=== PATIENT | female | born 1950 | race Caucasian/White ===

== ENCOUNTER 2018-08-08 06:50 | Day surgery (SDC) | payer MEDICARE, OTHER, SELFPAY ==
[2018-08-08] VITALS (20 sets, daily range): BP systolic 93–118; BP diastolic 37–86; PULSE 55–78; RESP 13–20; TEMP 36.4–37; O2SAT 96–100; BMI 41.7; BMI 42.9
[2018-08-08 07:21] LABS: Bedside Glucose 170 mg/dL (70-110)
[2018-08-08 09:21] LABS: ACT Activated Clotting Time 202 sec (74-137)
[2018-08-08] MEDS: 0.9% Normal Saline 1,000 ML 150 ML IV (10:00)
--- NOTE | 2018-08-08 10:09 | EKG12_ITS ---
Test Reason : POST PCI Blood Pressure : / mmHG Vent. Rate : 062 BPM Atrial Rate : 062 BPM P-R Int : 182 ms QRS Dur : 076 ms QT Int : 438 ms P-R-T Axes : 072 067 053 degrees QTc Int : 444 ms Sinus rhythm with Premature atrial complexes Low voltage QRS Borderline ECG No previous ECGs available Confirmed by QUETA VALLEJO, ASYA ([id number]), associate professor of musicology MAURICIO LEE ([id number] on 08/14/2018 3:50:35 PM Referred By: Adriano Clarke Confirmed By:ASYA BIRCH MD
--- NOTE | 2018-08-08 10:41 | CL.I_ITS ---
Patient Name: VANIA VASQUEZ Study Date: 08/08/2018 Performing: Adriano Clarke MD Ht: 64.17 inches 163 cm : 1950 Wt: 242.51 lbs 110 kg Age: 68 Gender: female BSA: 2.13 PROCEDURE(S) PERFORMED TT86-VED/COR/LV BA78-PCL W OR WO PTCA, SINGLE CORONARY ARTERY CLINICAL PROFILE AND CO-MORBIDITIES Indications: New Onset Angina <= 2 months, Stable Known CAD Heart Failure: None Stress/Imaging Stress Test w/SPECT MPI: Yes Result: Positive Intermediate Risk Stress Test with S PECT MPI: Positive Intermediate Risk Angina Classification Anginal Classification w/in 2 Weeks: CCS IV CAD Presentations: Unstable angina. Comorbidities/Risk Factors: Hypertension Dyslipidemia Diabetes Mellitus: Diabetes Therapy: Oral Prior PCI CONCLUSIONS Single vessel CAD of the distal LAD and LAD in stent restenosis. Successful PTCA/CATALINO distal LAD just upstream from previous CATALINO utilizing a 2.5 x 8 Promus Synergy; 75 %-->0%, no dissection. Successful angionsculpt to distal LAD ISR with a 2.0 x 12 ANGIOSCULPT at 8 jasen throughout distal LAD; 75%-->30%, no dissection; pt had similar CP symptoms during balloon inflation. RECOMMENDATIONS Referred for immediate PCI Risk factor modification Effient (Prasugrel) for at least 12 months Management as per referring Assistant Elementary Teacher Highly recommend quitting all tobacco products Follow up with primary director motion picture Risk factor modification ASA Indefinitley Plavix for at least 12 months Routine post interventional care Refer for Outpatient Cardiac Rehab Manual sheath removal per protocol Follow up with primary director motion picture Dr Lutz Pt may have similar CP for several months after angiosculpt, but if symptoms worsen or accelarate, wo uld have low threshold for additional 2.25 x 30 Promus stent to distal LAD ISR. Successful Mynx closure. DESCRIPTION OF PROCEDURE The patient arrived to the procedure lab. The risks and benefits of the procedure as well as a full d escription of our services here and lack of surgical backup were fully explained to the patient and/o r their significant other prior to the catheterization. The Timeout was completed, verifying the sheldon ect patient and procedure. The patient's procedural site was prepped and draped in the usual fashion. Local anesthetic was given subcutaneously to right groin region with Lidocaine 2%. Using a modified Seldinger technique, arterial access was obtained via the right femoral artery, a 4Fr sheath was inse rted. Left Coronary Artery selective angiography was performed in multiple views using a 4 Fr. JL5 c atheter. Right Coronary Artery selective angiography was then performed in multiple views using a 4 F r. 3DRC catheter. Left Ventriculography was performed in CHE projection using a 4 Fr. Pigtail cathete r. LV to AO pullback pressures were then recordedThe images were reviewed and options discussed. A de cision was then made to proceed with an Intervention, IVUS or other adjunct procedure. Arterial sheath was exchanged for a 6 Fr Sheath. ebu 3.75 Guide catheter was inserted and engaged int o the LCA. bmw Guide wire was advanced to the LAD. angiosculpt 2.0 x 10 Cutting balloon catheter was advanced to the lesion in the LAD, distal. angiosculpt 2.0 x 10 Cutting balloon catheter was advanced to the lesion in the LAD, distal. Angiogram performed post balloon dilatation. synergy 2.5 x 8 Ballo on catheter was advanced across lesion in the LAD, distal. Angiogram performed pre stent deployment. Angiogram performed post stent deployment. The arterial sheath was pulled and a Mynx closure device was deployed for hemostasis CORONARY ANGIOGRAPHY DOMINANCE: Right Dominant LEFT HEART ASSESSMENT Left Ventricular Ejection Fraction: by LV Gram 65 % Normal Left Ventricular systolic function LVEDP: 20 mmHg Elevated Left Ventricular End Diastolic Pressure Normal LV wall motion LEFT MAIN: Angiographically normal LEFT ANTERIOR DECENDING ARTERY: DISTAL LAD: Instent restenosis 75 %, 75 % Stenosis CIRCUMFLEX ARTERY: No significant disease noted RIGHT CORONARY ARTERY: Angiographically normal INTERVENTION INFORMATION LESION SITE: LAD (Distal) Lesion Complexity: Non-High/Non-C, lesion at bifurcation: No, thrombus present: No, lesion length: 8 mm, culprit lesion: Yes, In-stent restenosis: Yes Pre Stenosis: 75 % Pre intervention VENUS flow: 3 PROCEDURE: Cutting Balloon Angioplasty, Drug Eluting Stent Post Stenosis: 0-30 % Post intervention VENUS flow: 3 Lesion Devices: Cardinal 6F 11cm Sheath [employer] Synergy MR CATALINO 2.50x08 COMPLICATIONS No Complications PROCEDURE MEDICATIONS Oxygen: 2 L/min via nasal cannula Heparin 6000 unit(s) IV 08/08/2018 08:52:43 Nitro 200 mcg IC 08/08/2018 08:53:37 Nitro 200 mcg IC 08/08/2018 08:53:37 Nitro 200 mcg IC 08/08/2018 09:01:17 SUMMARY OF HEMODYNAMIC DATA Time AIR REST ECG 07:16:03 AO 142/64 (94) SA 08:36:08 LV 136/-13, 21 08:41:47 LV 139/-15, 20 08:41:54 LVp 144/-15, 23 08:42:17 AOp 139/58 (92) 08:42:22 Signed By Adriano Clarke MD On 08/08/2018 09:32:56 Adriano Clarke MD
[2018-08-08] MEDS: Glimepiride 4 MG Tablet PO (11:12)
[2018-08-08] MEDS: Multivitamins,Therapeutic Tablet 1 TABLET PO (11:12)
[2018-08-08] MEDS: Loratadine 10 MG Tablet PO (11:12)
[2018-08-08] MEDS: Bumetanide 2 MG Tablet PO (11:13)
[2018-08-08] MEDS: Gabapentin 300 MG Capsule PO ×2 (11:13→19:02)
[2018-08-08 11:16] LABS: Bedside Glucose 171 mg/dL (70-110)
--- NOTE | 2018-08-08 11:44 | CRPHASE1 ---
Patient Data/Charges Phase II Referral:: [facility] Start Phase II:: FOLLOWING OFFICE VISIT WITH GRAIN COMBINE DRIVER Risk Factors/Lifestyle Hx Hypertension: Yes Hx Diabetes Mellitus Type 1: No Hx Diabetes Mellitus Type 2: Yes Hx Metabolic Disorders: Yes Hx Dyslipidemia: Yes Hx Obesity: Yes Height: 5 ft 4 in - BMI 42.9 Post-Menopausal: Yes Stress: Home/Family Risk Factor for Sedentary Lifestyle: Moderate Risk Past Cardiac Illness: Coronary Artery Disease, Previous PCI w/Stent Phase I Education Given On:: [place], Nutrition, Antiplatelet medication, Diabetes - Type II Issues Affecting Care:: None Knowledge of Condition:: Yes Learning Preferences: Verbal, Written Medical/Surgical History CAD:: Yes Diabetes Type II:: Yes Hypertension:: Yes Dyslipidemia:: Yes PTCA:: Yes - PRIOR PCI Discharge/Home/Social Eval Discharge Disposition: Home Marital Status: - GOING THRU PANCREATIC CANCER
--- NOTE | 2018-08-08 11:47 | CRPHASE1_ITS ---
Patient Data/Charges Phase II Referral:: [facility] Start Phase II:: FOLLOWING OFFICE VISIT WITH MACHINE WELDER Risk Factors/Lifestyle Hx Hypertension: Yes Hx Diabetes Mellitus Type 1: No Hx Diabetes Mellitus Type 2: Yes Hx Metabolic Disorders: Yes Hx Dyslipidemia: Yes Hx Obesity: Yes Height: 5 ft 4 in - BMI 42.9 Post-Menopausal: Yes Stress: Home/Family Risk Factor for Sedentary Lifestyle: Moderate Risk Past Cardiac Illness: Coronary Artery Disease, Previous PCI w/Stent Phase I Education Given On:: [place], Nutrition, Antiplatelet medication, Diabetes - Type II Issues Affecting Care:: None Knowledge of Condition:: Yes Learning Preferences: Verbal, Written Medical/Surgical History CAD:: Yes Diabetes Type II:: Yes Hypertension:: Yes Dyslipidemia:: Yes PTCA:: Yes - PRIOR PCI Discharge/Home/Social Eval Discharge Disposition: Home Marital Status: - GOING THRU PANCREATIC CANCER
--- NOTE | 2018-08-08 11:47 | CRPH1.INSTRU ---
General Education CAD and cardiac anatomy and function:: Patient communicates acknowledgment Explanation of diagnoses and procedures:: Patient communicates acknowledgment Sign/Symptoms of CO:: Patient communicates acknowledgment Antiplatelet therapy: Patient communicates acknowledgment Proper use of NTG-SL: Not instructed Emergency procedures and activation of EMS: Patient communicates acknowledgment Compliance of all prescribed medications: Patient communicates acknowledgment Dyslipidemia Recommendations Include:: Lipid profile not available, Reviewed NCEP/ATP guidelines, Therapeutic Lifestyle Change dietary guidelines Dyslipidemia Response Code:: Patient communicates acknowledgment Overweight/Obesity Patient Overweight/Obesity Risk Factors Are:: Obesity - > or = 30 Recommendations Include:: Weight loss of 5-10%, Reduced calorie diet, Exercise 5-7 times/week Overweight/Obesity:: Patient communicates acknowledgment Hypertension Recommendations Include:: BP <130/80 if diabetic, DASH dietary guidelines, Decrease/maintain normal body weight, Moderation of ETOH Hypertension:: Patient communicates acknowledgment Heart Disease Patient Heart Disease Risk Factors Are:: Previous cardiac event Heart Disease Response Code:: Patient communicates acknowledgment Diabetes Patient Diabetes Risk Factors Are:: Elevated blood sugars Recommendations Include:: Maintain fasting blood sugars 70-110 md/dL, Maintain HgbA1c of 6% or less, Monitor blood sugar as prescribed, Diabetic dietary guidelines, Decrease/maintain body weight Diabetes:: Patient communicates acknowledgment Metabolic Syndrome Patient Metabolic Syndrome Risk Factors Are [3 of 5]:: Fasting blood sugar > 100 mg/dL, Waist circumference > 35 [female] or 40 [male], Hypertension, Low HDL <40 [male] or < 50 [female] Recommendations Include:: Reinforce compliance to risk factor modifications, Patient is diabetic, Encouraged follow-up with Primary Care Physician Metabolic Syndrome Response Code:: Patient communicates acknowledgment Sedentary Patient Sedentary Risk Factors Are:: Lack of regular exercise Recommendations Include:: Aerobic exercise 5-7 times/week for 20-30 minutes continuously, Benefits of regular exercise, Discussed home walking program, Monitored Outpatient Cardiac Rehab Sedentary Response Code:: Patient communicates acknowledgment Stress Recommendations Include:: Identification of stressors, and assessment of coping skills, Stress management techniques Stress Response Code:: Patient communicates acknowledgment - GOING THRU PANCREATIC CANCER
--- NOTE | 2018-08-08 15:51 | PCM.DC.CCA ---
Discharge Diet: Low fat/ Low Cholesterol Discharge Activity: Return to Normal Activity May shower in (days): 1 Lifting Restrictions: 10 pounds and also avoid any pushing or pulling for 3 days after your test. Additional Instructions: Keep your appt with Dr. Lutz. He will likely refer you to cardiac rehab. You will need to stay on Effient for at least 12 months prior to stopping and or holding for any reason. If anyone asks you to so this please call Dr. Shafer office prior. Allergies/Adverse Reactions: Allergies furosemide Adverse Reaction (Verified 08/07/18 14:41) Other Sulfa (Sulfonamide Antibiotics) Adverse Reaction (Verified 08/07/18 14:41) Unknown Medications to take at Discharge RX: Aspirin E.C. [Ecotrin] 81 mg PO DAILY@0800 08/07/18 RX: Atorvastatin Calcium [Lipitor] 80 mg PO QHS 08/07/18 RX: Bumetanide [Bumex] 2 mg PO DAILY 08/07/18 RX: Carvedilol [Coreg (Beta Jammie)] 12.5 mg PO BID 08/07/18 RX: Gabapentin [Neurontin] 300 mg PO TIDCM 08/07/18 RX: Glimepiride [Amaryl] 4 mg PO DAILY 08/07/18 RX: Lisinopril [Zestril] 5 mg PO DAILY 08/07/18 RX: Loratadine 10 mg PO DAILY 08/07/18 RX: Multivitamin [Multiple Vitamins] 1 each PO DAILY 08/07/18 RX: Potassium Chloride [K-Dur] 20 meq PO BID 08/07/18 RX: Prasugrel Hydrochloride [Effient] 10 mg PO DAILY 08/07/18 RX: Metformin HCl [Metformin HCl ER] 500 mg PO DAILY #0 08/09/18 Primary Care Physician: Percy Harrison MD [Primary Care Provider] - Test Results: Test results from this visit will be discussed in further detail at your follow-up appointment, if applicable. Please Follow Up With: Dimitry Lutz MD When: As Scheduled 1-2 weeks Cardiac Rehabilitation Info Cardiac Rehabilitation Program Information: Cardiac Rehabilitation is important for patients like you who are recovering from a heart problem. Cardiac rehabilitation programs are recognized as integral to the continued care of the patient with coronary heart disease. The cardiac rehabilitation program is designed to optimize a patient's physical, psychological, and social functioning. Health physician primary care sports medicine work in cardiac rehabilitation programs and assist you with getting the treatments you need to get stronger and healthier - like exercise, healthy eating habits, and medications. Cardiac rehabilitation has been show to help people with heart problems live longer and have better life enjoyment than people who do not go to cardiac rehabilitation. Please contact the Cardiac Rehabilitation Program at [facility] at in two weeks if you have not heard from them.
[2018-08-08] MEDS: Carvedilol 12.5 MG Tablet PO (21:12)
[2018-08-08] MEDS: Atorvastatin Calcium 80 MG Tablet PO (21:12)
[2018-08-08 21:30] LABS: Bedside Glucose 177 mg/dL (70-110)
[2018-08-09] VITALS (12 sets, daily range): BP systolic 94–158; BP diastolic 47–92; PULSE 59–75; RESP 15–19; TEMP 37.1; O2SAT 94–98
[2018-08-09 04:51] LABS: Hematocrit 40.6 % (37-47); Hemoglobin 13.5 g/dl (12.0-15.0); Mean Corp Hgb Conc 33.3 g/gl (32-36); Mean Corpuscular Hgb 28.8 pg (27.0-32.0); Mean Corpuscular Volume 86.8 fL (81-99); Mean Platelet Vol. 11.7 fl (6.2-12.0); Platelet Count 123 K/mm3 (150-450); RBC Distribution Width CV 13.8 % (11.6-14.6); RBC Distribution Width SD 43.6 fl (35.1-43.9); Red Blood Count 4.68 M/mm3 (4.2-5.4); White Blood Count 8.7 K/mm3 (4.4-11.0)
[2018-08-09 04:52] LABS: Scan Indicated on CBC? Y/N NO
[2018-08-09 05:16] LABS: Anion Gap 8 (5-15); BUN 16 mg/dL (7-18); BUN/Creat Ratio 22.9 RATIO (10-20); Calcium,Total 8.5 mg/dL (8.5-10.1); Chloride 106 mmol/L (98-107); Cholesterol 130 mg/dL (200); EST Glomerular Filtration Rate 88 mL/min (>60); Est Glom Filt Rate - Afr Amer 107 mL/min (>60); Estimated Creatinine Clearance 45.85 ml/min; Glucose 154 mg/dL (74-106); High Density Lipoprotein 75 mg/dL; Potassium 3.8 mmol/L (3.5-5.1); Sodium Level 142 mmol/L (136-145); Triglycerides 69 mg/dL; Very Low Density Lipoprotein 14 mg/dL (5-40)
[2018-08-09] MEDS: Gabapentin 300 MG Capsule PO (08:09)
[2018-08-09] MEDS: Aspirin E.C. 81 MG Tablet PO (08:09)
[2018-08-09] MEDS: Multivitamins,Therapeutic Tablet 1 TABLET PO (08:09)
[2018-08-09] MEDS: Glimepiride 4 MG Tablet PO (08:09)
[2018-08-09 08:16] LABS: Bedside Glucose 156 mg/dL (70-110)
--- NOTE | 2018-08-09 09:19 | PCM.PN.CARD ---
Subjectve: Patient doing well this morning. No 24-hour events. Telemetry negative. The right groin is clean/dry/intact. EKG shows normal sinus rhythm, no acute changes. Hemoglobin and creatinine within nominal limits. Objective: Vital Signs Temp Pulse Resp BP Pulse Ox 98.7 F 73 16 158/92 H 98 08/09/18 04:00 08/09/18 08:00 08/09/18 08:00 08/09/18 08:00 08/09/18 08:00 Oxygen Flow Rate (L/min) 2 Oxygen Delivery Method Room Air Weight: 249 lb 5.485 oz Body Mass Index (BMI) 42.9 Intake and Output for Last 24 Hours 08/07/18 08/08/18 08/09/18 23:59 23:59 23:59 Intake Total 1480 / 1480 720 / 720 Output Total 1485 / 1485 Balance -5 / -5 720 / 720 General: Awake, Alert, Oriented x 3 HEENT: PERRL, EOMI, Sclera Non Icteric Neck: Supple, Good ROM, No Lymph Node Enlargement Lungs: Clear to auscultation Cardiovascular: Regular Rhythm, Normal S1, Normal S2, No Murmurs, No Rubs, No Gallops Vascular: No Carotid Bruits, Normal Femoral Pulses, Normal Radial Pulses, Normal Dorsalis Pedal Pulse, Normal Posterior Tibial Pulses Abdomen: Bowel Sounds Present, Soft, Non Tender, No HSM, No Organomegaly Extremities: No Cyanosis, No Clubbing, No edema Neurological: No Focal Motor or Sensory Deficit 08/09/18 04:40: WBC 8.7, RBC 4.68, Hgb 13.5, Hct 40.6, MCV 86.8, MCH 28.8, MCHC 33.3, RDW 13.8, RDW Differential 43.6, Plt Count 123 L, MPV 11.7 08/09/18 04:40: Sodium 142, Potassium 3.8, Chloride 106, Carbon Dioxide 28.0, Anion Gap 8, BUN 16, Creatinine 0.70, Est GFR (MDRD) Af Amer 107, Est GFR (MDRD) Non-Af 88, BUN/Creatinine Ratio 22.9 H, Glucose 154 H, Calcium 8.5, Triglycerides 69, Cholesterol 130, LDL Cholesterol 41, VLDL Cholesterol 14, HDL Cholesterol 75 Rhythm: EKG: ECHO: Stress Test: Cardiac Cath: PCI: CT Surgery: Holter monitor: EPS: PPM: CXR: Chest CT Scan: Medical Necessity - Tobacco Use Smoking Status: Former smoker Assessment/Plan 1. Coronary artery disease: Patient is status post angioscope of known distal LAD in-stent restenosis, followed by additional drug-eluting stenting just upstream from her distal LAD stent. Patient's chest pain has resolved, the patient feels much better. Would recommend holding off on any additional stenting of her LAD in-stent restenosis at least for 3 months time to allow healing to take place. However if the patient has recurrent exertional anginal symptoms which are either worsening or accelerating, we can consider additional in-stent restenosis stenting of her distal LAD with an opposite drug-eluting stent such as resolute. In the meantime she will continue her aspirin, Plavix, antihypertensive medications and follow-up with Dr. Moser. She will be enrolled in cardiac rehab in 2 weeks time. 2. Patient may be discharged home. Code Visit Inpatient E&M: 79656 Subs Hosp L2
[2018-08-09] MEDS: Lisinopril 5 MG Tablet PO (09:33)
[2018-08-09] MEDS: Loratadine 10 MG Tablet PO (09:33)
[2018-08-09] MEDS: Carvedilol 12.5 MG Tablet PO (09:33)
[2018-08-09] MEDS: Bumetanide 2 MG Tablet PO (09:33)
--- NOTE | 2018-08-09 09:47 | PN.CARD_ITS ---
Objective: Vital Signs Temp Pulse Resp BP Pulse Ox 98.7 F 73 16 158/92 H 98 08/09/18 04:00 08/09/18 08:00 08/09/18 08:00 08/09/18 08:00 08/09/18 08:00 Oxygen Flow Rate (L/min) 2 Oxygen Delivery Method Room Air Weight: 249 lb 5.485 oz Body Mass Index (BMI) 42.9 Intake and Output for Last 24 Hours 08/07/18 08/08/18 08/09/18 23:59 23:59 23:59 Intake Total 1480 / 1480 720 / 720 Output Total 1485 / 1485 Balance -5 / -5 720 / 720 08/09/18 04:40: WBC 8.7, RBC 4.68, Hgb 13.5, Hct 40.6, MCV 86.8, MCH 28.8, MCHC 33.3, RDW 13.8, RDW Differential 43.6, Plt Count 123 L, MPV 11.7 08/09/18 04:40: Sodium 142, Potassium 3.8, Chloride 106, Carbon Dioxide 28.0, Anion Gap 8, BUN 16, Creatinine 0.70, Est GFR (MDRD) Af Amer 107, Est GFR (MDRD) Non-Af 88, BUN/Creatinine Ratio 22.9 H, Glucose 154 H, Calcium 8.5, Triglycerides 69, Cholesterol 130, LDL Cholesterol 41, VLDL Cholesterol 14, HDL Cholesterol 75 Rhythm: EKG: ECHO: Stress Test: Cardiac Cath: PCI: CT Surgery: Holter monitor: EPS: PPM: CXR: Chest CT Scan: Medical Necessity - Tobacco Use Smoking Status: Former smoker
--- NOTE | 2018-08-09 10:09 | EKG12_ITS ---
Test Reason : AM EKG Blood Pressure : / mmHG Vent. Rate : 065 BPM Atrial Rate : 065 BPM P-R Int : 170 ms QRS Dur : 084 ms QT Int : 418 ms P-R-T Axes : 046 058 053 degrees QTc Int : 434 ms Normal sinus rhythm Low voltage QRS Borderline ECG When compared with ECG of 08-AUG-2018 09:56, MANUAL COMPARISON REQUIRED, DATA IS UNCONFIRMED Confirmed by QUETA VALLEJO, ASYA ([id number]), supervising film or videotape editor MAURICIO LEE ([id number]) on 08/14/2018 3:49:09 PM Referred By: Adriano Clarke Confirmed By:ASYA BIRCH MD
== END 2018-08-09 10:10 | disposition home or self-care (01) ==
LOC: CLSP 06:52 → ICU 08-09 07:05
PROVIDERS: Family Provider Family Medicine; PCP Family Medicine; Referring Provider Internal Medicine Cardiovascular Disease; Visit Provider Internal Medicine Cardiovascular Disease
DX: I25.10 Atherosclerotic heart disease of native coronary artery without angina pectoris (principal); T82.858A Stenosis of other vascular prosthetic devices, implants and grafts, initial encounter; I10 Essential (primary) hypertension; E78.5 Hyperlipidemia, unspecified; E11.9 Type 2 diabetes mellitus without complications; Z95.5 Presence of coronary angioplasty implant and graft; Z87.891 Personal history of nicotine dependence
CPT/HCPCS: 80048; 80061; 82962; 85027; 85347; 92928; 93005; 93458; C1760; J7030; J7040; C1725; C1769; C1874; C1887; C1894; C9600; Q9967

== ENCOUNTER 2018-09-12 05:43 | Emergency (ER) | payer MEDICARE, OTHER, SELFPAY ==
[2018-09-12 05:44] VITALS: BP 140/70; PULSE 93; RESP 16; TEMP 38.3; O2SAT 96; BMI 42.9
[2018-09-12] MEDS: Acetaminophen 500 MG Tablet 1000 MG PO (06:01)
[2018-09-12] MEDS: Azithromycin 250 MG Tablet 500 MG PO (06:01)
--- NOTE | 2018-09-12 06:02 | ED.DCSUM_ITS ---
- ER Visit Summary Date of Service: 09/12/18 Chief Complaint: Cough congestion History of Present Illness: The patient is a 68 F with cough and congestion for the past 3 days. Her iPhone caden told her she had a fever. She has no shortness of breath, cough is mostly nonproductive. She has upper airway congestion. No chest pain no rash no urinary symptoms. She has no neck pain or headache. Physical Examination: Patient does not appear in distress, she is not toxic. Moist mucous membranes, she has upper airway congestion and postnasal drip. No C-spine tenderness supple neck. Regular rate and rhythm without any obvious murmurs Clear lungs bilaterally, some bronchial breath sounds and a productive cough, speaking in full sentences without any obvious respiratory distress Abdomen soft and nontender no guarding or rebound Moves all extremities without any difficulty or pain. Skin does not show any obvious rashes or lesions, no trauma. Alert oriented ?3 with no gross focal deficit Emergency Department Course and Treatment: Patient likely has bronchitis, however she has a fever thus I am worried about progression to pneumonia. I will treat with antibiotics to prevent this for her safety. She received her influenza vaccination thus I am not worried about influenza, influenza has only been sporadic in this area. She understands that if she worsens she needs to return at this time there are no signs or symptoms of any other infection other than upper respiratory infection. Discharge stable condition Impression: Acute bronchitis This note was generated with [employer] dictation software. It may contain incorrect words, spelling, and punctuation that were not noted in review of the chart prior to signing ED Disposition - Plan for ED Patient: Disposition: Home or Assisted Living Chief Complaint: Fever Instructions: Acute Bronchitis Prescriptions: Azithromycin 250 mg PO DAILY #4 tab Referrals: Percy Harrison MD [Primary Care Provider] - 2 Days
[2018-09-12 06:13] VITALS: BP 140/70; PULSE 93; RESP 16; O2SAT 93
== END 2018-09-12 06:14 | disposition home or self-care (01) ==
PROVIDERS: Emergency Provider Emergency Medicine; Family Provider Family Medicine; PCP Family Medicine
DX: J20.9 Acute bronchitis, unspecified (principal); E11.9 Type 2 diabetes mellitus without complications; I10 Essential (primary) hypertension; E78.00 Pure hypercholesterolemia, unspecified; I25.10 Atherosclerotic heart disease of native coronary artery without angina pectoris
CPT/HCPCS: 99283

== ENCOUNTER 2019-05-27 10:05 | Emergency (ER) | payer MEDICARE, OTHER, SELFPAY ==
[2019-05-27 10:06] VITALS: BP 159/76; PULSE 64; RESP 18; TEMP 37.1; O2SAT 100; BMI 44.3
--- NOTE | 2019-05-27 10:15 | RAD_ITS ---
STUDY: X-RAY - LEFT SHOULDER REASON FOR EXAM: Female, 69 years old. Pain, decreased range of motion TECHNIQUE: 4 view(s) of the shoulder. COMPARISON: None. FINDINGS: There is an acute slightly impacted fracture of the surgical neck of the humerus with soft tissue swelling. There is mild degenerative arthrosis of the glenohumeral articulation. There is degenerative arthrosis of the acromioclavicular joint without inferior osseous spur formation. Normal acromion. The soft tissue structures are otherwise unremarkable. Normal visualized pulmonary apex. RAD/Shoulder min 2 Views IMPRESSION: Acute slightly impacted fracture at the surgical neck of the humerus with soft tissue swelling Electronically Signed: Andre Bolaños MD at 11:10 EDT , Service support ,
--- NOTE | 2019-05-27 10:22 | ED.VIS.UPPEX ---
History of Present Illness Chief Complaint: Upper Extremity Injury Informant: Patient Occurred: Today Mechanism/Context: Fall Onset: Today, Hours Context: Sudden Onset Timing: Continuous Quality of Pain: Dull, Aching Current Severity: Mild Maximum Severity: Severe Worsened by: Any attempt of movement Relieved by: Holding left upper extremity internally rotated and adductor at the shoulde Associated Symptoms: Loss of Funtion. Negative for: Parasthesia, Weakness Narrative: Patient states she was walking out of her doctor's appointment. She tripped. She landed on her left upper extremity. She states her arm was jammed. She complains of pain left shoulder. She is right-handed. She denies paresthesia, anesthesia buttocks. Denies head trauma. She states it hurts to breathe. She denies shortness of breath. Tetanus Immunization: 5-10 years Prior similar symptoms: No Recent Illness/Hospitalization: No - Past Medical History (1) Atherosclerotic heart disease of [place] coronary artery without angina pectoris Status: Chronic Past Medical History - Allergies and Home Meds Allergies/Adverse Reactions: Allergies furosemide Adverse Reaction (Verified 09/12/18 05:49) Other Sulfa (Sulfonamide Antibiotics) Adverse Reaction (Verified 09/12/18 05:49) Unknown Primary Care Physician: Percy Harrison MD [Primary Care Provider] - Prior records reviewed: Yes Past Medical History: - - Hypertension, hypercholesterolemia and type 2 diabetes Surgical History: noncontributory Lives: Spouse/ Significant Other Smoking Status: Never smoker Alcohol: None Drugs: None Review of Systems Eyes: Denies: Visual changes - bilaterally, Blurred Vision - bilaterally, Diplopia ENT: Reports: - - Negative epistaxis. Denies: Bilateral ear pain, Rhinorrhea, Sore throat Cardiovascular: Denies: Chest pain, Palpitations, Heart racing Respiratory: Denies: Dyspnea, Cough, Dyspnea on exertion Gastrointestinal: Denies: Abdominal pain, Nausea, Vomiting Musculoskeletal: Reports: Back pain - With deep breathing, Extremity Pain. Denies: Myalgias, Arthralgias, Neck pain, Swelling Skin: Denies: Rash, Abrasions, Wounds Neurological: Denies: Headache, Weakness, Parasthesia, Numbness Hematologic: Denies: Easy bruising, Easy bleeding Physical Exam Vital Signs/Narrative: Vital Signs Temp Pulse Resp BP Pulse Ox 05/27/19 10:06 98.7 F 64 18 159/76 H 100 Inital Vital Signs reviewed: Yes Right Shoulder: Negative for: Abrasion, Contusion, Deformity, Edema, Hematoma, Limited ROM, - Left Shoulder: Limited ROM - There is pain palpation over the proximal humerus. The glenoid fossa is not empty.. Negative for: Abrasion, Contusion, Deformity Right Humerus: Negative for: Abrasion, Contusion, Deformity, Edema, Hematoma, Limited ROM, - Left Humerus: Limited ROM. Negative for: Abrasion, Contusion, Deformity, Edema, Hematoma, - Right Elbow: Negative for: Abrasion, Contusion, Deformity, Edema, Hematoma, Limited ROM, - Left Elbow: - - No pain the patient over the lateral or medial malleolus. There is no pain no patient over the olecranon process. There is no pain to palpation over the radial head.. Negative for: Abrasion, Contusion, Deformity, Edema, Hematoma, Limited ROM Right Wrist: Negative for: Abrasion, Contusion, Deformity, Edema, Hematoma, Limited ROM, - Left Wrist: Negative for: Abrasion, Contusion, Deformity, Edema, Hematoma, Limited ROM, - Right Hand: Negative for: Abrasion, Contusion, Deformity, Limited ROM Left Hand: Negative for: Abrasion, Contusion, Deformity, Edema, Hematoma, Limited ROM, - General: Well nourished, Well developed Head: Normocephalic, Atraumatic. Negative for: Trauma, Tenderness Eyes: Perrl, EOMI. Negative for: Pale conjunctiva, Scleral icterus, - ENT: No Trauma, Moist Mucous Membranes, - - There is no CSF otorrhea or rhinorrhea. Neck: Nontender, Full ROM. Negative for: Spinal Tenderness, Paraspinal Tenderness Cardiovascular: Regular rate, Regular rhythm, No murmurs, Normal S1, Normal S2 Respiratory: No distress, CTA bilaterally, Chest nontender Skin: Normal color, No rash, No Trauma Neurological: Alert, Oriented x3, Cranial nerves II-XII grossly intact, Normal Strength, Normal Sensation, - - Axillary, median, radial and ulnar function intact. Psychological: Normal affect Diagnostic/Tx/Re-eval Chest X-Ray - ED: Read by ED Physician, - - Three-view x-ray of the left shoulder interpreted by me at 1105 reveals a proximal left humeral fracture at the surgical neck. There is no displacement or angulation. 05/27/19 10:15 Shoulder min 2 Views [RAD] Stat - Medical Decision Making Patient's history and physical exam is concerning for proximal humeral fracture. X-ray was obtained to evaluate for fracture versus dislocation versus contusion. IV was established and she was medicated with IV morphine for her discomfort. Patient was treated with sling and swath, opiate analgesia and referred to orthopedics. ED Disposition - Plan for ED Patient: Disposition: Home or Assisted Living Diagnosis: Nondisplaced fracture of proximal end of humerus Instructions: FRACTURE, Shoulder Prescriptions: Oxycodone HCl/Acetaminophen [Percocet 5/325] 1 tablet PO Q6H PRN PRN 5 Days #20 tablet PRN Reason: Left shoulder pain Transmission Status: Received by [id number] Referrals: Percy Harrison MD [Primary Care Provider] - Ruddy Baez DO [STAFF PHYSICIAN] - 5-7 Days Additional Instructions: Your prescription was sent to designated pharmacy on [address]
[2019-05-27] MEDS: Morphine 4 MG/ML Syringe IV (10:25)
== END 2019-05-27 11:45 | disposition home or self-care (01) ==
PROVIDERS: Emergency Provider Emergency Medicine; Family Provider Family Medicine; PCP Family Medicine
DX: S42.215A Unspecified nondisplaced fracture of surgical neck of left humerus, initial encounter for closed fracture (principal); W01.0XXA Fall on same level from slipping, tripping and stumbling without subsequent striking against object, initial encounter; Y93.89 Activity, other specified; Y92.531 Health care provider office as the place of occurrence of the external cause; Y99.8 Other external cause status; I25.10 Atherosclerotic heart disease of native coronary artery without angina pectoris; Z88.8 Allergy status to other drugs, medicaments and biological substances; Z88.2 Allergy status to sulfonamides; I10 Essential (primary) hypertension; E78.00 Pure hypercholesterolemia, unspecified; E11.9 Type 2 diabetes mellitus without complications
CPT/HCPCS: 73030; 96374; 99285; A4216

== ENCOUNTER → 2019-06-02 08:53 | Outpatient (CLI) | payer MEDICARE, OTHER, SELFPAY ==
[2019-06-02 08:44] VITALS: BMI 44.3
--- NOTE | 2019-06-02 09:09 | RAD_ITS ---
STUDY: X-RAY - LEFT SHOULDER REASON FOR EXAM: Female, 69 years old. Fracture TECHNIQUE: 4 view(s) of the shoulder. COMPARISON: May 27, 2019 FINDINGS: There is a slightly displaced fracture involving the greater tuberosity of the proximal humerus. The glenohumeral articulation is maintained. Electronically Signed: Bruce Messer MD at 4:31 EDT Tel , Service support , RAD/Shoulder min 2 Views
== END ==
PROVIDERS: Family Provider Family Medicine; PCP Family Medicine; Referring Provider Orthopaedic Surgery; Visit Provider Orthopaedic Surgery
DX: S49.92XA Unspecified injury of left shoulder and upper arm, initial encounter (principal)
CPT/HCPCS: 73030

== ENCOUNTER 2019-06-12 12:05 | Observation (INO) | payer MEDICARE, OTHER, SELFPAY ==
[2019-06-02 08:44] VITALS: BMI 44.3
[2019-06-12] VITALS (9 sets, daily range): BP systolic 104–145; BP diastolic 54–75; PULSE 56–69; RESP 14–22; TEMP 36.7–37.1; O2SAT 9–100; BMI 44.2; BMI 43.2
--- NOTE | 2019-06-12 12:08 | EKG12_ITS ---
Test Reason : Blood Pressure : / mmHG Vent. Rate : 060 BPM Atrial Rate : 060 BPM P-R Int : 180 ms QRS Dur : 082 ms QT Int : 432 ms P-R-T Axes : 044 022 031 degrees QTc Int : 432 ms Normal sinus rhythm Low voltage QRS Borderline ECG Confirmed by NAYELY VALLEJO, CAL ([id number]), supervising film or videotape editor MAURICIO LEE ([id number] on 06/13/2019 9:02:00 AM Referred By: CONG Confirmed By:CAL ADLER MD
--- NOTE | 2019-06-12 12:08 | RAD_ITS ---
STUDY: X-RAY CHEST REASON FOR EXAM: Female, 69 years old. Chest pain TECHNIQUE: Single AP portable view of the chest. COMPARISON: None. FINDINGS: The lungs are clear and expanded. There is no demonstrated pleural abnormality. Normal size heart. Normal mediastinum and hector. Normal visualized pulmonary arteries. Normal visualized aortic arch and descending thoracic aorta. Normal visualized thoracic spine. Acute fracture left humeral neck as seen on recent shoulder x-rays. There is no demonstrated abnormality of the visualized soft tissue structures of the upper abdomen. RAD/Chest 1 View (Portable) IMPRESSION: Normal x-ray examination of the chest. Electronically Signed: Seth Masterson MD at 12:36 EDT Tel , Service support ,
--- NOTE | 2019-06-12 12:14 | ED.VIS.GEN ---
History of Present Illness Chief Complaint: Chest Pain Informant: Patient Onset: Days Current Severity: Mild Narrative: History of 2 cardiac stents, reports she is been having intermittent chest pressure for weeks it intensified today with the chest pressure lasted longer, she indicates she fell about a week or 2 ago suffering a fracture to the left shoulder she is wearing a sling and swath she was walking to a drugstore and the chest pain intensified that resolved spontaneously she came in for evaluation. She has no history of DVT PE no fever no cough no abdominal pain she did not injure her chest when she fell Past Medical History - Allergies and Home Meds Allergies/Adverse Reactions: Allergies furosemide Adverse Reaction (Verified 09/12/18 05:49) Other Sulfa (Sulfonamide Antibiotics) Adverse Reaction (Verified 09/12/18 05:49) Unknown Primary Care Physician: Percy Harrison MD [Primary Care Provider] - Past Medical History: - - CAD 2 stents Surgical History: noncontributory Smoking Status: Never smoker Review of Systems General: Denies: Chills, Fever, Sweats Eyes: Denies: Visual changes - bilaterally, Diplopia ENT: Denies: Rhinorrhea, Sore throat Cardiovascular: Reports: Chest pain. Denies: Palpitations Respiratory: Denies: Dyspnea, Cough, Dyspnea on exertion Gastrointestinal: Denies: Abdominal pain, Nausea, Vomiting, Diarrhea, Melena, Hematochezia Genitourinary: Denies: Dysuria, Hematuria, Frequency Musculoskeletal: Reports: Extremity Pain. Denies: Back pain Skin: Denies: Rash, Wounds Neurological: Denies: Headache, Weakness, Numbness Physical Exam Vital Signs/Narrative: Vital Signs Temp Pulse Resp BP Pulse Ox 06/12/19 12:06 98.1 F 69 14 145/69 H 9 General: Well nourished, Well developed, No Acute Distress Head: Normocephalic, Atraumatic Eyes: Perrl, EOMI ENT: Moist mucous membranes, No rhinorrhea Neck: Supple, Nontender Cardiovascular: Regular rate, Regular rhythm, No murmurs, - - Very distant heart tones, chest wall is not tender Respiratory: No distress, CTA bilaterally, Chest nontender Abdomen: Soft, Nontender, Nondistended, Normal bowel sounds Back: Nontender, Normal Inspection Extremities: Nontender, No edema, - - Sling and swath is in place hand function is normal Skin: Normal color, No rash Neurological: Alert, Oriented x3, Cranial nerves II-XII grossly intact, Normal Strength, Normal Sensation Psychological: Normal affect, Normal Mood Diagnostic/Tx/Re-eval - Medical Decision Making EKG shows a sinus rhythm nothing acute her vital signs are unremarkable she is resting comfortably but currently asymptomatic given all of the above and her history screening labs appropriate treatment will discuss with hospitalist for admission Patient's EKG shows a sinus rhythm rate of about 6570 no acute injury pattern appreciated, screening labs are all generally unremarkable as is chest x-ray she remains asymptomatic given her age given the progressive nature of the chest pain I spoke the hospitalist they will be seeing her for admission Admit stable Final impression Chest pain history of cardiac stents ED Disposition - Plan for ED Patient: Diagnosis: Chest pain due to coronary artery disease Referrals: Percy Harrison MD [Primary Care Provider] -
[2019-06-12] MEDS: Aspirin 81 MG TAB.CHEW 324 MG PO (12:25)
[2019-06-12 12:50] LABS: Absolute Lymphocyte Count 2.15 X10^3/uL (0.83-4.51); Absolute Neutrophil Count 4.2 X10^3/uL (2.0-7.7); Basophil# 0.04 X10^3/uL; Basophil% 0.6 % (0-1); Eosinophil# 0.27 X10^3/uL; Eosinophils% 3.8 % (0-5); Hematocrit 37.8 % (37-47); Hemoglobin 12.5 g/dL (12.0-15.0); Lymphocyte # 2.15 X10^3/ul (4.0); Lymphocyte % 29.9 % (19-41); Mean Corp Hgb Conc 33.1 g/dL (32-36); Mean Corpuscular Hgb 28.8 pg (27.0-32.0); Mean Corpuscular Volume 87.1 fL (81-99); Mean Platelet Vol. 10.7 fl (6.2-12.0); Monocyte# 0.56 X10^3/uL; Monocyte% 7.8 % (0-10); NRBC Flagged by Analyzer 0 % (0-5); Neutrophil # 4.17 X10^3/uL (2.7-7.7); Neutrophil % 57.8 % (47-70); Platelet Count 202 K/mm3 (150-450); RBC Distribution Width CV 13.1 % (11.6-14.6); RBC Distribution Width SD 41.9 fl (35.1-43.9); Red Blood Count 4.34 M/mm3 (4.2-5.4); White Blood Count 7.2 K/mm3 (4.4-11.0)
[2019-06-12 13:05] LABS: Anion Gap 4 (5-15); BUN 20 mg/dL (7-18); BUN/Creat Ratio 25.5 RATIO (10-20); Chloride 105 mmol/L (98-107); Creatinine, Serum 0.78 mg/dL (0.55-1.02); EST Glomerular Filtration Rate 77 mL/min (>60); Est Glom Filt Rate - Afr Amer 93 mL/min (>60); Glucose 238 mg/dL (74-106); Potassium 4.1 mmol/L (3.5-5.1); Sodium Level 140 mmol/L (136-145)
--- NOTE | 2019-06-12 14:02 | HP.PCM_ITS ---
History of Present Illness Date of Admission: 06/12/19 Chief Complaint: chest pain The patient is a 69 year old F with past medical history which includes CAD status post stents in 2018. She was admitted through the ED on 06/12/2019 with a complaint of pressure-like chest pain which she rated at about 5/10. It was left-sided and radiated up to her neck. She had no associated shortness of breath, headache or palpitations or dizziness. Chest pain had no aggravating or relieving factors. Of note, patient began about 2 to 3 weeks ago after mechanical fall and left upper extremity is in a sling. Examination in the ED, vitals were stable. CBC and BMP were unremarkable initial troponin was negative. Chest x-ray showed no acute cardiopulmonary process. EKG showed no acute ST changes. She has been admitted to manage for chest pain to rule out ACS. [] Past Medical History Past Medical History (Chronic Problems): Chronic Problems (Last Updated 08/08/18 @ 14:50 by Randa Peter) Atherosclerotic heart disease of [place] coronary artery without angina pectoris (Chronic) Stented coronary artery (Chronic 08/08/18) CATALINO to distal LAD just upstream from previously placed CATALINO (2.5 X 8mm Promus Synergy); Successful Angiosculpt to distal LAD ISR with Medical History: Medical History (Last Updated 08/08/18 @ 15:19 by Randa Peter) Atherosclerotic heart disease of [place] coronary artery without angina pectoris (Chronic) I25.10 Allergies furosemide Adverse Reaction (Verified 09/12/18 05:49) Other Sulfa (Sulfonamide Antibiotics) Adverse Reaction (Verified 09/12/18 05:49) Unknown Home Medications: Ambulatory Orders Medication Instructions Recorded Aspirin E.C. [Ecotrin] 81 mg PO DAILY@0800 08/07/18 Atorvastatin Calcium [Lipitor] 80 mg PO QHS 08/07/18 Bumetanide [Bumex] 2 mg PO DAILY 08/07/18 Carvedilol [Coreg (Beta Jammie)] 6.25 mg PO BID 08/07/18 Gabapentin [Neurontin] 300 mg PO DAILY 08/07/18 Glimepiride [Amaryl] 8 mg PO DAILY 08/07/18 Lisinopril [Zestril] 5 mg PO DAILY 08/07/18 Multivitamin [Multiple Vitamins] 1 ea PO DAILY 08/07/18 Potassium Chloride [K-Dur] 40 meq PO BID 08/07/18 Prasugrel Hydrochloride [Effient] 10 mg PO DAILY 08/07/18 Dulaglutide [Trulicity] 1.5 mg PO MO 06/12/19 Gabapentin [Neurontin] 900 mg PO QHS 06/12/19 Hydrocodone/Acetaminophen [[place] 1 tab PO Q4H PRN PRN 06/12/19 5-325 Tablet] Loratadine 10 mg PO DAILY 06/12/19 Metformin HCl [Metformin ER 500 mg PO DAILY 06/12/19 Gastric] Surgical History: Surgical History (Last Updated 08/08/18 @ 14:50 by Randa Peter) Stented coronary artery (Chronic) Onset Date: 08/08/18 Z95.5 CATALINO to distal LAD just upstream from previously placed CATALINO (2.5 X 8mm Promus Synergy); Successful Angiosculpt to distal LAD ISR with Surgical History: noncontributory Psychiatric History: No pertinent psych hx Lives: With Family Smoking Status: Never smoker Alcohol: None Drugs: None - *Family History Maternal History Items: No pertinent history Review of Systems Constitutional: Denies: Chills, Fever, Malaise, Weakness, Weight Change Eyes: Denies: Blurred vision HEENT: Denies: Head Aches, Sinus Congestion, Sinus Drainage Cardiovascular: Reports: Chest Pain, Chest Pressure. Denies: Chest Tightness, Edema, Heaviness, Light Headedness, Orthopnea, Palpitations, Syncope Respiratory: Denies: Cough, Shortness of Breath, Shortness of breath at rest, Shortness of breath upon exertion, Sputum production Gastrointestinal: Denies: Abdominal Pain, Nausea, Vomiting Genitourinary: Denies: Dysuria Musculoskeletal: Denies: Joint Pain, Joint Tenderness Skin: Denies: Rash, Wounds Neurological: Denies: Numbness, Tingling, Focal weakness Psychiatric: Denies: Anxiety, Depression, Homicidal Ideations, Suicidal Ideations Hematologic/ Lymphatic: Denies: Easy Bruising, Easy Bleeding VTE Information - Inpt Only VTE Present on Admission: No VTE Pharm Prophylaxis ordered?: Yes - Physical Exam General: Alert, Oriented x3, Cooperative, No apparent distress HEENT: Atraumatic, PERRLA, EOMI, Normocephalic Oral: Moist Mucosa, No Gingival or Mucosal Lesions/ Ulcerations Neck: Supple, No JVD, Negative Carotid Bruits Lungs: Clear to auscultation, Normal air movement, No rhonchi, No wheeze, No rales Cardiovascular: Regular rate, Regular Rhythm, Normal S1, Normal S2, No murmurs Abdomen: Bowel Sounds Present, Soft, Non Tender, Non-Distended, No Hepato- splenomegaly Extremities: No clubbing, No cyanosis, No edema, Capillary Refill Less than 3 Seconds Skin: No rashes, No breakdown Musculoskeletal: No Muscle Wasting, - - LUE in sling Lymphatic: No Cervical, Supraclavicular, or Inguinal Adenopathy Neurological: Cranial nerves II-XII grossly intact Psych/Mental Status: Normal Affect, Appropriate, Alert and oriented to time, place, person, mood and affect Vital Signs Temp Pulse Resp BP Pulse Ox 98.1 F 69 14 145/69 H 97 06/12/19 12:06 06/12/19 12:06 06/12/19 12:06 06/12/19 12:06 06/12/19 12:08 Oxygen Delivery Method Room Air Weight: 257 lb 15.053 oz Body Mass Index (BMI) 44.2 Laboratory Tests Past 24 Hrs 06/12/19 06/12/19 12:37 12:37 WBC 7.2 RBC 4.34 Hgb 12.5 Hct 37.8 MCV 87.1 MCH 28.8 MCHC 33.1 RDW Std Deviation 41.9 RDW Coeff of [place]re[place] 13.1 Plt Count 202 MPV 10.7 Immature Gran % (Auto) 0.100 Neut % (Auto) 57.8 Lymph % (Auto) 29.9 Branch % (Auto) 7.8 Eos % (Auto) 3.8 Baso % (Auto) 0.6 Absolute Neuts (auto) 4.2 Absolute Lymphs (auto) 2.15 Nucleated RBC % 0 Sodium 140 Potassium 4.1 Chloride 105 Carbon Dioxide 31.0 Anion Gap 4 L BUN 20 H Creatinine 0.78 Estim Creat Clear Calc 45.20 Est GFR (MDRD) Af Amer 93 Est GFR (MDRD) Non-Af 77 BUN/Creatinine Ratio 25.5 H Glucose 238 H Calcium 9.0 Troponin I < 0.015 Diagnostic Data Chest X-Ray 06/12/19 12:08 IMPRESSION: Normal x-ray examination of the chest. Electronically Signed: Seth Masterson MD at 12:36 EDT Tel , Service support , Assessment/Plan 69-year-old female admitted with a complaint of left-sided chest pain. 1. Chest pain to rule out ACS * Admit to PCU telemetry * Initial troponin negative. Cycle troponin II more times. * Sublingual nitroglycerin as needed. Continue aspirin 81 mg daily. * If troponins are negative, for stress test tomorrow. * 2. CAD status post stents: * Last stent was in August 2018; * had known distal LAD in stent restenosis and angioscope, adn additional CATALINO just upstream from her distal LAD stent. * On aspirin, prasugrel, statin and carvedilol. * per cardiology notes from August 2018, if she had recurrent exertional anginal symptoms, could consider additional instent restenosis of her distal LAD. 3. Diabetes mellitus type 2: On metformin and glimepiride. Insulin sliding scale. Accu-Cheks before meals at bedtime. 3. Hyperlipidemia: On statin. 4. Heart failure: EF unknown. No echo in records. On Bumex 2 mg daily and carvedilol. Request records from [facility] as she used to follow Ehsan Kurtz. 5. Hypertension: On lisinopril and carvedilol. DVT prophylaxis: lovenox Code Visit Inpatient E&M: 42647 Init Hosp L3 OBSV E&M: 33888 Initial observation care L3
--- NOTE | 2019-06-12 15:29 | EKG12_ITS ---
Test Reason : CP Blood Pressure : / mmHG Vent. Rate : 065 BPM Atrial Rate : 065 BPM P-R Int : 196 ms QRS Dur : 068 ms QT Int : 406 ms P-R-T Axes : 045 038 049 degrees QTc Int : 422 ms Normal sinus rhythm Low voltage QRS Septal infarct , age undetermined Abnormal ECG Confirmed by NICK LO ([id number]), tape editor DALLAS THOMAS ([id number]) on 06/16/2019 1:22:27 PM Referred By: AISSATOU Confirmed By:NICK LO
[2019-06-12] MEDS: Insulin Lispro 100 UNIT/ML INSULN.PEN SC ×2 (17:13→20:59)
[2019-06-12 17:15] LABS: Bedside Glucose 151 mg/dL (70-110)
[2019-06-12] MEDS: Gabapentin 300 MG Capsule 900 MG PO (20:58)
[2019-06-12] MEDS: Carvedilol 6.25 MG Tablet PO (20:59)
[2019-06-12] MEDS: Atorvastatin Calcium 80 MG Tablet PO (20:59)
[2019-06-12] MEDS: Senna/Docusate Sodium 1 Tablet 2 TABLET PO (21:22)
[2019-06-12 21:50] LABS: Bedside Glucose 168 mg/dL (70-110)
[2019-06-12] MEDS: HYDROcodone Bitartrate/Apap 5/325 Tablet PO (23:24)
[2019-06-13 02:45] VITALS: BP 124/59; PULSE 67; RESP 16; TEMP 37; O2SAT 93
[2019-06-13 03:04] VITALS: PULSE 72
[2019-06-13 05:51] LABS: Absolute Lymphocyte Count 3.15 X10^3/uL (0.83-4.51); Absolute Neutrophil Count 4.6 X10^3/uL (2.0-7.7); Basophil# 0.05 X10^3/uL; Basophil% 0.6 % (0-1); Eosinophil# 0.31 X10^3/uL; Eosinophils% 3.5 % (0-5); Hematocrit 40.2 % (37-47); Hemoglobin 13.1 g/dL (12.0-15.0); Lymphocyte # 3.15 X10^3/ul (4.0); Lymphocyte % 35.8 % (19-41); Mean Corp Hgb Conc 32.6 g/dL (32-36); Mean Corpuscular Hgb 28.5 pg (27.0-32.0); Mean Corpuscular Volume 87.4 fL (81-99); Mean Platelet Vol. 10.6 fl (6.2-12.0); Monocyte# 0.67 X10^3/uL; Monocyte% 7.6 % (0-10); NRBC Flagged by Analyzer 0 % (0-5); Neutrophil % 52.3 % (47-70); Platelet Count 213 K/mm3 (150-450); RBC Distribution Width CV 13.3 % (11.6-14.6); RBC Distribution Width SD 42.5 fl (35.1-43.9); White Blood Count 8.8 K/mm3 (4.4-11.0)
--- NOTE | 2019-06-13 05:55 | EKG12_ITS ---
Test Reason : AM EKG Blood Pressure : / mmHG Vent. Rate : 068 BPM Atrial Rate : 068 BPM P-R Int : 144 ms QRS Dur : 074 ms QT Int : 414 ms P-R-T Axes : 004 046 040 degrees QTc Int : 440 ms Normal sinus rhythm Low voltage QRS Borderline ECG When compared with ECG of 12-JUN-2019 15:17, MANUAL COMPARISON REQUIRED, DATA IS UNCONFIRMED Confirmed by NICK LO ([id number]), video editor DALLAS THOMAS ([id number]) on 06/19/2019 3:00:26 PM Referred By: Ruddy Baez Confirmed By:NICK LO
[2019-06-13 06:09] LABS: Anion Gap 4 (5-15); BUN 21 mg/dL (7-18); Calcium,Total 9.1 mg/dL (8.5-10.1); Chloride 106 mmol/L (98-107); Creatinine, Serum 0.78 mg/dL (0.55-1.02); EST Glomerular Filtration Rate 78 mL/min (>60); Est Glom Filt Rate - Afr Amer 94 mL/min (>60); Glucose 133 mg/dL (74-106); Potassium 4.2 mmol/L (3.5-5.1); Sodium Level 141 mmol/L (136-145)
[2019-06-13 06:13] VITALS: BP 131/67; PULSE 62; RESP 16; TEMP 36.8; O2SAT 95
[2019-06-13] MEDS: Lisinopril 5 MG Tablet PO (06:18)
[2019-06-13] MEDS: Aspirin E.C. 81 MG Tablet PO (06:18)
[2019-06-13 06:31] LABS: Bedside Glucose 130 mg/dL (70-110)
--- NOTE | 2019-06-13 09:02 | STRESSREP_ITS ---
Stress Test Report Date: 06-13-19 Procedure: Pharmacologic stress nuclear imaging study Indications: Chest pain; CAD; PCI Consent: Per the patient Procedure: The patient underwent pharmacologic (Regadenoson) evaluation with a peak heart rate of 91 beats per minute (60 %predicted maximal heart rate) and a peak blood pressure of 188/62 mmHg. The baseline ECG demonstrated normal sinus rhythm. The peak pharmacologic ECG demonstrated no obvious ECG changes. There were no cardiac dysrhythmias pretest, during pharmacologic infusion, or recovery. There was no complaint of chest discomfort during pharmacologic infusion or recovery. The examination was discontinued secondary to completion of protocol. Impression: 1. Pharmacologic (Regadenoson) evaluation 2. Peak pharmacologic ECG with no obvious ECG changes. 3. There were no cardiac dysrhythmias pretest, during pharmacologic infusion, or recovery. 4. Nuclear images pending Myocardial perfusion imaging study: Technique: The patient was injected with 15.0 millicuries of technetium 99m Cardiolite and subsequently rest SPECT Cardiolite nuclear imaging was obtained in the horizontal long, vertical long, and short axis views. The patient underwent pharmacologic (Regadenoson) evaluation with a peak heart rate of 91 beats per minute (60 % percent predicted maximal heart rate) and a peak blood pressure of 188/62 mmHg. The patient was injected with 45.0 millicuries of technetium 99m Cardiolite and subsequently stress SPECT Cardiolite nuclear imaging was obtained in the horizontal long, vertical long, and short axis views. A gated Cardiolite study at peak stress was obtained. Interpretation: Rest and stress SPECT Cardiolite nuclear imaging status post realignment and normalization (attenuation correction not performed) demonstrate relative uniform tracer uptake and myocardial perfusion appearing within normal limits. There is end systolic thickening and brightening. The gated Cardiolite study demonstrates myocardial thickening and inward wall motion. The reported LVEF is 76 %. Impression: 1. Rest and stress SPECT Cardiolite nuclear imaging demonstrate relative unifo rm tracer uptake and myocardial perfusion appearing within normal limits. 2. The gated Cardiolite study reports an LVEF of 76 %. This note was generated with [employer] software. It may contain incorrect words, spelling, and punctuation that were not noted in checking the note before signing.
[2019-06-13] MEDS: Multivitamins,Therapeutic Tablet 1 TABLET PO (09:10)
[2019-06-13] MEDS: Carvedilol 6.25 MG Tablet PO (09:10)
[2019-06-13] MEDS: Loratadine 10 MG Tablet PO (09:11)
[2019-06-13] MEDS: Gabapentin 300 MG Capsule PO (09:11)
[2019-06-13] MEDS: Glimepiride 4 MG Tablet 8 MG PO (09:11)
[2019-06-13] MEDS: HYDROcodone Bitartrate/Apap 5/325 Tablet PO (09:11)
[2019-06-13 09:31] VITALS: PULSE 71
--- NOTE | 2019-06-13 10:24 | PCM.DC ---
- Discharge Diagnoses Current Active Problems: Current Active and Chronic Problems (Last Updated 08/08/18 @ 15:19 by Randa Peter) Chest pain due to coronary artery disease (Acute) You will use the following diet at home:: Calorie/Carbohydrate Controlled (specify 1200, 1400, etc), Cardiac Your food should be the consistency of: Regular Your liquids should be the consistency of: Regular/Thin Discharge Activity: Return to Normal Activity Additional Instructions: Continue to take all your medications. Follow-up with your primary care doctor within 2 weeks. Continue to follow-up with your orthopedic team as scheduled. Allergies/Adverse Reactions: Allergies furosemide Adverse Reaction (Verified 09/12/18 05:49) Other Sulfa (Sulfonamide Antibiotics) Adverse Reaction (Verified 09/12/18 05:49) Unknown Medications to take at Discharge Aspirin E.C. [Ecotrin] 81 mg PO DAILY@0800 08/07/18 Atorvastatin Calcium [Lipitor] 80 mg PO QHS 08/07/18 Bumetanide [Bumex] 2 mg PO DAILY 08/07/18 Carvedilol [Coreg (Beta Jammie)] 6.25 mg PO BID 08/07/18 Gabapentin [Neurontin] 300 mg PO DAILY 08/07/18 Glimepiride [Amaryl] 8 mg PO DAILY 08/07/18 Lisinopril [Zestril] 5 mg PO DAILY 08/07/18 Multivitamin [Multiple Vitamins] 1 ea PO DAILY 08/07/18 Potassium Chloride [K-Dur] 40 meq PO BID 08/07/18 Prasugrel Hydrochloride [Effient] 10 mg PO DAILY 08/07/18 Dulaglutide [Trulicity] 1.5 mg PO MO 06/12/19 Gabapentin [Neurontin] 900 mg PO QHS 06/12/19 Hydrocodone/Acetaminophen [[place] 5-325 Tablet] 1 tab PO Q4H PRN PRN 06/12/19 Loratadine 10 mg PO DAILY 06/12/19 Metformin HCl [Metformin ER Gastric] 500 mg PO DAILY 06/12/19 Primary Care Physician: Percy Harrison MD [Primary Care Provider] - Please follow up with your Primary Care Physician in: within 2 weeks Test Results: Test results from this visit will be discussed in further detail at your follow-up appointment, if applicable. Proposed Discharge Date: 06/13/19
--- NOTE | 2019-06-13 10:25 | PCM.DC.SUM ---
Discharge Date and Diagnosis Date of Admission: 06/12/19 Date of Discharge: 06/13/19 - Primary Discharge Diagnosis Active and Suspected Problems (Last Updated 08/08/18 @ 15:19 by Randa Peter) Chest pain, ACS ruled out - Secondary Discharge Diagnosis Chronic Problems (Last Updated 08/08/18 @ 14:50 by Randa Peter) Atherosclerotic heart disease of [place] coronary artery without angina pectoris (Chronic) Stented coronary artery (Chronic 08/08/18) CATALINO to distal LAD just upstream from previously placed CATALINO (2.5 X 8mm Promus Synergy); Successful Angiosculpt to distal LAD ISR with Hospital Course and Treatment Imaging Results: 06/13/19 05:55 Nuclear Stress Test - Chemical [NM] AM (NON MEDS) Clinical Impression(s) from Imaging Studies Chest X-Ray 06/12/19 12:08 IMPRESSION: Normal x-ray examination of the chest. Electronically Signed: Seth Masterson MD at 12:36 EDT Tel , Service support , None Operations: None Procedures: Stress test Summary of Care Provided: The patient is a 69 year old F with past medical history of CAD status post stents, type II DM, hypertension, hyperlipidemia who comes in with complaints of chest pain. Pain was described as left-sided, radiating up her neck. Denied any aggravating or relieving factors. She has history of left shoulder fracture is in a sling. Patient admitting EKG showed no acute ST-T changes. She was admitted to telemetry floor with no acute events overnight. She underwent stress test that was negative. She has a follow-up with orthopedics on Sunday. Subjective: On the day of discharge, patient was seen and examined. Denied any new complaints. No more chest pain. Review of systems was negative. Objective: Physical Exam General: Alert, Oriented x3, Cooperative, No apparent distress HEENT: Atraumatic, PERRLA, EOMI, Normocephalic Oral: Moist Mucosa, No Gingival or Mucosal Lesions/ Ulcerations Neck: Supple, No JVD, Negative Carotid Bruits Lungs: Clear to auscultation, Normal air movement, No rhonchi, No wheeze, No rales Cardiovascular: Regular rate, Regular Rhythm, Normal S1, Normal S2, No murmurs Abdomen: Bowel Sounds Present, Soft, Non Tender, Non-Distended, No Hepato-splenomegaly Extremities: No clubbing, No cyanosis, No edema, Capillary Refill Less than 3 Seconds Skin: No rashes, No breakdown Musculoskeletal: No Muscle Wasting, - - LUE in sling Lymphatic: No Cervical, Supraclavicular, or Inguinal Adenopathy Neurological: Cranial nerves II-XII grossly intact Psych/Mental Status: Normal Affect, Appropriate, Alert and oriented to time, place, person, mood and affect - Physical Exam Vital Signs Temp Pulse Resp BP Pulse Ox 98.3 F 71 16 131/67 H 95 06/13/19 06:13 06/13/19 09:31 06/13/19 06:13 06/13/19 06:13 06/13/19 06:13 Oxygen Delivery Method Room Air Weight: 114.85 kg Body Mass Index (BMI) 43.2 Intake and Output for Last 24 Hours 06/11/19 06/12/19 06/13/19 23:59 23:59 23:59 Intake Total 590 / 590 Balance 590 / 590 Laboratory Tests Past 24 Hrs 06/12/19 06/12/19 06/12/19 12:37 12:37 15:50 WBC 7.2 RBC 4.34 Hgb 12.5 Hct 37.8 MCV 87.1 MCH 28.8 MCHC 33.1 RDW Std Deviation 41.9 RDW Coeff of Contreras 13.1 Plt Count 202 MPV 10.7 Immature Gran % (Auto) 0.100 Neut % (Auto) 57.8 Lymph % (Auto) 29.9 Sanders % (Auto) 7.8 Eos % (Auto) 3.8 Baso % (Auto) 0.6 Absolute Neuts (auto) 4.2 Absolute Lymphs (auto) 2.15 Nucleated RBC % 0 Sodium 140 Potassium 4.1 Chloride 105 Carbon Dioxide 31.0 Anion Gap 4 L BUN 20 H Creatinine 0.78 Estim Creat Clear Calc 45.20 Est GFR (MDRD) Af Amer 93 Est GFR (MDRD) Non-Af 77 BUN/Creatinine Ratio 25.5 H Glucose 238 H Calcium 9.0 Troponin I < 0.015 < 0.015 06/12/19 06/13/19 06/13/19 18:25 05:33 05:33 WBC 8.8 RBC 4.60 Hgb 13.1 Hct 40.2 MCV 87.4 MCH 28.5 MCHC 32.6 RDW Std Deviation 42.5 RDW Coeff of Contreras 13.3 Plt Count 213 MPV 10.6 Immature Gran % (Auto) 0.200 Neut % (Auto) 52.3 Lymph % (Auto) 35.8 Sanders % (Auto) 7.6 Eos % (Auto) 3.5 Baso % (Auto) 0.6 Absolute Neuts (auto) 4.6 Absolute Lymphs (auto) 3.15 Nucleated RBC % 0 Sodium 141 Potassium 4.2 Chloride 106 Carbon Dioxide 31.0 Anion Gap 4 L BUN 21 H Creatinine 0.78 Estim Creat Clear Calc 45.20 Est GFR (MDRD) Af Amer 94 Est GFR (MDRD) Non-Af 78 BUN/Creatinine Ratio 27.0 H Glucose 133 H Calcium 9.1 Troponin I < 0.015 POC Glucose 06/13/19 06/12/19 06/12/19 06:17 20:57 17:08 POC Glucose 130 H 168 H 151 H Discharge Diet: Low fat/ Low Cholesterol, 2000 mg Sodium Diet, Carb Control Diet Discharge Activity: Return to Normal Activity Weight Bearing Status: Weight bearing as tolerated Home Medications: Medications to take at Discharge Aspirin E.C. [Ecotrin] 81 mg PO DAILY@0800 08/07/18 Atorvastatin Calcium [Lipitor] 80 mg PO QHS 08/07/18 Bumetanide [Bumex] 2 mg PO DAILY 08/07/18 Carvedilol [Coreg (Beta Jammie)] 6.25 mg PO BID 08/07/18 Gabapentin [Neurontin] 300 mg PO DAILY 08/07/18 Glimepiride [Amaryl] 8 mg PO DAILY 08/07/18 Lisinopril [Zestril] 5 mg PO DAILY 08/07/18 Multivitamin [Multiple Vitamins] 1 ea PO DAILY 08/07/18 Potassium Chloride [K-Dur] 40 meq PO BID 08/07/18 Prasugrel Hydrochloride [Effient] 10 mg PO DAILY 08/07/18 Dulaglutide [Trulicity] 1.5 mg PO MO 06/12/19 Gabapentin [Neurontin] 900 mg PO QHS 06/12/19 Hydrocodone/Acetaminophen [[place] 5-325 Tablet] 1 tab PO Q4H PRN PRN 06/12/19 Loratadine 10 mg PO DAILY 06/12/19 Metformin HCl [Metformin ER Gastric] 500 mg PO DAILY 06/12/19 Primary Care Physician: Percy Harrison MD [Primary Care Provider] - Please follow up with your Primary Care Physician in: within 2 weeks Disposition: Home Minutes spent on discharge:: 40 Medical Necessity - Tobacco Use Smoking Status: Former smoker Meaningful Use Info Meaningful Use Diagnoses (Choose all that apply): None applicable Code Visit OBSV E&M: 17445 Observation care discharge
--- NOTE | 2019-06-13 10:58 | CASEMGMT ---
As per admitting RN, pt has LW/POA but is not able to bring in the documents at this time. Pt informed admitting RN that David Bowman is POA. VICTOR HUGO Avina
== END 2019-06-13 10:07 | disposition home or self-care (01) ==
LOC: ED 12:36 → PCU 14:12
PROVIDERS: Admitting Provider Student in an Organized Health Care Education/Training Program; Emergency Provider Emergency Medicine; Family Provider Family Medicine; PCP Family Medicine; Visit Provider Internal Medicine
DX: R07.89 Other chest pain (principal); I25.10 Atherosclerotic heart disease of native coronary artery without angina pectoris; I11.0 Hypertensive heart disease with heart failure; E11.9 Type 2 diabetes mellitus without complications; E78.5 Hyperlipidemia, unspecified; I50.9 Heart failure, unspecified; Z95.5 Presence of coronary angioplasty implant and graft; Z79.899 Other long term (current) drug therapy; Z79.82 Long term (current) use of aspirin; Z79.84 Long term (current) use of oral hypoglycemic drugs; Z79.02 Long term (current) use of antithrombotics/antiplatelets
CPT/HCPCS: 36415; 71045; 78452; 80048; 82962; 84484; 85025; 93005; 93017; 99218; 99285; A9500; A4216; G0378; J2785

== ENCOUNTER 2019-06-14 15:11 | Emergency (ER) | payer MEDICARE, OTHER, SELFPAY ==
[2019-06-12 14:27] VITALS: BMI 43.2
[2019-06-14 15:13] VITALS: BP 131/76; PULSE 62; RESP 16; TEMP 36.8; O2SAT 100; BMI 44.2
--- NOTE | 2019-06-14 15:15 | ED.RN ---
PURE WICK PLACED.
--- NOTE | 2019-06-14 15:27 | EKG12_ITS ---
Test Reason : DIZZINESS Blood Pressure : / mmHG Vent. Rate : 067 BPM Atrial Rate : 067 BPM P-R Int : 176 ms QRS Dur : 084 ms QT Int : 434 ms P-R-T Axes : 062 042 042 degrees QTc Int : 458 ms Normal sinus rhythm Normal ECG Confirmed by NAYELY VALLEJO, CAL ([id number]), newspaper or periodical editor MAURICIO LEE ([id number] on 06/16/2019 1:39:39 PM Referred By: AP Confirmed By:CAL ADLER MD
--- NOTE | 2019-06-14 15:27 | CT_ITS ---
STUDY: CT BRAIN WITHOUT CONTRAST REASON FOR EXAM: Female, 69 years old. Dizziness, nausea RADIATION DOSAGE (If Supplied By Facility): CTDIvol = ( 44.99 ) mGy, DLP = ( 796.11 ) mGycm TECHNIQUE: Transaxial CT imaging of the brain was performed without administration of intravenous contrast material. Individualized dose optimization techniques were used for this CT. COMPARISON: No relevant priors. FINDINGS: Normal soft tissue structures. Normal calvarium. There is mild cerebral atrophy with widening of the extra-axial spaces and ventricular dilatation. There are areas of decreased attenuation within the white matter tracts of the supratentorial brain, consistent with microvascular disease changes. Normal basal ganglia and thalami. Normal brainstem. Normal cerebellum. There is no intracranial hemorrhage. There are no findings of an acute ischemic infarction. There is mucoperiosteal inflammatory disease of the paranasal sinuses consistent with mild chronic sinusitis. CT/Brain/Head without Contrast IMPRESSION: Atrophy. No evidence of acute hemorrhage infarct or edema. Chronic ethmoid sinusitis. Electronically Signed: Adelaida Martin MD at 16:43 EDT Tel , Service support ,
[2019-06-14 15:45] LABS: Absolute Lymphocyte Count 2.24 X10^3/uL (0.83-4.51); Absolute Neutrophil Count 4.8 X10^3/uL (2.0-7.7); Basophil# 0.03 X10^3/uL; Basophil% 0.4 % (0-1); Eosinophil# 0.22 X10^3/uL; Eosinophils% 2.8 % (0-5); Lymphocyte # 2.24 X10^3/ul (4.0); Lymphocyte % 28.1 % (19-41); Mean Corp Hgb Conc 33.3 g/dL (32-36); Mean Corpuscular Hgb 28.6 pg (27.0-32.0); Mean Corpuscular Volume 85.7 fL (81-99); Monocyte# 0.64 X10^3/uL; NRBC Flagged by Analyzer 0 % (0-5); Neutrophil # 4.82 X10^3/uL (2.7-7.7); Neutrophil % 60.4 % (47-70); Platelet Count 196 K/mm3 (150-450); Red Blood Count 4.55 M/mm3 (4.2-5.4)
[2019-06-14] MEDS: Ondansetron 4 MG/2 ML Vial IV (15:48)
[2019-06-14] MEDS: Meclizine HCl 25 MG Tablet PO (15:48)
[2019-06-14 15:58] LABS: ALB/GLOB Ratio 0.9 RATIO (0.9-2.4); AST(SGOT) 37 U/L (15-37); Alanine Aminotransfer ALT/SGPT 46 U/L (13-56); Albumin, Serum 3.1 g/dL (3.2-5.0); Alkaline Phosphatase 170 U/L (45-117); Anion Gap 5 (5-15); BUN 14 mg/dL (7-18); BUN/Creat Ratio 17.9 RATIO (10-20); Calcium,Total 8.6 mg/dL (8.5-10.1); Chloride 106 mmol/L (98-107); Creatinine, Serum 0.78 mg/dL (0.55-1.02); EST Glomerular Filtration Rate 77 mL/min (>60); Est Glom Filt Rate - Afr Amer 93 mL/min (>60); Globulin 3.3 g/dL (2.2-4.2); Glucose 248 mg/dL (74-106); Potassium 4.2 mmol/L (3.5-5.1); Protein, Total 6.4 g/dL (6.4-8.2); Sodium Level 137 mmol/L (136-145)
--- NOTE | 2019-06-14 16:00 | RAD_ITS ---
STUDY: X-RAY CHEST REASON FOR EXAM: Female, 69 years old. Sudden onset, dizziness nausea TECHNIQUE: Single AP portable view of the chest. COMPARISON: June 12, 2019 chest x-ray FINDINGS: The lungs are clear and expanded. There is no demonstrated pleural abnormality. Normal size heart. Normal mediastinum and hector. Normal visualized pulmonary arteries. Normal visualized aortic arch and descending thoracic aorta. There are diffuse degenerative changes of the visualized thoracic spine. Normal visualized ribs, clavicles, and shoulders. There is no demonstrated abnormality of the visualized soft tissue structures of the upper abdomen. RAD/Chest 1 View (Portable) IMPRESSION: Degenerative changes, as described above. No demonstrated acute cardiopulmonary process. Electronically Signed: Adelaida Martin MD at 16:20 EDT Tel , Service support ,
--- NOTE | 2019-06-14 16:08 | ED.VIS.GEN ---
History of Present Illness Informant: Patient, Family, Significant Other Onset: Today Context: Sudden Onset Timing: Continuous Quality: Room spinning Location: head Current Severity: Severe Maximum Severity: Severe Worsened by: Movement Relieved by: Rest with eyes closed Associated Symptoms: Nausea and vomiting Narrative: 69-year-old female presents with dizziness. Just after eating dinner the patient began to have a sudden onset of room spinning sensation nausea and vomiting x1. No tinnitus. No visual changes. No headache or neck pain. No falls or trauma. No use of blood thinners. No history of vertigo. No upper respiratory symptoms. Recently admitted this past week for chest pain and had a nuclear stress test. She does have a history of coronary artery disease. She has not had any diarrhea. No symptoms of bleeding. Prior similar symptoms: No Recent Illness/Hospitalization: Yes <Kiran Iraheta - Last Filed: 06/14/19 18:00> <Dario Peter - Last Filed: 06/15/19 00:28> Chief Complaint: Dizziness Past Medical History Past Medical History: - - Coronary artery disease Surgical History: - - Cardiac catheterization with stents Lives: With Family Smoking Status: Former smoker - Family History Maternal Family History: Reports: No pertinent history <Kiran Iraheta - Last Filed: 06/14/19 18:00> <Dario Peter - Last Filed: 06/15/19 00:28> - Allergies and Home Meds Allergies/Adverse Reactions: Allergies furosemide Adverse Reaction (Verified 06/14/19 15:12) Other Sulfa (Sulfonamide Antibiotics) Adverse Reaction (Verified 06/14/19 15:12) Unknown Primary Care Physician: Adriano Clarke MD [STAFF PHYSICIAN] - Percy Harrison MD [Primary Care Provider] - Review of Systems All systems negative except as indicated General: Denies: Chills, Fever Eyes: Denies: Visual changes - left, Visual changes - right Gastrointestinal: Reports: Nausea, Vomiting Neurological: Reports: - - Dizziness. Denies: Headache, Weakness, Parasthesia, Numbness <Kiran Iraheta - Last Filed: 06/14/19 18:00> Physical Exam Vital Signs/Narrative: Vital Signs Temp Pulse Resp BP Pulse Ox 06/14/19 15:13 98.2 F 62 16 131/76 H 100 Inital Vital Signs reviewed: Yes General: Well nourished, Well developed, No Acute Distress Head: Normocephalic, Atraumatic Eyes: Perrl, EOMI ENT: Moist mucous membranes, TM's clear Neck: Supple, Nontender Cardiovascular: Regular rate, Regular rhythm Respiratory: No distress, CTA bilaterally, Chest nontender Abdomen: Soft, Nontender, Nondistended, Normal bowel sounds, No masses Back: Nontender Extremities: Nontender, No edema Skin: Normal color, No rash Neurological: Alert, Oriented x3, Cranial nerves II-XII grossly intact, Normal Strength, Normal Sensation Psychological: Normal affect <Kiran Iraheta - Last Filed: 06/14/19 18:00> Diagnostic/Tx/Re-eval Chest X-Ray - ED: 1 View, Read by ED Physician, Read by Radiologist, Unchanged, No Acute Disease - Rhythm Strip Rhythm Strip: Sinus Rhythm Rate: 66 Ectopy: None - EKG Initial EKG Interpretation: Sinus Rhythm, No Acute Injury Pattern Prior: Unchanged - Medical Decision Making On arrival the patient was complaining of dizziness, no chest pain, her EKG showed no acute ischemic change. She was given IV fluids, IV Zofran and oral meclizine. Laboratory work-up including a CBC BMP and troponin unremarkable. Urinalysis negative. Chest x-ray was unremarkable as was her CT brain On repeat evaluation the patient feels much improved. She is able to ambulate on her own normally without difficulty. She is tolerating by mouth. She was requesting discharge. Will prescribe meclizine for home. Advised to follow-up with her primary care physician or return here to the emergency department for worsening symptoms which were discussed. <Kiran Iraheta - Last Filed: 06/14/19 18:00> - Medical Decision Making Patient was seen with me. I did a [id number] evaluation of the patient. Patient presents with dizziness that began today. Patient describes the dizziness as a spinning sensation. Patient states this is worse when she opens her eyes. Patient admits to some nausea and vomiting with this. Patient denies any hearing changes or tinnitus. Patient denies any headaches. Vital signs are stable. Patient is afebrile. Patient is in no acute distress. Pupils are equal, round, and reactive to light bilaterally. Oral mucosa is pink and moist. Neck is supple. Trachea is midline. There is no JVD noted. Heart was regular rate and rhythm. Lungs are clear and equal bilaterally. Abdomen is soft and nontender. Cranial nerves II through XII are intact. There are no focal motor or sensory deficits noted. EKG showed normal sinus rhythm. There are no acute ST or T wave changes. CT scan of the brain was obtained and was negative. CBC, basic metabolic profile, troponin were obtained and were normal. Urinalysis does not show any evidence of urinary tract infection. Patient was given IV fluids, Zofran, and meclizine. Patient felt better on reevaluation. This is consistent with positional vertigo. Patient was given a prescription for meclizine for home. Patient was instructed to follow-up with her primary care physician in 5 to 7 days for further evaluation. Patient understood and was agreeable with the plan. All questions were answered. <Dario Peter - Last Filed: 06/15/19 00:28> ED Disposition <Kiran Iraheta - Last Filed: 06/14/19 18:00> <Dario Peter - Last Filed: 06/15/19 00:28> - Plan for ED Patient: Disposition: Home or Assisted Living Diagnosis: Dizziness Instructions: Benign Positional Vertigo Prescriptions: Meclizine HCl 25 mg PO TID PRN #20 tab PRN Reason: Dizziness Prescription Printed Referrals: Percy Harrison MD [Primary Care Provider] - Adriano Clarke MD [STAFF PHYSICIAN] -
[2019-06-14 17:30] VITALS: BP 109/67; O2SAT 95
[2019-06-14 17:54] LABS: Bacteria 0 SEEN /hpf (None Seen); Color, Urine Yellow (Yellow); Glucose, Dipstick 1000 mg/dl (Normal); Ketone-Dipstick Negative (Negative); Leukocyte Esterase-Dipstick Negative /ul (Negative); Mucous, Urine 0 SEEN /hpf (<or=2+); Nitrite-Dipstick Negative (Negative); Occult Blood-Urine Negative /ul (Negative); Protein-Dipstick Negative (Negative); Red Blood Cells-Urine 0 SEEN /hpf (0-5); Urine Bilirubin Dipstick Negative (Negative); Urine Clarity Clear (Clear); Urine Urobilinogen Normal (Normal); Urine pH 6.5 (5.0 - 8.0); White Blood Cells 0 SEEN /hpf (0-5)
[2019-06-14 18:00] LABS: Squamous Epithelial Cells - UA 0-5 SEEN /hpf (5-10)
[2019-06-14 18:07] VITALS: BP 134/88; O2SAT 99
== END 2019-06-14 18:28 | disposition home or self-care (01) ==
PROVIDERS: Emergency Provider Physician Assistant Medical; Family Provider Family Medicine; PCP Family Medicine
DX: R42 Dizziness and giddiness (principal); I25.10 Atherosclerotic heart disease of native coronary artery without angina pectoris; Z88.2 Allergy status to sulfonamides; Z87.891 Personal history of nicotine dependence; R11.2 Nausea with vomiting, unspecified; R07.9 Chest pain, unspecified; Z95.5 Presence of coronary angioplasty implant and graft
CPT/HCPCS: 70450; 71045; 80053; 81001; 84484; 85025; 93005; 99285; J7030; A4216; J2405

== ENCOUNTER → 2019-06-16 11:08 | Outpatient (CLI) | payer MEDICARE, OTHER, SELFPAY ==
[2019-06-16 07:51] VITALS: BMI 44.2
--- NOTE | 2019-06-16 11:09 | RAD_ITS ---
STUDY: X-RAY - LEFT SHOULDER REASON FOR EXAM: Female, 69 years old. Follow-up fracture. TECHNIQUE: 3 view(s) of the shoulder. COMPARISON: 06/02/2019 radiographs. FINDINGS: No significant change in alignment of the mildly impacted left humeral surgical neck fracture. The fracture lines remain visible. No new fractures are evident. Glenohumeral and acromioclavicular alignment maintained. RAD/Shoulder min 2 Views IMPRESSION: No significant change in alignment of the mildly impacted left humeral surgical neck fracture. Electronically Signed: Jose Lee, at 20:38 EDT Tel , Service support ,
== END ==
PROVIDERS: Family Provider Family Medicine; PCP Family Medicine; Referring Provider Orthopaedic Surgery; Visit Provider Orthopaedic Surgery
DX: S42.302A Unspecified fracture of shaft of humerus, left arm, initial encounter for closed fracture (principal)
CPT/HCPCS: 73030

== ENCOUNTER → 2019-07-09 08:43 | Outpatient (CLI) | payer MEDICARE, OTHER, SELFPAY ==
[2019-07-09 07:46] VITALS: BMI 43.7
--- NOTE | 2019-07-09 08:44 | RAD_ITS ---
STUDY: X-RAY - LEFT SHOULDER REASON FOR EXAM: Female, 69 years old. Fracture TECHNIQUE: 4 view(s) of the shoulder. COMPARISON: 06/16/2019 FINDINGS: There is a stable mildly impacted fracture of the surgical neck of the left humerus. There has been no significant interval healing. There is no new fracture. There is no dislocation. There are stable degenerative changes. RAD/Shoulder min 2 Views IMPRESSION: Stable exam. Electronically Signed: Mike Holm, at 21:14 EDT Tel , Service support ,
== END ==
PROVIDERS: Family Provider Family Medicine; PCP Family Medicine; Referring Provider Orthopaedic Surgery; Visit Provider Orthopaedic Surgery
DX: S42.209A Unspecified fracture of upper end of unspecified humerus, initial encounter for closed fracture (principal)
CPT/HCPCS: 73030

== ENCOUNTER → 2019-07-16 13:19 | Outpatient (CLI) | payer MEDICARE, OTHER, SELFPAY ==
[2019-06-27 13:12] VITALS: BMI 43.7
[2019-07-09 07:46] VITALS: BMI 43.7
--- NOTE | 2019-07-16 13:23 | ECHOCS_ITS ---
Reason For Study: ASHD Procedure This was a 2D Doppler, Color Flow transthoracic echocardiogram. The study was technically difficult. PT unable to lie in left latral decubitus position due to left shoulder Fx. Exam performed supine. Contrast injection was performed. Exam performed in department. Left Ventricle Normal size and thickness. The estimated ejection fraction is 65 %. Stage 1 diastolic dysfunction. No regional wall motion abnormalities noted. Right Ventricle Normal size and thickness. Normal systolic function. Atria The left atrium is mildly enlarged. Normal right atrium. Normal atrial septum. Mitral Valve The mitral valve is structurally normal. No prolapse or stenosis seen. Tricuspid Valve Normal tricuspid valve. Unable to estimate RV systolic pressure due to insufficient tricuspid regurgitant envelope. Aortic Valve Normal aortic valve. Trisinus/trileaflet aortic valve. Pulmonic Valve The pulmonic valve is not well visualized. Great Vessels Normal aortic root. Normal arch. Normal inferior vena cava. Inferior vena cava collapse with sniff. Pericardium/Pleural No pericardial effusion. Medication 22 gauge I.V. with prn adaptor inserted into right arm. Diluted definity 5.0ml given slow IV push to enhance endocardial definition. MMode/2D Measurements & Calculations LVIDd: 4.3 cm IVSd: 1.0 cm Ao root diam: 3.1 cm LVIDs: 2.9 cm LVPWd: 1.00 cm RVDd: 3.4 cm FS: 32.4 % LAV(MOD-bp): 68.3 ml EDV(MOD-sp4): 63.9 ml EDV(MOD-sp2): 59.6 ml LAV(MOD-bp) Indexed: 31.5 ml/m2 ESV(MOD-sp4): 26.9 ml EF(MOD-sp2): 64.7 % LAV(MOD-sp2): 70.5 ml EF(MOD-sp4): 57.9 % LAV(MOD-sp4): 65.9 ml SV(MOD-sp4): 37.0 ml SV(MOD-sp2): 38.6 ml LA A4 area: 22.9 cm2 LA dimension(2D): 3.4 cm Time Measurements MV dec time: 0.23 sec Doppler Measurements & Calculations MV E max ezequiel: 96.2 cm/sec Lat Peak E' Ezequiel: 8.7 cm/sec Med Peak E' Ezequiel: 7.6 cm/sec MV A max ezequiel: 108.5 cm/sec E/E' lat: 11.0 E/E' med: 12.6 MV E/A: 0.89 Ao V2 max: 140.3 cm/sec LV V1 max: 101.7 cm/sec PA V2 max: 70.5 cm/sec Ao max P.1 mmHg LV V1 max P.1 mmHg Interpretation Summary The estimated ejection fraction is 65 %. Stage 1 diastolic dysfunction. Unable to estimate RV systolic pressure due to insufficient tricuspid regurgitant envelope. The study was technically difficult. Contrast injection was performed. There is no comparison study available. Ordering Physician: Adriano Clarke Referring Physician: Percy Harrison Performed By: Gauri Back RDCS, RVT
== END ==
PROVIDERS: Family Provider Family Medicine; PCP Family Medicine; Referring Provider Internal Medicine Cardiovascular Disease; Visit Provider Internal Medicine Cardiovascular Disease
DX: I25.10 Atherosclerotic heart disease of native coronary artery without angina pectoris (principal); R42 Dizziness and giddiness; Z95.5 Presence of coronary angioplasty implant and graft
CPT/HCPCS: 93306; Q9957; A4216; C8929

== ENCOUNTER 2019-10-21 08:00 | Outpatient (RCR) | payer MEDICARE, OTHER, SELFPAY ==
[2019-06-16 07:51] VITALS: BMI 44.2
--- NOTE | 2019-06-24 11:49 | HP.PTEVAL_ITS ---
Patient's Visit Information VANIA VASQUEZ is a 69 year old F referred to Physical Therapy by Ruddy Baez DO with a diagnosis of FRACTURE OF PROXIMAL LEFT HUMERUS. Date of Evaluation: 06/24/19 Physical Therapist: Juan Ramon Carrion, PT, Cert MDT, OCS - Visit Plan Frequency: 2x /Week Duration: 8 WKS Plan: PATEINT HAS HUMERAL SURGICAL NECK FRACTURE MIN DISPLACED. PT INTERVENTIONS TO INCLUDE PROM/AAROM/AROM AST MARGARET ,MHP/CP,MANUAL THERAPY AND STRENGTHENING PER MD - Subjective Findings: This 69 y/o female presents to physical therapy with fx proximal left humerus Patient fell at [facility] in [place] toe got on floor landed with left arm outstretched caused severe pain. DOI May 27 2019. Patint ER WC showed left greater surgical neck fx . Patient was placed in sling. Recommended to see DR Dewey showed surgerical neck fx . Continue with slong recmmended PT. Patient pain lateral deltoid as ache. Denies parathesia/tingling. Pateint is limmited with ADL'S ,self hygine and housework tasks and OH activities. Pateint surgical neck humerus fx affects QOL.Patient plans to see MD next week. - Pain Left Shoulder Pain Intensity (Out of 10): 2 Pain Intensity Range: 10 - Objective POSTURE: mild foward posture ,sling intact. PALAPTION: global tender. NEURO: intact ,denies parathesia/tingling. PROM: shoulder flexion 85 degrees,88 degrees ,ER 20 degrees,IR 45 degrees. elbow flexion 10-112 flexion ,difficulty with supination 75 degrees. MMT: NT - Goals Goal 1:: Independant with HEP Goal Time Frame: 8-12 Weeks Goal 2:: Patient increase AROM shoulder flexion,abd 140 degtees ,ER 75 degrees and reach behind back to improve ADLS' Goal Time Frame: 8-12 Weeks Goal 3:: Pateint to increase strength of RIGHT shoulder 3+/5 and RTC 4-/5 to improve function and ADLS Goal Time Frame: 8-12 Weeks Goal 4:: Pateint to improve quick DASH by 5-10 points to improve QOL. Goal Time Frame: 8-12 Weeks Goal 5:: Patient to improve ADLS' and housework tasks with min limiations Goal Time Frame: 8-12 Weeks - Rehabilitation Potential Physical Therapy Diagnosis: This patient fell May 27 sustained left min displace humeral fracture with pain ,decrease ROM ,strength impairs function with ADL'S avtivities and housework tasks thus benifit from skilled PT Rehabilitation Potential: Good - Anticipated Interventions Patient/Client Instruction: Educate patient on: Condition, Plan of Care For the Purpose of:: To decrease pain, To increase ROM, To improve muscle performance and motor function, To improve ability to perform ADL's, To increase tolerance to activity/condition/position, To improve performance and independence with ADL's, To improve ability of physical actions for home/community/work/leisure, To improve health of tissue, To decrease soft tissue restriction, To increase flexibility/ROM, To reduce risk of recurrence, To improve ability to perform tasks related to life management Therapeutic Exercise to Include: Strength training, Postural training, Passive ROM, Active ROM Comment: STRENGHTENING PER MD For the Purpose of:: To decrease pain, To increase ROM, To improve muscle performance and motor function, To increase tolerance to activity/condition/position, To improve ability of physical actions for home/community/work/leisure, To improve health of tissue, To decrease soft tissue restriction, To increase flexibility/ROM, To improve ability to perform tasks related to life management Manual Therapy Techniques to Include: Mobilization, Passive ROM Comment: SHOULDER For the Purpose of:: To decrease pain, To increase ROM, To improve nutrient delivery to tissue, To increase oxygenation perfusion, To improve health of tissue, To decrease soft tissue restriction Cryotherapy (ice pack, ice massage): Yes Thermo therapy (hot pack): Yes For the Purpose of:: To decrease pain, To improve nutrient delivery to tissue, To increase oxygenation perfusion Thank you for the opportunity to evaluate your patient. For Medicare and Medicare HMO plans, please review the plan of care and approve it. It will need to be FAXED BACK to us at [phone] for Medicare purposes. For Medicare only, by signing this I certify the plan of care. Please let me know if there are questions or concerns regarding this plan of care. Physician Signatur e: Date:
--- NOTE | 2019-07-22 07:43 | HP.PTREVAL_ITS ---
Ruddy Baez, DO, It has been my pleasure to treat VANIA VASQUEZ over the last 8 visits for FRACTURE OF PROXIMAL LEFT HUMERUS. Please see the progress note below for an update on the physical therapy plan of care! Subjective: Seen DR b[place] to continue with PT weakness of RTC goes along with FX Objective/Function: POSTURE: rounded shoulders head foward ,guarded postion. PROM: shoulder flexion 125 degrees,abd in scapation 130 degrees ER 25. MMT: NT,ELBOW BICEP/TRICEP 3+/5 Plan Plan: PATEINT HAS HUMERAL SURGICAL NECK FRACTURE MIN DISPLACED. CONT WITH POC 2XWK FOR 4WKSPT INTERVENTIONS TO INCLUDE PROM/AAROM/AROM AST MARGARET ,MHP/CP,MANUAL THERAPY AND STRENGTHENING PER MD Goals Goal 1:: Independant with HEP Goal Time Frame: 8-12 Weeks Goal Progress: Progressing Goal 2:: Patient increase AROM shoulder flexion,abd 140 degtees ,ER 75 degrees and reach behind back to improve ADLS' Goal Time Frame: 8-12 Weeks Goal Progress: Progressing Goal 3:: Pateint to increase strength of RIGHT shoulder 3+/5 and RTC 4-/5 to improve function and ADLS Goal Time Frame: 8-12 Weeks Goal Progress: Progressing Goal 4:: Pateint to improve quick DASH by 5-10 points to improve QOL. Goal Time Frame: 8-12 Weeks Goal Progress: Progressing Goal 5:: Patient to improve ADLS' and housework tasks with min limiations Goal Time Frame: 8-12 Weeks Anticipated Interventions Patient/Client Instruction: Educate patient on: Condition, Plan of Care For the Purpose of:: To decrease pain, To increase ROM, To improve muscle performance and motor function, To improve ability to perform ADL's, To increase tolerance to activity/condition/position, To improve performance and ind ependence with ADL's, To improve ability of physical actions for home/community/work/leisure, To improve health of tissue, To decrease soft tissue restriction, To increase flexibility/ROM, To reduce risk of recurrence, To improve ability to perform tasks related to life management Therapeutic Exercise to Include: Strength training, Postural training, Passive ROM, Active ROM Comment: STRENGHTENING PER MD For the Purpose of:: To decrease pain, To increase ROM, To improve muscle performance and motor function, To increase tolerance to activity/condition/position, To improve ability of physical actions for home/community/work/leisure, To improve health of tissue, To decrease soft tissue restriction, To increase flexibility/ROM, To improve ability to perform tasks related to life management Manual Therapy Techniques to Include: Mobilization, Passive ROM Comment: SHOULDER For the Purpose of:: To decrease pain, To increase ROM, To improve nutrient delivery to tissue, To increase oxygenation perfusion, To improve health of tissue, To decrease soft tissue restriction Cryotherapy (ice pack, ice massage): Yes Thermo therapy (hot pack): Yes For the Purpose of:: To decrease pain, To improve nutrient delivery to tissue, To increase oxygenation perfusion Please do not hesitate to contact me at [phone] by phone or if you have questions or concerns regarding this new plan of care! Sincerely, Juan Ramon Carrion, PT, Cert MDT, OCS
--- NOTE | 2019-07-29 11:15 | HP.OTEVAL ---
Patient's Visit Information VANIA VASQUEZ is a 69 year old F, referred to Occupational Therapy by Ruddy Baez DO, with a diagnosis of left proximal humerus fx, left hand swelling/stiffness. Date of Evaluation: 07/29/19 Occupational Therapist: NUZHAT Dudley/Hao, CHT - Subjective Subjective: 05/27/19 fall with left Humerus fx and left hand swelling. Pt states she is having hand stiffness and swelling so she is unable to form a composite fist. pt would like to return to her PLOF with ADLs and IADLs. - Pain left wrist/hand 0 Pain Intensity Range: 6 - ROM Wrist: right 55/70 left 40/35 MP: right 45 left 40 IP: right 45 left 30 ROM Comments: right IF MCP 70 PIP 45 DIP 10 left IF MCP 80 PIP 100 DIP 50. right MF MCP 70 PIP 55 DIP 5 left IF MCP 80 PIP 100 DIP 45. right RF MCP 70 PIP 50 DIP 10 Left RF MCP 90 PIP 105 DIP 45. right LF MCP 70 PIP 50 DIP 20 Left LF MCP 90 PIP 90 DIP 65 - Strength Cook Helper Dessert: right 45# left 5# Lateral Pinch: right 14# left 4# Tripod Pinch: right 12# left 4# - Edema PIP: left 6.5 right 5.5 Proximal Phalanx: left 6.5 right 5 - Sensation Sensation Comments: denies - In-Hand Manipulation Finger to Palm Translation: Normal - Right, Unable - Left Palm to Finger Translation: Normal - Right, Unable - Left Shift: Normal - Right, Unable - Left Rotation: Normal - Right, Unable - Left - Quick DASH-Disab of Arm,Shoulder& Hand Quick DASH Score: 62.5000 - Goals Goal:: PT will demo an increase in width stripper strength by 20# to increase independent with basic occupations of daily living to return pt to PLOF by D/C. Pt will demo an increase in lateral and tripod pinch by 2# to increase pts independent with opening baggies, containers at OF by D/C. Goal:: Pt will demo the ability to form a composite fist to hold and receive 10 coins without dropping coins/ and coin manipulation/money mtg. tasks and ind. With manipulating fasteners for dressing by D/C. Pt will demo the ability to form a composite fist to return to performing BADLs and IADLS at [facility] by d/c. Goal:: Pt will report pain no greater than 1/10 with use of affected hand with BADLs and IADLs by d/c. - Rehabilitation General Assessment: Pt demo today 9 weeks following a left Humerus fx. pt demo with limited DIP/PIP and MCP flex. thumb ROM is also limited- pt has some edema and noted by pt to be present since fall. pt is not able to use her hand for ADLs and IADLS. Has inability to make a fist or hold objects in her left hand. pt needs assist with ADLS and IADLs because of her limited ROM and strength. Pt would benefit from skilled OT services 2x week for 4-6 weeks. Today therapist ed pt on use of edema golve, tendon glide for digits, wrist and forearm ROM and contrast bath. pt given handout and demo understanding of ex. and agree to POC. Rehabilitation Potential: Good - Anticipated Interventions Anticipated Interventions: A/AAROM/PROM, Strengthening, Edema Control, Triggerpoint Release, Modalities, Orthoses, Joint Protection/Energy Conservation, Fine Motor Coord/Marcus - Visit Plan Frequency: 2x /Week Duration: 4-6 Weeks TEXT: Thank you for the opportunity to evaluate your patient. For Medicare and Medicare HMO plans, please review the plan of care and approve it. It will need to be FAXED BACK to us at [phone] for Medicare purposes. Please let me know if there are questions or concerns regarding this plan of care. Physician Signature: Date:
--- NOTE | 2019-08-26 09:37 | OTREVAL_ITS ---
Ruddy Baez, DO, It has been my pleasure to treat VANIA VASQUEZ over the last 10 visits for left proximal humerus fx, left hand swelling/stiffness. Please see the progress note below for an update on the occupational therapy plan of care! Subjective: pt arrives following PT- states she is trying to use her hand Objective/Function: pt continues to gain ROM. wrist 30/45. left IF PIP 0/80. left MF PIP 0/90. left RF PIP 0/80. pt continues to struggle with composite fist and functional use of left hand/pinch for daily occupations. pt would benefit from cont. therapy services 2x week for 6 weeks Plan Frequency: 2x /Week Duration: 4-6 Weeks Plan: cont POC Goals - Goals Goal:: PT will demo an increase in nougat cutter machine strength by 20# to increase independent with basic occupations of daily living to return pt to PLOF by D/C. Pt will demo an increase in lateral and tripod pinch by 2# to increase pts independent with opening baggies, containers at PLOF by D/C. Goal:: Pt will demo the ability to form a composite fist to hold and receive 10 coins without dropping coins/ and coin manipulation/money mtg. tasks and ind. With manipulating fasteners for dressing by D/C. Pt will demo the ability to form a composite fist to return to performing BADLs and IADLS at PLOF by d/c. Goal:: Pt will report pain no greater than 1/10 with use of affected hand with BADLs and IADLs by d/c. Anticipated Interventions Anticipated Interventions: A/AAROM/PROM, Strengthening, Edema Control, Triggerpoint Release, Modalities, Orthoses, Joint Protection/Energy Conservation, Fine Motor Coord/Marcus Please do not hesitate to contact me at [phone] by phone or if you have questions or concerns regarding this new plan of care! Sincerely, Lorin Randall OTR/L, CHT
--- NOTE | 2019-09-18 09:39 | HP.PTREVAL ---
Ruddy Baez, DO, It has been my pleasure to treat VANIA VASQUEZ over the last 23 visits for FRACTURE OF PROXIMAL LEFT HUMERUS. Please see the progress note below for an update on the physical therapy plan of care! Subjective: Doing better with rx/s at home . Trying to use arm with self hgine,ADL'S reaching in cubboards Objective/Function: POSTURE: ROUNDED SHOULDERS HEAD FOWARD. PALAPTION: TENDER LONG HEAD BICEP. PROM: SHOULDER FLEXION 140 DEGREES,SCAPATION 140 DEGREES,ER 25 DEGREES. AROM: FLEXION 100 DEGREES. MMT:RTC 4-/5,SUPRA 3+/5,ANTERIOR DELTOID 3+/5 AT 90 DEGREES Plan Plan: PATEINT HAS HUMERAL SURGICAL NECK FRACTURE MIN DISPLACED. CONT WITH POC 2XWK FOR 4WKSPT INTERVENTIONS TO INCLUDE PROM/AAROM/AROM AST MARGARET ,MHP/CP,MANUAL THERAPY AND STRENGTHENING Goals Goal 1:: Independant with HEP Goal Time Frame: 8-12 Weeks Goal Progress: Progressing Goal 2:: Patient increase AROM shoulder flexion,abd 140 degtees ,ER 75 degrees and reach behind back to improve ADLS' Goal Time Frame: 8-12 Weeks Goal Progress: Progressing Goal 3:: Pateint to increase strength of RIGHT shoulder 3+/5 and RTC 4-/5 to improve function and ADLS Goal Time Frame: 8-12 Weeks Goal Progress: Progressing Goal 4:: Pateint to improve quick DASH by 5-10 points to improve QOL. Goal Time Frame: 8-12 Weeks Goal Progress: Progressing Goal 5:: Patient to improve ADLS' and housework tasks with min limiations Goal Time Frame: 8-12 Weeks Anticipated Interventions Patient/Client Instruction: Educate patient on: Condition, Plan of Care For the Purpose of:: To decrease pain, To increase ROM, To improve muscle performance and motor function, To improve ability to perform ADL's, To increase tolerance to activity/condition/position, To improve performance and independence with ADL's, To improve ability of physical actions for home/community/work/leisure, To improve health of tissue, To decrease soft tissue restriction, To increase flexibility/ROM, To reduce risk of recurrence, To improve ability to perform tasks related to life management Therapeutic Exercise to Include: Strength training, Postural training, Passive ROM, Active ROM Comment: STRENGHTENING PER MD For the Purpose of:: To decrease pain, To increase ROM, To improve muscle performance and motor function, To increase tolerance to activity/condition/position, To improve ability of physical actions for home/community/work/leisure, To improve health of tissue, To decrease soft tissue restriction, To increase flexibility/ROM, To improve ability to perform tasks related to life management Manual Therapy Techniques to Include: Mobilization, Passive ROM Comment: SHOULDER For the Purpose of:: To decrease pain, To increase ROM, To improve nutrient delivery to tissue, To increase oxygenation perfusion, To improve health of tissue, To decrease soft tissue restriction Cryotherapy (ice pack, ice massage): Yes Thermo therapy (hot pack): Yes For the Purpose of:: To decrease pain, To improve nutrient delivery to tissue, To increase oxygenation perfusion Please do not hesitate to contact me at [phone] by phone or if you have questions or concerns regarding this new plan of care! Sincerely, Juan Ramon Carrion, PT, Cert MDT, OCS
--- NOTE | 2019-09-19 09:30 | OTREVAL_ITS ---
Ruddy Baez, DO, It has been my pleasure to treat VANIA VASQUEZ over the last 16 visits for left proximal humerus fx, left hand swelling/stiffness. Please see the progress note below for an update on the occupational therapy plan of care! Subjective: pt states she is ok - feels she is able to make a fist after working with her hand for about 10 min. Pt states she wakes up in AM and hand is back to not closing Objective/Function: pt demo with composite fist 1 away from composite fist. pt is making slow gains-. pt continues to gain ROM. wrist 30/45. left IF PIP 0/80. left MF PIP 0/90. left RF PIP 0/80. pt continues to struggle with composite fist and functional use of left hand/pinch for daily occupations Plan Frequency: 2x /Week Duration: 4-6 Weeks Plan: BTE. NO modalities. attempt simulation of moving can goods- and grasp of med and small objects Goals - Goals Goal:: PT will demo an increase in experience specialist strength by 20# to increase independent with basic occupations of daily living to return pt to [facility] by D/C. Pt will demo an increase in lateral and tripod pinch by 2# to increase pts independent with opening baggies, containers at OF by D/C. Goal:: Pt will demo the ability to form a composite fist to hold and receive 10 coins without dropping coins/ and coin manipulation/money mtg. tasks and ind. With manipulating fasteners for dressing by D/C. Pt will demo the ability to form a composite fist to return to performing BADLs and IADLS at [facility] by d/c. Goal:: Pt will report pain no greater than 1/10 with use of affected hand with BADLs and IADLs by d/c. Anticipated Interventions Anticipated Interventions: A/AAROM/PROM, Strengthening, Edema Control, Triggerpoint Release, Modalities, Orthoses, Joint Protection/Energy Conservation, Fine Motor Coord/Marcus Please do not hesitate to contact me at [phone] by phone or Fax: if you have questions or concerns regarding this new plan of care! Sincerely, Lorin Randall, OTR/L, CHT
--- NOTE | 2019-10-21 07:49 | HP.OTDCSUM_ITS ---
HP - OT D/C Summary It has been my pleasure to treat VANAI VASQUEZ under orders from Ruddy Baez DO, for the diagnosis of left proximal humerus fx, left hand swelling/stiffness for a total of 25 visit(s). Please see the following information for a summary of their discharge status. - Overall Improvement % Improvement: 70 - Objective Objective/Function: left IF MCP 0/80 PIP 0/70 DIP 0/30. left MF MCP 0/85 PIP 0/70 DIP 0/20. left RF MCP 0/80 PIP 0/75 DIP 0/20. left LF MCP 0/85 PIP 0/75 DIP 0/30. this ROM increased 10 and 15 * grossly throughout from her initial eval. 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 pt demo impovement in ROM and strength pt cont to be TEDDY with ADLs and IADLS. pt demo understanding of HEP and will cont. with it to gain increase in ROM - Goals Patient Goals: Regain Mobility, Regain Strength, Decrease Swelling/Stiffness, Improve Fine Motor Skills, Use Hand/Wrist/Arm Normally Again, Increase ROM, Be More Independent in ADLS Goal:: PT will demo an increase in necktie centralizing machine operator strength by 20# to increase independent with basic occupations of daily living to return pt to PLOF by D/C. Pt will demo an increase in lateral and tripod pinch by 2# to increase pts independent with opening baggies, containers at PLOF by D/C. Goal:: Pt will demo the ability to form a composite fist to hold and receive 10 coins without dropping coins/ and coin manipulation/money mtg. tasks and ind. With manipulating fasteners for dressing by D/C. Pt will demo the ability to form a composite fist to return to performing BADLs and IADLS at PLOF by d/c. Goal:: Pt will report pain no greater than 1/10 with use of affected hand with BADLs and IADLs by d/c. - Plan Plan: D/C - D/C Information Discharge Comments: This pt was seen for 25 OT sessions to increase pts functional ROM of left hand for ADLS and IADLS. OT challenged pts composite digit flex- using PROM/AROM place and hold and blocking ex. therapy has been using BTE to increase functional strength of necktie centralizing machine operator/pinch/ and forearm. pt progression has slowed and due to this fact pt to cont with HEP ( t-putty, blocking, t-band along with PROM and place and hold ex) for composite fist to cont. to make gains. If there are questions or concerns regarding this patient's occupational therapy, please fell free to call me at [phone]. Thank you for the referral of this patient. Sincerely, Lorin Randall, OTR/L, CHT
--- NOTE | 2019-10-21 08:31 | HP.PTDCSUM ---
HP - PT D/C Summary It has been my pleasure to treat VANIA VASQUEZ under orders from Ruddy Baez DO, for the diagnosis of FRACTURE OF PROXIMAL LEFT HUMERUS for a total of 31 visit(s). Discharge Date: Please see the following information for a summary of their discharge status. - Subjective Subjective: Doing good. Able to do most ADL'S - Pain Left Shoulder Pain Intensity (Out of 10): 1 - Overall Improvement % Improvement: 75 - Objective Objective/Function: POSTURE: mild foward posture. AROM: shoulder flexion 115 degrres,abd 100 degrres in scap,ER 30 degrees. MMT: RTC 4/5 ,supraspinatous deltoid 3+/5,lateral 3/5 - Goals Goal 1:: Independant with HEP Goal Progress: Goal Met Goal 2:: Patient increase AROM shoulder flexion,abd 140 degtees ,ER 75 degrees and reach behind back to improve ADLS' Goal Progress: Goal Met Goal 3:: Pateint to increase strength of RIGHT shoulder 3+/5 and RTC 4-/5 to improve function and ADLS Goal Progress: Goal Met Goal 4:: Pateint to improve quick DASH by 5-10 points to improve QOL. Goal Progress: Goal Met Goal 5:: Patient to improve ADLS' and housework tasks with min limiations Goal Progress: Goal Met - Plan Plan: D/C TO HEP - D/C Information If there are questions or concerns regarding this patient's physical therapy, please feel free to call me at [phone]. Thank you for the referral of this patient. Sincerely, Juan Ramon Carrion, PT, Cert MDT, OCS
== END 2019-10-21 19:00 | disposition home or self-care (01) ==
LOC: PT 08:00
PROVIDERS: Family Provider Family Medicine; PCP Family Medicine; Referring Provider Orthopaedic Surgery; Visit Provider Orthopaedic Surgery
DX: S42.202D Unspecified fracture of upper end of left humerus, subsequent encounter for fracture with routine healing (principal)
CPT/HCPCS: 97110; 97140; 97162; 97166; 97530

== ENCOUNTER → 2020-01-08 10:41 | Outpatient (CLI) | payer MEDICARE, OTHER, SELFPAY ==
[2020-01-08 10:08] VITALS: BMI 44.1
[2020-01-08 11:54] LABS: AST(SGOT) 26 U/L (15-37); Alanine Aminotransfer ALT/SGPT 35 U/L (13-56); Albumin, Serum 3.2 g/dL (3.2-5.0); Alkaline Phosphatase 115 U/L (45-117); Bilirubin, Direct 0.16 mg/dL (0.00-0.30); Cholesterol 142 mg/dL (200); Globulin 3.6 g/dL (2.2-4.2); High Density Lipoprotein 78 mg/dL; Protein, Total 6.8 g/dL (6.4-8.2); Triglycerides 122 mg/dL; Very Low Density Lipoprotein 24 mg/dL (5-40)
== END ==
PROVIDERS: PCP Family Medicine; Referring Provider Internal Medicine Cardiovascular Disease; Visit Provider Internal Medicine Cardiovascular Disease
DX: I25.10 Atherosclerotic heart disease of native coronary artery without angina pectoris (principal); E11.9 Type 2 diabetes mellitus without complications; E78.5 Hyperlipidemia, unspecified
CPT/HCPCS: 36415; 80061; 80076

== ENCOUNTER → 2020-04-12 12:33 | Outpatient (CLI) | payer MEDICARE, OTHER, SELFPAY ==
[2020-04-07 05:32] VITALS: BMI 44.4
[2020-04-12 12:55] VITALS: PULSE 74; PULSE 76; PULSE 86; PULSE 88; PULSE 91; PULSE 94; PULSE 95; O2SAT 95; O2SAT 96; O2SAT 97
--- NOTE | 2020-04-12 14:13 | PCM.PSN.6M ---
PSN 6 Minute Walk Test - 6 Minute Walk Test 6 Minute Walk Test: 6 Minute Walk Test PSN:6-Minute Walk Test Start: 04/12/20 12:54 Freq: Status: Active Protocol: RESP.6MINW Document 04/12/20 12:55 FR (Rec: 04/12/20 12:58 FR [id number]) 6 Minute Walk Test Date Performed 04/12/20 Time Performed 12:30 Height 5 ft 4 in Weight: 117.934 kg Weight in Pounds 260.[address]: Jose Vazquez Assistive device used: None Pre-test Oxygen Delivery Method Room Air Pulse Ox (%) 97 Pulse Rate (60-100 beats/min) 74 Dyspnea Noemy Scale (0-10) 5 Exertion Noemy Scale (6-20) 8 1st minute Oxygen Delivery Method Room Air Pulse Ox (%) 95 Pulse Rate (60-100 beats/min) 86 2nd minute Oxygen Delivery Method Room Air Pulse Ox (%) 97 Pulse Rate (60-100 beats/min) 88 3rd minute Oxygen Delivery Method Room Air Pulse Ox (%) 96 Pulse Rate (60-100 beats/min) 94 4th minute Oxygen Delivery Method Room Air Pulse Ox (%) 96 Pulse Rate (60-100 beats/min) 91 5th minute Oxygen Delivery Method Room Air Pulse Ox (%) 96 Pulse Rate (60-100 beats/min) 94 6th minute Oxygen Delivery Method Room Air Pulse Ox (%) 96 Pulse Rate (60-100 beats/min) 95 Dyspnea Noemy Scale (0-10) 3 Exertion Noemy Scale (6-20) 11 Post-test Oxygen Delivery Method Room Air Pulse Ox (%) 95 Pulse Rate (60-100 beats/min) 76 Full Laps Walked 15 Partial Lap, Number of Tiles Walked 26 Total Distance Walked (ft) 911 - Interpretation Interpretation: The patient was able to ambulate 911 feet over the course of 6 minutes on room air with no assistive devices or breaks. The patient experienced no significant desaturation, but did have some mild elevation in heart rate. This pattern is consistent with deconditioning. - Recommendations Recommendations: No supplemental oxygen is indicated at this time.
== END ==
PROVIDERS: PCP Family Medicine; Referring Provider Internal Medicine Critical Care Medicine; Visit Provider Internal Medicine Critical Care Medicine
DX: R06.02 Shortness of breath (principal)
CPT/HCPCS: 94618

== ENCOUNTER → 2020-04-14 10:31 | Outpatient (CLI) | payer MEDICARE, OTHER, SELFPAY ==
[2020-04-07 05:32] VITALS: BMI 44.4
--- NOTE | 2020-04-14 13:13 | PFTCOMP_ITS ---
COMPLETE PULMONARY FUNCTION TEST INTERPRETATION Brief HPI: Patient is a 70 year old female, currently under the care of myself, who presents to [facility] for complete pulmonary function tests secondary to diagnosis of dyspnea. Respiratory therapist reports good effort and reproducible results. Interpretation: Forced expiration spirometry shows no large airways obstructive ventilatory defect with an FEV1 of 80% predicted. There is no significant bronchodilator response by strict ATS criteria. Spirograms are of good quality and plateau slowly, indicating slowly emptying areas of the lungs. The respiratory flow volume loop shows decreased expiratory flow rates at high lung volumes consistent with small airways obstruction. Lung volumes by body plethysmography show a normal total lung capacity at 5.08 L, 106% predicted. All other lung volumes are within normal limits. Diffusion capacity by carbon monoxide is decreased at 52% predicted. The airway resistance is normal. No previous pulmonary function tests were available for review. Impression: Isolated defect in diffuse capacity consistent with a possible pulmonary vascular disorder.
== END ==
PROVIDERS: PCP Family Medicine; Visit Provider Internal Medicine Critical Care Medicine
DX: R06.02 Shortness of breath (principal)
CPT/HCPCS: 94060; 94726; 94729

== ENCOUNTER → 2020-06-14 20:00 | Outpatient (CLI) | payer MEDICARE, OTHER, SELFPAY ==
[2020-04-07 05:32] VITALS: BMI 44.4
== END ==
PROVIDERS: PCP Family Medicine; Visit Provider Internal Medicine Critical Care Medicine
DX: G47.33 Obstructive sleep apnea (adult) (pediatric) (principal)
CPT/HCPCS: 95810

== ENCOUNTER → 2020-08-09 17:44 | Outpatient (CLI) | payer MEDICARE, OTHER, SELFPAY ==
[2020-04-07 05:32] VITALS: BMI 44.4
== END ==
PROVIDERS: PCP Family Medicine; Referring Provider Family Medicine; Visit Provider Family Medicine
DX: Z20.828 Contact with and (suspected) exposure to other viral communicable diseases (principal)
CPT/HCPCS: 87635; C9803; U0003

== ENCOUNTER 2020-08-14 17:54 | Emergency (ER) | payer MEDICARE, OTHER, SELFPAY ==
[2020-04-07 05:32] VITALS: BMI 44.4
[2020-08-14 17:54] VITALS: BP 122/66; PULSE 74; RESP 16; TEMP 36.2; O2SAT 99
[2020-08-14 17:55] VITALS: BP 122/66; PULSE 73; RESP 16; TEMP 36.2; O2SAT 99; BMI 43.7
--- NOTE | 2020-08-14 18:09 | ED.DCSUM_ITS ---
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 Patient initially did not think much of it but today it started getting red and she was having some drainage from it. She denies any fever or chills currently. Patient states that earlier in the week she had fever and some back pain. Her primary care physician checked a urinalysis which was normal. Patient also had a COVID test which was negative. Patient was empirically started on amoxicillin. Patient has been on amoxicillin for 5 days.] Physical Examination: [HEENT-PERRLA, EOMI. Cranial nerves II through XII grossly intact. TMs clear. Mucous membranes moist. No adenopathy. Cardiovascular-regular rate and rhythm without murmur or ectopy Lungs-clear to auscultation, chest wall stable without crepitus or subcu emphysema Abdomen-normoactive bowel sounds, soft, nontender, no rebound or rigidity, no peritoneal signs. Extremities-intact ?4, normal range of motion, normal pulses. Left leg-patient has a superficial abrasion/laceration that was triangular to the anterior lateral portion of the lower leg. There is surrounding erythema and cellulitis. There is some yellowish drainage from the wound. No lymphangitic streaking. Neurovascular intact distally.] Test Results: None indicated [] Emergency Department Course and Treatment: [Patient started on clindamycin p.o.] I did outline the area of erythema with permanent marker. Treatment Plan: [Patient is advised to discontinue the amoxicillin and she will be started on clindamycin.] Patient advised to return if increased redness, fever, chills, or condition should worsen anyway. Disposition: [Discharged home in stable condition] Impression: [Laceration left leg with cellulitis] This note was generated with [employer] Information[employer] software. It may contain incorrect words, spelling, and punctuation that were not noted in review of the chart prior to signing ED Disposition - Plan for ED Patient: Referrals: Percy Harrison MD [Primary Care Provider] -
--- NOTE | 2020-08-14 18:12 | ED.DEP ---
ED Disposition - Plan for ED Patient: Instructions: ED Cellulitis Prescriptions: Clindamycin HCl [Cleocin] 300 mg PO Q6H #40 cap Prescription Printed Referrals: Percy Harrison MD [Primary Care Provider] - 3-5 Days
[2020-08-14] MEDS: Clindamycin HCl 150 MG Capsule 300 MG PO (18:22)
== END 2020-08-14 18:37 | disposition home or self-care (01) ==
LOC: ED 18:35
PROVIDERS: Emergency Provider Emergency Medicine; PCP Family Medicine
DX: S81.812A Laceration without foreign body, left lower leg, initial encounter (principal); L03.116 Cellulitis of left lower limb; Z79.2 Long term (current) use of antibiotics; I25.10 Atherosclerotic heart disease of native coronary artery without angina pectoris; E11.9 Type 2 diabetes mellitus without complications; Z79.84 Long term (current) use of oral hypoglycemic drugs; W26.8XXA Contact with other sharp object(s), not elsewhere classified, initial encounter; Y93.89 Activity, other specified; Y92.000 Kitchen of unspecified non-institutional (private) residence as the place of occurrence of the external cause; Y99.8 Other external cause status
CPT/HCPCS: 99283

== ENCOUNTER → 2020-08-16 20:01 | Outpatient (CLI) | payer MEDICARE, OTHER, SELFPAY ==
[2020-04-07 05:32] VITALS: BMI 44.4
== END ==
PROVIDERS: PCP Family Medicine; Visit Provider Internal Medicine Critical Care Medicine
DX: G47.33 Obstructive sleep apnea (adult) (pediatric) (principal)
CPT/HCPCS: 95811

== ENCOUNTER → 2020-10-04 13:13 | Outpatient (CLI) | payer MEDICARE, OTHER, SELFPAY ==
[2020-10-04 11:27] VITALS: BMI 44.2
--- NOTE | 2020-10-04 13:33 | RAD_ITS ---
STUDY: X-RAY CHEST REASON FOR EXAM: Female, 70 years old. CHEST PAIN TECHNIQUE: PA and lateral views of the chest. COMPARISON: 06/14/2019 FINDINGS: The lungs are clear and expanded. There is no demonstrated pleural abnormality. Normal size heart. Normal mediastinum and hector. Normal visualized pulmonary arteries. Normal visualized aortic arch and descending thoracic aorta. There are diffuse degenerative changes of the visualized thoracic spine. Old healed right humeral fracture There is no demonstrated abnormality of the visualized soft tissue structures of the upper abdomen. RAD/Chest PA and Lateral IMPRESSION: No acute pulmonary process Electronically Signed: Andre Bolaños MD at 19:35 EST , Service support ,
[2020-10-04 14:38] LABS: Absolute Lymphocyte Count 2.48 X10^3/uL (0.83-4.51); Absolute Neutrophil Count 5.6 X10^3/uL (2.0-7.7); Basophil# 0.08 X10^3/uL; Basophil% 0.9 % (0-1); Eosinophil# 0.59 X10^3/uL; Eosinophils% 6.3 % (0-5); Hematocrit 41.4 % (37-47); Hemoglobin 13.4 g/dL (12.0-15.0); International Normalized Ratio 1.1; Lymphocyte # 2.48 X10^3/ul (4.0); Lymphocyte % 26.4 % (19-41); Mean Corp Hgb Conc 32.4 g/dL (32-36); Mean Corpuscular Hgb 28.3 pg (27.0-32.0); Mean Corpuscular Volume 87.3 fL (81-99); Monocyte# 0.66 X10^3/uL; NRBC Flagged by Analyzer 0 % (0-5); Neutrophil # 5.57 X10^3/uL (2.7-7.7); Neutrophil % 59.1 % (47-70); Platelet Count 199 K/mm3 (150-450); Prothrombin Time (Protime)PT. 13.2 SECONDS (11.7-14.9); RBC Distribution Width CV 13.3 % (11.6-14.6); RBC Distribution Width SD 42.4 fl (35.1-43.9); Red Blood Count 4.74 M/mm3 (4.2-5.4); White Blood Count 9.4 K/mm3 (4.4-11.0)
[2020-10-04 14:39] LABS: Partial Thromboplast Time 24.2 Seconds (24.1-36.2)
[2020-10-04 15:54] LABS: Anion Gap 4 (5-15); BUN 20 mg/dL (7-18); BUN/Creat Ratio 23.1 RATIO (10-20); Calcium,Total 9.5 mg/dL (8.5-10.1); Chloride 100 mmol/L (98-107); Creatinine, Serum 0.86 mg/dL (0.55-1.02); EST Glomerular Filtration Rate 69 mL/min (>60); Est Glom Filt Rate - Afr Amer 83 mL/min (>60); Glucose 241 mg/dL (74-106); Potassium 3.8 mmol/L (3.5-5.1); Sodium Level 137 mmol/L (136-145)
== END ==
PROVIDERS: PCP Family Medicine; Referring Provider Specialist; Visit Provider Specialist
DX: R00.2 Palpitations (principal); R07.9 Chest pain, unspecified; I25.10 Atherosclerotic heart disease of native coronary artery without angina pectoris; Z95.5 Presence of coronary angioplasty implant and graft; T14.8XXA Other injury of unspecified body region, initial encounter
CPT/HCPCS: 36415; 71046; 80048; 85025; 85610; 85730

== ENCOUNTER 2020-10-07 09:01 | Day surgery (SDC) | payer MEDICARE, OTHER, SELFPAY ==
[2020-10-04 11:27] VITALS: BMI 44.2
[2020-10-06 08:23] VITALS: BMI 44.2
--- NOTE | 2020-10-07 10:00 | HP_ITS ---
[facility] History of Present Illness Details: 01/2020:Mrs. Bowman is a very pleasant 69-year-old female with a history of hypertension, hypercholesterolemia, coronary artery disease status post angioplasty and stenting previously on 08/20/2017 at [facility] at that time receiving a 2.5 ex-38 Promus Synergy stent. And was a previous patient of Dr. Moser's. Patient was admitted to [facility] on 08/08/2018 with recurrent substernal chest pressure. She underwent repeat catheterization by ok on 08/08/2018 which demonstrated significant in-stent restenosis of her LAD. At that time she had successful angioplasty and drug-eluting stenting to her distal LAD just upstream from her previous drug-eluting stent receiving a 2.5 ex-8 Promus Synergy. In addition she had successful angioscope to the distal LAD in- stent restenosis with an excellent result. Her circumflex and right coronary artery had no significant disease. Her LV ejection fraction at that time was found to be 65%. Her most recent echocardiogram from from [facility] on 08/20/2017 showed an EF of 65%, trace MR, trace TR, unable to quantitate RVSP. Recently patient suffered a humeral fracture walking into the [facility] for chemotherapy after tripping on the sidewalk. More recently on 06/13/2019 she was readmitted with significant vertigo and dizziness. She denies any chest pain or requirements of her sublingual nitroglycerin. Her symptoms resolved on their own and have not recurred. At no time did she have any exertional chest pressure or heaviness. She underwent a non-walking nuclear stress test on 06/13/2019 which was negative for inducible ischemia. She was subsequently sent home and followed up with us. Since her last visit, the patient has had difficulty with sleeping. She has what appears to be contaminated sleep hygiene with drinking caffeine during the day and evening, and she does have known obstructive sleep apnea and is intermittently compliant with nasal CPAP. She has not had a sleep study in many years, and has never seen a dining room helper. In addition she reads on her iPad at night, and falls asleep in a recliner not using her CPAP when she does. She has had several episodes of atypical nonexertional sharp twinge-like chest pain, but no exertional symptoms similar to her anginal presentation. In our office her blood pressure is 100/60, pulse is 72 and regular. Physical exam is as below. Lipids as of 08/09/2018 show an LDL of 41 and HDL of 75. Her most recent lipids as November 2018 showed an HDL of 75 and LDL of 61. 07/26/2020: Patient has been having episodes of palpitations about 3 times a week. She also has episodes of dizziness about twice a week. They do not always correlate. When she does get the palpitations she does get some chest discomfort as well. The palpitations last a few minutes and then go away. This is been going on for the past 3 months. The dizziness does happen when she looks up. 10/04/2020: Patient continues to have episodes of chest discomfort on and off. She feels that this is similar to what she had prior to PCI. She underwent event monitoring which did not reveal significant arrhythmias. Intake Vital Signs 10/04/20 Height 5 ft 4 in 10/04/20 Weight: 258 lb 10/04/20 BP 108/62 10/04/20 Blood Pressure Location Lt brachial 10/04/20 Position Sitting 10/04/20 Respiration 16 10/04/20 Pulse 68 10/04/20 Pulse Source Auscultation Intake Visit Reasons: 10 WK F/U Low Raw Sugar Cutter Required: No Accompanied by: None Is patient in pain?: No Allergies cat dander Allergy (Intermediate, Verified 10/04/20 11:32) nasal congestion, respiratory symptoms furosemide Adverse Reaction (Severe, Verified 10/04/20 11:32) horrible leg cramps Sulfa (Sulfonamide Antibiotics) Adverse Reaction (Verified 10/04/20 11:32) Profuse sweating Medications Aspirin E.C. [Ecotrin] 81 mg PO DAILY@0800 08/07/18 [History Confirmed 10/04/20] Atorvastatin Calcium [Lipitor] 80 mg PO QHS 08/07/18 [History Confirmed 10/04/20] Bumetanide [Bumex] 2 mg PO DAILY 08/07/18 [History Confirmed 10/04/20] Carvedilol [Coreg (Beta Jammie)] 6.25 mg PO BID 08/07/18 [History Confirmed 10/04/20] Glimepiride [Amaryl] 8 mg PO DAILY 08/07/18 [History Confirmed 10/04/20] Lisinopril [Zestril] 5 mg PO DAILY 08/07/18 [History Confirmed 10/04/20] Multivitamin [Multiple Vitamins] 1 ea PO DAILY 08/07/18 [History Confirmed 10/04/20] Prasugrel Hydrochloride [Effient] 10 mg PO DAILY 08/07/18 [History Confirmed 10/04/20] Dulaglutide [Trulicity] 1.5 mg PO MO 06/12/19 [History Confirmed 10/04/20] Metformin HCl [Metformin ER Gastric] 500 mg PO DAILY 06/12/19 [History Confirmed 10/04/20] potassium chloride 10 mEq capsule,extended release 20 meq PO BID cap 06/24/19 [History Confirmed 10/04/20] fluticasone propionate 50 mcg/actuation nasal spray,suspension 2 spray INTRANASAL DAILY PRN 01/08/20 [History Confirmed 10/04/20] loratadine 10 mg tablet 10 mg PO DAILY PRN 01/08/20 [History Confirmed 10/04/20] nitroglycerin 0.4 mg sublingual tablet 0.4 mg SUBLINGUAL Q5-15M PRN #25 tab 01/08/20 [Rx Confirmed 10/04/20] gabapentin 300 mg capsule 900 mg PO BID cap 07/26/20 [History Confirmed 10/04/20] fluoxetine 10 mg capsule 10 mg PO DAILY cap 10/04/20 [History Confirmed 10/04/20] mirabegron 25 mg tablet,extended release 24 hr 25 mg PO DAILY tab 10/04/20 [History Confirmed 10/04/20] Ejection fraction %: 65 to 70 PFSH Medical History Bruising (Chronic) Dizziness (Chronic) Vertigo (Chronic) Hyperlipidemia (Chronic) Diabetic neuropathy (Chronic) Diabetes mellitus, type II (Chronic) Atherosclerotic heart disease of [place] coronary artery without angina pectoris (Chronic) Closed left humeral fracture (Chronic 05/27/19) Nausea (Resolved) Surgical History Stented coronary artery (Chronic 08/08/18) History of cholecystectomy (Chronic) History of hysterectomy (Chronic) History of tonsillectomy and adenoidectomy (Chronic) Family History Father Heart disease Brother Hypertension Mother Diabetes Social History (Updated 10/04/20 @ 13:[address] Barron Olson MD) Smoking Status: Never smoker Tobacco: How many years used: 2 alcohol intake: current alcohol intake frequency: a few times a week Alcohol type: wine substance use type: does not use caffeine: Yes Type: coffee Number of servings: 2 ROS Const Const: Negative for fatigue, weakness, headache(s), frequent falls, difficulty sleeping or excessive sweating Eyes Eyes: Negative for loss of peripheral vision, transient loss of vision, blurry vision, double vision or tunnel vision ENT ENT: Negative for headache(s), dizziness, Nosebleed/epistaxis or balance problems Cardio Chest Pain: Yes Frequency: weekly (2 times per week) Character: dull (ache) Onset: other (randomly) Location: mid sternal, left chest Duration: minutes Palpitations: Yes (Occasionally) feels like its: fast Edema: Bilateral Muscle aches with walking: None Resp Respiratory: Negative for SOB with activity, SOB at rest, SOB orthopnea\SOB lying down, Cough or paroxysmal nocturnal dyspnea GI GI: Negative nausea, vomiting, heartburn or black,tarry stools : Negative for hematuria Musc Musc: Negative for muscle aches/ myalgia, muscle weakness, joint pain or balance problems Skin Skin: Negative non-healing lesions, rash or unusual bruising Neuro Neuro: Positive for lightheadedness; negative for dizziness, near syncope, syncope, frequent falls, headache(s), weakness, blurry vision, double vision or lack of coordination Neal Hematologic/Lymphatic: Negative for easy bleeding or easy bruising Endo Endo: Negative for fatigue, excessive sweating or increased thirst/drinking Psych Psych: Negative for anxiety or depression Allergy Allergy/Immunology: Negative for hives, Negative for rash Cardiology Exam Const Appearance: cooperative; negative acute distress Nutritional Appearance: well nourished Head Head: normocephalic and atraumatic Ears: hearing grossly normal bilaterally Nose: external nose normal Face and Sinus: face symmetric Mouth: moist mucous membranes Teeth and gingiva: fair dentition Eyes General: appearance normal, both eyes and all related structures Eyelids: eyelids normal Conjunctivae: conjunctivae normal Neck Neck: trachea midline and no JVD Chest Chest inspection: symmetric chest movement; negative pursed lip breathing Auscultation: Bilateral: Clear to Auscultation Cardio Rate: regular rate Rhythm: regular rhythm Heart sounds: S1 normal and S2 normal No Murmurs GI GI: normal to inspection Neuro General: alert, awake and oriented x3 Gait: Negative ataxic Skin Skin: no rashes or lesions noted; negative atrophy or jaundice Extremities Pulses: Normal: Right Posterior Tibial Pulse, Left Posterior Tibial Pulse Lower Extremity Edema: None: Bilateral Musculoskel Musculoskeletal: No joint tenderness Psych Psychological: normal affect Assessment & Plan 1. Chest pain, unspecified type R07.9 Plan This is concerning for unstable angina. Discussed treatment options with the patient in detail. We will proceed with coronary angiography to evaluate this further. Patient understands the risks and benefits and is willing to proceed. Orders Orders: Left Heart Cath/COR/LV Percut Today 12 Lead EKG performed by BMS Today Chest PA and Lateral Today 2. Atherosclerosis of [place] coronary artery of [place] heart without angina pectoris I25.10 08/20/2017: 2.5 X 38 mm Synergy CATALINO with bio absorbable polymer in distal LAD per Dr. Hairston, [facility] in [place], [place]. 08/08/2018:CATALINO to distal LAD just upstream from previously placed CATALINO (2.5 X 8mm Promus Synergy); Successful Angiosculpt to distal LAD ISR with a 2.0 X 12 Angiosculpt. EF 65% per [facility] Plan Continue present management Orders Orders: Chest PA and Lateral Today 3. Stented coronary artery Z95.5 08/08/2018 CATALINO to distal LAD just upstream from previously placed CATALINO (2.5 X 8mm Promus Synergy); Successful Angiosculpt to distal LAD ISR with a 2.0 X 12 Angiosculpt. EF 65%per DJN @ @[facility] 08/20/2017: 2.5 X 38 mm Synergy CATALINO with bio absorbable polymer in distal LAD per Dr. Hairston, [facility] in [place], [place]. Plan Continue present management Orders Orders: Left Heart Cath/COR/LV Percut Today Basic Metabolic Profile (BMP) Today Partial Thromboplast Time Today Prothrombin Time w/INR Today Plan Detail Other Orders Orders: 12 Lead EKG performed by BMS Today R00.2 Partial Thromboplast Time Today T14.8XXA Prothrombin Time w/INR Today T14.8XXA CBC W/Diff, Automated Today R00.2 Chest PA and Lateral Today R00.2 Follow Up 6 Weeks Coding Level of Care Code Off vis,est,level 3 Diagnoses Chest pain, unspecified type R07.9 ??Chest pain type: unspecified Atherosclerosis of [place] coronary artery of [place] heart without angina pectoris I25.10 ??[place] vs. transplanted heart: [place] heart Stented coronary artery Z95.5 Coding Level of Care Code Off vis,est,level 3 Diagnoses Chest pain, unspecified type R07.9 ??Chest pain type: unspecified Atherosclerosis of [place] coronary artery of [place] heart without angina pectoris I25.10 ??[place] vs. transplanted heart: [place] heart Stented coronary artery Z95.5 Supplemental Info Supplemental Information Labs LDL Cholesterol 40 mg/dL (0-130) 01/08/20 HDL Cholesterol 78 mg/dL (40-) 01/08/20 Triglycerides 122 mg/dL (-199) 01/08/20 VLDL Cholesterol 24 mg/dL (5-40) 01/08/20 Diagnostics Electrocardiogram 10/04/20 Echocardiogram 07/16/19 Stress Test Nuclear Medicine 06/13/19 Stress Test 06/13/19 Chest X-Ray 06/14/19 Pulmonary Pulmonary Function Test 04/14/20 Pulmonary Exercise Test 04/12/20
--- NOTE | 2020-10-08 11:45 | CL.D_ITS ---
Patient Name: VANIA VASQUEZ Study Date: 10/07/2020 Performing: Leilani Olson MD Ht: 64 inches 163 cm : 1950 Wt: 258.3 lbs 117 kg Age: 70 Gender: female BSA: 2.18 PROCEDURE(S) PERFORMED [id number]/COR/LV CLINICAL PROFILE AND INDICATIONS Indications: Worsening Angina Heart Failure: None Stress/Imaging Stress/Image Study Performed: No CAD Presentations: Unstable angina. CONCLUSIONS No significant obstructive CAD. Mild ISR within previously placed stent. Preserved EF. No significant or MR RECOMMENDATIONS DESCRIPTION OF PROCEDURE The patient arrived to the procedure lab. The risks and benefits of the procedure as well as a full d escription of our services here and current unavailability of surgical backup were fully explained to the patient and/or their significant other prior to the catheterization. The Timeout was completed, verifying the correct patient and procedure. The patient's procedural site was prepped and draped in the usual fashion. Local anesthetic was given subcutaneously to right radial region with Lidocaine 2% . Using a modified Seldinger technique, arterial access was obtained via the right radial artery, a 6 Fr sheath was inserted. Left Coronary Artery selective angiography was performed in multiple views u sing a 5 Fr. JL3.5 catheter. Left Ventriculography was performed in CHE projection using a 5 Fr. JR 4 catheter. LV to AO pullback pressures were then recorded. Right Coronary Artery selective angiograph y was then performed in multiple views using a 5 Fr. JR 4 catheter.The arterial sheath was pulled and a TR Band was applied for hemostasis. 11cc of air CORONARY ANGIOGRAPHY DOMINANCE: Right Dominant LEFT HEART ASSESSMENT Left Ventricular Ejection Fraction: by LV Gram 65 % LEFT MAIN: No significant disease noted LEFT ANTERIOR DESCENDING ARTERY: DISTAL LAD: Instent restenosis 30 % CIRCUMFLEX ARTERY: No significant disease noted RIGHT CORONARY ARTERY: Mild luminal irregularities VALVE FINDINGS: No Aortic Valve Stenosis No Mitral Insufficency COMPLICATIONS No Complications PROCEDURE MEDICATIONS Fentanyl 50 mcg IV Versed 1 mg IV Oxygen: 2 L/min via nasal cannula Heparin given IA 10/07/2020 10:08:40 Verapamil 2.5mg, Ntg 100mcgs, 3000 units of Heparin given IA 10/07/2020 10:08:40 SUMMARY OF HEMODYNAMIC DATA Time AIR REST ECG 09:18:31 AO 95/61 (75) SA 10:12:53 LV 119/8, 25 10:20:09 LV 124/6, 28 10:20:15 LV 127/9, 28 10:21:41 LVp 120/20, 39 10:21:49 AOp 121/67 (93) 10:21:54 Signed By Leilani Olson MD On 10/08/2020 11:44:06 Leilani Olson MD
== END 2020-10-07 12:45 | disposition home or self-care (01) ==
LOC: CLSP 09:04
PROVIDERS: PCP Family Medicine; Referring Provider Specialist; Visit Provider Specialist
DX: R07.9 Chest pain, unspecified (principal); E78.00 Pure hypercholesterolemia, unspecified; I10 Essential (primary) hypertension; Z79.82 Long term (current) use of aspirin; Z79.84 Long term (current) use of oral hypoglycemic drugs; Z88.2 Allergy status to sulfonamides; Z88.8 Allergy status to other drugs, medicaments and biological substances; Z95.5 Presence of coronary angioplasty implant and graft; I25.10 Atherosclerotic heart disease of native coronary artery without angina pectoris; E78.5 Hyperlipidemia, unspecified; E11.40 Type 2 diabetes mellitus with diabetic neuropathy, unspecified
CPT/HCPCS: 93458; 99152; 99153; J7040; C1769; C1894; Q9967

== ENCOUNTER 2022-01-08 15:16 | Emergency (ER) | payer MEDICARE, OTHER, SELFPAY ==
[2022-01-08 15:16] VITALS: BP 112/68; PULSE 59; RESP 18; TEMP 36.3; O2SAT 100; BMI 46.8
--- NOTE | 2022-01-08 16:19 | ED.VIS.LOWEX ---
HPI History of Present Illness Chief Complaint: Laceration Informant: patient Onset/Context/Timing Onset: Today Context: Sudden Onset Timing: Continuous Quality of Pain: Aching Location: Right great toe Worsened by: Movement Relieved by: Rest Associated Symptoms Associated Symptoms: Negative for Parasthesia, Weakness and Loss of Funtion Narrative Narrative: Patient presents with laceration to her right great toe that occurred today. Patient states she remove the strip between the carpet and kitchen floor. Patient states that she was walking today and accidentally hit that area. Patient noted some bleeding from her right great toe after that. Patient states this stopped after several minutes of pressure. Patient denies any paresthesias or weakness. Patient is unsure of her last tetanus but thinks it was more than 10 years ago. Patient denies any paresthesias or weakness. Patient denies any other injuries. Tetanus Immunization: >10 years PFSH [facility] Medical History Atherosclerotic heart disease of [place] coronary artery without angina pectoris Bruising Closed left humeral fracture (05/27/19) Diabetes mellitus, type II Diabetic neuropathy Dizziness Hyperlipidemia Nausea Vertigo Home Medications aspirin 81 mg PO DAILY@0800 08/07/18 [History Last Taken 10/07/20] atorvastatin 80 mg PO QHS 08/07/18 [History Last Taken 06/11/19] bumetanide 2 mg PO DAILY 08/07/18 [History Last Taken 06/11/19] carvedilol 6.25 mg PO BID 08/07/18 [History Last Taken 10/07/20] glimepiride 8 mg PO DAILY 08/07/18 [History Last Taken 06/11/19] lisinopril 5 mg PO DAILY 08/07/18 [History Last Taken 10/07/20] multivitamin 1 ea PO DAILY 08/07/18 [History Last Taken 06/11/19] prasugrel 10 mg PO DAILY 08/07/18 [History Last Taken 10/07/20] dulaglutide 1.5 mg PO MO 06/12/19 [History Last Taken 06/09/19] potassium chloride 10 mEq capsule,extended release 20 meq PO BID cap 06/24/19 [History Last Taken 10/07/20] fluticasone propionate 50 mcg/actuation nasal spray,suspension 2 spray INTRANASAL DAILY PRN 01/08/20 [History Last Taken Unknown] loratadine 10 mg tablet 10 mg PO DAILY PRN 01/08/20 [History Last Taken Unknown] nitroglycerin 0.4 mg sublingual tablet 0.4 mg SUBLINGUAL Q5-15M PRN #25 tab 01/08/20 [Rx Last Taken Unknown] gabapentin 300 mg capsule 900 mg PO BID cap 07/26/20 [History Last Taken Unknown] fluoxetine 10 mg capsule 10 mg PO DAILY cap 10/04/20 [History Last Taken Unknown] mirabegron 25 mg tablet,extended release 24 hr 25 mg PO DAILY tab 10/04/20 [History Last Taken Unknown] cephalexin 500 mg PO Q6 #40 capsule 01/08/22 [Rx Last Taken Unknown] Allergy/AdvReac Type Severity Reaction Status Date / Time cat dander Allergy Intermediate nasal Verified 01/08/22 15:18 congestion, respiratory symptoms furosemide AdvReac Severe horrible Verified 01/08/22 15:18 leg cramps Sulfa (Sulfonamide AdvReac Profuse Verified 01/08/22 15:18 Antibiotics) sweating Family History Father Heart disease Brother Hypertension Mother Diabetes Surgical History History of cholecystectomy History of hysterectomy History of left heart catheterization (10/08/20) History of tonsillectomy and adenoidectomy Stented coronary artery (08/08/18) Social History Smoking Status: Never smoker Tobacco: How many years used: 2 alcohol intake: current alcohol intake frequency: a few times a week Alcohol type: wine substance use type: does not use caffeine: Yes Type: coffee Number of servings: 2 ROS ROS ED Constitutional Constitutional ED: Denies chills or fever(s) Eyes Eyes: Denies blurry vision or change in vision ENT ENT ED: Denies rhinorrhea or sore throat Cardiovascular Cardiovascular: Denies chest pain or palpitations Respiratory/Chest Respiratory/Chest: Denies cough or dyspnea Gastrointestinal Gastrointestinal: Denies nausea or vomiting Genitourinary Genitourinary ED: Denies dysuria or hematuria Musculoskeletal Musculoskeletal: Denies back pain or neck pain Integumentary Denies abscess or rash Neurologic Neurologic: Denies headache(s) or weakness Allergic/Immunologic Allergic/Immunologic ED: Denies mouth swelling or urticaria EXAM Physical Exam Const Vital Signs: 01/08/22 15:16 Temperature 97.4 F L Temperature Source Temporal Pulse Rate 59 L Respiratory Rate 18 Blood Pressure 112/68 Blood Pressure Mean 82 Pulse Ox 100 Oxygen Delivery Method Room Air Positive well nourished, well developed and obese General Appearance ED: well developed Nutritional Appearance: obese HEENT Reports moist mucous membranes Neck full ROM Neuro oriented x3, CN's II-XII intact bilaterally, moves all extremities and no sensory deficits noted Sensorium / Orientation: alert Motor Exam: strength 5/5 throughout Psych mental status grossly normal Skin Skin Narrative: There is a 1.5 cm partial-thickness linear laceration over the medial aspect of the distal phalanx of the right great toe. There is minimal gapping of the wound margin. There is no bleeding noted. There is no bony crepitance or step-off. There is good range of motion. Sensation was intact to light touch in all digits. Capillary refill was less than 2 seconds in all digits. MDM MDM MDM Narrative Medical decision making narrative: The wound was cleaned with Shur-Clens. The wound was closed with Dermabond skin adhesive. Patient tolerated the procedure well. Patient was given a tetanus booster. Patient was instructed to avoid bacitracin, Neosporin, triple antibiotic ointment, or other Vaseline-based ointments as this will breakdown the Dermabond. Patient was given a dose of Keflex here. Patient was given a prescription for Keflex. Patient was instructed to follow-up with her primary care physician in 5 to 7 days for wound recheck. Patient understood and was agreeable with the plan. All questions were answered. Procedures Lacerations Right great toe: Length: 1.5 cm Depth: Skin Shape: Linear Prep: Sterile Conditions and Shure-Clens Laceration repair: Dermabond and Wound explored Discharge Plan Triage Chief Complaint: Laceration ED Provider: Dario Peter Dx/Rx/DC Orders Clinical Impression: Laceration of right great toe w/o foreign body w/o damage to nail Instructions: ED Laceration, Foot: All Closures Prescriptions: New cephalexin [cephalexin] 500 MG capsule 500 mg PO Q6 Qty: 40 RF: 0 No Action potassium chloride 10 mEq capsule, extended release 20 meq PO BID RF: 0 fluticasone propionate [Flonase Allergy Relief] 50 mcg/actuation spray,suspension 2 spray INTRANASAL DAILY PRN (Reason: Allergies) RF: 0 nitroglycerin 0.4 mg tablet, sublingual 0.4 mg SUBLINGUAL Q5-15M PRN (Reason: chest pain) Qty: 25 RF: 3 mirabegron 25 mg tablet extended release 24 hr 25 mg PO DAILY RF: 0 fluoxetine 10 mg capsule 10 mg PO DAILY RF: 0 multivitamin 1 EACH tablet 1 ea PO DAILY RF: 0 atorvastatin 80 MG tablet 80 mg PO QHS RF: 0 carvedilol 12.5 MG tablet 6.25 mg PO BID RF: 0 bumetanide 2 MG tablet 2 mg PO DAILY RF: 0 aspirin 81 MG tablet 81 mg PO DAILY@0800 RF: 0 glimepiride 4 MG tablet 8 mg PO DAILY RF: 0 lisinopril 5 MG tablet 5 mg PO DAILY RF: 0 prasugrel 10 MG tablet 10 mg PO DAILY RF: 0 gabapentin 300 mg capsule 900 mg PO BID RF: 0 dulaglutide 1.5 MG/0.5 ML pen injector 1.5 mg PO MO RF: 0 loratadine 10 mg tablet 10 mg PO DAILY PRN (Reason: allergies) RF: 0 Primary Care Provider: Percy Harrison Referrals: Percy Harrison MD [Primary Care Provider] - 5-7 Days Disposition Disposition: Home, Self Care
[2022-01-08] MEDS: Diphth,Pertuss(Acell),Tet Vac 0.5 ML Vial IM (16:29)
[2022-01-08] MEDS: Cephalexin 500 MG Capsule PO (16:32)
== END 2022-01-08 16:54 | disposition home or self-care (01) ==
PROVIDERS: Emergency Provider Emergency Medicine; PCP Family Medicine; Visit Provider Emergency Medicine
DX: S91.111A Laceration without foreign body of right great toe without damage to nail, initial encounter (principal); E11.40 Type 2 diabetes mellitus with diabetic neuropathy, unspecified; E78.5 Hyperlipidemia, unspecified; I25.10 Atherosclerotic heart disease of native coronary artery without angina pectoris; Z23 Encounter for immunization
CPT/HCPCS: 12001; 90471; 90715; 99283; A4216

== ENCOUNTER 2022-05-29 09:04 | Emergency (ER) | payer MEDICARE, OTHER, SELFPAY ==
[2022-05-29 09:05] VITALS: BP 134/72; PULSE 77; RESP 16; TEMP 5388.8; TEMP 9732; O2SAT 95; BMI 48.0
--- NOTE | 2022-05-29 09:28 | EX.ED.DYSGE1 ---
HPI History of Present Illness Chief Complaint: Shortness of Breath Informant: patient Narrative Narrative: PositivePresents by private vehicle 2-day history symptoms over test at home. States started with cough fatigue headache. No fevers. No loss of taste or smell. No vomiting or diarrhea. COVID vaccinated with booster. No infections in the past. No known sick contacts. History of sleep apnea CPAP at night no home oxygen no tobacco history denies COPD or asthma. Denies history of kidney injury. Prior similar symptoms: No PFSH PFSH Medical History Atherosclerotic heart disease of [place] coronary artery without angina pectoris Bruising Closed left humeral fracture (05/27/19) Diabetes mellitus, type II Diabetic neuropathy Dizziness Hyperlipidemia Nausea Vertigo Home Medications aspirin 81 mg tablet,delayed release 81 mg PO DAILY@0800 heart 08/07/18 [History Last Taken 10/07/20] atorvastatin 80 mg tablet 80 mg PO QHS cholesterol 08/07/18 [History Last Taken 06/11/19] bumetanide 2 mg tablet 2 mg PO DAILY water pill 08/07/18 [History Last Taken 06/11/19] carvedilol 12.5 mg tablet 6.25 mg PO BID heart 08/07/18 [History Last Taken 10/07/20] glimepiride 4 mg tablet 8 mg PO DAILY diabetes 08/07/18 [History Last Taken 06/11/19] lisinopril 5 mg tablet 5 mg PO DAILY blood pressure 08/07/18 [History Last Taken 10/07/20] multivitamin 1 ea PO DAILY supplement 08/07/18 [History Last Taken 06/11/19] prasugrel 10 mg tablet 10 mg PO DAILY prevent blood clots 08/07/18 [History Last Taken 10/07/20] dulaglutide 1.5 mg/0.5 mL subcutaneous pen injector 1.5 mg PO MO dm 06/12/19 [History Last Taken 06/09/19] potassium chloride 10 mEq capsule,extended release 20 meq PO BID 06/24/19 [History Last Taken 10/07/20] fluticasone propionate 50 mcg/actuation nasal spray,suspension (Flonase Allergy Relief) 2 spray intranasal DAILY PRN Allergies 01/08/20 [History Last Taken Unknown] loratadine 10 mg tablet 10 mg PO DAILY PRN allergies 01/08/20 [History Last Taken Unknown] nitroglycerin 0.4 mg sublingual tablet 0.4 mg sublingual Q5-15M PRN chest pain #25 tabs 01/08/20 [Rx Last Taken Unknown] gabapentin 300 mg capsule 900 mg PO BID leg pain 07/26/20 [History Last Taken Unknown] fluoxetine 10 mg capsule 10 mg PO DAILY 10/04/20 [History Last Taken Unknown] mirabegron 25 mg tablet,extended release 24 hr 25 mg PO DAILY 10/04/20 [History Last Taken Unknown] cephalexin 500 mg capsule 500 mg PO Q6 #40 CAPSULES 01/08/22 [Rx Last Taken Unknown] nirmatrelvir 300 mg (150 mg x2)-ritonavir 100 mg tablet,dose pack(EUA) (Paxlovid) See Rx Instructions PO .COMPLEX #30 tabs 05/29/22 [Rx Last Taken Unknown] Allergy/AdvReac Type Severity Reaction Status Date / Time cat dander Allergy Intermediate nasal Verified 01/08/22 15:18 congestion, respiratory symptoms furosemide AdvReac Severe horrible Verified 01/08/22 15:18 leg cramps Sulfa (Sulfonamide AdvReac Profuse Verified 01/08/22 15:18 Antibiotics) sweating Family History Father Heart disease Brother Hypertension Mother Diabetes Surgical History History of cholecystectomy History of hysterectomy History of left heart catheterization (10/08/20) History of tonsillectomy and adenoidectomy Stented coronary artery (08/08/18) Social History Smoking Status: Never smoker Tobacco: How many years used: 2 alcohol intake: current alcohol intake frequency: a few times a week Alcohol type: wine substance use type: does not use caffeine: Yes Type: coffee Number of servings: 2 ROS ROS ED Constitutional Constitutional ED: Denies chills, fever(s) or sweats Eyes Eyes: Denies change in vision ENT ENT ED: Denies dysphagia or sore throat Cardiovascular Cardiovascular: Denies chest pain, leg edema, palpitations or racing heartbeat Respiratory/Chest Respiratory/Chest: Reports cough and dyspnea; Denies dyspnea on exertion Gastrointestinal Gastrointestinal: Denies abdominal pain, diarrhea, nausea or vomiting Genitourinary Genitourinary ED: Denies dysuria, hematuria or urinary frequency Musculoskeletal Musculoskeletal: Denies back pain, extremity pain or neck pain Integumentary Denies rash or wounds Neurologic Neurologic: Reports headache(s); Denies paresthesias or weakness EXAM Physical Exam Const Vital Signs: 05/29/22 09:05 05/29/22 09:31 05/29/22 09:41 Temperature 9732 F H Temperature Source Temporal Pulse Rate 77 Respiratory Rate 16 Respiratory Effort Short of Breath Blood Pressure 134/72 H Blood Pressure Mean 92 Pulse Ox 95 92 Oxygen Delivery Method Room Air Room Air Positive well nourished and well developed General Appearance ED: well developed and NAD HEENT Reports moist mucous membranes normocephalic and atraumatic Eyes PERRL, EOMs intact bilaterally and conjunctivae normal General Eye ED: Yes normal appearance of both eyes Neck no lymphadenopathy and supple Neck Narrative: No meningismus General: Negative for tenderness Chest Wall Chest: Negative for tenderness Resp normal respiratory effort and normal air movement Effort and Inspection: symmetric chest movement; Negative for respiratory distress Cardio regular rate, regular rhythm and no murmurs Peripheral Pulses: pulses 2+ throughout GI normal to inspection, nondistended, normoactive bowel sounds and non-tender Palpation: Negative for guarding or rebound tenderness present Back/Spine no CVA tenderness and no thoracic nor lumbar tenderness Extremity normal to inspection General Extremety ED: Negative for edema or tenderness General Extremity: Negative for edema Neuro oriented x3 and no sensory deficits noted Sensorium / Orientation: awake and alert Skin no rashes or lesions noted and no wounds MDM MDM MDM Narrative Medical decision making narrative: Patient vital stable pulse ox 95% on room air on arrival. No respiratory distress. Home COVID test +2 days he is within 5 days of treatment. Discussed treatment with patient she agrees to start this. She has normal lung sounds I do not feel imaging is necessary. She had a normal creatinine from review of labs previously. She has no kidney injury. Reviewing cross reactions with her medications. Nothing significant. Prescription for Paxlovid ordered for meds to bed for patient to start taking for 5 days. She states her daughter has a pulse oximeter at home for which she will monitor her pulse ox with strict return precautions. All questions were answered. Discharge Plan Triage Chief Complaint: Shortness of Breath ED Provider: Grady Rae Dx/Rx/DC Orders Clinical Impression: COVID-19 virus infection, Diabetes mellitus, type II, GERDA (obstructive sleep apnea) Instructions: Coronavirus Disease 2019 (COVID-19): Caring for Yourself or Others Prescriptions: New Paxlovid (EUA) 300 mg (150 mg x 2)-100 mg tablets,dose pack See Rx Instructions .ROUTE .COMPLEX Qty: 30 0RF Rx Instructions: take TWO 150 mg tablets of nirmatrelvir with ONE 100 mg tablet of ritonavir twice daily for 5 days No Action potassium chloride 10 mEq capsule, extended release 20 meq PO BID fluticasone propionate [Flonase Allergy Relief] 50 mcg/actuation spray,suspension 2 spray INTRANASAL DAILY PRN (Reason: Allergies) nitroglycerin 0.4 mg tablet, sublingual 0.4 mg SUBLINGUAL Q5-15M PRN (Reason: chest pain) Qty: 25 3RF mirabegron 25 mg tablet extended release 24 hr 25 mg PO DAILY Label Comments: TAKE 1 TABLET BY MOUTH ONCE DAILY fluoxetine 10 mg capsule 10 mg PO DAILY multivitamin 1 EACH tablet 1 ea PO DAILY atorvastatin 80 MG tablet 80 mg PO QHS carvedilol 12.5 MG tablet 6.25 mg PO BID bumetanide 2 MG tablet 2 mg PO DAILY aspirin 81 MG tablet 81 mg PO DAILY@0800 glimepiride 4 MG tablet 8 mg PO DAILY lisinopril 5 MG tablet 5 mg PO DAILY prasugrel 10 MG tablet 10 mg PO DAILY gabapentin 300 mg capsule 900 mg PO BID dulaglutide 1.5 MG/0.5 ML pen injector 1.5 mg PO MO Label Comments: INJECT THE CONTENTS OF ONE PEN SUBCUTANEOUSLY ONCE A WEEK. DISCARD PENAFTER USE loratadine 10 mg tablet 10 mg PO DAILY PRN (Reason: allergies) cephalexin [cephalexin] 500 MG capsule 500 mg PO Q6 Qty: 40 0RF Primary Care Provider: Percy Harrison Referrals: Percy Harrison MD [Primary Care Provider] - 1 Week Activity Restrictions/Additional Instructions: Take medication as prescribed. Monitor your pulse ox. Return if any worsening symptoms. Disposition Disposition: Home, Self Care Discharge Date/Time: 05/29/22 09:42
[2022-05-29 09:31] VITALS: O2SAT 93
[2022-05-29 09:41] VITALS: O2SAT 92
== END 2022-05-29 09:42 | disposition home or self-care (01) ==
PROVIDERS: Emergency Provider Emergency Medicine; PCP Family Medicine; Visit Provider Emergency Medicine
DX: U07.1 COVID-19 (principal); E11.9 Type 2 diabetes mellitus without complications; G47.33 Obstructive sleep apnea (adult) (pediatric); F17.200 Nicotine dependence, unspecified, uncomplicated; I25.10 Atherosclerotic heart disease of native coronary artery without angina pectoris; E78.5 Hyperlipidemia, unspecified
CPT/HCPCS: 99282

== ENCOUNTER 2022-06-02 22:04 | Emergency (ER) | payer MEDICARE, OTHER, SELFPAY ==
[2022-06-02 22:05] VITALS: BP 139/71; PULSE 72; RESP 16; TEMP 36.6; O2SAT 97; BMI 46.3
--- NOTE | 2022-06-02 23:23 | ED.VIS.FALL ---
HPI HPI - Fall History of Present Illness Chief Complaint: Fall Narrative Narrative: Patient presents status post fall. She had a mechanical fall when she was on her daughter's driveway. She tripped, fell forward and rolled and hit the back of her head. She now complains of left-sided neck pain and a large bump on the back of her head. She states that she takes anticoagulants secondary to coronary artery disease and stenting. However she cannot remember which one. She presents for evaluation. She denies any headache or memory loss. No nausea or vomiting. No other injury. [facility] Medical History Atherosclerotic heart disease of [place] coronary artery without angina pectoris Bruising Closed left humeral fracture (05/27/19) Diabetes mellitus, type II Diabetic neuropathy Dizziness Hyperlipidemia Nausea Vertigo Home Medications aspirin 81 mg tablet,delayed release 81 mg PO DAILY@0800 heart 08/07/18 [History Last Taken 10/07/20] atorvastatin 80 mg tablet 80 mg PO QHS cholesterol 08/07/18 [History Last Taken 06/11/19] bumetanide 2 mg tablet 2 mg PO DAILY water pill 08/07/18 [History Last Taken 06/11/19] carvedilol 12.5 mg tablet 6.25 mg PO BID heart 08/07/18 [History Last Taken 10/07/20] glimepiride 4 mg tablet 8 mg PO DAILY diabetes 08/07/18 [History Last Taken 06/11/19] lisinopril 5 mg tablet 5 mg PO DAILY blood pressure 08/07/18 [History Last Taken 10/07/20] multivitamin 1 ea PO DAILY supplement 08/07/18 [History Last Taken 06/11/19] prasugrel 10 mg tablet 10 mg PO DAILY prevent blood clots 08/07/18 [History Last Taken 10/07/20] dulaglutide 1.5 mg/0.5 mL subcutaneous pen injector 1.5 mg PO MO dm 06/12/19 [History Last Taken 06/09/19] potassium chloride 10 mEq capsule,extended release 20 meq PO BID 06/24/19 [History Last Taken 10/07/20] fluticasone propionate 50 mcg/actuation nasal spray,suspension (Flonase Allergy Relief) 2 spray intranasal DAILY PRN Allergies 03/05/20 [History Last Taken Unknown] loratadine 10 mg tablet 10 mg PO DAILY PRN allergies 01/08/20 [History Last Taken Unknown] nitroglycerin 0.4 mg sublingual tablet 0.4 mg sublingual Q5-15M PRN chest pain #25 tabs 01/08/20 [Rx Last Taken Unknown] gabapentin 300 mg capsule 900 mg PO BID leg pain 07/26/20 [History Last Taken Unknown] fluoxetine 10 mg capsule 10 mg PO DAILY 10/04/20 [History Last Taken Unknown] mirabegron 25 mg tablet,extended release 24 hr 25 mg PO DAILY 10/04/20 [History Last Taken Unknown] cephalexin 500 mg capsule 500 mg PO Q6 #40 CAPSULES 01/08/22 [Rx Last Taken Unknown] nirmatrelvir 300 mg (150 mg x2)-ritonavir 100 mg tablet,dose pack(EUA) (Paxlovid) See Rx Instructions PO .COMPLEX #30 tabs 05/29/22 [Rx Last Taken Unknown] Allergy/AdvReac Type Severity Reaction Status Date / Time cat dander Allergy Intermediate nasal Verified 06/02/22 22:07 congestion, respiratory symptoms furosemide AdvReac Severe horrible Verified 06/02/22 22:07 leg cramps Sulfa (Sulfonamide AdvReac Profuse Verified 06/02/22 22:07 Antibiotics) sweating Family History Father Heart disease Brother Hypertension Mother Diabetes Surgical History History of cholecystectomy History of hysterectomy History of left heart catheterization (10/08/20) History of tonsillectomy and adenoidectomy Stented coronary artery (08/08/18) Social History Smoking Status: Never smoker Tobacco: How many years used: 2 alcohol intake: current alcohol intake frequency: a few times a week Alcohol type: wine substance use type: does not use caffeine: Yes Type: coffee Number of servings: 2 ROS ROS ED ROS Narrative Constitutional: No fever, no chills. HEENT: No sore throat. No neck pain. No loss of vision. No rhinorrhea. Lump on occiput secondary to fall. Left-sided neck pain worse with motion. Cardiovascular: No chest pain. No palpitations. No pedal edema. Respiratory: No cough, no shortness of breath. Abdominal: No abdominal pain. No nausea. No vomiting. Genitourinary: No dysuria. No hematuria. Musculoskeletal: No myalgias. No arthralgias. Neurologic: No headaches. No dizziness. No lightheadedness. Skin: No rash. No change in color. Psychiatric: No depression. No anxiety. EXAM Physical Exam Narrative Exam Narrative: Afebrile. Vital signs noted. GCS 15. ABCs intact. HEENT: Normocephalic. Mild tender hematoma on occiput, moderately sized, no active bleeding. PERRL, EOMI. Neck soft and supple. No point tenderness or step off. Cardiovascular: Regular rate and rhythm. No murmurs, rubs, or gallops appreciated. Respiratory: No tachypnea. Lungs clear to auscultation bilaterally. Gastrointestinal: Abdomen soft, nontender, with normoactive bowel sounds. No rebound or guarding. Neurological: Awake. Alert. Oriented x3. Nonfocal, nonlateralizing. Able to raise arms above head without difficulty. Skin: No rash. Normal color. No pallor. Musculoskeletal: No pedal edema. Full range of motion extremities. Const Vital Signs: 06/02/22 22:05 06/02/22 23:08 Temperature 97.8 F Temperature Source Temporal Pulse Rate 72 Respiratory Rate 16 Respiratory Effort Normal Non-Labored Respiratory Depth Normal Respiratory Pattern Normal Blood Pressure 139/71 H Blood Pressure Mean 93 Pulse Ox 97 Oxygen Delivery Method Room Air Room Air MDM MDM MDM Narrative Medical decision making narrative: CT of the C-spine and of the brain will be obtained given that she has a head injury on anticoagulation, although her neurological examination is normal, she is above age 65. At this point in time, patient will be signed out to the overnight physician, Dr. Herman currently, she is in stable condition. Patricia will check the CT scan to make final disposition on this patient with closed head injury and has an occipital scalp hematoma. Discharge Plan Triage Chief Complaint: Fall ED Provider: Les Suarez Dx/Rx/DC Orders Clinical Impression: Fall, Hematoma of occipital region of scalp, Neck muscle strain Instructions: ED Head Injury (Adult), ED Hematoma, ED Neck Sprain or Strain Prescriptions: No Action potassium chloride 10 mEq capsule, extended release 20 meq PO BID fluticasone propionate [Flonase Allergy Relief] 50 mcg/actuation spray,suspension 2 spray INTRANASAL DAILY PRN (Reason: Allergies) nitroglycerin 0.4 mg tablet, sublingual 0.4 mg SUBLINGUAL Q5-15M PRN (Reason: chest pain) Qty: 25 3RF mirabegron 25 mg tablet extended release 24 hr 25 mg PO DAILY Label Comments: TAKE 1 TABLET BY MOUTH ONCE DAILY fluoxetine 10 mg capsule 10 mg PO DAILY multivitamin 1 EACH tablet 1 ea PO DAILY atorvastatin 80 MG tablet 80 mg PO QHS carvedilol 12.5 MG tablet 6.25 mg PO BID bumetanide 2 MG tablet 2 mg PO DAILY aspirin 81 MG tablet 81 mg PO DAILY@0800 glimepiride 4 MG tablet 8 mg PO DAILY lisinopril 5 MG tablet 5 mg PO DAILY prasugrel 10 MG tablet 10 mg PO DAILY gabapentin 300 mg capsule 900 mg PO BID dulaglutide 1.5 MG/0.5 ML pen injector 1.5 mg PO MO Label Comments: INJECT THE CONTENTS OF ONE PEN SUBCUTANEOUSLY ONCE A WEEK. DISCARD PENAFTER USE loratadine 10 mg tablet 10 mg PO DAILY PRN (Reason: allergies) cephalexin [cephalexin] 500 MG capsule 500 mg PO Q6 Qty: 40 0RF Paxlovid (EUA) 300 mg (150 mg x 2)-100 mg tablets,dose pack See Rx Instructions .ROUTE .COMPLEX Qty: 30 0RF Rx Instructions: take TWO 150 mg tablets of nirmatrelvir with ONE 100 mg tablet of ritonavir twice daily for 5 days Primary Care Provider: Percy Harrison Referrals: Percy Harrison MD [Primary Care Provider] - 3-5 Days if not improving
[2022-06-03 02:20] VITALS: RESP 18
--- NOTE | 2022-06-03 23:20 | CT_ITS ---
STUDY: CT BRAIN WITHOUT CONTRAST ENHANCEMENT OF 0104 HOURS on 06/03/2022 REASON FOR EXAM: 72 year old female on anticoagulation with head injury. RADIATION DOSAGE (If Supplied By Facility): CTDIvol = ( 44.99 ) mGy, DLP = ( 812.98 ) mGycm. TECHNIQUE: Transaxial CT imaging of the brain was performed without administration of intravenous contrast material. COMPARISON: No relevant priors. FINDINGS: Mild cortical, central, and cerebellar atrophy. No subdural, epidural, or intracerebral hematoma, hemorrhage or contusion. No intracranial mass lesions or ischemic or hemorrhagic cerebral infarction. Enlarged 1.3 cm in diameter empty sella. Normal brainstem and posterior fossa. Normal calvarium without linear or depressed skull fractures. 8 mm in diameter calcified meningioma versus osteoma projecting from the inner table of the left lateral frontal region STUDY: CT BRAIN WITHOUT CONTRAST ENHANCEMENT OF 0104 HOURS on 06/03/2022 REASON FOR EXAM: 72 year old female on anticoagulation with head injury. RADIATION DOSAGE (If Supplied By Facility): CTDIvol = ( 44.99 ) mGy, DLP = ( 812.98 ) mGycm. TECHNIQUE: Transaxial CT imaging of the brain was performed without administration of intravenous contrast material. COMPARISON: No relevant priors. FINDINGS: Mild bilateral chronic ethmoid sinusitis. CT/Brain/Head without Contrast IMPRESSION: 1. No subdural, epidural, or intracerebral hematoma, hemorrhage or contusion. 2. No intracranial mass lesions, intracranial metastatic disease, or infarcts. 3. Enlarged 1.3 cm in diameter empty sella. 4. Mild cortical, central, and cerebellar atrophy. 5. No other intracranial pathology. 6. Normal calvarium without lunar depressed skull fractures. 7. Presence of an 8 mm in diameter calcified meningioma versus osteoma projecting from the inner table of the left lateral frontal region. 8. Mild bilateral chronic ethmoid sinusitis. Electronically Signed: Kevin Edgar MD at 1:41 EDT ,
--- NOTE | 2022-06-03 23:20 | CT_ITS ---
STUDY: CT CERVICAL SPINE WITHOUT CONTRAST ENHANCEMENT 0105 HOURS ON 06/03/2022 REASON FOR EXAM: 72-year-old female with neck trauma and pain. Patient is on anticoagulation. RADIATION DOSAGE (If Supplied By Facility): CTDIvol = ( 27.32 ) mGy, DLP = ( 550.91 ) mGycm TECHNIQUE: High resolution transaxial imaging was performed without contrast material. Sagittal and coronal images were reconstructed. COMPARISON: None FINDINGS: Straightening of the cervical spine that may be indicative of muscle spasm. No vertebral body fractures or subluxations. Marked narrowing of the C3-4, C4-5, C5-6, and C6-7 intervertebral disc spaces with mild to moderate osteophytic degenerative changes. Mild osteophytic impingement on both C3-4 and C4-5 intervertebral neural foramina. Intact odontoid and posterior elements. Normal atlantoaxial joint for age. Normal lung apices. Normal soft tissues. No demonstration of hematomas. CT/Spine Cervical without Contras IMPRESSION: 1. Straightening of the cervical spine indicative of muscle spasm. 2. No vertebral body fractures or subluxations. 3. Marked narrowing of the C3-4, C4-5, C5-6, and C6-7 intervertebral disc spaces with mild to moderate osteophytic degenerative changes. 4. Mild osteophytic impingement on both C3-4 and C4-5 intervertebral neural foramina. 5. Intact odontoid and posterior elements. Normal atlantoaxial joint. 6. No demonstration of hematomas. Electronically Signed: Kevin Edgar MD at 1:46 EDT ,
== END 2022-06-03 02:30 | disposition home or self-care (01) ==
PROVIDERS: Emergency Provider Emergency Medicine; PCP Family Medicine; Visit Provider Emergency Medicine
DX: S00.03XA Contusion of scalp, initial encounter (principal); S16.1XXA Strain of muscle, fascia and tendon at neck level, initial encounter; I25.10 Atherosclerotic heart disease of native coronary artery without angina pectoris; W01.0XXA Fall on same level from slipping, tripping and stumbling without subsequent striking against object, initial encounter
CPT/HCPCS: 70450; 72125; 99284

== ENCOUNTER 2022-06-11 08:24 | Emergency (ER) | payer MEDICARE, OTHER, SELFPAY ==
[2022-06-11 08:26] VITALS: BP 136/49; PULSE 71; RESP 16; TEMP 36.2; O2SAT 97; BMI 44.6
[2022-06-11 08:27] VITALS: BP 136/49; PULSE 71; RESP 16; TEMP 36.2; O2SAT 97
--- NOTE | 2022-06-11 08:34 | EKG12_ITS ---
Test Reason : HEART HX Blood Pressure : / mmHG Vent. Rate : 069 BPM Atrial Rate : 069 BPM P-R Int : 156 ms QRS Dur : 084 ms QT Int : 440 ms P-R-T Axes : 000 053 044 degrees QTc Int : 471 ms Normal sinus rhythm Low voltage QRS Borderline ECG Confirmed by QUETA VALLEJO, ASYA ([id number]), assistant editor KAREN VELA ([id number]) on 06/13/2022 9:06:51 AM Referred By: Confirmed By:ASYA BIRCH MD
--- NOTE | 2022-06-11 08:34 | RAD_ITS ---
EXAM: XR CHEST, 2 VIEWS CLINICAL INDICATION: cough TECHNIQUE: Frontal and lateral views of the chest. This report was created using [employer] report generation technology. COMPARISON: None. FINDINGS: LUNGS AND PLEURAL SPACES: Normal. No consolidation or edema. No pneumothorax. No effusion. HEART: Normal. Normal heart size. MEDIASTINUM: Central airways and mediastinal contour are unremarkable. BONES/JOINTS: Old fracture of the proximal right humeral shaft. Questionable fracture of the proximal left humerus. SOFT TISSUES: Normal. RAD/Chest PA and Lateral IMPRESSION: No acute cardiopulmonary abnormality. No interval change Electronically Signed: Costa Barrera MD at 10:30 EDT ,
--- NOTE | 2022-06-11 08:35 | EDS_ITS ---
HPI History of Present Illness Chief Complaint: Cough Narrative Narrative: Patient presents with a cough that is keeping her up at night, this is been ongoing for 3 weeks. She was diagnosed with COVID she has felt improved except for the cough. She has no shortness of breath. No fevers. She has no back pain or tearing sensation, no chest pain or pleuritic component. No myalgias. The cough is mostly nonproductive except for some clear sputum at times. [facility] Medical History Atherosclerotic heart disease of [place] coronary artery without angina pectoris Bruising Closed left humeral fracture (05/27/19) Diabetes mellitus, type II Diabetic neuropathy Dizziness Hyperlipidemia Nausea Vertigo Home Medications aspirin 81 mg tablet,delayed release 81 mg PO DAILY@0800 heart 08/07/18 [History Last Taken 10/07/20] atorvastatin 80 mg tablet 80 mg PO QHS cholesterol 08/07/18 [History Last Taken 06/11/19] bumetanide 2 mg tablet 2 mg PO DAILY water pill 08/07/18 [History Last Taken 06/11/19] carvedilol 12.5 mg tablet 6.25 mg PO BID heart 08/07/18 [History Last Taken 10/07/20] glimepiride 4 mg tablet 8 mg PO DAILY diabetes 08/07/18 [History Last Taken 06/11/19] lisinopril 5 mg tablet 5 mg PO DAILY blood pressure 08/07/18 [History Last Taken 10/07/20] multivitamin 1 ea PO DAILY supplement 08/07/18 [History Last Taken 06/11/19] prasugrel 10 mg tablet 10 mg PO DAILY prevent blood clots 08/07/18 [History Last Taken 10/07/20] dulaglutide 1.5 mg/0.5 mL subcutaneous pen injector 1.5 mg PO MO dm 06/12/19 [History Last Taken 06/09/19] potassium chloride 10 mEq capsule,extended release 20 meq PO BID 06/24/19 [History Last Taken 10/07/20] fluticasone propionate 50 mcg/actuation nasal spray,suspension (Flonase Allergy Relief) 2 spray intranasal DAILY PRN Allergies 01/08/20 [History Last Taken Unknown] loratadine 10 mg tablet 10 mg PO DAILY PRN allergies 01/08/20 [History Last Taken Unknown] nitroglycerin 0.4 mg sublingual tablet 0.4 mg sublingual Q5-15M PRN chest pain #25 tabs 01/08/20 [Rx Last Taken Unknown] gabapentin 300 mg capsule 900 mg PO BID leg pain 07/26/20 [History Last Taken Unknown] fluoxetine 10 mg capsule 10 mg PO DAILY 10/04/20 [History Last Taken Unknown] mirabegron 25 mg tablet,extended release 24 hr 25 mg PO DAILY 10/04/20 [History Last Taken Unknown] cephalexin 500 mg capsule 500 mg PO Q6 #40 CAPSULES 01/08/22 [Rx Last Taken Unknown] nirmatrelvir 300 mg (150 mg x2)-ritonavir 100 mg tablet,dose pack(EUA) (Paxlovid) See Rx Instructions PO .COMPLEX #30 tabs 05/29/22 [Rx Last Taken Unknown] dextromethorphan 5 mg-guaifenesin 50 mg/5 mL oral liquid (Tussin DM) 20 ml PO Q4H #237 mL 06/11/22 [Rx Last Taken Unknown] Allergy/AdvReac Type Severity Reaction Status Date / Time cat dander Allergy Intermediate nasal Verified 06/11/22 08:27 congestion, respiratory symptoms furosemide AdvReac Severe horrible Verified 06/11/22 08:27 leg cramps Sulfa (Sulfonamide AdvReac Profuse Verified 06/11/22 08:27 Antibiotics) sweating Family History Father Heart disease Brother Hypertension Mother Diabetes Surgical History History of cholecystectomy History of hysterectomy History of left heart catheterization (10/08/20) History of tonsillectomy and adenoidectomy Stented coronary artery (08/08/18) Social History Smoking Status: Never smoker Tobacco: How many years used: 2 alcohol intake: current alcohol intake frequency: a few times a week Alcohol type: wine substance use type: does not use caffeine: Yes Type: coffee Number of servings: 2 ROS ROS ED ROS Narrative Past medical history: Reviewed, includes history of COVID-19 3 weeks ago, sleep apnea, obesity, diabetes, hyperlipidemia, hypertension, status post PTCA Medications: Reviewed at the bedside and in the medical record Social history: Noncontributory Review of systems: All systems negative except as indicated General: No fever Eyes: No visual changes ENT: No upper airway congestion, normal voice Neck: No neck pain Cardiovascular: No chest pain Respiratory: No shortness of breath. Cough as in HPI Gastrointestinal: No abdominal pain, nausea vomiting or diarrhea Genitourinary: No dysuria Musculoskeletal: Denies myalgias no difficulty with ambulation Skin: No rash Neurological: No memory loss, confusion or any focal weakness Psych: No recent behavioral changes Hematologic: No easy bleeding or easy bruising EXAM Physical Exam Narrative Exam Narrative: Physical exam General: She appears documented weight, she does not appear in any distress Head: Normocephalic, Atraumatic Eyes: Conjunctiva not pale ENT: Moist mucous membranes Neck: Supple, Nontender, No lymphadenopathy Cardiovascular: Regular rate, Regular rhythm Respiratory: No distress, CTA bilaterally, I cannot appreciate any wheezing or rhonchi or rales. Abdomen: Soft, Nontender, Nondistended Back: Nontender, Normal Inspection. Negative for: CVA tenderness Extremities: Nontender, No edema Skin: Normal color, No rash Neurological: Alert, Normal Strength, Normal Sensation Psychological: Normal affect Const Vital Signs: 06/11/22 08:26 06/11/22 08:31 06/11/22 08:27 Temperature 97.2 F L 97.2 F L Temperature Source Temporal Temporal Pulse Rate 71 71 Respiratory Rate 16 16 Respiratory Effort Normal Respiratory Depth Normal Respiratory Pattern Normal Blood Pressure 136/49 H 136/49 H Blood Pressure Mean 78 Pulse Ox 97 97 Oxygen Delivery Method Room Air Room Air 06/11/22 09:58 06/11/22 09:58 Temperature 97.9 F 97.9 F Temperature Source Oral Oral Pulse Rate 68 68 Respiratory Rate 20 H 20 H Respiratory Effort Respiratory Depth Respiratory Pattern Blood Pressure 145/76 H 145/76 H Blood Pressure Mean 99 99 Pulse Ox 99 99 Oxygen Delivery Method Room Air Room Air MDM MDM MDM Narrative Medical decision making narrative: Patient has an unremarkable emergency department work-up. She appears well. She has a cough which is likely secondary to COVID, she may have some bronchitis. Regardless I believe she is stable for discharge I will give her cough medication. Lab Data Labs: Laboratory Results - last 24 hr 0806/11/22 06/11/22 09:25 09:25 09:25 WBC 7.6 RBC 4.34 Hgb 12.6 Hct 37.3 MCV 85.9 MCH 29.0 MCHC 33.8 RDW Std Deviation 45.3 H RDW Coeff of [place] 14.3 Plt Count 156 MPV 12.0 Immature Gran % (Auto) 0.100 Neut % (Auto) 58.2 Lymph % (Auto) 23.9 [place] % (Auto) 11.8 H Eos % (Auto) 5.3 H Baso % (Auto) 0.7 Absolute Neuts (auto) 4.4 Absolute Lymphs (auto) 1.82 Nucleated RBC % 0 Sodium 138 Potassium 3.3 L Chloride 101 Carbon Dioxide 33.0 H Anion Gap 4 L BUN 16 Creatinine 0.90 Estim Creat Clear Calc 48.07 Est GFR (MDRD) Af Amer 79 Est GFR (MDRD) Non-Af 65 BUN/Creatinine Ratio 17.7 Glucose 322 H Calcium 8.7 Total Bilirubin 0.40 AST 23 ALT 30 Alkaline Phosphatase 75 B-Natriuretic Peptide 58.9 Total Protein 6.2 L Albumin 2.9 L Globulin 3.3 Albumin/Globulin Ratio 0.9 Radiography Diagnostic Testing: Clinical Impression(s) from Imaging Studies Chest X-Ray 06/11/22 08:34 IMPRESSION: No acute cardiopulmonary abnormality. No interval change Electronically Signed: Costa Barrera MD at 10:30 EDT Reading Location ID and State: [address] [place] [address] Tel , Service support , Discharge Plan Triage Chief Complaint: Cough ED Provider: Wilver Schneider Dx/Rx/DC Orders Clinical Impression: COVID-19, Cough Instructions: ED Cough Chronic Uncertain Cause Adult Prescriptions: New Tussin DM 5-50 mg/5 mL liquid 20 ml PO Q4H Qty: 237 0RF No Action potassium chloride 10 mEq capsule, extended release 20 meq PO BID fluticasone propionate [Flonase Allergy Relief] 50 mcg/actuation spray,suspension 2 spray INTRANASAL DAILY PRN (Reason: Allergies) nitroglycerin 0.4 mg tablet, sublingual 0.4 mg SUBLINGUAL Q5-15M PRN (Reason: chest pain) Qty: 25 3RF mirabegron 25 mg tablet extended release 24 hr 25 mg PO DAILY Label Comments: TAKE 1 TABLET BY MOUTH ONCE DAILY fluoxetine 10 mg capsule 10 mg PO DAILY multivitamin 1 EACH tablet 1 ea PO DAILY atorvastatin 80 MG tablet 80 mg PO QHS carvedilol 12.5 MG tablet 6.25 mg PO BID bumetanide 2 MG tablet 2 mg PO DAILY aspirin 81 MG tablet 81 mg PO DAILY@0800 glimepiride 4 MG tablet 8 mg PO DAILY lisinopril 5 MG tablet 5 mg PO DAILY prasugrel 10 MG tablet 10 mg PO DAILY gabapentin 300 mg capsule 900 mg PO BID dulaglutide 1.5 MG/0.5 ML pen injector 1.5 mg PO MO Label Comments: INJECT THE CONTENTS OF ONE PEN SUBCUTANEOUSLY ONCE A WEEK. DISCARD PENAFTER USE loratadine 10 mg tablet 10 mg PO DAILY PRN (Reason: allergies) cephalexin [cephalexin] 500 MG capsule 500 mg PO Q6 Qty: 40 0RF Paxlovid (EUA) 300 mg (150 mg x 2)-100 mg tablets,dose pack See Rx Instructions .ROUTE .COMPLEX Qty: 30 0RF Rx Instructions: take TWO 150 mg tablets of nirmatrelvir with ONE 100 mg tablet of ritonavir twice daily for 5 days Primary Care Provider: Percy Harrison Referrals: Percy Harrison MD [Primary Care Provider] - 3-5 Days Disposition Disposition: Home, Self Care
[2022-06-11 09:34] LABS: Absolute Lymphocyte Count 1.82 X10^3/uL (0.83-4.51); Absolute Neutrophil Count 4.4 X10^3/uL (2.0-7.7); Basophil# 0.05 X10^3/uL; Basophil% 0.7 % (0-1); Eosinophils% 5.3 % (0-5); Hematocrit 37.3 % (37-47); Hemoglobin 12.6 g/dL (12.0-15.0); Lymphocyte # 1.82 X10^3/ul (0.83-4.51); Lymphocyte % 23.9 % (19-41); Mean Corp Hgb Conc 33.8 g/dL (32-36); Mean Corpuscular Volume 85.9 fL (81-99); Monocyte% 11.8 % (0-10); NRBC Flagged by Analyzer 0 % (0-5); Neutrophil # 4.43 X10^3/uL (2.7-7.7); Neutrophil % 58.2 % (47-70); Platelet Count 156 K/mm3 (150-450); RBC Distribution Width CV 14.3 % (11.6-14.6); RBC Distribution Width SD 45.3 fl (35.1-43.9); Red Blood Count 4.34 M/mm3 (4.2-5.4); White Blood Count 7.6 K/mm3 (4.4-11.0)
[2022-06-11 09:49] LABS: ALB/GLOB Ratio 0.9 RATIO (0.9-2.4); AST(SGOT) 23 U/L (15-37); Alanine Aminotransfer ALT/SGPT 30 U/L (13-56); Albumin, Serum 2.9 g/dL (3.2-5.0); Alkaline Phosphatase 75 U/L (45-117); Anion Gap 4 (5-15); BUN 16 mg/dL (7-18); BUN/Creat Ratio 17.7 RATIO (10-20); Calcium,Total 8.7 mg/dL (8.5-10.1); Chloride 101 mmol/L (98-107); EST Glomerular Filtration Rate 65 mL/min (>60); Est Glom Filt Rate - Afr Amer 79 mL/min (>60); Estimated Creatinine Clearance 48.07 ml/min; Globulin 3.3 g/dL (2.2-4.2); Glucose 322 mg/dL (74-106); Potassium 3.3 mmol/L (3.5-5.1); Protein, Total 6.2 g/dL (6.4-8.2); Sodium Level 138 mmol/L (136-145)
[2022-06-11 09:58] VITALS: BP 145/76; PULSE 68; RESP 20; TEMP 36.6; O2SAT 99
[2022-06-11 10:00] LABS: BNP,B-Type NATRIURETIC PEPTIDE 58.9 pg/mL (0-100)
[2022-06-11 11:20] VITALS: BP 138/77; PULSE 89; RESP 14; O2SAT 95
== END 2022-06-11 11:24 | disposition home or self-care (01) ==
PROVIDERS: Emergency Provider Emergency Medicine; PCP Family Medicine; Visit Provider Emergency Medicine
DX: U07.1 COVID-19 (principal); E11.9 Type 2 diabetes mellitus without complications; R05.9 Cough, unspecified; I25.10 Atherosclerotic heart disease of native coronary artery without angina pectoris; I10 Essential (primary) hypertension; E78.5 Hyperlipidemia, unspecified; Z95.5 Presence of coronary angioplasty implant and graft; G47.30 Sleep apnea, unspecified
CPT/HCPCS: 71046; 80053; 83880; 85025; 93005; 99283

== ENCOUNTER 2022-09-20 16:51 | Emergency (ER) | payer MEDICARE, OTHER, SELFPAY ==
[2022-09-20 16:52] VITALS: BP 147/65; PULSE 62; RESP 18; TEMP 35.9; O2SAT 97; BMI 50.6
--- NOTE | 2022-09-20 18:10 | RAD_ITS ---
STUDY: X-RAY - RIGHT FOOT CLINICAL: Female, 72 years old. RIGHT 3RD TOE INJURY TECHNIQUE: 3 view(s) of the foot. COMPARISON: None. FINDINGS: Normal talus, calcaneus, and tarsal bones. Normal visualized subtalar, talonavicular, calcaneocuboid, tarsal and tarsometatarsal articulations. Normal metatarsi. There is degenerative arthrosis of the metatarsophalangeal joint of the hallux . Normal tibial and fibular sesamoid bones. Normal interphalangeal joint of the great toe. Normal phalanges of the great toe. Normal second through fifth metatarsophalangeal joints. Normal interphalangeal joints and phalanges of the lesser toes. The soft tissue structures are unremarkable. There is no demonstrated fracture. RAD/Foot min 3 Views IMPRESSION: No fracture seen. Electronically Signed: Mj Onofre MD at 18:51 EST ,
--- NOTE | 2022-09-20 18:44 | EX.ED.DYSGE1 ---
HPI History of Present Illness Chief Complaint: Lower Extremity Injury Informant: patient Narrative Narrative: Patient accidentally dropped an iPad with a case under her right middle toe. No other injury. She is diabetic. This happened just shortly before arrival. There was a small break in the skin. Pressing on it makes it worse rest makes it better. No other injury [facility] Medical History Atherosclerotic heart disease of [place] coronary artery without angina pectoris Bruising Closed left humeral fracture (05/27/19) Diabetes mellitus, type II Diabetic neuropathy Dizziness Hyperlipidemia Nausea Vertigo Home Medications aspirin 81 mg tablet,delayed release 81 mg PO DAILY@0800 heart 08/07/18 [History Last Taken 10/07/20] atorvastatin 80 mg tablet 80 mg PO QHS cholesterol 08/07/18 [History Last Taken 06/11/19] bumetanide 2 mg tablet 2 mg PO DAILY water pill 08/07/18 [History Last Taken 06/11/19] carvedilol 12.5 mg tablet 6.25 mg PO BID heart 08/07/18 [History Last Taken 10/07/20] glimepiride 4 mg tablet 8 mg PO DAILY diabetes 08/07/18 [History Last Taken 06/11/19] lisinopril 5 mg tablet 5 mg PO DAILY blood pressure 08/07/18 [History Last Taken 10/07/20] multivitamin 1 ea PO DAILY supplement 08/07/18 [History Last Taken 06/11/19] prasugrel 10 mg tablet 10 mg PO DAILY prevent blood clots 08/07/18 [History Last Taken 10/07/20] dulaglutide 1.5 mg/0.5 mL subcutaneous pen injector 1.5 mg PO MO dm 06/12/19 [History Last Taken 06/09/19] potassium chloride 10 mEq capsule,extended release 20 meq PO BID 06/24/19 [History Last Taken 10/07/20] fluticasone propionate 50 mcg/actuation nasal spray,suspension (Flonase Allergy Relief) 2 spray intranasal DAILY PRN Allergies 01/08/20 [History Last Taken Unknown] loratadine 10 mg tablet 10 mg PO DAILY PRN allergies 01/08/20 [History Last Taken Unknown] nitroglycerin 0.4 mg sublingual tablet 0.4 mg sublingual Q5-15M PRN chest pain #25 tabs 01/08/20 [Rx Last Taken Unknown] gabapentin 300 mg capsule 900 mg PO BID leg pain 07/26/20 [History Last Taken Unknown] fluoxetine 10 mg capsule 10 mg PO DAILY 10/04/20 [History Last Taken Unknown] mirabegron 25 mg tablet,extended release 24 hr 25 mg PO DAILY 10/04/20 [History Last Taken Unknown] cephalexin 500 mg capsule 500 mg PO Q6 #40 CAPSULES 01/08/22 [Rx Last Taken Unknown] nirmatrelvir 300 mg (150 mg x2)-ritonavir 100 mg tablet,dose pack(EUA) (Paxlovid) See Rx Instructions PO .COMPLEX #30 tabs 05/29/22 [Rx Last Taken Unknown] dextromethorphan 5 mg-guaifenesin 50 mg/5 mL oral liquid (Tussin DM) 20 ml PO Q4H #237 mL 06/11/22 [Rx Last Taken Unknown] Allergy/AdvReac Type Severity Reaction Status Date / Time cat dander Allergy Intermediate nasal Verified 09/20/22 16:54 congestion, respiratory symptoms furosemide AdvReac Severe horrible Verified 09/20/22 16:54 leg cramps Sulfa (Sulfonamide AdvReac Profuse Verified 09/20/22 16:54 Antibiotics) sweating Family History Father Heart disease Brother Hypertension Mother Diabetes Surgical History History of cholecystectomy History of hysterectomy History of left heart catheterization (10/08/20) History of tonsillectomy and adenoidectomy Stented coronary artery (08/08/18) Social History Smoking Status: Former smoker Tobacco: How many years used: 2 alcohol intake: current alcohol intake frequency: a few times a week Alcohol type: wine substance use type: does not use caffeine: Yes Type: coffee Number of servings: 2 ROS ROS ED Constitutional Constitutional ED: Denies chills or fever(s) Gastrointestinal Gastrointestinal: Denies nausea or vomiting Musculoskeletal Musculoskeletal: Reports arthralgias and other Details: See history of present illness. ; Denies back pain Integumentary Reports Abrasions Neurologic Neurologic: Denies paresthesias or weakness Hematologic/Lymphatic Hematologic/Lymphatic: Denies easy bleeding or easy bruising EXAM Physical Exam Const Vital Signs: 09/20/22 16:52 Temperature 96.6 F L Temperature Source Temporal Pulse Rate 62 Respiratory Rate 18 Blood Pressure 147/65 H Blood Pressure Mean 92 Pulse Ox 97 Oxygen Delivery Method Room Air Positive well nourished and well developed General Appearance ED: well developed and NAD Resp normal respiratory effort Extremity Extremity Narrative: There is a small inner crack in the skin on the dorsal aspect of her right middle toe. I see no deformity. No bleeding. There is tenderness. Neuro no sensory deficits noted Neuro Narrative: Patient does still have sensation intact. Skin Skin Narrative: Abrasion as above. MDM MDM MDM Narrative Medical decision making narrative: X-ray is suspicious for a small fracture. However, the skin over this really just has a superficial crack. I do not think this is an open fracture. There is suspicion if the x-ray is even showing a fracture or just a small cortical irregularity. Final reading is pending. I do not think the patient needs antibiotics. We will update her tetanus. We did have a discussion of what to watch for and how to care for this. Being diabetic she is at increased risk of infection but I will think antibiotics will prevent this. Radiography Diagnostic Testing: Three-view x-ray of the right foot looked at/read by me shows some demineralization. There is suspicion of a small fracture at the proximal medial aspect of the distal phalanx of the right third toe. No other injury is noted. Discharge Plan Triage Chief Complaint: Lower Extremity Injury ED Provider: Manny Royal Dx/Rx/DC Orders Clinical Impression: Fracture of right toe, Abrasion of third toe, right Instructions: ED Fracture, Toe, Closed Prescriptions: No Action potassium chloride 10 mEq capsule, extended release 20 meq PO BID fluticasone propionate [Flonase Allergy Relief] 50 mcg/actuation spray,suspension 2 spray INTRANASAL DAILY PRN (Reason: Allergies) nitroglycerin 0.4 mg tablet, sublingual 0.4 mg SUBLINGUAL Q5-15M PRN (Reason: chest pain) Qty: 25 3RF mirabegron 25 mg tablet extended release 24 hr 25 mg PO DAILY Label Comments: TAKE 1 TABLET BY MOUTH ONCE DAILY fluoxetine 10 mg capsule 10 mg PO DAILY multivitamin 1 EACH tablet 1 ea PO DAILY atorvastatin 80 MG tablet 80 mg PO QHS carvedilol 12.5 MG tablet 6.25 mg PO BID bumetanide 2 MG tablet 2 mg PO DAILY aspirin 81 MG tablet 81 mg PO DAILY@0800 glimepiride 4 MG tablet 8 mg PO DAILY lisinopril 5 MG tablet 5 mg PO DAILY prasugrel 10 MG tablet 10 mg PO DAILY gabapentin 300 mg capsule 900 mg PO BID dulaglutide 1.5 MG/0.5 ML pen injector 1.5 mg PO MO Label Comments: INJECT THE CONTENTS OF ONE PEN SUBCUTANEOUSLY ONCE A WEEK. DISCARD PENAFTER USE loratadine 10 mg tablet 10 mg PO DAILY PRN (Reason: allergies) cephalexin [cephalexin] 500 MG capsule 500 mg PO Q6 Qty: 40 0RF Paxlovid (EUA) 300 mg (150 mg x 2)-100 mg tablets,dose pack See Rx Instructions .ROUTE .COMPLEX Qty: 30 0RF Rx Instructions: take TWO 150 mg tablets of nirmatrelvir with ONE 100 mg tablet of ritonavir twice daily for 5 days Tussin DM 5-50 mg/5 mL liquid 20 ml PO Q4H Qty: 237 0RF Primary Care Provider: Percy Harrison Referrals: Percy Harrison MD [Primary Care Provider] - 1 Week if not improving Disposition Disposition: Home, Self Care
== END 2022-09-20 19:02 | disposition home or self-care (01) ==
PROVIDERS: Emergency Provider Emergency Medicine; PCP Family Medicine; Visit Provider Emergency Medicine
DX: S92.911A Unspecified fracture of right toe(s), initial encounter for closed fracture (principal); E11.40 Type 2 diabetes mellitus with diabetic neuropathy, unspecified; I25.10 Atherosclerotic heart disease of native coronary artery without angina pectoris; Z87.891 Personal history of nicotine dependence; E78.5 Hyperlipidemia, unspecified; W20.8XXA Other cause of strike by thrown, projected or falling object, initial encounter
CPT/HCPCS: 73630; 90715; 99282

== ENCOUNTER 2023-01-30 13:59 | Observation (INO) | payer MEDICARE, OTHER, SELFPAY ==
[2023-01-30] VITALS (7 sets, daily range): BP systolic 105–142; BP diastolic 48–79; PULSE 64–84; RESP 15–20; TEMP 36.3–36.4; O2SAT 96–99; BMI 51.6; BMI 48.5
--- NOTE | 2023-01-30 14:02 | CT_ITS ---
STUDY: CT BRAIN WITHOUT CONTRAST REASON FOR EXAM: Female, 72 years old. Neuro deficit, acute, stroke suspected RADIATION DOSAGE (If Supplied By Facility): CTDIvol = ( 44.99 ) mGy, DLP = ( 762.36 ) mGycm TECHNIQUE: Transaxial CT imaging of the brain was performed without administration of intravenous contrast material. Individualized dose optimization techniques were used for this CT. COMPARISON: Comparison is made with prior study dated June 03, 2022. FINDINGS: Normal soft tissue structures. Normal calvarium. There is mild cerebral atrophy with widening of the extra-axial spaces and ventricular dilatation. Normal white matter tracts of the cerebral hemispheres. Normal basal ganglia and thalami. Normal brainstem. Normal cerebellum. Empty sella. There is no intracranial hemorrhage. There are no findings of an acute ischemic infarction. Calcific plaques of the cavernous portion of the internal carotid arteries. Mucosal thickening of the ethmoid sinuses. Opacification of the left frontal sinus. CT/STROKE Brain/Head without Cont IMPRESSION: Chronic involutional changes of the brain. Opacification of the left frontal sinus and the ethmoid sinuses. N.B. : The above Results were Read Back by Julio De La Vega [facility] and understanding confirmed on 01/30/2023 14:23:55 (ET). Electronically Signed: Julio De La Vega MD at 14:25 EDT ,
--- NOTE | 2023-01-30 14:02 | EKG12_ITS ---
Test Reason : STROKE TEAM Blood Pressure : / mmHG Vent. Rate : 069 BPM Atrial Rate : 069 BPM P-R Int : 158 ms QRS Dur : 082 ms QT Int : 426 ms P-R-T Axes : 024 068 074 degrees QTc Int : 456 ms Normal sinus rhythm Normal ECG Confirmed by AMANDA VALLEJO, REY ([id number]), technical writer and editor KAREN VELA ([id number]) on 02/05/2023 6:52:09 AM Referred By: Confirmed By:MEHRDAD PATEL MD
--- NOTE | 2023-01-30 14:03 | CT_ITS ---
STUDY: CTA HEAD AND NECK WITH CONTRAST REASON FOR EXAM: Female, 72 years old. Neuro deficit, acute, stroke suspected RADIATION DOSAGE (If Supplied By Facility): CTDIvol = ( 18.89 ) mGy, DLP = ( 816.20 ) mGycm TECHNIQUE: CT angiography was performed with a multi-detector CT scanner. Data acquisition was obtained from the skull base through the vertex following intravenous administration of IV 100mL [id number]-300. MIP images were reconstructed from the axial data set. Post-processing of the angiographic images was performed, with multiplanar reformation and 3D reconstruction. Individualized dose optimization techniques were used for this CT. COMPARISON: No relevant priors. FINDINGS: Normal bilateral petrous carotid arteries. There is calcified plaque formation of the right cavernous carotid artery, without a cross-sectional luminal stenosis. There is calcified plaque formation of the left cavernous carotid artery, without a cross-sectional luminal stenosis. Normal right A1 segments of the anterior cerebral artery. Normal left A1 segments of the anterior cerebral artery. Normal intact anterior communicating artery (ACOM). Normal bilateral A2 segments of the anterior cerebral arteries. Normal right M1 and M2 segments of the middle cerebral arteries, with a normal M1 bifurcation. Normal left M1 and M2 segments of the middle cerebral arteries, with a normal M1 bifurcation. Normal right posterior communicating artery (PCOM). Normal left posterior communicating artery (PCOM). Normal bilateral vertebral arteries. Normal basilar artery with a normal basilar bifurcation. The visualized bilateral superior cerebellar (SCA) arteries are normal. Normal bilateral P1, P2 and visualized P3 segments of the posterior cerebral arteries. There is no demonstrated aneurysm of the [place]. AORTIC ARCH: There is atherosclerotic calcific plaque formation of the aortic arch and great vessels arising from the aortic arch, without a hemodynamically significant stenosis. There is a normal origin of the brachiocephalic, left common carotid, and left subclavian arteries. RIGHT CAROTID ARTERIES: Normal right common carotid artery (CCA). Normal right common carotid bulb. There is extensive atherosclerotic plaque formation of the origin of the right internal carotid artery with an estimated stenosis of greater than 70%. Normal visualized cervical portion of the right internal carotid artery. Normal origin of the right external carotid artery (ECA). LEFT CAROTID ARTERIES: Normal left common carotid artery (CCA). Normal left common carotid bulb. There is mild atherosclerotic plaque formation of the origin of the left internal carotid artery with less than 50% cross sectional diameter stenosis. Normal visualized cervical portion of the left internal carotid artery. Normal origin of the left external carotid artery (ECA). VERTEBRAL ARTERIES: Normal bilateral vertebral arteries. CT/STROKE CTA Head AND Neck W/Con IMPRESSION: Calcific plaque at the origin of the right internal carotid artery causing greater than 70% narrowing. Calcific plaques at the origin of the left internal carotid artery causing less than 50% stenosis. N.B. : The above Results were Read Back by Julio De La Vega MD to [facility] and understanding confirmed on 01/30/2023 14:47:03 (ET). Electronically Signed: Julio De La Vega MD at 14:48 EDT ,
--- NOTE | 2023-01-30 14:04 | EDS_ITS ---
HPI History of Present Illness Chief Complaint: Stroke Alert Narrative Narrative: 72-year-old female past medical history of hyperlipidemia, diabetes, coronary artery disease presents with difficulty with speech that started 15 minutes ago. She states that she was at a restaurant and had just finished eating. They went to get up and she had generalized weakness, and slurring of her speech. She thinks she is having slight difficulty saying words. She denies any headache. She does not take blood thinners. No other symptoms except for feeling generally weak when she went to stand up. [facility] Medical History Atherosclerotic heart disease of [place] coronary artery without angina pectoris Bruising Closed left humeral fracture (05/27/19) Diabetes mellitus, type II Diabetic neuropathy Dizziness Hyperlipidemia Nausea Vertigo Home Medications aspirin 81 mg tablet,delayed release 81 mg PO DAILY@0800 heart 08/07/18 [History Last Taken 10/07/20] atorvastatin 80 mg tablet 80 mg PO QHS cholesterol 08/07/18 [History Last Taken 06/11/19] bumetanide 2 mg tablet 2 mg PO DAILY water pill 08/07/18 [History Last Taken 06/11/19] carvedilol 12.5 mg tablet 6.25 mg PO BID heart 08/07/18 [History Last Taken 10/07/20] glimepiride 4 mg tablet 8 mg PO DAILY diabetes 08/07/18 [History Last Taken 06/11/19] lisinopril 5 mg tablet 5 mg PO DAILY blood pressure 08/07/18 [History Last Taken 10/07/20] multivitamin 1 ea PO DAILY supplement 08/07/18 [History Last Taken 06/11/19] prasugrel 10 mg tablet 10 mg PO DAILY prevent blood clots 08/07/18 [History Last Taken 10/07/20] dulaglutide 1.5 mg/0.5 mL subcutaneous pen injector 1.5 mg PO MO dm 06/12/19 [History Last Taken 06/09/19] potassium chloride 10 mEq capsule,extended release 20 meq PO BID 06/24/19 [History Last Taken 10/07/20] fluticasone propionate 50 mcg/actuation nasal spray,suspension (Flonase Allergy Relief) 2 spray intranasal DAILY PRN Allergies 01/08/20 [History Last Taken Unknown] loratadine 10 mg tablet 10 mg PO DAILY PRN allergies 01/08/20 [History Last Taken Unknown] nitroglycerin 0.4 mg sublingual tablet 0.4 mg sublingual Q5-15M PRN chest pain #25 tabs 01/08/20 [Rx Last Taken Unknown] gabapentin 300 mg capsule 900 mg PO BID leg pain 07/26/20 [History Last Taken Unknown] fluoxetine 10 mg capsule 10 mg PO DAILY 10/04/20 [History Last Taken Unknown] mirabegron 25 mg tablet,extended release 24 hr 25 mg PO DAILY 10/04/20 [History Last Taken Unknown] cephalexin 500 mg capsule 500 mg PO Q6 #40 CAPSULES 01/08/22 [Rx Last Taken Unknown] nirmatrelvir 300 mg (150 mg x2)-ritonavir 100 mg tablet,dose pack(EUA) (Paxlovid) See Rx Instructions PO .COMPLEX #30 tabs 05/29/22 [Rx Last Taken Unknown] dextromethorphan 5 mg-guaifenesin 50 mg/5 mL oral liquid (Tussin DM) 20 ml PO Q4H #237 mL 06/11/22 [Rx Last Taken Unknown] Allergy/AdvReac Type Severity Reaction Status Date / Time cat dander Allergy Intermediate nasal Verified 09/20/22 16:54 congestion, respiratory symptoms furosemide AdvReac Severe horrible Verified 09/20/22 16:54 leg cramps Sulfa (Sulfonamide AdvReac Profuse Verified 09/20/22 16:54 Antibiotics) sweating Family History Father Heart disease Brother Hypertension Mother Diabetes Surgical History History of cholecystectomy History of hysterectomy History of left heart catheterization (10/08/20) History of tonsillectomy and adenoidectomy Stented coronary artery (08/08/18) Social History Smoking Status: Former smoker Tobacco: How many years used: 2 alcohol intake: current alcohol intake frequency: a few times a week Alcohol type: wine substance use type: does not use caffeine: Yes Type: coffee Number of servings: 2 ROS ROS ED ROS Narrative Constitutional: No fever, no chills. Generalized weakness. HEENT: No sore throat. No neck pain. No loss of vision. No rhinorrhea. Cardiovascular: No chest pain. No palpitations. No pedal edema. Respiratory: No cough, no shortness of breath. Abdominal: No abdominal pain. No nausea. No vomiting. Genitourinary: No dysuria. No hematuria. Musculoskeletal: No myalgias. No arthralgias. Neurologic: No headaches. No dizziness. No lightheadedness. Slurring of speech. Skin: No rash. No change in color. Psychiatric: No depression. No anxiety. EXAM Physical Exam Narrative Exam Narrative: Afebrile. Vital signs noted. HEENT: Normocephalic. Atraumatic. PERRL, EOMI. Neck soft and supple. No point tenderness or step off. Cardiovascular: Regular rate and rhythm. No murmurs, rubs, or gallops appreciated. Respiratory: No tachypnea. Lungs clear to auscultation bilaterally. Gastrointestinal: Abdomen soft, nontender, with normoactive bowel sounds. No rebound or guarding. Neurological: Awake. Alert. Nonfocal, nonlateralizing. NIH stroke scale is 1 at best for mild dysarthria/slurring of speech. Skin: No rash. Normal color. No pallor. Musculoskeletal: No pedal edema. Full range of motion extremities. Const Vital Signs: 01/30/23 14:15 01/30/23 14:00 01/30/23 14:23 Temperature 97.6 F L Temperature Source Oral Pulse Rate 76 75 Respiratory Rate 20 H 17 Blood Pressure 126/57 H Blood Pressure Mean 80 Pulse Ox 96 97 99 Oxygen Delivery Method Room Air Room Air Room Air MDM MDM MDM Narrative Medical decision making narrative: Stroke team was initiated in triage. I reviewed her prior records, and found nothing contributory to this visit an episode of slurred speech. In discussion with the radiologist, regarding her CT head results, there is no acute process, no hemorrhage. I reviewed the radiology report of the CTA and there is no large vessel occlusion, but there is noted carotid artery stenosis of 70% on the right and less than 50% on the left. In discussion with the [facility] stroke neurologist/telestroke neurologist, they are considering her NIH to be 0, but she is having very slight residual slurred speech. She is not a tPA candidate because she has a nondisabling symptom. It was reported that she was already on an antiplatelet medication. I reviewed her laboratory work and she has a normal white count of 7.3, hemoglobin normal at 13.1, hematocrit 39.7, normal platelet count of 154. Coagulation studies were obtained and are negative at INR of 1.1 and an APTT of 26.5. EKG was obtained and interpreted by myself as normal sinus rhythm at 69 bpm without ectopy or acute ST changes. No STEMI. In comparison and review of an EKG dated June 11, 2022, there is no significant change. BMP is remarkable for carbon dioxide of 34.0 which would be more consistent with COPD, and her need for CPAP with obstructive sleep apnea and review of her medical problems. [id number] glucose reviewed and is normal at 187. Her anion gap is low at 3, and I do not feel that she is in a di abetic ketoacidosis. I reviewed her chest x-ray and interpreted it myself independently and see no evidence of acute pneumonia. I reviewed the radiology report which confirms my independent interpretation. At this point in time, after discussion with the telestroke neurologist, as she has no large vessel occlusion, it was felt that she could be admitted here for further work-up of her stroke. I then discussed the patient with Dr. Hernandez for assignment to observation in the PCU. Patient is in stable condition. History & Record Review Discussion w/independent historian: Patient and Family Additional record(s) reviewed:: Prior ED visit Lab Data Attestation: I reviewed the patient's lab results. Labs: Laboratory Results - last 24 hr 01/30/23 01/30/23 01/30/23 14:10 14:10 14:10 WBC 7.3 RBC 4.62 Hgb 13.1 Hct 39.7 MCV 85.9 MCH 28.4 MCHC 33.0 RDW Std Deviation 44.4 H RDW Coeff of Contreras 14.3 Plt Count 154 MPV 11.5 Immature Gran % (Auto) 0.300 Neut % (Auto) 56.5 Lymph % (Auto) 25.4 [place] % (Auto) 11.4 H Eos % (Auto) 5.6 H Baso % (Auto) 0.8 Absolute Neuts (auto) 4.1 Absolute Lymphs (auto) 1.86 Nucleated RBC % 0 PT 13.4 INR 1.1 APTT 26.5 Sodium 140 Potassium 3.8 Chloride 103 Carbon Dioxide 34.0 H Anion Gap 3 L BUN 18 Creatinine 0.87 Estim Creat Clear Calc 49.73 Est GFR (MDRD) Af Amer 82 Est GFR (MDRD) Non-Af 68 BUN/Creatinine Ratio 20.7 H Glucose 182 H Calcium 8.9 Troponin I High Sens 4 POC Glucose 01/30/23 14:18 WBC RBC Hgb Hct MCV MCH MCHC RDW Std Deviation RDW Coeff of Contreras Plt Count MPV Immature Gran % (Auto) Neut % (Auto) Lymph % (Auto) [place] % (Auto) Eos % (Auto) Baso % (Auto) Absolute Neuts (auto) Absolute Lymphs (auto) Nucleated RBC % PT INR APTT Sodium Potassium Chloride Carbon Dioxide Anion Gap BUN Creatinine Estim Creat Clear Calc Est GFR (MDRD) Af Amer Est GFR (MDRD) Non-Af BUN/Creatinine Ratio Glucose Calcium Troponin I High Sens POC Glucose 187 H Radiography Diagnostic Testing: Clinical Impression(s) from Imaging Studies Brain CT 01/30/23 14:02 IMPRESSION: Chronic involutional changes of the brain. Opacification of the left frontal sinus and the ethmoid sinuses. N.B. : The above Results were Read Back by Julio De La Vega MD to Les Suarez and understanding confirmed on 01/30/2023 14:23:55 (ET). Electronically Signed: Julio De La Vega MD at 14:25 EDT , ADDENDUM: 01/30/23 1432 IMPRESSION: Chronic involutional changes of the brain. Opacification of the left frontal sinus and the ethmoid sinuses. N.B. : The above Results were Read Back by Julio De La Vega MD to Les Suarez and understanding confirmed on 01/30/2023 14:23:55 (ET). Electronically Signed: Julio De La Vega MD at 14:25 EDT , Head/Neck CTA 01/30/23 14:03 IMPRESSION: Calcific plaque at the origin of the right internal carotid artery causing greater than 70% narrowing. Calcific plaques at the origin of the left internal carotid artery causing less than 50% stenosis. N.B. : The above Results were Read Back by Julio De La Vega MD to Les Suarez and understanding confirmed on 01/30/2023 14:47:03 (ET). Electronically Signed: Julio De La Vega MD at 14:48 EDT , ADDENDUM: 01/30/23 1455 IMPRESSION: Calcific plaque at the origin of the right internal carotid artery causing greater than 70% narrowing. Calcific plaques at the origin of the left internal carotid artery causing less than 50% stenosis. N.B. : The above Results were Read Back by Julio De La Vega MD to Les Suarez and understanding confirmed on 01/30/2023 14:47:03 (ET). Electronically Signed: Julio De La Vega MD at 14:48 EDT , Chest X-Ray 01/30/23 14:36 IMPRESSION: Normal x-ray examination of the chest. Electronically Signed: Julio De La Vega MD at 14:52 EDT , Management Discussion w/another healthcare provider: Hospitalist, Bus Inspector (Telestroke neurologist) and Radiologist (Regarding emergent CTA and CT results.) Discharge Plan Dx/Rx/DC Orders Clinical Impression: Slurred speech, Weakness, Carotid artery stenosis Disposition Disposition: Acute Care [facility]
[2023-01-30 14:18] LABS: Absolute Lymphocyte Count 1.86 X10^3/uL (0.83-4.51); Absolute Neutrophil Count 4.1 X10^3/uL (2.0-7.7); Basophil# 0.06 X10^3/uL; Basophil% 0.8 % (0-1); Eosinophil# 0.41 X10^3/uL; Eosinophils% 5.6 % (0-5); Hematocrit 39.7 % (37-47); Hemoglobin 13.1 g/dL (12.0-15.0); Lymphocyte # 1.86 X10^3/ul (0.83-4.51); Lymphocyte % 25.4 % (19-41); Mean Corpuscular Hgb 28.4 pg (27.0-32.0); Mean Corpuscular Volume 85.9 fL (81-99); Mean Platelet Vol. 11.5 fl (6.2-12.0); Monocyte# 0.83 X10^3/uL; Monocyte% 11.4 % (0-10); NRBC Flagged by Analyzer 0 % (0-5); Neutrophil # 4.13 X10^3/uL (2.7-7.7); Neutrophil % 56.5 % (47-70); Platelet Count 154 K/mm3 (150-450); RBC Distribution Width CV 14.3 % (11.6-14.6); RBC Distribution Width SD 44.4 fl (35.1-43.9); Red Blood Count 4.62 M/mm3 (4.2-5.4); White Blood Count 7.3 K/mm3 (4.4-11.0)
--- NOTE | 2023-01-30 14:25 | ED.RN ---
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 STROKE ALERT CALLED IN TRIAGE
[2023-01-30 14:32] LABS: International Normalized Ratio 1.1; Prothrombin Time (Protime)PT. 13.4 SECONDS (11.7-14.9)
[2023-01-30 14:33] LABS: Partial Thromboplast Time 26.5 Seconds (24.1-36.2)
[2023-01-30 14:35] LABS: Bedside Glucose 187 mg/dL (74-106)
[2023-01-30 14:36] LABS: Anion Gap 3 (5-15); BUN 18 mg/dL (7-18); BUN/Creat Ratio 20.7 RATIO (10-20); Calcium,Total 8.9 mg/dL (8.5-10.1); Chloride 103 mmol/L (98-107); Creatinine, Serum 0.87 mg/dL (0.55-1.02); EST Glomerular Filtration Rate 68 mL/min (>60); Est Glom Filt Rate - Afr Amer 82 mL/min (>60); Estimated Creatinine Clearance 49.73 ml/min; Glucose 182 mg/dL (74-106); Potassium 3.8 mmol/L (3.5-5.1); Sodium Level 140 mmol/L (136-145); Troponin-I HS 4 pg/mL (3.0-54.0)
--- NOTE | 2023-01-30 14:36 | RAD_ITS ---
STUDY: X-RAY CHEST REASON FOR EXAM: Female, 72 years old. Neuro deficit, acute, stroke suspected TECHNIQUE: Single AP portable view of the chest. COMPARISON: Comparison is made with prior study June 11, 2022. FINDINGS: EKG electrodes are seen. The lungs are clear and expanded. There is no demonstrated pleural abnormality. Normal size heart. Normal mediastinum and hector. Normal visualized pulmonary arteries. Normal visualized aortic arch and descending thoracic aorta. Normal visualized thoracic spine. Normal visualized ribs, clavicles, and shoulders. There is no demonstrated abnormality of the visualized soft tissue structures of the upper abdomen. RAD/Chest 1 View IMPRESSION: Normal x-ray examination of the chest. Electronically Signed: Julio De La Vega MD at 14:52 EDT ,
--- NOTE | 2023-01-30 16:05 | HP.PCM.HOS_ITS ---
[facility] - General General Date of Service: 01/30/23 Chief Complaint: syncope HPI Narrative VANIA VASQUEZ, is a 72 F who presents presents with slurred speech. Patient was at lunch and then going back to the car where he was short of breath and winded. Upon getting in the car, patient began to lose consciousness and had slurred speech. Slurred speech persisted for period of time and patient was sent to the emergency room. Patient had head CT that showed no acute process and CTA of the head neck that showed 70% stenosis of the right internal carotid artery and 50% stenosis of the left internal carotid artery. Patient is back to her baseline though does complain of some numbness on the left side of her face. Patient's for members present and said that she had a similar episode weeks prior though not as severe where the patient was winded after walking into the car and was very wiped out afterwards. Patient does note that she does get very winded more easily recently such as just with cleaning. [facility] Medical History (Updated 01/30/23 @ 16:[address] Dario Hernandez, ) (HFpEF) heart failure with preserved ejection fraction Atherosclerotic heart disease of [place] coronary artery without angina pectoris Bruising Closed left humeral fracture (05/27/19) Diabetes mellitus, type II Diabetic neuropathy Dizziness Hyperlipidemia Nausea Vertigo Home Medications aspirin 81 mg tablet,delayed release 81 mg PO DAILY@0800 heart 08/07/18 [History Last Taken 01/30/23] atorvastatin 80 mg tablet 80 mg PO QHS cholesterol 08/07/18 [History Last Taken 01/29/23] bumetanide 2 mg tablet 2 mg PO DAILY water pill 08/07/18 [History Last Taken 01/30/23] carvedilol 12.5 mg tablet 6.25 mg PO BID heart 08/07/18 [History Last Taken 01/30/23] glimepiride 4 mg tablet 4 mg PO DAILY diabetes 08/07/18 [History Last Taken 01/30/23] lisinopril 5 mg tablet 5 mg PO DAILY blood pressure 08/07/18 [History Last Taken 01/30/23] multivitamin 1 ea PO DAILY supplement 08/07/18 [History Last Taken 01/30/23] prasugrel 10 mg tablet 10 mg PO DAILY prevent blood clots 08/07/18 [History Last Taken 01/30/23] dulaglutide 1.5 mg/0.5 mL subcutaneous pen injector 1.5 mg PO MO dm 06/12/19 [History Last Taken 01/22/23] potassium chloride 10 mEq capsule,extended release 20 meq PO QHS SUPPLEMENT 06/24/19 [History Last Taken 01/29/23] fluticasone propionate 50 mcg/actuation nasal spray,suspension (Flonase Allergy Relief) 2 spray intranasal DAILY PRN Allergies 01/08/20 [History Last Taken Unknown] loratadine 10 mg tablet 10 mg PO DAILY PRN allergies 01/08/20 [History Last Taken 01/30/23] nitroglycerin 0.4 mg sublingual tablet 0.4 mg sublingual Q5-15M PRN chest pain #25 tabs 01/08/20 [Rx Last Taken Unknown] gabapentin 300 mg capsule 600 mg PO QHS leg pain 07/26/20 [History Last Taken 01/29/23] fluoxetine 10 mg capsule 10 mg PO DAILY 10/04/20 [History Last Taken 01/30/23] acetaminophen 500 mg tablet 1,000 mg PO DAILY PRN Pain 01/30/23 [History Last Taken 01/28/23] gabapentin 300 mg capsule 300 mg PO DAILY NERVE PAIN 01/30/23 [History Last Taken 01/30/23] insulin NPH isoph U-100 human 100 unit/mL subcutaneous suspension (Novolin N NPH U-100 Insulin isophane) 23 unit subcut DAILY DM 01/30/23 [History Last Taken 01/29/23] potassium chloride 10 mEq tablet,extended release(part/cryst) 10 meq PO DAILY SUPPLEMENT 01/30/23 [History Last Taken 01/30/23] Allergy/AdvReac Type Severity Reaction Status Date / Time cat dander Allergy Intermediate nasal Verified 09/20/22 16:54 congestion, respiratory symptoms furosemide AdvReac Severe horrible Verified 09/20/22 16:54 leg cramps Sulfa (Sulfonamide AdvReac Profuse Verified 09/20/22 16:54 Antibiotics) sweating Family History Father Heart disease Brother Hypertension Mother Diabetes Surgical History History of cholecystectomy History of hysterectomy History of left heart catheterization (10/08/20) History of tonsillectomy and adenoidectomy Stented coronary artery (08/08/18) Social History Smoking Status: Former smoker Tobacco: How many years used: 2 alcohol intake: current alcohol intake frequency: a few times a week Alcohol type: wine substance use type: does not use caffeine: Yes Type: coffee Number of servings: 2 ROS ROS Narrative States that she has put on weight recently. Does have chronic lower extremity edema but no change with that. Does have some wounds on her leg that she has been tending to. All review of systems were negative except as mentioned above in the history of present illness and the other review of systems. Vital Signs Vital Signs Vital Signs: 01/30/23 14:15 01/30/23 14:00 01/30/23 14:23 Temperature 36.4 C L Temperature Source Oral Pulse Rate 76 75 Respiratory Rate 20 H 17 Blood Pressure 126/57 H Blood Pressure Mean 80 Pulse Ox 96 97 99 Oxygen Delivery Method Room Air Room Air Room Air 01/30/23 15:50 Temperature Temperature Source Pulse Rate 84 Respiratory Rate 16 Blood Pressure 138/79 H Blood Pressure Mean 98 Pulse Ox 98 Oxygen Delivery Method Room Air Weight Weight: 136.5 kg Body Mass Index (BMI) 51.6 Physical Exam Narrative - Physical Exam General: Alert, Oriented x3, Cooperative HEENT: Atraumatic, PERRLA, EOMI, Normocephalic Oral: Moist Mucosa, No Gingival or Mucosal Lesions/ Ulcerations Neck: Supple, No JVD, Negative Carotid Bruits Lungs: Clear to auscultation, Normal air movement Cardiovascular: Regular rate, Normal S1, Normal S2, No murmurs Abdomen: Bowel Sounds Present, Soft, Non Tender, Non-Distended, No Hepato- splenomegaly Extremities: No clubbing, No cyanosis, bilateral lower extremity edema., Capillary Refill Less than 3 Seconds Skin: No rashes, No breakdown. Bilateral lymphedema edema changes to the lower extremities with some erythema. No overt cellulitis. Musculoskeletal: No Tenderness to Palpation of Joints or Extremities Neurological: Neuro grossly intact. Cranial nerves II through XII gross intact. Muscle strength is 5-5 in upper and lower extremities bilaterally. [id number] is intact bilaterally. Psych/Mental Status: Normal Affect, Appropriate Results Lab / Micro Data Attestation: I reviewed the patient's lab results. Result Diagrams: 01/30/23 14:10 01/30/23 14:10 Labs: Laboratory Results - last 24 hr 01/30/23 14:10: WBC 7.3, RBC 4.62, Hgb 13.1, Hct 39.7, MCV 85.9, MCH 28.4, MCHC 33.0, RDW Std Deviation 44.4 H, RDW Coeff of Contreras 14.3, Plt Count 154, MPV 11.5, Immature Gran % (Auto) 0.300, Neut % (Auto) 56.5, Lymph % (Auto) 25.4, [place] % (Auto) 11.4 H, Eos % (Auto) 5.6 H, Baso % (Auto) 0.8, Absolute Neuts (auto) 4.1, Absolute Lymphs (auto) 1.86, Nucleated RBC % 0 01/30/23 14:10: PT 13.4, INR 1.1, APTT 26.5 01/30/23 14:10: Sodium 140, Potassium 3.8, Chloride 103, Carbon Dioxide 34.0 H, Anion Gap 3 L, BUN 18, Creatinine 0.87, Estim Creat Clear Calc 49.73, Est GFR (MDRD) Af Amer 82, Est GFR (MDRD) Non-Af 68, BUN/Creatinine Ratio 20.7 H, Glucose 182 H, Calcium 8.9, Troponin I High Sens 4 01/30/23 14:18: POC Glucose 187 H EKG Initial EKG: Attestation: I personally reviewed and interpreted this EKG as follows: Prior EKG tracings: available for review Radiology Impression Brain CT 01/30/23 14:02 IMPRESSION: Chronic involutional changes of the brain. Opacification of the left frontal sinus and the ethmoid sinuses. N.B. : The above Results were Read Back by Julio De La Vega MD to Les Suarez and understanding confirmed on 01/30/2023 14:23:55 (ET). Electronically Signed: Julio De La Vega MD at 14:25 EDT , ADDENDUM: 01/30/23 1432 IMPRESSION: Chronic involutional changes of the brain. Opacification of the left frontal sinus and the ethmoid sinuses. N.B. : The above Results were Read Back by Julio De La Vega MD to Les Suarez and understanding confirmed on 01/30/2023 14:23:55 (ET). Electronically Signed: Julio De La Vega MD at 14:25 EDT , Head/Neck CTA 01/30/23 14:03 IMPRESSION: Calcific plaque at the origin of the right internal carotid artery causing greater than 70% narrowing. Calcific plaques at the origin of the left internal carotid artery causing less than 50% stenosis. N.B. : The above Results were Read Back by Julio De La Vega MD to Les Suarez and understanding confirmed on 01/30/2023 14:47:03 (ET). Electronically Signed: Julio De La Vega MD at 14:48 EDT , ADDENDUM: 01/30/23 1455 IMPRESSION: Calcific plaque at the origin of the right internal carotid artery causing greater than 70% narrowing. Calcific plaques at the origin of the left internal carotid artery causing less than 50% stenosis. N.B. : The above Results were Read Back by Julio De La Vega MD to Les Suarez and understanding confirmed on 01/30/2023 14:47:03 (ET). Electronically Signed: Julio De La Vega MD at 14:48 EDT , Chest X-Ray 01/30/23 14:36 IMPRESSION: Normal x-ray examination of the chest. Electronically Signed: Julio De La Vega MD at 14:52 EDT , Assessment & Plan Assessment/Plan (1) Syncope: QUALIFIERS: Syncope type: vasovagal syncope Qualified Code(s): R55 - Syncope and collapse PLAN: Suspect vasovagal. By therapy, at this point, as the patient may have been hypoxic as she was short of breath getting into the car and that hypoxia may have been exacerbated by her carotid stenosis and lack of perfusion to her brain that caused her to go out and have protracted case dysarthria. However, cannot rule out a stroke so I do feel the patient would benefit from a stroke rule out at this time for her with her carotid stenosis. Plan is for an MRI of the brain, 2D echocardiogram and a lipid panel (2) Carotid stenosis: QUALIFIERS: Laterality: bilateral Qualified Code(s): I65.23 - Occlusion and stenosis of bilateral carotid arteries PLAN: Patient will require follow-up with vascular surgery as outpatient whether not she has a stroke or not. Continue with do antiplatelet therapy and high intensity statin. (3) (HFpEF) heart failure with preserved ejection fraction: QUALIFIERS: Heart failure chronicity: acute on chronic Qualified Code(s): I50.33 - Acute on chronic diastolic (congestive) heart failure PLAN: Lung sounds fine. The patient has been slowly putting weight and does have profound lower extremity edema We will change her bumetanide from 2 mg twice daily orally to 4 IV twice daily for now Echocardiogram Patient echocardiogram in July 16, 2019 where her EF was 65%. Concern the patient may have pulmonary hypertension but that was not able to be identified on that echocardiogram from 2019. PLAN: Plan Chronic conditions * Diabetes mellitus type 2: Patient takes NPH twice a day.. Continue with glimepiride. Sliding scale insulin * Morbid obesity: BMI 51.7 kg/m?. Complicates care and recovery. VTE prophylaxis: Not indicated at this time as patient will be observation status. CODE STATUS: Addressed with patient. Patient wishes to be DNR Comfort Care arrest and is okay with intubation short-term if necessary. Charges/Coding Visit Charges Inpatient E&M: 44114 Init Hosp L3
--- NOTE | 2023-01-30 16:11 | CHAPLAIN ---
Type of Pastoral Visit ___ Initial Visit ___ Follow-up Visit ___ On-call Visit ___ General Patient Visit ___ Spiritual Assessment ___ Family Conference ___ Bereavement _x__ Rapid Response ___ Code Blue ___ Other (describe below) Pastoral Care Referral From ___ Patient ___ Family ___ Nurse ___ Physician ___ Overweaver ___ Family Preservation Caseworker _x__ Other (describe below) Sacrament/Intervention _x__ Active listening ___ Anointing ___ Samaritan ___ Bereavement ___ Communion ___ Debbi exploration ___ ___ Life review ___ Prayer ___ Reconciliation ___ Sacrament of Sick _x__ Supportive presence ___ Wedding ___ Other (describe below) Pastoral Comments responded to stroke alert; met son who had brought the patient in to ED; patient went to CT for scan; offered presence and support to son; introduced son to other staff; when patient returned to room the medical team was ready to continue evaluation and this siding applicator left the room offering further support when needed
--- NOTE | 2023-01-30 17:12 | ECHOCS_ITS ---
Reason For Study: TIA/CVA Procedure This was a 2D Doppler, Color Flow transthoracic echocardiogram. The study was technically difficult. Exam performed portable in patient room. Left Ventricle Normal LV size. Left ventricular systolic function is normal. The estimated ejection fraction is 60 %. Stage 2 diastolic dysfunction. No regional wall motion abnormalities noted. Right Ventricle Normal RV size. Normal systolic function. Atria Normal left atrium. Normal right atrium. Bubble contrast study negative for right to left interatrial shunt. Mitral Valve Normal mitral valve. Tricuspid Valve Normal tricuspid valve. Aortic Valve Trisinus/trileaflet aortic valve. Pulmonic Valve Normal pulmonic valve. Great Vessels Normal aortic root. The pulmonary artery is normal size. Inferior vena cava collapse with respiration. Pericardium/Pleural No pericardial effusion. Medication Diluted definity 2ml given slow IV push to enhance endocardial definition. Performed a rapid injection of agitated mix of 9 cc saline and 1cc air to assess for atrial septal defect. MMode/2D Measurements & Calculations LVIDd: 4.5 cm IVSd: 0.76 cm Ao root diam: 2.9 cm LVIDs: 2.9 cm LVPWd: 0.83 cm RVDd: 3.3 cm FS: 34.3 % LAV(MOD-bp): 41.3 ml LVAd ap4: 30.1 cm2 SV(MOD-sp4): 63.7 ml LAV(MOD-bp) Indexed: 18.0 ml/m2 LVLd ap4: 8.4 cm LAV(MOD-sp2): 41.3 ml EDV(MOD-sp4): 93.2 ml LAV(MOD-sp4): 36.7 ml EDV(sp4-el): 91.1 ml LVAs ap4: 15.1 cm2 LVLs ap4: 6.7 cm ESV(MOD-sp4): 29.5 ml ESV(sp4-el): 29.0 ml EF(MOD-sp4): 68.4 % EF(sp4-el): 68.2 % SV(sp4-el): 62.1 ml LA A4 area: 17.4 cm2 LA dimension(2D): 3.3 cm RA A4 area: 15.8 cm2 Time Measurements MV dec time: 0.21 sec Doppler Measurements & Calculations MV E max ezequiel: 141.4 cm/sec Lat Peak E' Ezequiel: 11.0 cm/sec Med Peak E' Ezequiel: 10.3 cm/sec MV A max ezequiel: 85.7 cm/sec E/E' lat: 12.8 E/E' med: 13.8 MV E/A: 1.6 Ao V2 max: 148.9 cm/sec LV V1 max: 127.8 cm/sec PA V2 max: 95.8 cm/sec Ao max P.9 mmHg LV V1 max P.5 mmHg ECHO/Echo Complete W/ Contrast Interpretation Summary Normal LV size. Left ventricular systolic function is normal. The estimated ejection fraction is 60 %. Stage 2 diastolic dysfunction. Contrast injection was performed. Ordering Physician: Dario Hernandez Referring Physician: GANGA SRIVASTAVA Performed By: Sasha Bedolla RDCS
--- NOTE | 2023-01-30 17:12 | MRI_ITS ---
STUDY: MRI BRAIN WITHOUT CONTRAST REASON FOR EXAM: Female, 72 years old. Slurred speech, lt facial and arm weakness TECHNIQUE: Standardized multiplanar fat and water weighted pulse sequences were obtained. COMPARISON: Head CT dated June 03, 2022 FINDINGS: There is mild cerebral atrophy with widening of the extra-axial spaces and ventricular dilatation. There are a limited number of small white matter hyperintensities, distributed throughout the deep white matter tracts of the cerebral hemispheres, consistent with mild chronic white matter ischemic changes. There is no evidence for recent intracranial ischemia or other cause of cytotoxic edema on diffusion weighted imaging (DWI). Normal T2* images of the brain without demonstrated susceptibility artifact. There is no demonstrated hemosiderin stain. Focal pneumatization and mucosal cyst of the anterior aspect of the left petrous apex noted, which is a normal variant. Normal bilateral basal ganglia. Normal thalami. There is no extra-axial fluid accumulation. Normal flow voids within the major intracranial circulation suggesting patency by spin echo criteria. Normal sella turcica, pituitary gland, infundibular stalk, optic chiasm and hypothalamus. Normal tectal plate and pineal gland. Normal midbrain, evelia and medulla. Normal cerebellum. Normal basal cisterns. Normal bilateral temporal bones. Normal bilateral internal auditory canals. No demonstrated orbital abnormality, within the constraints of a routine brain study. There is mucoperiosteal inflammatory disease of the paranasal sinuses consistent with mild chronic sinusitis. Normal calvarium and skull base. Normal visualized soft tissue structures. Normal visualized upper cervical spine. MRI/Brain without Contrast IMPRESSION: 1. Minimal chronic changes of the brain, as described above. 2. No acute infarct or intracranial hemorrhage is present. Electronically Signed: Caden Pickard MD at 13:46 EDT ,
[2023-01-30 17:40] LABS: Bedside Glucose 210 mg/dL (74-106)
[2023-01-30 17:49] LABS: Troponin-I HS 6 pg/mL (3.0-54.0)
[2023-01-30] MEDS: Insulin Lispro 100 UNIT/ML INSULN.PEN SC (17:57)
[2023-01-30] MEDS: 0.9% Saline Lock 10 ML Syringe IV (18:55)
[2023-01-30] MEDS: Bumetanide 1 MG/4 ML Vial 4 MG IV (18:55)
[2023-01-30] MEDS: Carvedilol 6.25 MG Tablet PO (21:08)
[2023-01-30] MEDS: Potassium Chloride Oral Tablet 10 MEQ 20 MEQ PO (21:09)
[2023-01-30] MEDS: Insulin NPH Human 100 UNITS/ML PEN 23 UNITS SC (21:10)
[2023-01-30] MEDS: Atorvastatin Calcium 80 MG Tablet PO (21:12)
[2023-01-30] MEDS: Gabapentin 300 MG Capsule 600 MG PO (21:16)
[2023-01-31] VITALS (7 sets, daily range): BP systolic 103–137; BP diastolic 64–81; PULSE 60–72; RESP 16–18; TEMP 36.3–37.2; O2SAT 93–100; BMI 48.5
[2023-01-31 00:16] LABS: Bedside Glucose 189 mg/dL (74-106)
[2023-01-31 06:37] LABS: Anion Gap 5 (5-15); BUN 20 mg/dL (7-18); BUN/Creat Ratio 22.3 RATIO (10-20); Calcium,Total 8.9 mg/dL (8.5-10.1); Chloride 102 mmol/L (98-107); Cholesterol 150 mg/dL (200); EST Glomerular Filtration Rate 66 mL/min (>60); Est Glom Filt Rate - Afr Amer 79 mL/min (>60); Estimated Creatinine Clearance 48.07 ml/min; Glucose 126 mg/dL (74-106); High Density Lipoprotein 82 mg/dL; Potassium 3.5 mmol/L (3.5-5.1); Sodium Level 139 mmol/L (136-145); Triglycerides 44 mg/dL; Very Low Density Lipoprotein 9 mg/dL (5-40)
[2023-01-31 07:25] LABS: Bedside Glucose 115 mg/dL (74-106)
--- NOTE | 2023-01-31 07:59 | PN.HOSP_ITS ---
Reason for Visit Reason for Visit: Diagnoses Acute on chronic diastolic (congestive) heart failure (01/30/23) Occlusion and stenosis of bilateral carotid arteries (01/30/23) Syncope and collapse (01/30/23) Subjective Subjective Feels well. No shortness of breath. Objective Data Objective Data Vital Signs: Vital Signs Temp Pulse Resp BP Pulse Ox O2 Del Method 36.3 C L 60 18 128/64 H 98 CPAP 01/31/23 04:01/31/23 04:01/31/23 04:28 01/31/23 04:28 01/31/23 04:01/31/23 04:28 Oxygen Delivery Method CPAP Weight: 131.542 kg Body Mass Index (BMI) 48.5 Intake & Output: Intake and Output for Last 24 Hours 01/29/23 01/30/23 01/31/23 23:59 23:59 23:59 Intake Total 420 / 420 Output Total 400 / 400 Balance Lab / Micro Data Result Diagrams: 01/30/23 14:10 01/31/23 05:22 Labs: Laboratory Results - last 24 hr 01/30/23 14:10: WBC 7.3, RBC 4.62, Hgb 13.1, Hct 39.7, MCV 85.9, MCH 28.4, MCHC 33.0, RDW Std Deviation 44.4 H, RDW Coeff of Contreras 14.3, Plt Count 154, MPV 11.5, Immature Gran % (Auto) 0.300, Neut % (Auto) 56.5, Lymph % (Auto) 25.4, Putnam % (Auto) 11.4 H, Eos % (Auto) 5.6 H, Baso % (Auto) 0.8, Absolute Neuts (auto) 4.1, Absolute Lymphs (auto) 1.86, Nucleated RBC % 0 01/30/23 14:10: PT 13.4, INR 1.1, APTT 26.5 01/30/23 14:10: Sodium 140, Potassium 3.8, Chloride 103, Carbon Dioxide 34.0 H, Anion Gap 3 L, BUN 18, Creatinine 0.87, Estim Creat Clear Calc 49.73, Est GFR (MDRD) Af Amer 82, Est GFR (MDRD) Non-Af 68, BUN/Creatinine Ratio 20.7 H, Glucose 182 H, Calcium 8.9, Troponin I High Sens 4 01/30/23 14:18: POC Glucose 187 H 01/30/23 17:06: Troponin I High Sens 6 01/30/23 17:21: POC Glucose 210 H 01/30/23 21:09: POC Glucose 189 H 01/31/23 05:22: Sodium 139, Potassium 3.5, Chloride 102, Carbon Dioxide 32.0, Anion Gap 5, BUN 20 H, Creatinine 0.90, Estim Creat Clear Calc 48.07, Est GFR (MDRD) Af Amer 79, Est GFR (MDRD) Non-Af 66, BUN/Creatinine Ratio 22.3 H, Glu cose 126 H, Calcium 8.9, Triglycerides 44, Cholesterol 150, LDL Cholesterol 59, VLDL Cholesterol 9, HDL Cholesterol 82 01/31/23 06:39: POC Glucose 115 H Radiography Diagnostic Testing: Radiology Impression Brain CT 01/30/23 14:02 IMPRESSION: Chronic involutional changes of the brain. Opacification of the left frontal sinus and the ethmoid sinuses. N.B. : The above Results were Read Back by Julio De La Vega MD to Les Suarez and understanding confirmed on 01/30/2023 14:23:55 (ET). Electronically Signed: Julio De La Vega MD at 14:25 EDT Reading Location ID and State: [facility] / [place] , Service support , ADDENDUM: 01/30/23 1432 IMPRESSION: Chronic involutional changes of the brain. Opacification of the left frontal sinus and the ethmoid sinuses. N.B. : The above Results were Read Back by Julio De La Vega MD to Les Suarez and understanding confirmed on 01/30/2023 14:23:55 (ET). Electronically Signed: Julio De La Vega MD at 14:25 EDT , Head/Neck CTA 01/30/23 14:03 IMPRESSION: Calcific plaque at the origin of the right internal carotid artery causing greater than 70% narrowing. Calcific plaques at the origin of the left internal carotid artery causing less than 50% stenosis. N.B. : The above Results were Read Back by Julio De La Vega MD to Les Suarez and understanding confirmed on 01/30/2023 14:47:03 (ET). Electronically Signed: Julio De La Vega MD at 14:48 EDT , ADDENDUM: 01/30/23 1455 IMPRESSION: Calcific plaque at the origin of the right internal carotid artery causing greater than 70% narrowing. Calcific plaques at the origin of the left internal carotid artery causing less than 50% stenosis. N.B. : The above Results were Read Back by Julio De La Vega MD to Les Suarez and understanding confirmed on 01/30/2023 14:47:03 (ET). Electronically Signed: Julio De La Vega MD at 14:48 EDT , Chest X-Ray 01/30/23 14:36 IMPRESSION: Normal x-ray examination of the chest. Electronically Signed: Julio De La Vega MD at 14:52 EDT , Physical Exam Const alert and no apparent distress Resp normal respiratory effort, no retractions, no use of accessory muscles and clear to auscultation bilaterally Cardio regular rate, regular rhythm, S1 normal heart sound and S2 normal heart sound GI normal to inspection, nondistended, normoactive bowel sounds, soft to palpation, non-tender and non-distended Extremity Extremity Narrative: bilateral LE edema. Neuro oriented x3, CN's II-XII intact bilaterally, moves all extremities and no focal motor deficits Assessment & Plan Assessment/Plan (1) Syncope: QUALIFIERS: Syncope type: vasovagal syncope Qualified Code(s): R55 - Syncope and collapse PLAN: Suspect vasovagal. By therapy, at this point, as the patient may have been hypoxic as she was short of breath getting into the car and that hypoxia may have been exacerbated by her carotid stenosis and lack of perfusion to her brain that caused her to go out and have protracted case dysarthria. However, cannot rule out a stroke so I do feel the patient would benefit from a stroke rule out at this time for her with her carotid stenosis. Plan is for an MRI of the brain, 2D echocardiogram and a lipid panel Check MRI brain (2) Carotid stenosis: QUALIFIERS: Laterality: bilateral Qualified Code(s): I65.23 - Occlusion and stenosis of bilateral carotid arteries PLAN: Patient will require follow-up with vascular surgery as outpatient whether not she has a stroke or not. Continue with do antiplatelet therapy and high i ntensity statin. (3) (HFpEF) heart failure with preserved ejection fraction: QUALIFIERS: Heart failure chronicity: acute on chronic Qualified Code(s): I50.33 - Acute on chronic diastolic (congestive) heart failure PLAN: Lung sounds fine. The patient has been slowly putting weight and does have profound lower extremity edema We will change her bumetanide from 2 mg twice daily orally to 4 IV twice daily for now Echocardiogram Patient echocardiogram in July 16, 2019 where her EF was 65%. Concern the patient may have pulmonary hypertension but that was not able to be identified on that echocardiogram from 2019. PLAN: Plan Chronic conditions * Diabetes mellitus type 2: Patient takes NPH twice a day.. Continue with glimepiride. Sliding scale insulin * Morbid obesity: BMI 51.7 kg/m?. Complicates care and recovery. * GERDA: continue CPAP VTE prophylaxis: Not indicated at this time as patient will be observation status. CODE STATUS: Addressed with patient. Patient wishes to be DNR Comfort Care arrest and is okay with intubation short-term if necessary. Charges/Coding Visit Charges Inpatient E&M: 62820 Subs Hosp L2
--- NOTE | 2023-01-31 10:21 | NURSING ---
NIH late due to pt being down in MRI.
[2023-01-31] MEDS: Glimepiride 4 MG Tablet PO (10:27)
[2023-01-31] MEDS: FLUoxetine 10 MG Capsule PO (10:27)
[2023-01-31] MEDS: Carvedilol 6.25 MG Tablet PO (10:28)
[2023-01-31] MEDS: Multivitamins,Therapeutic Tablet 1 TABLET PO (10:28)
[2023-01-31] MEDS: Bumetanide 1 MG/4 ML Vial 4 MG IV (10:28)
[2023-01-31] MEDS: Potassium Chloride Oral Tablet 10 MEQ PO (10:29)
[2023-01-31] MEDS: Aspirin E.C. 81 MG Tablet PO (10:30)
[2023-01-31] MEDS: Fluticasone 0.05% 1 SPRAY NASAL.SRY 2 SPRAY NASAL (10:30)
[2023-01-31] MEDS: Gabapentin 300 MG Capsule PO (10:36)
[2023-01-31] MEDS: Loratadine 10 MG Tablet PO (10:36)
[2023-01-31] MEDS: Insulin Lispro 100 UNIT/ML INSULN.PEN SC ×2 (11:23→16:44)
[2023-01-31 11:50] LABS: Bedside Glucose 244 mg/dL (74-106)
--- NOTE | 2023-01-31 15:16 | DCINST_ITS ---
Discharge Instructions Diet Discharge Diet: 2000 Calorie Control Diet, 8 Cup Fluid Restriction and 2000 mg Sodium Diet Dressing / Incision Call your doctor if you observe: Shortness of breath, Fainting spells and Swelling in the ankles Follow Up Care Test Results: Test results from this visit will be discussed in further detail at your follow- up appointment, if applicable. Discharge Plan Admission Admit Date/Time: 01/30/23 15:57 Primary Reason for Your Visit: syncope Attending Provider: Dario Hernandez Primary Care Provider: Percy Harrison Instructions Additional Instructions / Restrictions: Check your weights daily and keep a record. Take an additoinal Bumex if your weight goes up 2 pounds in 1 day or 3 pounds in 1 week. Discharge Orders/Prescriptions Prescriptions: Continued potassium chloride 10 mEq capsule, extended release 20 meq PO QHS fluticasone propionate [Flonase Allergy Relief] 50 mcg/actuation spray,suspension 2 spray INTRANASAL DAILY PRN (Reason: Allergies) nitroglycerin 0.4 mg tablet, sublingual 0.4 mg SUBLINGUAL Q5-15M PRN (Reason: chest pain) Qty: 25 3RF fluoxetine 10 mg capsule 10 mg PO DAILY multivitamin 1 EACH tablet 1 ea PO DAILY atorvastatin 80 MG tablet 80 mg PO QHS carvedilol 12.5 MG tablet 6.25 mg PO BID bumetanide 2 MG tablet 2 mg PO DAILY aspirin 81 MG tablet 81 mg PO DAILY@0800 glimepiride 4 MG tablet 4 mg PO DAILY lisinopril 5 MG tablet 5 mg PO DAILY prasugrel 10 MG tablet 10 mg PO DAILY gabapentin 300 mg capsule 600 mg PO QHS dulaglutide 1.5 MG/0.5 ML pen injector 1.5 mg PO MO Label Comments: INJECT THE CONTENTS OF ONE PEN SUBCUTANEOUSLY ONCE A WEEK. DISCARD PENAFTER USE loratadine 10 mg tablet 10 mg PO DAILY PRN (Reason: allergies) acetaminophen 500 mg Tablet 1,000 mg PO DAILY PRN (Reason: Pain) Novolin N NPH U-100 Insulin 100 unit/mL suspension 23 unit SUBCUT DAILY Label Comments: INJECT 23 UNITS SUBCUTANEOUSLY ONCE DAILY AT BEDTIME gabapentin 300 mg capsule 300 mg PO DAILY Label Comments: TAKE 3 CAPSULES BY MOUTH IN THE MORNING AND 4 AT BEDTIME FOR PAIN potassium chloride 10 mEq tablet,ER particles/crystals 10 meq PO DAILY Referrals / Follow Up: Dario Ball MD [Med Staff - Active Staff] - See Referral Note (2-3 months for carotid stenosis evaluation. ) Percy Harrison MD [Primary Care Provider] - Within 2 Weeks Disposition Disposition (needs filled in before D/C Order can be placed): Home, Self Care
--- NOTE | 2023-01-31 15:20 | DS.PCM_ITS ---
Providers Date of Admission: 01/30/23 Primary Care Physician: Dr. Percy Harrison MD Reason For Visit: SYNCOPE Diagnosis Discharge Diagnosis (1) Syncope: Status: Acute Code(s): R55 - Syncope and collapse Qualifiers: Syncope type: vasovagal syncope Qualified Code(s): R55 - Syncope and collapse Plan: Suspect vasovagal. By therapy, at this point, as the patient may have been hypoxic as she was short of breath getting into the car and that hypoxia may have been exacerbated by her carotid stenosis and lack of perfusion to her brain that caused her to go out and have protracted case dysarthria. However, cannot rule out a stroke so I do feel the patient would benefit from a stroke rule out at this time for her with her carotid stenosis. MRI brain negative. (2) Carotid stenosis: Status: Acute Code(s): I65.29 - Occlusion and stenosis of unspecified carotid artery Qualifiers: Laterality: bilateral Qualified Code(s): I65.23 - Occlusion and stenosis of bilateral carotid arteries Plan: Patient will require follow-up with vascular surgery as outpatient whether not she has a stroke or not. Continue with do antiplatelet therapy and high intensity statin. (3) (HFpEF) heart failure with preserved ejection fraction: Status: Acute Code(s): I50.30 - Unspecified diastolic (congestive) heart failure Qualifiers: Heart failure chronicity: acute on chronic Qualified Code(s): I50.33 - Acute on chronic diastolic (congestive) heart failure Plan: Lung sounds fine. The patient has been slowly putting weight and does have profound lower extremity edema We will change her bumetanide from 2 mg twice daily orally to 4 IV twice daily for now Echocardiogram Patient echocardiogram in July 16, 2019 where her EF was 65%. Concern the patient may have pulmonary hypertension but that was not able to be identified on that echocardiogram from 2019. Plan Chronic conditions * Diabetes mellitus type 2: Patient takes NPH twice a day.. Continue with glimepiride. Sliding scale insulin * Morbid obesity: BMI 51.7 kg/m?. Complicates care and recovery. * GERDA: continue CPAP VTE prophylaxis: Not indicated at this time as patient will be observation status. CODE STATUS: Addressed with patient. Patient wishes to be DNR Comfort Care arrest and is okay with intubation short-term if necessary. Medications at Discharge Home Medications aspirin 81 mg tablet,delayed release 81 mg PO DAILY@0800 heart 08/07/18 atorvastatin 80 mg tablet 80 mg PO QHS cholesterol 08/07/18 bumetanide 2 mg tablet 2 mg PO DAILY water pill 08/07/18 carvedilol 12.5 mg tablet 6.25 mg PO BID heart 08/07/18 glimepiride 4 mg tablet 4 mg PO DAILY diabetes 08/07/18 lisinopril 5 mg tablet 5 mg PO DAILY blood pressure 08/07/18 multivitamin 1 ea PO DAILY supplement 08/07/18 prasugrel 10 mg tablet 10 mg PO DAILY prevent blood clots 08/07/18 dulaglutide 1.5 mg/0.5 mL subcutaneous pen injector 1.5 mg PO MO dm 06/12/19 potassium chloride 10 mEq capsule,extended release 20 meq PO QHS SUPPLEMENT 06/24/19 fluticasone propionate 50 mcg/actuation nasal spray,suspension (Flonase Allergy Relief) 2 spray intranasal DAILY PRN Allergies 01/08/20 loratadine 10 mg tablet 10 mg PO DAILY PRN allergies 01/08/20 nitroglycerin 0.4 mg sublingual tablet 0.4 mg sublingual Q5-15M PRN chest pain #25 tabs 01/08/20 gabapentin 300 mg capsule 600 mg PO QHS leg pain 07/26/20 fluoxetine 10 mg capsule 10 mg PO DAILY 10/04/20 acetaminophen 500 mg tablet 1,000 mg PO DAILY PRN Pain 01/30/23 gabapentin 300 mg capsule 300 mg PO DAILY NERVE PAIN 01/30/23 insulin NPH isoph U-100 human 100 unit/mL subcutaneous suspension (Novolin N NPH U-100 Insulin isophane) 23 unit subcut DAILY DM 01/30/23 potassium chloride 10 mEq tablet,extended release(part/cryst) 10 meq PO DAILY SUPPLEMENT 01/30/23 Hospital Course Operations None Procedures 2-D Echocardiogram Summary of Care Provided Minutes Spent on Discharge: 32 Hospital Course: 72-year-old female presents after having slurred speech. Patient was out at a restaurant and then walk to the car. Patient was having labored breathing and passed out and was having slurred speech for period time afterwards. Patient came in as a stroke alert. Head CT was negative. CTA showed right carotid stenosis of 70%. Patient's symptoms completely resolved upon arrival. Patient underwent a stroke work-up with an MRI of the brain. MRI of the brain was negative for any stroke. Patient's oxygen was also checked as is concerned the patient may have been hypoxic when this happened. We did an ambulatory pulse ox and that was actually within normal limits though her oxygen dropped from 97 to 93%. Does not rule out that the patient may have been hypoxic but we are not seeing it here. Patient was diuresed with IV Bumex. Patient does take Bumex at home but cannot tolerate furosemide due to leg cramps. Patient had negative troponins as well. Echo was performed and results are still pending at the time of dictation. Patient is otherwise feeling well be discharged home. Patient be advised to follow-up with vascular surgery in regards to the carotid stenosis in the future. Weight / BMI Weight Weight: 131.542 kg Body Mass Index (BMI) 48.5 ABG / Lab / Microbiology Data Result Diagrams: 01/30/23 14:10 01/31/23 05:22 Laboratory: Laboratory Results - last 24 hr 01/30/23 17:06: Troponin I High Sens 6 01/30/23 17:21: POC Glucose 210 H 01/30/23 21:09: POC Glucose 189 H 01/31/23 05:22: Sodium 139, Potassium 3.5, Chloride 102, Carbon Dioxide 32.0, Anion Gap 5, BUN 20 H, Creatinine 0.90, Estim Creat Clear Calc 48.07, Est GFR (MDRD) Af Amer 79, Est GFR (MDRD) Non-Af 66, BUN/Creatinine Ratio 22.3 H, Glucose 126 H, Calcium 8.9, Triglycerides 44, Cholesterol 150, LDL Cholesterol 59, VLDL Cholesterol 9, HDL Cholesterol 82 01/31/23 06:39: POC Glucose 115 H 01/31/23 11:22: POC Glucose 244 H Radiography Diagnostic Testing: Radiology Impression Brain MRI 01/30/23 17:12 IMPRESSION: 1. Minimal chronic changes of the brain, as described above. 2. No acute infarct or intracranial hemorrhage is present. Electronically Signed: Caden Pickard MD at 13:46 EDT , D/C Instructions Discharge Diet: 2000 Calorie Control Diet, 8 Cup Fluid Restriction and 2000 mg Sodium Diet Call your doctor if you observe: Shortness of breath, Fainting spells and Swelling in the ankles Meaningful Use Info Meaningful Use Diagnoses (Choose all that apply): None applicable Discharge Plan Admission Admit Date/Time: 01/30/23 15:57 Primary Reason for Your Visit: syncope Attending Provider: Dario Hernandez Primary Care Provider: Percy Harrison Instructions Additional Instructions / Restrictions: Check your weights daily and keep a record. Take an additoinal Bumex if your weight goes up 2 pounds in 1 day or 3 pounds in 1 week. Discharge Orders/Prescriptions Prescriptions: Continued potassium chloride 10 mEq capsule, extended release 20 meq PO QHS fluticasone propionate [Flonase Allergy Relief] 50 mcg/actuation sp ray,suspension 2 spray INTRANASAL DAILY PRN (Reason: Allergies) nitroglycerin 0.4 mg tablet, sublingual 0.4 mg SUBLINGUAL Q5-15M PRN (Reason: chest pain) Qty: 25 3RF fluoxetine 10 mg capsule 10 mg PO DAILY multivitamin 1 EACH tablet 1 ea PO DAILY atorvastatin 80 MG tablet 80 mg PO QHS carvedilol 12.5 MG tablet 6.25 mg PO BID bumetanide 2 MG tablet 2 mg PO DAILY aspirin 81 MG tablet 81 mg PO DAILY@0800 glimepiride 4 MG tablet 4 mg PO DAILY lisinopril 5 MG tablet 5 mg PO DAILY prasugrel 10 MG tablet 10 mg PO DAILY gabapentin 300 mg capsule 600 mg PO QHS dulaglutide 1.5 MG/0.5 ML pen injector 1.5 mg PO MO Label Comments: INJECT THE CONTENTS OF ONE PEN SUBCUTANEOUSLY ONCE A WEEK. DISCARD PENAFTER USE loratadine 10 mg tablet 10 mg PO DAILY PRN (Reason: allergies) acetaminophen 500 mg Tablet 1,000 mg PO DAILY PRN (Reason: Pain) Novolin N NPH U-100 Insulin 100 unit/mL suspension 23 unit SUBCUT DAILY Label Comments: INJECT 23 UNITS SUBCUTANEOUSLY ONCE DAILY AT BEDTIME gabapentin 300 mg capsule 300 mg PO DAILY Label Comments: TAKE 3 CAPSULES BY MOUTH IN THE MORNING AND 4 AT BEDTIME FOR PAIN potassium chloride 10 mEq tablet,ER particles/crystals 10 meq PO DAILY Referrals / Follow Up: Dario Ball MD [Med Staff - Active Staff] - See Referral Note (2-3 months for carotid stenosis evaluation. ) Percy Hrarison MD [Primary Care Provider] - Within 2 Weeks Disposition Disposition (needs filled in before D/C Order can be placed): Home, Self Care Charges/Coding Visit Charges Inpatient E&M: 01661 Disch Hosp >30min
--- NOTE | 2023-01-31 15:26 | PHA.DC.MR ---
Pharmacy Service has performed discharge medication reconciliation for this patient. The patient's discharge medication list was reviewed for discrepancies and discrepancies were resolved. Home Medications aspirin 81 mg tablet,delayed release 81 mg PO DAILY@0800 heart 08/07/18 atorvastatin 80 mg tablet 80 mg PO QHS cholesterol 08/07/18 bumetanide 2 mg tablet 2 mg PO DAILY water pill 08/07/18 carvedilol 12.5 mg tablet 6.25 mg PO BID heart 08/07/18 glimepiride 4 mg tablet 4 mg PO DAILY diabetes 08/07/18 lisinopril 5 mg tablet 5 mg PO DAILY blood pressure 08/07/18 multivitamin 1 ea PO DAILY supplement 08/07/18 prasugrel 10 mg tablet 10 mg PO DAILY prevent blood clots 08/07/18 dulaglutide 1.5 mg/0.5 mL subcutaneous pen injector 1.5 mg PO MO dm 06/12/19 potassium chloride 10 mEq capsule,extended release 20 meq PO QHS SUPPLEMENT 06/24/19 fluticasone propionate 50 mcg/actuation nasal spray,suspension (Flonase Allergy Relief) 2 spray intranasal DAILY PRN Allergies 01/08/20 loratadine 10 mg tablet 10 mg PO DAILY PRN allergies 01/08/20 nitroglycerin 0.4 mg sublingual tablet 0.4 mg sublingual Q5-15M PRN chest pain #25 tabs 01/08/20 gabapentin 300 mg capsule 600 mg PO QHS leg pain 07/26/20 fluoxetine 10 mg capsule 10 mg PO DAILY 10/04/20 acetaminophen 500 mg tablet 1,000 mg PO DAILY PRN Pain 01/30/23 gabapentin 300 mg capsule 300 mg PO DAILY NERVE PAIN 01/30/23 insulin NPH isoph U-100 human 100 unit/mL subcutaneous suspension (Novolin N NPH U-100 Insulin isophane) 23 unit subcut DAILY DM 01/30/23 potassium chloride 10 mEq tablet,extended release(part/cryst) 10 meq PO DAILY SUPPLEMENT 01/30/23
[2023-01-31] MEDS: Lisinopril 5 MG Tablet PO (15:49)
[2023-01-31 17:30] LABS: Bedside Glucose 290 mg/dL (74-106)
== END 2023-01-31 16:55 | disposition home or self-care (01) ==
LOC: ED 15:25 → PCU 16:09
PROVIDERS: Emergency Provider Emergency Medicine; PCP Family Medicine
DX: R55 Syncope and collapse (principal); I50.33 Acute on chronic diastolic (congestive) heart failure; E11.40 Type 2 diabetes mellitus with diabetic neuropathy, unspecified; E66.01 Morbid (severe) obesity due to excess calories; Z68.43 Body mass index [BMI] 50.0-59.9, adult; Z79.4 Long term (current) use of insulin; I65.23 Occlusion and stenosis of bilateral carotid arteries; Z79.02 Long term (current) use of antithrombotics/antiplatelets; Z79.84 Long term (current) use of oral hypoglycemic drugs; I25.10 Atherosclerotic heart disease of native coronary artery without angina pectoris; E78.5 Hyperlipidemia, unspecified; R53.1 Weakness; Z87.891 Personal history of nicotine dependence; Z79.82 Long term (current) use of aspirin; R47.81 Slurred speech; Z79.899 Other long term (current) drug therapy; R06.02 Shortness of breath; Z66 Do not resuscitate; G47.33 Obstructive sleep apnea (adult) (pediatric); R29.810 Facial weakness
CPT/HCPCS: 36415; 70450; 70496; 70498; 70551; 71045; 80048; 80061; 82962; 84484; 85025; 85610; 85730; 93005; 93306; 94762; 96374; 96376; 97162; 97166; 97802; 99221; 99285; Q9957; Q9967; A4216; C8929; G0378

== ENCOUNTER 2023-04-24 08:37 | Inpatient (IN) | payer MEDICARE, OTHER, SELFPAY ==
[2023-04-17 10:39] LABS: Hematocrit 40.6 % (37-47); Hemoglobin 12.9 g/dL (12.0-15.0); Mean Corp Hgb Conc 31.8 g/dL (32-36); Mean Corpuscular Hgb 28.2 pg (27.0-32.0); Mean Corpuscular Volume 88.8 fL (81-99); Mean Platelet Vol. 12.1 fl (6.2-12.0); Platelet Count 158 K/mm3 (150-450); RBC Distribution Width SD 45.7 fl (35.1-43.9); Red Blood Count 4.57 M/mm3 (4.2-5.4); White Blood Count 9.3 K/mm3 (4.4-11.0)
[2023-04-17 11:13] LABS: Anion Gap 4 (5-15); BUN 28 mg/dL (7-18); BUN/Creat Ratio 28.2 RATIO (10-20); Chloride 101 mmol/L (98-107); Creatinine, Serum 0.99 mg/dL (0.55-1.02); EST Glomerular Filtration Rate 58 mL/min (>60); Est Glom Filt Rate - Afr Amer 70 mL/min (>60); Glucose 121 mg/dL (74-106); Potassium 3.6 mmol/L (3.5-5.1); Sodium Level 140 mmol/L (136-145)
[2023-04-17 11:49] LABS: Hemoglobin A1c 9.1 % (3.8-5.6)
[2023-04-17 12:19] LABS: BNP,B-Type NATRIURETIC PEPTIDE 97.7 pg/mL (0-100)
[2023-04-24] VITALS (15 sets, daily range): BP systolic 105–137; BP diastolic 51–74; PULSE 47–64; RESP 11–19; TEMP 36.4–37; O2SAT 94–100; BMI 51.7; BMI 54.0
--- NOTE | 2023-04-24 | PLAQ_PTH ---
PATIENT: VANIA VASQUEZ LOC: ICU U#:[id number] AGE/SX: 73/F ROOM: [place] [address] RE04/24/[address]: Dr. Dario Ball MD : 1950 BED: 1 DIS: 04/25/2023 SPEC #: [id number] RECD: 04/24/23 15:56 STATUS: AYSHA RESandrine #: [id number] BRADLEY: 04/24/23 00:[address]: Dario Ball DEPT: SURGICAL PATHOLOGY RECD BY: Brooks Pickard ENTERED: 04/25/23 09:19 SP TYPE: PLAQUE OTHR DR: MD Dr. Percy Villafana MD Tissues: PLAQUE Procedures: Decalcification bone/plaque Surgery Specimen Level III HEADER OPERATION: Carotid endarterectomy PRE-OP DIAGNOSIS: Carotid stenosis TISSUE SUBMITTED: Carotid plaque MICROSCOPIC DIAGNOSIS Carotid plaque, endarterectomy: Calcified atheromatous plaque consistent with severe stenosis. AM:luis 04/27/2023 GROSS DESCRIPTION Received in fixative is one container labeled with the patient's name and designated carotid plaque. The specimen consists of multiple irregular fragments of firm and possibly calcified yellow plaque-like material that in aggregate measure 1.5 x 1.0 x 0.2 cm. The specimen is totally submitted in one cassette after decalcification. / AM:luis 04/25/2023 TC:5 CPT: 77598, 43043
[2023-04-24] MEDS: Carvedilol 6.25 MG Tablet PO ×2 (10:01→20:43)
[2023-04-24] MEDS: Lactated Ringers 1,000 ML 15 ML IV (10:25)
--- NOTE | 2023-04-24 11:32 | PCM.HP.BLA ---
History and Physical Allergies cat dander Allergy (Intermediate, Verified 03/15/23 14:03) nasal congestion, respiratory symptomsfurosemide Adverse Reaction (Severe, Verified 03/15/23 14:03) horrible leg crampsSulfa (Sulfonamide Antibiotics) Adverse Reaction (Verified 03/15/23 14:03) Profuse sweating Medications aspirin 81 mg tablet,delayed release 81 mg PO DAILY@0800 heart 08/07/18 [History Confirmed 03/15/23] atorvastatin 80 mg tablet 80 mg PO QHS cholesterol 08/07/18 [History Confirmed 03/15/23] bumetanide 2 mg tablet 2 mg PO DAILY water pill 08/07/18 [History Confirmed 03/15/23] carvedilol 12.5 mg tablet 6.25 mg PO BID heart 08/07/18 [History Confirmed 03/15/23] glimepiride 4 mg tablet 4 mg PO DAILY diabetes 08/07/18 [History Confirmed 03/15/23] lisinopril 5 mg tablet 5 mg PO DAILY blood pressure 08/07/18 [History Confirmed 03/15/23] multivitamin 1 ea PO DAILY supplement 08/07/18 [History Confirmed 03/15/23] prasugrel 10 mg tablet 10 mg PO DAILY prevent blood clots 08/07/18 [History Confirmed 03/15/23] fluticasone propionate 50 mcg/actuation nasal spray,suspension (Flonase Allergy Relief) 2 spray intranasal DAILY PRN Allergies 01/08/20 [History Confirmed 03/15/23] loratadine 10 mg tablet 10 mg PO DAILY PRN allergies 01/08/20 [History Confirmed 03/15/23] nitroglycerin 0.4 mg sublingual tablet 0.4 mg sublingual Q5-15M PRN chest pain #25 tabs 01/08/20 [Rx Confirmed 03/15/23] fluoxetine 10 mg capsule 10 mg PO DAILY 10/04/20 [History Confirmed 03/15/23] acetaminophen 500 mg tablet 1,000 mg PO DAILY PRN Pain 01/30/23 [History Confirmed 03/15/23] dulaglutide 0.75 mg/0.5 mL subcutaneous pen injector (Trulicity) 0.75 mg subcut QWEEK 03/15/23 [History Confirmed 03/15/23] gabapentin 300 mg capsule 600 mg PO DAILY NERVE PAIN 03/15/23 [History Confirmed 03/15/23] gabapentin 300 mg capsule 900 mg PO QHS leg pain 03/15/23 [History Confirmed 03/15/23] insulin NPH isoph U-100 human 100 unit/mL subcutaneous suspension (Novolin N NPH U-100 Insulin isophane) 25 unit subcut DAILY DM 03/15/23 [History Confirmed 03/15/23] potassium chloride 10 mEq capsule,extended release 30 meq PO QHS SUPPLEMENT 03/15/23 [History Confirmed 03/15/23] potassium chloride 10 mEq tablet,extended release(part/cryst) 20 meq PO DAILY SUPPLEMENT 03/15/23 [History Confirmed 03/15/23] PFSH Medical History? (HFpEF) heart failure with preserved ejection fraction Anxiety Asthma Atherosclerotic heart disease of [place] coronary artery without angina pectoris Bruising Carotid artery stenosis Closed left humeral fracture (05/27/19) Congestive heart failure (CHF) Coronary artery disease CPAP (continuous positive airway pressure) dependence Depression Diabetes Diabetes mellitus, type II Diabetic neuropathy Dizziness Hyperlipidemia Morbid (severe) obesity due to excess calories Nausea Non-smoker GERDA (obstructive sleep apnea) Sleep apnea Vertigo Surgical History? History of cholecystectomy History of coronary artery stent placement History of hysterectomy History of left heart catheterization (10/08/20) History of tonsillectomy and adenoidectomy Stented coronary artery (08/08/18) Family History? Father Heart diseaseBrother HypertensionMother Diabetes Social History? Smoking Status:? Never smoker Tobacco: How many years used:? 2 alcohol intake:? current alcohol intake frequency: a few times a week Alcohol type: wine substance use type:? does not use caffeine:? Yes Type: coffee Number of servings: 2 HPI HPI HPI: VANIA VASQUEZ, is a 73 F who presents to the office today for evaluation of right carotid stenosis. Discovered after single event speech difficulty. Symptoms resolved, stroke work up was otherwise negative. No prior or subsequent events. + CAD with PCI twice, last 1 year ago Currently on ASA, statin +DM with neuropathy, denies foot wounds ROS General General: Yes weight change and appetite; No fatigue, colon cancer, breast cancer or weakness HEENT HEENT: Yes eye surgery; No difficulty swallowing, eye injury, swollen glands or hoarseness Endo Endocrine: Yes diabetes mellitus; No thyroid disease, thyroid cancer, Hair loss, heat intolerance or cold intolerance Skin Skin: No rash or changing moles Musc Musculoskeletal: Yes back problems and arthritis; No rheumatoid arthritis, gout or joint pain Cardio Cardiovascular: Yes heart disease and heart stent; No murmur, pacemaker, atrial fibrillation, high blood pressure, heart attack, palpitations, shortness of breat with exertion or chest pain Psych Psychiatric: No depression, anxiety or hearing voices Resp Respiratory: No shortness of breath, Yes sleep apnea, Yes cough, No COPD, No asthma, No emphysema and No wheezing Gastro Gastrointestinal: No abdominal pain, No nausea or vomiting, No diarrhea, No constipation, No blood in stool, No acid reflux, No hemorrhoids, No ulcers, No gallbladder problem and No black,tarry stools Neal Hematologic: Yes blood thinners, No blood disorders, No bleeding, No anemia and No blood clots Neuro Neurologic: No system reviewed and no additional complaints, except as documented, No as per HPI, No abnormal gait, No abnormal hearing, No abnormal movements, No abnormal speech, No behavioral changes, No burning sensations, No confusion, No convulsions, No disequilibrium, No dizziness, No localized weakness, Yes frequent falls, No headache(s), No lack of coordination, No loss of vision, No memory loss, Yes numbness, No other visual disturbances, Yes radicular pain, No restless legs, No sensory deficit, No syncope, Yes tingling, No tremor(s), No weakness and No other Exam Const General: cooperative, healthy appearing, comfortable, no acute distress and well developed Nutritional Appearance: well nourished Orientation: alert, awake and oriented x3 HENMT Head: normocephalic and atraumatic Ears: hearing grossly normal bilaterally Nose: external nose normal Eyes General: appearance normal, both eyes and all related structures EOM: EOM intact bilaterally Neck Neck: normal visual inspection, full ROM, no lymphadenopathy and trachea midline Thyroid: thyroid normal Lymphatic: no lymphadenopathy noted Resp Effort & Inspection: normal respiratory effort, able to speak in complete sentences, symmetric chest movement, no audible wheezes, not labored, no stridor and no use of accessory muscles Auscultation: clear to auscultation bilaterally Cardio Rate: regular rate Rhythm: regular rhythm Heart Sounds: murmur systolic Bruits: no carotid bruits Pulses: brachial pulses present and radial pulses present Skin General: no rashes or lesions noted and no erythema Wounds: no wounds Neuro Cranial Nerves: CN's II-XI intact bilaterally and EOM intact bilaterally Speech: speech normal Gait: normal gait Motor: strength 5/5 throughout Sensory Exam: no sensory deficits noted Extremities Lower Extremity Edema: +1: Bilateral Psych Appearance: grossly normal and well kempt Mental Status: mental status grossly normal Mood: congruent mood Speech and Movement: speech and movement normal Thought Content: normal Judgment: judgment good Coding Level of Care Code Off vis,new,level 4 Diagnoses Carotid stenosis? I65.29 Assessment and Plan Assessment and Plan (1) Carotid stenosis: ?Status:?Chronic ?Comment: CTA- images reviewed, 72% right ICA stenosis, highly calcified ?Plan: -right CEA
[2023-04-24] MEDS: Heparin 10,000 UNITS/10 ML Vial 10000 UNITS (12:30)
[2023-04-24 12:41] LABS: Bedside Glucose 119 mg/dL (74-106)
[2023-04-24] MEDS: Bupivacaine Mpf 0.5% 30 ML VIAL (14:26)
--- NOTE | 2023-04-24 14:43 | PCM.OPRPT ---
Report of Operation Date of Procedure: 04/24/23 Pre-Operative Diagnosis: right carotid stenosis Post-Operative Diagnosis: same Surgery/Procedure Performed:: right carotid endarterectomy Description of Surgical Findings:: HPI: Patient is a 73-year-old female with vague neurologic symptoms was found to have greater than 70% stenosis of the right internal carotid artery. Given the degree of calcification she was not felt to be appropriate for carotid stenting so she presents now for elective endarterectomy. Description of procedure: Upon obtaining informed consent and verification correct patient procedure site patient was taken to the operating where she was placed under general anesthesia. She was then positioned prepped and draped in usual sterile fashion and timeout was performed. Oblique incision was made along the interval of the sternocleidomastoid and Bovie electrocautery was dissect down through subcutaneous tissue to the platysma. The platysma was then divided and dissection carried down to the sternocleidomastoid which was freed along its anterior border and retracted laterally exposing the carotid sheath. Sharp dissection used to dissect free the jugular vein along its anterior border and the facial vein identified, ligated with silk ties, and divided. The jugular vein was then retracted laterally exposing the carotid vessels. Sharp dissection used to dissect free the proximal common carotid artery with care taken to identify protect the vagus nerve. A right angle was used to place a vessel loop and attention then turned to the internal carotid artery. Sharp dissection used to dissect free the distal internal carotid artery beyond the area of palpable and visible plaque. The vessel was dissected free circumferentially and a right angle used to place a vessel loop with care taken to identify and protect the hypoglossal nerve. While a sharp dissection was used to dissect free the external carotid artery and a right angle used to place a vessel loop. The patient was in heparinized allowed to circulate for 3 minutes after which serial ACT's were performed to confirm satisfactory anticoagulation level. Vessels were then occluded first the internal followed the common and the external. A longitudinal arteriotomy was created with 11 blade on the distal common carotid artery and extended onto the internal carotid artery with Deluca scissors to a point beyond the area of plaque. A 12 [place] shunt was then placed first distally in the internal carotid and then backbleed and then placed proximally into the common carotid artery. The shunt was interrogated Doppler found to be patent with low resistance signal. Then performed her endarterectomy with a freer elevator with eversion endarterectomy of the external carotid artery and satisfactory endpoint onto the internal carotid artery. The lumen was then flushed with heparinized saline to clear debris in the distal endpoint tacked with 7 -0 Prolene interrupted sutures. A bovine pericardial patch was then brought in the field and then secured in position using a 6-0 Prolene in a running fashion. Prior to completing suture line the shunt was removed and the vessels backbled. After completing the suture line the internal carotid artery was allowed to backbleed and bifurcation then reoccluded as origin. Clamps were then removed from the external and common carotid artery allowing 10 heartbeats of antegrade flow to flush into the external before reestablishing antegrade flow into the internal carotid artery. After completing the suture line for satisfactory stasis was noted and the vessels were interrogated with Doppler. The internal carotid artery is patent with low resistance signal in the external was patent with appropriate signal. The patient was then reversed with protamine after which the vessels are reevaluated by me be patent with satisfactory signals. The wound was then inspected for hemostasis and a 15 [place] TOBIN placed via separate stab incision. The incision was then closed with 2-0 Vicryl, 3-0 Vicryl, 4 Monocryl and Dermabond for the skin. At the conclusion the case patient was awakened anesthesia moving all extremities to command and with cranial nerves intact. She was then taken to the recovery room with anticipated mission the ICU for hemodynamic and neurologic monitoring. Surgeon: Dario Ball Type of Anesthesia: General Drains: 15 Fr TOBIN Estimated Blood Loss (mL): 15
--- NOTE | 2023-04-24 16:06 | SUR.PHASEI ---
DR. MONTERROSO SAID OK FOR PATIENT TO GO TO ICU SINCE PATIENT IS STABLE. CALLED ICU AND THEY ARE OK TO RECEIVE THE PATIENT.
[2023-04-24 16:11] LABS: Bedside Glucose 148 mg/dL (74-106)
[2023-04-24] MEDS: oxyCODONE 5 MG Tablet PO (17:01)
[2023-04-24] MEDS: 0.45% Normal Saline 1,000 ML 100 ML IV (17:01)
[2023-04-24] MEDS: Acetaminophen 500 MG Tablet 1000 MG PO (17:02)
[2023-04-24] MEDS: Docusate Sodium 100 MG Capsule PO (17:02)
[2023-04-24 17:39] LABS: Bedside Glucose 158 mg/dL (74-106)
[2023-04-24] MEDS: Cefazolin 1 GM/50 ML BAG IV (20:36)
[2023-04-24] MEDS: Atorvastatin Calcium 80 MG Tablet PO (20:43)
[2023-04-24] MEDS: Gabapentin 300 MG Capsule 900 MG PO (20:43)
[2023-04-24] MEDS: Insulin Lispro 100 UNIT/ML INSULN.PEN SC (21:02)
[2023-04-24 21:10] LABS: Bedside Glucose 276 mg/dL (74-106)
[2023-04-25] VITALS (18 sets, daily range): BP systolic 105–142; BP diastolic 50–91; PULSE 46–88; RESP 10–21; TEMP 36.9–37.1; O2SAT 90–100; BMI 53.5
[2023-04-25] MEDS: 0.45% Normal Saline 1,000 ML 100 ML IV (03:12)
[2023-04-25] MEDS: Cefazolin 1 GM/50 ML BAG IV (03:13)
[2023-04-25 03:26] LABS: Absolute Lymphocyte Count 0.68 X10^3/uL (0.83-4.51); Absolute Neutrophil Count 8.3 X10^3/uL (2.0-7.7); Basophil# 0.01 X10^3/uL; Basophil% 0.1 % (0-1); Hematocrit 34.6 % (37-47); Hemoglobin 11.4 g/dL (12.0-15.0); Lymphocyte # 0.68 X10^3/ul (0.83-4.51); Lymphocyte % 7.3 % (19-41); Mean Corp Hgb Conc 32.9 g/dL (32-36); Mean Corpuscular Hgb 28.6 pg (27.0-32.0); Mean Corpuscular Volume 86.7 fL (81-99); Mean Platelet Vol. 11.9 fl (6.2-12.0); Monocyte# 0.32 X10^3/uL; Monocyte% 3.4 % (0-10); NRBC Flagged by Analyzer 0 % (0-5); Neutrophil # 8.29 X10^3/uL (2.7-7.7); Neutrophil % 88.6 % (47-70); Platelet Count 112 K/mm3 (150-450); RBC Distribution Width CV 14.1 % (11.6-14.6); Red Blood Count 3.99 M/mm3 (4.2-5.4); White Blood Count 9.4 K/mm3 (4.4-11.0)
[2023-04-25 07:25] LABS: ACT Activated Clotting Time 137 sec (74-137)
[2023-04-25 07:26] LABS: ACT Activated Clotting Time 293 sec (74-137)
[2023-04-25 07:26] LABS: ACT Activated Clotting Time 342 sec (74-137)
[2023-04-25] MEDS: Insulin Lispro 100 UNIT/ML INSULN.PEN SC ×2 (08:12→11:41)
[2023-04-25] MEDS: Enoxaparin 40 MG/0.4 ML Syringe SC (08:13)
[2023-04-25] MEDS: Insulin NPH Human 100 UNITS/ML PEN 25 UNITS SC (08:13)
[2023-04-25] MEDS: Aspirin E.C. 81 MG Tablet PO (08:16)
[2023-04-25] MEDS: Metolazone 2.5 MG Tablet PO (08:16)
[2023-04-25] MEDS: Glimepiride 4 MG Tablet PO (08:16)
[2023-04-25] MEDS: Carvedilol 6.25 MG Tablet PO (08:16)
[2023-04-25] MEDS: Lisinopril 5 MG Tablet PO (08:17)
[2023-04-25] MEDS: Fluoxetine HCl 40 MG CAPSULE PO (08:17)
[2023-04-25] MEDS: Bumetanide 2 MG Tablet PO (08:17)
[2023-04-25] MEDS: Pioglitazone Hydrochloride 30 MG Tablet PO (08:17)
[2023-04-25] MEDS: Gabapentin 600 MG Tablet PO (08:20)
[2023-04-25 08:25] LABS: Bedside Glucose 307 mg/dL (74-106)
--- NOTE | 2023-04-25 08:28 | PCM.PN.SRG ---
Subjective Subjective She is up to the chair, enjoying breakfast this morning, and feeling good. She has minimal pain at the incision site. She is voiding without difficulty. She denies headache, dizziness/lightheadedness, vision changes, focal motor weakness or sensory deficits, palpitations, CP, SOB, N/V, F/C. Objective Data Objective Data Vital Signs: Vital Signs Temp Pulse Resp BP Pulse Ox O2 Del Method O2 Flow Rate 98.6 F 55 L 21 H 118/91 H 96 Room Air 1 04/25/23 04:00 04/25/23 07:00 04/25/23 07:00 04/25/23 07:00 04/25/23 07:00 04/25/23 07:00 04/25/23 06:00 Oxygen Flow Rate (L/min) 1 Oxygen Delivery Method Room Air Weight: 311 lb 11.738 oz Body Mass Index (BMI) 53.5 Intake & Output: Intake and Output for Last 24 Hours 04/23/23 04/24/23 04/25/23 23:59 23:59 23:59 Intake Total 316.25 / 316.25 1100 / 1100 Output Total 10 Balance 306.25 / 306.25 1100 / 1100 Lab / Micro Data Result Diagrams: 04/25/23 03:20 04/17/23 09:30 Labs: Laboratory Results - last 24 hr 04/24/23 09:36: POC Glucose 119 H 04/24/23 12:19: Activated Clotting Time 137 04/24/23 13:05: Activated Clotting Time 342 H 04/24/23 13:50: Activated Clotting Time 293 H 04/24/23 15:50: POC Glucose 148 H 04/24/23 17:20: POC Glucose 158 H 04/24/23 20:48: POC Glucose 276 H 04/25/23 03:20: WBC 9.4, RBC 3.99 L, Hgb 11.4 L, Hct 34.6 L, MCV 86.7, MCH 28.6, MCHC 32.9, RDW Std Deviation 45.0 H, RDW Coeff of [place] 14.1, Plt Count 112 L, MPV 11.9, Immature Gran % (Auto) 0.600, Neut % (Auto) 88.6 H, Lymph % (Auto) 7.3 L, [place] % (Auto) 3.4, Eos % (Auto) 0.0, Baso % (Auto) 0.1, Absolute Neuts (auto) 8.3 H, Absolute Lymphs (auto) 0.68 L, Nucleated RBC % 0 04/25/23 08:04: POC Glucose 307 H Physical Exam Const alert, oriented x3 and no apparent distress General Appearance: cooperative and comfortable HEENT normocephalic, head/scalp atraumatic, hearing grossly normal bilaterally, external ears normal and external nose normal Eyes EOMs intact bilaterally General Eye: normal appearance of both eyes Neck Neck Narrative: TOBIN drain with minimal serosanguineous drainage. Incision site with mild swelling and ecchymosis, no erythema, drainage. Resp normal respiratory effort Effort and Inspection: able to speak in complete sentences; Negative for respiratory distress, labored, stridor, uses accessory muscles or audible wheezes Cardio regular rate and regular rhythm Extremity General Extremity: edema; Negative for clubbing or cyanosis Neuro oriented x3, CN's II-XII intact bilaterally, moves all extremities, no focal motor deficits and no sensory deficits noted Speech: speech normal Psych mental status grossly normal Appearance: grossly normal Attitude: calm and engaged Speech: normal speech Mood & Affect: euthymic mood Assessment & Plan Assessment/Plan (1) Carotid stenosis: PLAN: She is s/p R carotid endarterectomy POD#1. She is hemodynamically and neurologically stable. She is tolerating diet, voiding without difficulty, and pain is well managed. She got up to the chair this morning without issue, will ambulate later this morning/afternoon. TOBIN drain had total about 25mL output since operation yesterday, serosanguineous drainage. Removed without issue. Incision site with satisfactory appearance, surgical glue intact, mild swelling and mild ecchymosis near incision site but no focal swelling/hematoma, drainage. She is having very minimal incisional pain. Anticipate discharge this afternoon.
[2023-04-25 11:39] LABS: Bedside Glucose 345 mg/dL (74-106)
--- NOTE | 2023-04-25 13:40 | CASEMGMT ---
RN CM Face to Face with patient for initial transition planning/care coordination assessment. RN CM introduced self and role at [facility]. Patient sitting in chair, alert and oriented. Patient willing to participate in assessment and is able to answer all questions appropriately. Care providers, pharmacy, and demographics verified. Patient wishes to discharge home, denies need for home health at this time. Patient states she has no further needs or concerns at this time. CM to follow for discharge planning needs that may arise. PCP: [facility] Specialists: [facility]; Carolyn elder assistant [facility]acy: [facility] Insurance: [employer]fund Prescription Benefit: yes Living Will/HPOA: yes, both son and daughter Last Bowman and Yelena Villegas LNOK: son, daughter Living Arrangements: Patient lives with son in a single level condo with no steps to enter. Patient states she is independent at home. Transportation: self, son DME/HHC: Patient has BSC, raised toilet, cane, grab bars, walker, wheelchair, cpap. No previous HHC or SNF. Disposition Plan: Patient to discharge home with family support and follow-up plans in place. Zahra SEGAL, RN, CM
--- NOTE | 2023-04-25 15:36 | PCM.DC.SUM ---
Providers Date of Admission: 04/24/23 Date of Discharge: 04/25/23 Primary Care Physician: Dr. Percy Harrison MD Reason For Visit: RT CAROTID ENDARTERECTOMY Diagnosis Discharge Diagnosis (1) Carotid stenosis: Status: Chronic Code(s): I65.29 - Occlusion and stenosis of unspecified carotid artery Plan: She is s/p R carotid endarterectomy POD#1. She is hemodynamically and neurologically stable. She is tolerating diet, voiding without difficulty, and pain is well managed. She got up to the chair this morning without issue, will ambulate later this morning/afternoon. TOBIN drain had total about 25mL output since operation yesterday, serosanguineous drainage. Removed without issue. Incision site with satisfactory appearance, surgical glue intact, mild swelling and mild ecchymosis near incision site but no focal swelling/hematoma, drainage. She is having very minimal incisional pain. Anticipate discharge this afternoon. Medications at Discharge Home Medications aspirin 81 mg tablet,delayed release 81 mg PO DAILY@0800 heart 08/07/18 atorvastatin 80 mg tablet 80 mg PO QHS cholesterol 08/07/18 bumetanide 2 mg tablet 2 mg PO DAILY water pill 08/07/18 carvedilol 12.5 mg tablet 6.25 mg PO BID heart 08/07/18 glimepiride 4 mg tablet 4 mg PO DAILY diabetes 08/07/18 lisinopril 5 mg tablet 5 mg PO DAILY blood pressure 08/07/18 multivitamin 1 ea PO DAILY supplement 08/07/18 prasugrel 10 mg tablet 10 mg PO DAILY prevent blood clots 08/07/18 fluticasone propionate 50 mcg/actuation nasal spray,suspension (Flonase Allergy Relief) 2 spray intranasal DAILY PRN Allergies 01/08/20 loratadine 10 mg tablet 10 mg PO DAILY PRN allergies 01/08/20 nitroglycerin 0.4 mg sublingual tablet 0.4 mg sublingual Q5-15M PRN chest pain #25 tabs 01/08/20 fluoxetine 10 mg capsule 40 mg PO DAILY MOOD 10/04/20 acetaminophen 500 mg tablet 1,000 mg PO DAILY PRN Pain 01/30/23 gabapentin 300 mg capsule 600 mg PO DAILY NERVE PAIN 03/15/23 gabapentin 300 mg capsule 900 mg PO QHS leg pain 03/15/23 insulin NPH isoph U-100 human 100 unit/mL subcutaneous suspension (Novolin N NPH U-100 Insulin isophane) 25 unit subcut DAILY DM 03/15/23 metolazone 2.5 mg tablet 2.5 mg PO DAILY LOCAL EDEMA 04/13/23 pioglitazone 30 mg tablet 30 mg PO DAILY DIABETES 04/13/23 dulaglutide 0.75 mg/0.5 mL subcutaneous pen injector (Trulicity) 0.75 mg subcut QWEEK DIABETES 04/17/23 potassium chloride 10 mEq tablet,extended release(part/cryst) 20 meq PO BID SUPPLEMENT 04/17/23 oxycodone 5 mg tablet 5 mg PO Q8H PRN PRN Pain Score 4-10 3 days #9 tabs 04/25/23 Hospital Course Procedures - (Right carotid endarterectomy) Summary of Care Provided Hospital Course: Patient was routinely admitted to the ICU following right carotid endarterectomy for neurologic and hemodynamic monitoring. Her surgery was without complication and she tolerated it well. A TOBIN drain was placed at the conclusion of surgery. This had minimal output of serosanguineous fluid and was removed on POD#1. She remained hemodynamically and neurologically stable throughout her admission. She is tolerating regular diet, voiding without difficulty, ambulating without difficulty/issue. Her pain is minimal and well-controlled on PO regimen. Her incision site is satisfactory in appearance. She denies headache, vision changes, focal weakness or sensory deficit, orthostatic symptoms. She is in medically stable condition and appropriate for discharge home to the care of her family. Physical Exam Const alert, oriented x3 and no apparent distress General Appearance: cooperative and comfortable HEENT normocephalic, head/scalp atraumatic, hearing grossly normal bilaterally, external ears normal and external nose normal Eyes EOMs intact bilaterally General Eye: normal appearance of both eyes Neck Neck Narrative: Incision site with mild swelling and ecchymosis, no erythema, drainage. Resp normal respiratory effort Effort and Inspection: able to speak in complete sentences; Negative for respiratory distress, labored, stridor, uses accessory muscles or audible wheezes Cardio regular rate and regular rhythm Extremity General Extremity: edema; Negative for clubbing or cyanosis Neuro oriented x3, CN's II-XII intact bilaterally, moves all extremities, no focal motor deficits and no sensory deficits noted Speech: speech normal Psych mental status grossly normal Appearance: grossly normal Attitude: calm and engaged Speech: normal speech Mood & Affect: euthymic mood Weight / BMI Weight Weight: 311 lb 11.738 oz Body Mass Index (BMI) 53.5 ABG / Lab / Microbiology Data Result Diagrams: 04/25/23 03:20 04/17/23 09:30 Laboratory: Laboratory Results - last 24 hr 04/24/23 12:19: Activated Clotting Time 137 04/24/23 13:05: Activated Clotting Time 342 H 04/24/23 13:50: Activated Clotting Time 293 H 04/24/23 15:50: POC Glucose 148 H 04/24/23 17:20: POC Glucose 158 H 04/24/23 20:48: POC Glucose 276 H 04/25/23 03:20: WBC 9.4, RBC 3.99 L, Hgb 11.4 L, Hct 34.6 L, MCV 86.7, MCH 28.6, MCHC 32.9, RDW Std Deviation 45.0 H, RDW Coeff of [place] 14.1, Plt Count 112 L, MPV 11.9, Immature Gran % (Auto) 0.600, Neut % (Auto) 88.6 H, Lymph % (Auto) 7.3 L, [place] % (Auto) 3.4, Eos % (Auto) 0.0, Baso % (Auto) 0.1, Absolute Neuts (auto) 8.3 H, Absolute Lymphs (auto) 0.68 L, Nucleated RBC % 0 04/25/23 08:04: POC Glucose 307 H 04/25/23 11:20: POC Glucose 345 H D/C Instructions Discharge Diet: No restrictions May shower in (days): 1 Weight Bearing Status: Weight bearing as tolerated Lifting Restricted to (Lbs): 20 Lifting Restrictions: Do not lift greater than 20 pounds for the next 3 weeks Call your doctor if your incision/area has: Sudden Increased Bleeding, Increased Pain/ Swelling, Increased Redness and Foul Smelling Discharge Call your doctor if you observe: Fever of 101 or Higher and Uncontrolled pain Remove Dressing in: 1 day Additional Dressing/Incision Instructions: There is a small bandage covering the incision where the drain was placed. You may remove this bandage tomorrow. If there is still some drainage, you may re-cover this with a band-aid. If there is no drainage, it is okay to leave it uncovered. The rest of the incision site is covered with surgical glue which will continue to protect it, there is no need to cover this with an additional bandage/dressing. This glue will peel/flake off on its own over the next few weeks, please do not pick at it. Additional Instructions: You may shower tomorrow. It is okay for soap and water to rinse over the incision site, pat dry gently. You should not submerge the incision sites for 3 weeks. No baths, swimming, etc. You should not lift greater than 20 pounds for [address] you are able to adequately turn your head to check your blindspots. This varies patient to patient, but typically it is best to wait at least 3-[address]. Please call the office if you experience a persistent right-sided headache or any other symptoms which concern you. Please Follow Up With: Dario Ball MD When: 2-4 weeks Meaningful Use Info Meaningful Use Diagnoses (Choose all that apply): None applicable Discharge Plan Admission Admit Date/Time: 04/24/23 08:37 Primary Reason for Your Visit: Right carotid endarterectomy Attending Provider: Dario Ball Primary Care Provider: Percy Harrison Consulting Providers: Dario Martin Discharge Orders/Prescriptions Prescriptions: New oxycodone 5 mg Tablet 5 mg PO Q8H PRN PRN (Reason: Pain Score 4-10) 3 Days Qty: 9 0RF Continued fluticasone propionate [Flonase Allergy Relief] 50 mcg/actuation spray,suspension 2 spray INTRANASAL DAILY PRN (Reason: Allergies) nitroglycerin 0.4 mg tablet, sublingual 0.4 mg SUBLINGUAL Q5-15M PRN (Reason: chest pain) Qty: 25 3RF fluoxetine 10 mg capsule 40 mg PO DAILY Trulicity 0.75 mg/0.5 mL pen injector 0.75 mg subcut QWEEK multivitamin 1 EACH tablet 1 ea PO DAILY atorvastatin 80 MG tablet 80 mg PO QHS carvedilol 12.5 MG tablet 6.25 mg PO BID bumetanide 2 MG tablet 2 mg PO DAILY aspirin 81 MG tablet 81 mg PO DAILY@0800 glimepiride 4 MG tablet 4 mg PO DAILY lisinopril 5 MG tablet 5 mg PO DAILY prasugrel 10 MG tablet 10 mg PO DAILY gabapentin 300 mg capsule 900 mg PO QHS loratadine 10 mg tablet 10 mg PO DAILY PRN (Reason: allergies) acetaminophen 500 mg Tablet 1,000 mg PO DAILY PRN (Reason: Pain) gabapentin 300 mg capsule 600 mg PO DAILY Rx Instructions: am Novolin N NPH U-100 Insulin 100 unit/mL suspension 25 unit SUBCUT DAILY Label Comments: INJECT 23 UNITS SUBCUTANEOUSLY ONCE DAILY AT BEDTIME potassium chloride 10 mEq tablet,ER particles/crystals 20 meq PO BID Rx Instructions: am metolazone 2.5 mg tablet 2.5 mg PO DAILY Label Comments: TAKE 1 TABLET BY MOUTH ONCE DAILY pioglitazone 30 mg tablet 30 mg PO DAILY Referrals / Follow Up: Percy Harrison MD [Primary Care Provider] - Disposition Disposition (needs filled in before D/C Order can be placed): Home, Self Care
== END 2023-04-25 16:55 | disposition home or self-care (01) | DRG 38 ==
LOC: ACINP 08:40 → ICU 15:13
PROVIDERS: Anesthesiology; Nurse Practitioner Family; Admitting Provider Surgery Trauma Surgery; PCP Family Medicine; Referring Provider Surgery Trauma Surgery; Visit Provider Surgery Trauma Surgery
PROC: 03CM0ZZ Extirpation of Matter from Right External Carotid Artery, Open Approach (ICD-10-PCS; CPT 35301; principal; 2023-04-24 10:40)
DX: I65.21 Occlusion and stenosis of right carotid artery (principal); Z68.43 Body mass index [BMI] 50.0-59.9, adult; I50.32 Chronic diastolic (congestive) heart failure; E11.40 Type 2 diabetes mellitus with diabetic neuropathy, unspecified; E66.01 Morbid (severe) obesity due to excess calories; I25.10 Atherosclerotic heart disease of native coronary artery without angina pectoris; Z79.84 Long term (current) use of oral hypoglycemic drugs; Z95.5 Presence of coronary angioplasty implant and graft; Z79.82 Long term (current) use of aspirin
CPT/HCPCS: 36415; 80048; 82962; 83036; 83880; 85025; 85027; 85347; 86850; 86900; 86901; 88304; 88311; 94668; 94762; 97161; 97166; 99252; A4648; J7040; J7120; G0463; J2405

== ENCOUNTER 2023-07-10 02:57 | Emergency (ER) | payer MEDICARE, OTHER, SELFPAY ==
[2023-07-10 02:58] VITALS: BP 119/43; PULSE 77; RESP 20; TEMP 36.8; O2SAT 94; BMI 50.5
--- NOTE | 2023-07-10 03:23 | RAD_ITS ---
EXAM: XR CHEST, 2 VIEWS CLINICAL INDICATION: dizziness TECHNIQUE: Frontal and lateral views of the chest. COMPARISON: Single view chest 01/30/2023 FINDINGS: LUNGS AND PLEURAL SPACES: Unremarkable. No consolidation or edema. No pneumothorax. No effusion. HEART: Unremarkable. Cardiac silhouette not enlarged. MEDIASTINUM: Central airways and mediastinal contour are unremarkable. BONES/JOINTS: Unremarkable. SOFT TISSUES: Unremarkable. RAD/Chest PA and Lateral IMPRESSION: No radiographic evidence of acute cardiopulmonary disease. Electronically Signed: Justin Leo MD at 4:03 EDT ,
[2023-07-10] MEDS: 0.9% Normal Saline 1,000 ML 999 ML IV (03:38)
[2023-07-10 03:40] LABS: Absolute Lymphocyte Count 1.93 X10^3/uL (0.83-4.51); Absolute Neutrophil Count 4.6 X10^3/uL (2.0-7.7); Basophil# 0.05 X10^3/uL; Basophil% 0.6 % (0-1); Eosinophil# 0.39 X10^3/uL; Hematocrit 39.1 % (37-47); Hemoglobin 12.7 g/dL (12.0-15.0); Lymphocyte # 1.93 X10^3/ul (0.83-4.51); Lymphocyte % 24.6 % (19-41); Mean Corp Hgb Conc 32.5 g/dL (32-36); Mean Corpuscular Hgb 28.6 pg (27.0-32.0); Mean Corpuscular Volume 88.1 fL (81-99); Mean Platelet Vol. 11.6 fl (6.2-12.0); Monocyte# 0.81 X10^3/uL; Monocyte% 10.3 % (0-10); NRBC Flagged by Analyzer 0 % (0-5); Neutrophil # 4.64 X10^3/uL (2.7-7.7); Neutrophil % 59.2 % (47-70); Platelet Count 144 K/mm3 (150-450); RBC Distribution Width CV 13.9 % (11.6-14.6); RBC Distribution Width SD 44.8 fl (35.1-43.9); Red Blood Count 4.44 M/mm3 (4.2-5.4); White Blood Count 7.8 K/mm3 (4.4-11.0)
[2023-07-10 03:57] LABS: Anion Gap 6 (5-15); BUN 31 mg/dL (7-18); BUN/Creat Ratio 30.4 RATIO (10-20); Chloride 96 mmol/L (98-107); Creatinine, Serum 1.02 mg/dL (0.55-1.02); EST Glomerular Filtration Rate 56 mL/min (>60); Est Glom Filt Rate - Afr Amer 68 mL/min (>60); Estimated Creatinine Clearance 41.78 ml/min; Glucose 362 mg/dL (74-106); Potassium 3.3 mmol/L (3.5-5.1); Sodium Level 137 mmol/L (136-145)
[2023-07-10 04:04] LABS: Lactic Acid 1.1 mmol/L (0.4-1.9)
[2023-07-10 04:52] LABS: Bacteria 0 SEEN /hpf (None Seen); Mucous, Urine 0 SEEN /hpf (<or=2+); Red Blood Cells-Urine 0 SEEN /hpf (0-5)
[2023-07-10 04:53] LABS: Color, Urine Yellow (Yellow); Glucose, Dipstick 1000 mg/dl (Normal); Ketone-Dipstick Negative (Negative); Leukocyte Esterase-Dipstick 25 /ul (Negative); Nitrite-Dipstick Negative (Negative); Occult Blood-Urine Negative /ul (Negative); Protein-Dipstick Negative (Negative); Urine Bilirubin Dipstick Negative (Negative); Urine Clarity Clear (Clear); Urine Urobilinogen Normal (Normal); Urine pH 6.5 (5.0 - 8.0)
[2023-07-10 05:10] LABS: Squamous Epithelial Cells - UA 0-5 SEEN /hpf (5-10); White Blood Cells 0-5 SEEN /hpf (0-5)
--- NOTE | 2023-07-10 05:48 | CT_ITS ---
EXAM: CT ABDOMEN AND PELVIS WITH INTRAVENOUS CONTRAST CLINICAL INDICATION: abd pain TECHNIQUE: Helically acquired images were obtained of the abdomen and pelvis with intravenous contrast. This CT exam was performed using one or more of the following dose reduction techniques: automated exposure control, adjustment of the mA and/or kV according to patient size, and/or use of iterative reconstruction technique. CONTRAST: IV 100mL [id number] RADIATION DOSE: CTDIvol = 20.4 mGy, DLP = 1165.01 mGy-cm COMPARISON: No relevant prior studies available. FINDINGS: LOWER THORAX: Unremarkable. Lung bases are clear. No cardiomegaly. No significant pericardial effusion. ABDOMEN: LIVER: Unremarkable. Homogeneous. No focal mass. GALLBLADDER AND BILE DUCTS: Cholecystectomy. No intra- or extrahepatic biliary ductal dilation. PANCREAS: Unremarkable. No focal cystic or solid mass. SPLEEN: Unremarkable. Normal size without focal cystic or solid mass. ADRENALS: Unremarkable. No nodules. KIDNEYS AND URETERS: Unremarkable. Normal renal size and position. No hydronephrosis. STOMACH AND BOWEL: Diverticular disease of the colon but no diverticulitis. No stomach or bowel distention. PELVIS: APPENDIX: The appendix is normal. BLADDER: Unremarkable. REPRODUCTIVE: Unremarkable as visualized. No mass. ABDOMEN and PELVIS: INTRAPERITONEAL SPACE: Unremarkable. No ascites or other fluid collection. No free air. BONES/JOINTS: Degenerative changes of the spine. No suspicious lytic or blastic abnormality. SOFT TISSUES: Unremarkable. No discrete abdominal or pelvic wall hernia. VASCULATURE: Unremarkable. Abdominal aorta is non-dilated. LYMPH NODES: Unremarkable. No enlarged lymph nodes. CT/Abdomen/Pelvis W IV Cont ONLY IMPRESSION: No acute findings in the abdomen or pelvis. Electronically Signed: Justin Leo MD at 7:08 EDT ,
[2023-07-10 07:08] VITALS: BP 134/69; PULSE 72; RESP 15; O2SAT 98
--- NOTE | 2023-07-10 07:53 | EX.ED.DYSGE1 ---
HPI History of Present Illness Chief Complaint: Dizziness Informant: patient and family Narrative Narrative: Patient is a 73-year-old female with past medical history of diabetes as well as coronary artery disease and carotid stenosis. She reports that her blood sugars typically run about 200 and over the last few days they have been 350-450. She states that she has concern that she could be developing an infection as the cause of her elevated blood sugar. Family states they have been in DKA before and have concern she could be progressing to this based on her persistently elevated blood sugars and therefore patient comes in for evaluation [facility] Medical History (Updated 07/10/23 @ 08:[address] Teddy Montana, DO) (HFpEF) heart failure with preserved ejection fraction Alcohol use Ambulates with cane Anxiety Arthritis Asthma Atherosclerotic heart disease of [place] coronary artery without angina pectoris Back pain Bladder disease Bruising Bruising Cardiology follow-up encounter Carotid artery stenosis Closed left humeral fracture (05/27/19) Congestive heart failure (CHF) Coronary artery disease CPAP (continuous positive airway pressure) dependence Depression Diabetes Diabetes mellitus, type II Diabetic neuropathy Dietary restriction Dizziness Easy bruising High cholesterol History of CHF (congestive heart failure) History of echocardiogram History of edema History of hiatal hernia History of IBS History of pain when walking History of steroid therapy Hyperlipidemia Insulin dependent diabetes mellitus Leg cramps Morbid (severe) obesity due to excess calories Nausea Non-smoker GERDA (obstructive sleep apnea) Preoperative cardiovascular examination Sleep apnea Vertigo Wears glasses Home Medications aspirin 81 mg tablet,delayed release 81 mg PO DAILY@0800 heart 08/07/18 [History Last Taken 04/17/23] atorvastatin 80 mg tablet 80 mg PO QHS cholesterol 08/07/18 [History Last Taken 04/17/23] bumetanide 2 mg tablet 2 mg PO DAILY water pill 08/07/18 [History Last Taken 04/17/23] carvedilol 12.5 mg tablet 6.25 mg PO BID heart 08/07/18 [History Last Taken 04/24/23] glimepiride 4 mg tablet 4 mg PO DAILY diabetes 08/07/18 [History Last Taken 04/17/23] lisinopril 5 mg tablet 5 mg PO DAILY blood pressure 08/07/18 [History Last Taken 04/17/23] multivitamin 1 ea PO DAILY supplement 08/07/18 [History Last Taken 04/17/23] prasugrel 10 mg tablet 10 mg PO DAILY prevent blood clots 08/07/18 [History Last Taken 04/17/23] fluticasone propionate 50 mcg/actuation nasal spray,suspension (Flonase Allergy Relief) 2 spray intranasal DAILY PRN Allergies 01/08/20 [History Last Taken 04/17/23] loratadine 10 mg tablet 10 mg PO DAILY PRN allergies 01/08/20 [History Last Taken 04/17/23] nitroglycerin 0.4 mg sublingual tablet 0.4 mg sublingual Q5-15M PRN chest pain #25 tabs 01/08/20 [Rx Last Taken 04/17/23] fluoxetine 10 mg capsule 40 mg PO DAILY MOOD 10/04/20 [History Last Taken 04/17/23] acetaminophen 500 mg tablet 1,000 mg PO DAILY PRN Pain 01/30/23 [History Last Taken 04/17/23] gabapentin 300 mg capsule 600 mg PO DAILY NERVE PAIN 03/15/23 [History Last Taken 04/17/23] gabapentin 300 mg capsule 900 mg PO QHS leg pain 03/15/23 [History Last Taken 04/17/23] insulin NPH isoph U-100 human 100 unit/mL subcutaneous suspension (Novolin N NPH U-100 Insulin isophane) 25 unit subcut DAILY DM 03/15/23 [History Last Taken 04/17/23] metolazone 2.5 mg tablet 2.5 mg PO DAILY LOCAL EDEMA 04/13/23 [History Last Taken 04/17/23] pioglitazone 30 mg tablet 30 mg PO DAILY DIABETES 04/13/23 [History Last Taken 04/17/23] dulaglutide 0.75 mg/0.5 mL subcutaneous pen injector (Trulicity) 0.75 mg subcut QWEEK DIABETES 04/17/23 [History Last Taken Unknown] potassium chloride 10 mEq tablet,extended release(part/cryst) 20 meq PO BID SUPPLEMENT 04/17/23 [History Last Taken 04/17/23] Allergy/AdvReac Type Severity Reaction Status Date / Time cat dander Allergy Intermediate nasal Verified 05/16/23 09:27 congestion, respiratory symptoms furosemide AdvReac Severe horrible Verified 05/16/23 09:27 leg cramps Sulfa (Sulfonamide AdvReac Profuse Verified 05/16/23 09:27 Antibiotics) sweating Family History Father Heart disease Brother Hypertension Mother Diabetes Surgical History (Updated 05/03/23 @ 00:02 by Lucia Laguerre) History of bilateral cataract extraction History of cardiac catheterization History of cholecystectomy History of coronary artery stent placement History of hysterectomy History of left heart catheterization (10/08/20) History of tonsillectomy and adenoidectomy Stented coronary artery (08/08/18) Social History Smoking Status: Never smoker Tobacco: How many years used: 2 alcohol intake: current alcohol intake frequency: a few times a week Alcohol type: wine substance use type: does not use caffeine: Yes Type: coffee Number of servings: 2 ROS ROS ED Constitutional Constitutional ED: Denies chills or fever(s) Eyes Eyes: Denies change in vision ENT ENT ED: Denies sore throat Cardiovascular Cardiovascular: Denies chest pain or palpitations Respiratory/Chest Respiratory/Chest: Denies cough or dyspnea Gastrointestinal Gastrointestinal: Reports diarrhea; Denies abdominal pain, nausea or vomiting Genitourinary Genitourinary ED: Reports urinary frequency; Denies dysuria Musculoskeletal Musculoskeletal: Denies myalgias Integumentary Denies rash Neurologic Neurologic: Denies headache(s) Hematologic/Lymphatic Hematologic/Lymphatic: Denies easy bleeding or easy bruising EXAM Physical Exam Const Vital Signs: 07/10/23 02:58 07/10/23 03:01 07/10/23 07:08 Temperature 98.3 F Temperature Source Temporal Pulse Rate 77 72 Respiratory Rate 20 H 15 Respiratory Effort Normal Non-Labored Respiratory Pattern Normal Blood Pressure 119/43 L 134/69 H Blood Pressure Mean 68 90 Pulse Ox 94 98 Oxygen Delivery Method Room Air Room Air Positive well nourished, well developed and obese General Appearance ED: well developed Nutritional Appearance: obese HEENT Reports dry mucous membranes HEENT Narrative: No secondary changes in the posterior pharynx to suggest infection No airway edema or compromise Mouth ED: Yes dry mucous membranes Mouth: dry mucous membranes Eyes PERRL and EOMs intact bilaterally Neck supple Neck Narrative: No nuchal rigidity or meningeal signs noted Resp normal respiratory effort and clear to auscultation bilaterally Resp Narrative: Breath sounds are diminished throughout but overall clear to auscultation without signs of respiratory distress Cardio regular rate and regular rhythm Rate: other Other Details: Radial and carotid pulses are equal and symmetric GI non-distended GI Narrative: Abdomen is obese soft and nondistended with normal active bowel sounds. There is mild pain with palpation in the left lower quadrant without voluntary guarding or rigidity. Auscultation: normoactive bowel sounds Palpation: soft Extremity Extremity Narrative: Patient has +1-2 pitting edema to the bilateral lower extremities which is equal and chronic per patient. She has chronic stasis changes to the bilateral lower legs but no secondary changes to suggest infection Neuro oriented x3 and CN's II-XII intact bilaterally Neuro Narrative: Cranial nerves II through XII are grossly intact there are no focal neurologic deficits. No pronator drift no dysmetria no truncal ataxia. NIH stroke scale score of 0. No nystagmus noted Sensorium / Orientation: alert Psych mental status grossly normal Skin no rashes or lesions noted Skin Narrative: Skin turgor is increased General Skin Exam: Negative for jaundice MDM MDM MDM Narrative Medical decision making narrative: Patient presented to the ER with stable vitals. She reported her blood sugars have been elevated approximately 200 points from baseline. Differential diagnosis is for hyperglycemia secondary to poor medication compliance versus UTI versus pneumonia versus colitis or diverticulitis. There is also concern for DKA or HHS and secondary to this basic laboratory studies were obtained. Patient's white count and H&H are normal. Sugar is elevated at 362 but her anion gap is normal and her serum bicarb is actually elevated going against DKA. She also has negative serum acetone. Her calculated serum osmolality level is 305 which is under the cutoff of 320 needed for HHS. Urine shows large amount of glucose consistent with uncontrolled diabetes however there are no secondary changes to suggest. With her report of diarrhea and mild pain on palpation the left lower quadrant there was concern for an intestinal infection elevating her blood sugars and therefore a CT of the abdomen pelvis was obtained which reveals no acute infectious or inflammatory process. Patient also had reported dizziness but she did not have nystagmus and there is no pronator drift or truncal ataxia going against a neurologic event. I do feel this is most likely related to mild dehydration based on the elevated blood sugar. After 1 L of fluid the patient's sugar reduced to a value of 250 which is near baseline and her neuro exam remained normal. Therefore she does not have systemic infection acute kidney injury or DKA or HHS I do not feel there is need for further work-up in the hospital and she is otherwise safe for discharge. History & Record Review Discussion w/independent historian: Patient and Family Lab Data Attestation: I reviewed the patient's lab results. Labs: Laboratory Results - last 24 hr 07/10/23 07/10/23 03:32 04:48 WBC 7.8 RBC 4.44 Hgb 12.7 Hct 39.1 MCV 88.1 MCH 28.6 MCHC 32.5 RDW Std Deviation 44.8 H RDW Coeff of [place] 13.9 Plt Count 144 L MPV 11.6 Immature Gran % (Auto) 0.300 Neut % (Auto) 59.2 Lymph % (Auto) 24.6 [place] % (Auto) 10.3 H Eos % (Auto) 5.0 Baso % (Auto) 0.6 Absolute Neuts (auto) 4.6 Absolute Lymphs (auto) 1.93 Nucleated RBC % 0 Sodium 137 Potassium 3.3 L Chloride 96 L Carbon Dioxide 35.0 H Anion Gap 6 BUN 31 H Creatinine 1.02 Estim Creat Clear Calc 41.78 Est GFR (MDRD) Af Amer 68 Est GFR (MDRD) Non-Af 56 L BUN/Creatinine Ratio 30.4 H Glucose 362 H Lactic Acid 1.1 Calcium 9.0 Urine Color Yellow Urine Clarity Clear Urine pH 6.5 Ur Specific [place] 1.010 Urine Protein Negative Urine Glucose (UA) 1000 H Urine Ketones Negative Urine Occult Blood Negative Urine Nitrite Negative Urine Bilirubin Negative Urine Urobilinogen Normal Ur Leukocyte Esterase 25 H Urine RBC 0 SEEN Urine WBC 0-5 SEEN Ur Squamous Epith Cells 0-5 SEEN Urine Bacteria 0 SEEN Urine Mucus 0 SEEN Acetone Level NEGATIVE Radiography Diagnostic Testing: Clinical Impression(s) from Imaging Studies Chest X-Ray 07/10/23 03:23 IMPRESSION: No radiographic evidence of acute cardiopulmonary disease. Electronically Signed: Justin Leo MD at 4:03 EDT , Abdomen/Pelvis CT 07/10/23 05:48 IMPRESSION: No acute findings in the abdomen or pelvis. Electronically Signed: Justin Leo MD at 7:08 EDT , Discharge Plan Triage Chief Complaint: Dizziness Other Complaint: Hyperglycemia ED Provider: Teddy Montana Dx/Rx/DC Orders Clinical Impression: Hyperglycemia, Dehydration, Carotid stenosis Instructions: ED Diabetic Hyperglycemia, ED Dehydration (Adult) Prescriptions: No Action fluticasone propionate [Flonase Allergy Relief] 50 mcg/actuation spray,suspension 2 spray INTRANASAL DAILY PRN (Reason: Allergies) nitroglycerin 0.4 mg tablet, sublingual 0.4 mg SUBLINGUAL Q5-15M PRN (Reason: chest pain) Qty: 25 3RF fluoxetine 10 mg capsule 40 mg PO DAILY Trulicity 0.75 mg/0.5 mL pen injector 0.75 mg subcut QWEEK multivitamin 1 EACH tablet 1 ea PO DAILY atorvastatin 80 MG tablet 80 mg PO QHS carvedilol 12.5 MG tablet 6.25 mg PO BID bumetanide 2 MG tablet 2 mg PO DAILY aspirin 81 MG tablet 81 mg PO DAILY@0800 glimepiride 4 MG tablet 4 mg PO DAILY Hold Instructions: didn't order for her lisinopril 5 MG tablet 5 mg PO DAILY prasugrel 10 MG tablet 10 mg PO DAILY gabapentin 300 mg capsule 900 mg PO QHS loratadine 10 mg tablet 10 mg PO DAILY PRN (Reason: allergies) acetaminophen 500 mg Tablet 1,000 mg PO DAILY PRN (Reason: Pain) gabapentin 300 mg capsule 600 mg PO DAILY Rx Instructions: am Novolin N NPH U-100 Insulin 100 unit/mL suspension 25 unit SUBCUT DAILY Patient Comments: INJECT 23 UNITS SUBCUTANEOUSLY ONCE DAILY AT BEDTIME potassium chloride 10 mEq tablet,ER particles/crystals 20 meq PO BID Rx Instructions: am metolazone 2.5 mg tablet 2.5 mg PO DAILY Patient Comments: TAKE 1 TABLET BY MOUTH ONCE DAILY pioglitazone 30 mg tablet 30 mg PO DAILY Primary Care Provider: Percy Harrison Referrals: Percy Harrison MD [Primary Care Provider] - Activity Restrictions/Additional Instructions: Please keep yourself well-hydrated and continue your diabetic medication as directed by your family doctor. There is no obvious signs of infection within your urine lungs or intestines on today's exam. Talk to your family doctor about adjusting your diabetic medications for tighter blood sugar control and return to the ER should you have any further concerns Disposition Disposition: Home, Self Care Discharge Date/Time: 07/10/23 08:03
[2023-07-10 08:02] VITALS: BP 143/69; PULSE 82; RESP 16; O2SAT 98
[2023-07-10 08:05] LABS: Bedside Glucose 250 mg/dL (74-106)
== END 2023-07-10 08:03 | disposition home or self-care (01) ==
PROVIDERS: Emergency Provider Emergency Medicine; PCP Family Medicine; Visit Provider Emergency Medicine
DX: E11.65 Type 2 diabetes mellitus with hyperglycemia (principal); I50.32 Chronic diastolic (congestive) heart failure; E11.40 Type 2 diabetes mellitus with diabetic neuropathy, unspecified; Z79.4 Long term (current) use of insulin; E78.5 Hyperlipidemia, unspecified; I25.10 Atherosclerotic heart disease of native coronary artery without angina pectoris; E86.0 Dehydration; E87.0 Hyperosmolality and hypernatremia; I65.29 Occlusion and stenosis of unspecified carotid artery; E66.9 Obesity, unspecified; G47.33 Obstructive sleep apnea (adult) (pediatric); Z99.89 Dependence on other enabling machines and devices
CPT/HCPCS: 71046; 74177; 80048; 81001; 82009; 82962; 83605; 85025; 96360; 99282; J7030; Q9967; A4216

== ENCOUNTER → 2023-11-19 | Outpatient (CLI) | payer MEDICARE, OTHER, SELFPAY ==
--- NOTE | 2023-11-19 12:56 | CDU_ITS ---
Reason For Study: s/p Rt Carotid Endart Rt. Velocities/BP Lt. Velocities/BP Prox CCA 56/9 cm/sec. Prox CCA 55/13 cm/sec. Mid CCA 67/10 cm/sec. Mid CCA 46/10 cm/sec. Dist CCA 51/9 cm/sec. Dist CCA 51/13 cm/sec. Prox ICA 71/14 cm/sec. Prox ICA 41/11 cm/sec. Mid ICA 74/22 cm/sec. Mid ICA 67/19 cm/sec. Dist ICA 99/24 cm/sec. Dist ICA 98/29 cm/sec. Rt. ICA/CCA = 1.5. Lt. ICA/CCA = 2.1. Prox ECA 89/5 cm/sec. Prox ECA 63/4 cm/sec. Rt. Vert. 33/8 cm/sec. Lt. Vert. 56/12 cm/sec. Right Extracranial There is homogeneous, smooth atherosclerotic plaque noted in the right common carotid artery. There is homogeneous, irregular atherosclerotic plaque noted in the right internal carotid artery. There is intimal thickening but no significant atherosclerotic plaque noted in the right external carotid artery. Antegrade flow is noted in the right vertebral artery. Left Extracranial There is heterogeneous, irregular atherosclerotic plaque noted in the left common carotid artery. There is heterogeneous, irregular atherosclerotic plaque noted in the left internal carotid artery. There is no significant atherosclerotic plaque noted in the left external carotid artery. Antegrade flow is noted in the left vertebral artery. Procedure Carotid Duplex 60299. This is a Carotid Duplex examination using B-mode, color flow and specral Doppler. Exam performed in department. VL/Carotid Duplex Ultrasound Interpretation Summary Mild (<50%) stenosis right extracranial internal carotid. Mild (<50%) stenosis left extracranial internal carotid. Patent and antegrade vertebrals bilaterally. Ordering Physician: Susy Johns Referring Physician: Percy Harrison Performed By: Thania Mascorro, RDCS, RVT
== END | disposition home or self-care (01) ==
PROVIDERS: PCP Family Medicine; Referring Provider Physician Assistant; Visit Provider Physician Assistant
DX: I65.21 Occlusion and stenosis of right carotid artery (principal); Z98.890 Other specified postprocedural states
CPT/HCPCS: 93880

== ENCOUNTER 2023-12-10 09:30 | Outpatient (RCR) | payer MEDICARE, OTHER, SELFPAY ==
--- NOTE | 2023-11-19 12:45 | HP.PTEVAL ---
Patient's Visit Information Visit Information Visit Information: VNAIA VASQUEZ is a 73 year old F referred to Physical Therapy by Dr. Kenneth Dhaliwal DO with a diagnosis of L shoulder pain. Date of Evaluation: 11/15/23 Physical Therapist: Tim Pino DPT Visit Plan Frequency: 2x /Week Duration: 4 Weeks Plan: Start with PROM/AAROM/AROM of L shoulder, add in shoulder iso progressing to concentric. May use US to L shoulder to calm symptoms initially if needed. Subjective Subjective: Pt. is here today for her initial evaluation with diagnosis L shoulder pain. Pt. reports that her daughter attempted to help her up from a chair with pulling on her L arm and felt instant pain. Pt. ended up having an xray which was okay. Pt. is doing better than she was after her initial injury, but is still having pain with lifting dishes and ADLs. She does not have much pain at rest. Lying on her L side is painful as well. No N/T noted. She did have a proximal humeral fracture of her L side a few years ago, but she reports xrays are now good. Pt. is hopeful to reduce her pain, increase her strength and get back to all ADLs and IADLs without issues. No MRI at this point in time. Pain L shoulder: Pain Intensity (Out of 10): 3 Pain Intensity Range: 0 and 4 Objective Objective: POSTURE: Pt. has forward head posture, rounded shoulders, increased thoracic kyphosis. PALPATION: pt. has increased tenderness at subacromial space, and along biceps in bicipital groove. NEURO: Pt. has normal sensation in BUEs. Pt. has normal DTR of BUEs. ROM: AROM: R shoulder: flexion 150deg, abd 145deg, functional ER C5, functional IR L3. L shoulder: flexion 100 deg, abd 95deg, functional ER C2 aberrant motion, functional IR L gluteal range. PROM: L shoulder flexion 125deg, abd 100deg. MMT: L shoulder: flexion 4/5, abd 4-/5, ext 4+/5, ER 4/5, IR 4/5. Balance/Special Test Scores Quick DASH Score: 45.4525 Goals Goal 1:: LTG: Pt. to be I with HEP. Goal Time Frame: 4-6 Weeks Goal 2:: STG: Pt. to sleep throughout the night without increase in symptoms. Goal Time Frame: 2 Weeks Goal 3:: LTG: Pt. to have full L shoulder PROM without increase in symptoms. Goal Time Frame: 2-4 Weeks Goal 4:: LTG: Pt. to have increased L shoulder AROM to full without increase in symptoms. Goal Time Frame: 4-6 Weeks Goal 5:: LTG: pt. to have symmetrical strength between BUEs. Goal Time Frame: 4-6 Weeks Goal 6:: LTG: Pt. to complete all ADLs without increase in symptoms. Rehabilitation Potential Physical Therapy Diagnosis: Pt. has signs and symptoms consistent with L shoulder pain. Pt. has some limited AROM and PROM of her L shoulder as well as pain. Pt. would benefit from PT to address the above limitation progressing back to all recreational and household activities without limitations. Rehabilitation Potential: Good Anticipated Interventions Patient/Client Instruction: Educate patient on: Condition, Plan of Care, Risk Factors and Benefits of Fitness Program For the Purpose of:: To foster healthy habits, To improve decision making, To facilitate caregiver knowledge, To improve self management, To prevent re-injury and To improve ability to perform tasks related to life management Therapeutic Exercise to Include: Strength training, Power training, Endurance training, Passive ROM, Active ROM and Scapular Strength/Stabilization For the Purpose of:: To decrease pain, To increase ROM, To increase oxygenation perfusion, To improve muscle performance and motor function, To improve ability to perform ADL's, To increase tolerance to activity/condition/position and To improve performance and independence with ADL's Ultrasound (thermal/non thermal): Yes Text: Thank you for the opportunity to evaluate your patient. For Medicare and Medicare HMO plans, please review the plan of care and approve it. It will need to be FAXED BACK to us at [phone] for Medicare purposes. For Medicare only, by signing this I certify the plan of care. Please let me know if there are questions or concerns regarding this plan of care. Physician Signature: Date:
--- NOTE | 2024-02-12 09:06 | HP.PT.NRP ---
Patient Information Patient Information: VANIA VASQUEZ was seen in my office for initial evaluation on 11/15/23. The following Plan of Care was established for this patient: POC Established Initial Frequency: 2x /Week Initial Duration: 4 Weeks Anticipated Interventions Patient/Client Instruction: Educate patient on: Condition, Plan of Care, Risk Factors and Benefits of Fitness Program For the Purpose of:: To foster healthy habits, To improve decision making, To facilitate caregiver knowledge, To improve self management, To prevent re-injury and To improve ability to perform tasks related to life management Therapeutic Exercise to Include: Strength training, Power training, Endurance training, Passive ROM, Active ROM and Scapular Strength/Stabilization For the Purpose of:: To decrease pain, To increase ROM, To increase oxygenation perfusion, To improve muscle performance and motor function, To improve ability to perform ADL's, To increase tolerance to activity/condition/position and To improve performance and independence with ADL's Ultrasound (thermal/non thermal): Yes Last Seen Last Seen: This patient was last seen in our office 12/10/23. Pertinent comments regarding their Physical therapy will appear below: Pt. was seen in PT for her L shoulder pain. She was treated with ROM and strengthening. She has not been seen in several months and will be DC from PT at this point in time. At this point I will be discontinuing this patient from physical therapy. I would be happy to see this patient again in the future if found appropriate by the physician. Thank you! Tim Pino, DPT Balance/Gait/Functional tests Balance/Special Test Scores Quick DASH Score: [phone]
== END 2023-12-10 19:00 | disposition home or self-care (01) ==
LOC: PT 09:30
PROVIDERS: PCP Family Medicine; Referring Provider Orthopaedic Surgery; Visit Provider Orthopaedic Surgery
DX: M25.512 Pain in left shoulder (principal)
CPT/HCPCS: 97110; 97140; 97161

== ENCOUNTER → 2023-12-12 | Outpatient (CLI) | payer MEDICARE, OTHER, SELFPAY ==
--- NOTE | 2023-12-12 06:29 | ECHOD_ITS ---
Reason For Study: ANGEL Procedure This was a 2D Doppler, Color Flow transthoracic echocardiogram. Patient was scanned in supine position during reflux assessment. The study was technically difficult. Exam performed in department. Left Ventricle Normal LV size. Left ventricular systolic function is normal. The estimated ejection fraction is 60- 65 %. Normal diastology for age. No regional wall motion abnormalities noted. Right Ventricle Normal RV size. Normal systolic function. Atria The left and right atria are normal. Mitral Valve The mitral valve is structurally normal. No prolapse or stenosis seen. The mitral valve chordae are thickened and/or calcified. There is no mitral valve stenosis. Trivial mitral valve insufficiency. Tricuspid Valve Normal tricuspid valve. Unable to estimate RV systolic pressure due to insufficient tricuspid regurgitant envelope. Aortic Valve Trisinus/trileaflet aortic valve. Mild focal aortic valve thickening. Mild focal aortic valve calcification. Aortic sclerosis, no stenosis. Pulmonic Valve The pulmonic valve is not well visualized. Great Vessels Normal aortic root. Pericardium/Pleural No pericardial effusion. MMode/2D Measurements & Calculations LVIDd: 4.5 cm IVSd: 0.85 cm LVOT diam: 1.9 cm LVIDs: 2.5 cm LVPWd: 1.0 cm LVOT area: 2.8 cm2 RVDd: 3.1 cm FS: 43.3 % Ao root diam: 2.9 cm LAV(MOD-bp): 54.8 ml LVAd ap4: 18.8 cm2 LAV(MOD-bp) Indexed: 23.7 ml/m2 LVLd ap4: 7.1 cm LAV(MOD-sp2): 54.3 ml EDV(MOD-sp4): 42.0 ml LAV(MOD-sp4): 52.7 ml EDV(sp4-el): 41.9 ml LVAs ap4: 9.0 cm2 LVLs ap4: 6.0 cm ESV(MOD-sp4): 12.8 ml ESV(sp4-el): 11.5 ml EF(MOD-sp4): 69.5 % EF(sp4-el): 72.6 % LVAd ap2: 18.2 cm2 SV(MOD-sp4): 29.2 ml SV(MOD-sp2): 26.1 ml LVLd ap2: 7.1 cm EDV(MOD-sp2): 39.1 ml EDV(sp2-el): 39.6 ml LVAs ap2: 9.3 cm2 LVLs ap2: 6.0 cm ESV(MOD-sp2): 13.0 ml ESV(sp2-el): 12.4 ml EF(MOD-sp2): 66.7 % SV(sp4-el): 30.4 ml LA dimension(2D): 3.9 cm LA A4 area: 19.8 cm2 RA A4 area: 12.3 cm2 TAPSE: 1.9 cm Time Measurements MV dec time: 0.18 sec Doppler Measurements & Calculations MV E max ezequiel: 140.2 cm/sec Lat Peak E' Ezequiel: 12.7 cm/sec Med Peak E' Ezequiel: 9.0 cm/sec MV A max ezequiel: 98.0 cm/sec E/E' lat: 11.0 E/E' med: 15.6 MV E/A: 1.4 MV V2 max: 175.3 cm/sec Ao V2 max: 193.0 cm/sec MV max P.3 mmHg MV dec slope: 798.4 cm/sec2 Ao max P.9 mmHg MV V2 mean: 98.4 cm/sec Ao V2 mean: 137.4 cm/sec MV mean P.4 mmHg Ao mean P.3 mmHg MV V2 VTI: 40.1 cm Ao V2 VTI: 44.1 cm AV (velocity ratio): 0.78 MVA(VTI): 2.4 cm2 AGUEDA(I,D): 2.2 cm2 AGUEDA(V,D): 2.1 cm2 LV V1 max: 143.0 cm/sec SV(LVOT): 95.8 ml PA V2 max: 105.6 cm/sec LV V1 max P.2 mmHg LV V1 mean P.4 mmHg LV V1 mean: 111.3 cm/sec LV V1 VTI: 34.3 cm ECHO/Echo Complete Interpretation Summary The estimated ejection fraction is 60-65 %. The mitral valve chordae are thickened and/or calcified. Aortic sclerosis, no stenosis. The study was technically difficult. Ordering Physician: Pacheco Hart Referring Physician: MD Hunter Percy Performed By: Petra Aguiar [facility]
--- OUTSIDE RECORDS SUMMARY | 2023-12-12 06:33 | XMS RPT_ITS | CCD ---
Author Name Unknown Address [id number] [place] [address] Organization [facility] Care Team Providers Care Superintendent Sales Name Role Phone REFERRING, PHY WO ID Unavailable Unavailable RENNECKER, FELICITAS Unavailable Unavailable RENNECKER, FELICITAS Unavailable Unavailable REFERRING, PHY WO ID Unavailable Unavailable RENNECKER, FELICITAS Unavailable Unavailable RENNECKER, FELICITAS Unavailable Unavailable REFERRING, PHY WO ID Unavailable Unavailable RENNECKER, FELICITAS Unavailable Unavailable RENNECKER, FELICITAS Unavailable Unavailable REFERRING, PHY WO ID~[id number] Unavailable Unava ilable RENNECKER, FELICITAS M Unavailable Unavailable ANY, MARCOS R. Unavailable Unavailable RENNECKER, FELICITAS M Unavailable Unavailable Rudick, Juan Ramon H Unavailable Unavailable Rennecker, Felicitas M Unavailable Unavailable Rudick, Juan Ramon H Unavailable Unavailable Rennecker, Felicitas M Unavailable Unavailable Rocha, Rod C Unavailable Unavailable Rennecker, Felicitas M Unavailable Unavailable Rennecker, Felicitas M Unavailable Unavailable Serrano, Teddy W Unavailable Unavailable Serrano, Teddy W Unavailable Unavailable Rocha, Rod C Unavailable Unavailable Rennecker, Felicitas M Unavailable Unavailable Rocha, Rod C Unavailable Unavailable Rennecker, Felicitas M Unavailable Unavailable Rennecker, Felicitas M Unavailable Unavailable Rocha, Rod C Unavailable Unavailable Rennecker, Felicitas M Unavailable Unavailable Rennecker, Felicitas M Unavailable Unavailable JohnFlorin abdalla S Unavailable Unavailable Rennecker, Felicitas M Unavailable Unavailable Rudick, Juan Ramon H Unavailable Unavailable Rennecker, Felicitas M Unavailable Unavailable Rocha, Rod C Unavailable Unavailable Ganga Srivastava Unavailable Unavailable Rocha, Rod C Unavailable Unavailable Ganga Srivastava Unavailable Unavailable Ganga Srivastava MD Primary Care Provider [facility], [place] Unavailable [facility], [place] Unavailable Ganga Srivastava MD Primary Care Provider [facility], [place] Unavailable [facility], [place] Unavailable Ganga Srivastava MD Primary Care Provider [facility], [place] Unavailable [facility], [place] Unavailable Ganga Srivastava MD Primary Care Provider [facility], [place] Unavailable [facility], [place] Unavailable [facility], [place] Unavailable GANGA SRIVASTAVA Primary Care Unavailable SELF Referring Unavailable ELDERBROCK, GANGA Muir Primary Care Unavailable ELDERBROGANGA PORTER Attending Unavailable ELDERBROCK, GANGA Muir Primary Care Unavailable ELDERBROCK, GANGA Muir Referring Unavailable ELDERBROCK, GANGA Muir Primary Care Unavailable SHEY CHAPMAN Attending Unavailable ELDERBROCK, GANGA Muir Primary Care Unavailable ELDERBROCK, GANGA uMir Attending Unavailable ELDERBROCK, GANGA Muir Primary Care Unavailable ELDERBROCK, GANGA Muir Primary Care Unavailable DESTIN RANKIN Referring Unavailable ELDERBROCK, GANGA Muir Primary Care Unavailable ELDERBROCK, GANGA Muir Referring Unavailable TESTRASHUN VELOZ Attending Unavailable ELDERBROCK, GANGA Muir Primary Care Unavailable ELDERBROCK, GANGA Muir Primary Care Unavailable TESTRASHUN VELOZ Attending Unavailable ELDERBROCK, GANGA Muir Primary Care Unavailable ELDERBROCK, GANGA Muir Primary Care Unavailable ELDERBROCKGANGA Attending Unavailable ELDERBROCK, GANGA Muir Primary Care Unavailable ELDERGANGA PACKER Attending Unavailable TESTRASHUN VELOZ Attending Unavailable ELDERBIRDIE, GANGA Muir Primary Care Unavailable ELDERBROCK, GANGA Muir Primary Care Unavailable ELDERBROGANGA PORTER Attending Unavailable TESTRASHUN VELOZ Referring Unavailable TESTRASHUN VELOZ Attending Unavailable ELDERBROCK, GANGA Muir Primary Care Unavailable Allergies Allergy Classification Reported Allergen(s) Allergy Type Date of Onset Reaction(s) Facility (20 sources) Doxycycline; Translations: [DOXYCYCLINE] Drug Allergy 1 [facility] (20 sources) Furosemide; Translations: [FUROSEMIDE] Drug Allergy 8 Other: See Comments [facility] (20 sources) Sulfonamides (Antibiotic); Translations: [SULFA (SULFONAMIDE ANTIBIOTICS)] Drug Intolerance 8 Other: See Comments [facility] (20 sources) Cat Dander; Translations: [CAT DANDER] Drug Allergy 8 Other: See Comments [facility] Medications Current Medications Medication Drug Class(es) Dates Sig (Normalized) Sig (Original) cephalexin 500 mg oral capsule (3 sources) Cephalosporin Antibacterial Start: 05-02-2023 End: 05-09-2023 take 1 capsule by mouth twice daily cephALEXin (KEFLEX) 500 mg capsule Take 1 capsule by mouth twice daily for 7 days. 14 capsule 0 05/02/2023 05/09/2023 Active Completed/Discontinued Medications Medication Drug Class(es) Dates Sig (Normalized) Sig (Original) [id number] actuat albuterol 0.09 mg/actuat metered dose inhaler (20 sources) beta2-Adrenergic Agonist Start: 11-23-2022 take 2 puff(s) by inhalation every four hours as needed for wheezing albuterol HFA (VENTOLIN HFA) 90 mcg/actuation inhaler Inhale 2 Puffs as instructed every 4 hours as needed for wheezing/shortnes s of breath. 6.7 g 5 11/23/2022 Active Problems Active Problems Problem Classification Problem Date Documented Da te Episodic/Chronic Allergic reactions (1 source) Contact dermatitis; Translations: [Unspecified contact dermatitis, unspecified cause] Episodic Anxiety disorders (1 source) Mixed anxiety and depressive disorder; Translations: [Other specified anxiety disorders] Chronic Congestive heart failure; nonhypertensive (1 source) Acute on chronic diastolic heart failure; Translations: [Acute on chronic diastolic (congestive) heart failure] Chronic Coronary atherosclerosis and other heart disease (20 sources) Coronary arteriosclerosis; Translations: [Atherosclerotic heart disease of saxman coronary artery without angina pectoris] Onset: 08-01-2018 Chronic Diabetes mellitus with complications (20 sources) Type 2 diabetes mellitus; Translations: [Type 2 diabetes mellitus with diabetic neuropathy, unspecified] Onset: 08-01-2018 Chronic Diabetes mellitus without complication (2 sources) Type 2 diabetes mellitus without complications; Translations: [TYPE 2 DIABETES MELLITUS WITHOUT COMPLICATIONS] Onset: 05-11-2017 Chronic Diseases of white blood cells (2 sources) Lymphocytosis (symptomatic); Translations: [LYMPHOCYTOSIS (SYMPTOMATIC)] Onset: 05-18-2017 Chronic Disorders of lipid metabolism (20 sources) Hyperlipidemia; Translations: [Hyperlipidemia, unspecified] Onset: 08-01-2018 Chronic E Codes: Fall (1 source) Fall; Translations: [Unspecified fall, sequela] Episodic Essential hypertension (20 sources) Essential hypertension; Translations: [Essential (primary) hypertension] Onset: 08-01-2018 Chronic Genitourinary symptoms and ill-defined conditions (4 sources) Frequency of micturition; Translations: [Dysuria] Onset: 04-03-2018 Episodic Immunizations and screening for infectious disease (1 source) Needs influenza immunization; Translations: [Encounter for immunization] Episodic Mood disorders (4 sources) Recurrent depression; Translations: [Major depressive disorder, recurrent, unspecified] Onset: 07-23-2023 07-23-2023 Chronic Mycoses (2 sources) Onychomycosis; Translations: [Tinea unguium] Episodic Occlusion or stenosis of precerebral arteries (1 source) Bilateral stenosis of carotid arteries; Translations: [Occlusion and stenosis of bilateral carotid arteries] Chronic Osteoarthritis (20 sources) Osteoarthritis of bilateral hip joints; Translations: [Bilateral primary osteoarthritis of hip] Onset: 04-13-2021 04-13-2021 Chronic Other aftercare (2 sources) Post-discharge follow-up; Translations: [Encounter for follow-up examination after completed treatment for conditions other than malignant neoplasm] Episodic Other circulatory disease (2 sources) Abnormal peripheral pulse; Translations: [Other specified symptoms and signs involving the circulatory and respiratory systems] Episodic Other connective tissue disease (2 sources) Pain of toe of left foot; Translations: [Pain in left toe(s)] Episodic Other connective tissue disease (3 sources) Pain of toe of right foot; Translations: [Pain in right toe(s)] Episodic Other diseases of veins and lymphatics (3 sources) Stasis dermatitis; Translations: [Venous insufficiency (chronic) (peripheral)] Episodic Other diseases of veins and lymphatics (2 sources) Peripheral venous insufficiency; Translations: [Venous insufficiency (chronic) (peripheral)] Episodic Other diseases of veins and lymphatics (1 source) Other specified disorders of veins; Translations: [Chronic venous stasis] Onset: 11-02-2023 Episodic Other lower respiratory disease (1 source) Cough; Translations: [Post-COVID chronic cough] Episodic Other nervous system disorders (4 sources) Disorder of the peripheral nervous system; Translations: [Polyneuropathy in diseases classified elsewhere] Onset: 07-23-2023 07-23-2023 Chronic Other nervous system disorders (1 source) Paresthesia; Translations: [Paresthesia of skin] Episodic Other nutritional; endocrine; and metabolic disorders (20 sources) Body mass index 40+ - severely obese; Translations: [Morbid (severe) obesity due to excess calories] Onset: 07-31-2018 Chronic Other screening for suspected conditions (not mental disorders or infectious disease) (2 sources) Patient encounter status; Translations: [Encounter for screening mammogram for malignant neoplasm of breast] Episodic Other skin disorders (1 source) Keratosis; Translations: [Epidermal thickening, unspecified] Episodic Paralysis (1 source) Cerebral palsy Onset: 08-10-2017 Chronic Peripheral and visceral atherosclerosis (1 source) Peripheral vascular disease, unspecified; Translations: [Peripheral vascular disease, unspecified] Chronic Residual codes; unclassified (3 sources) Bilateral lower limb edema; Translations: [Localized edema] Episodic Residual codes; unclassified (1 source) Pain, unspecified; Translations: [Pain] Onset: 10-31-2023 Episodic Spondylosis; intervertebral disc disorders; other back problems (1 source) Degeneration of cervical intervertebral disc; Translations: [Other cervical disc degeneration, unspecified cervical region] Chronic Spondylosis; intervertebral disc disorders; other back problems (2 sources) Acute low back pain; Translations: [Acute low back pain without sciatica, unspecified back pain laterality] Episodic Syncope (1 source) Vasovagal syncope; Translations: [Syncope and collapse] Episodic Unclassified (2 sources) Unknown / UNK(Unknown) Onset: 05-11-2017 Unclassified (1 source) Transition Of Care Onset: 02-13-2023 Urinary tract infections (1 source) Acute urinary tract infection; Translations: [Urinary tract infection, site not specified] Episodic Varicose veins of lower extremity (3 sources) Venous stasis ulcer of leg; Translations: [Varicose veins of right lower extremity with ulcer of unspecified site] Episodic Viral infection (1 source) Disease caused by 2019-nCoV; Translations: [COVID-19] 07-13-2023 Episodic Viral infection (1 source) COVID-19; Translations: [COVID-19] Onset: 07-13-2023 Past or Other Problems Problem Classification Problem Date Documented Da te Episodic/Chronic Fluid and electrolyte disorders (2 sources) Dehydration; Translations: [DEHYDRATION] Onset: 05-18-2017 Episodic Malaise and fatigue (20 sources) Asthenia; Translations: [Weakness] Onset: 04-13-2021 04-13-2021 Episodic Other connective tissue disease (20 sources) Bilateral trochanteric bursitis; Translations: [Trochanteric bursitis, right hip] Onset: 02-11-2019 02-11-2019 Episodic Other connective tissue disease (20 sources) Recurrent falls ; Translations: [Repeated falls] Onset: 04-13-2021 04-13-2021 Episodic Unclassified (2 sources) Disorientation, unspecified; Translations: [DISORIENTATION, UNSPECIFIED] Onset: 05-11-2017 Episodic Unclassified (1 source) BACK PAIN, LUMBOSACRAL Onset: 05-11-2017 Results Test Name Value Interpretation Reference Range Facil ity Vital Signs Date Time Vital Sign Value Performing Clinician Linda thorne 08-23-2023 09:34-0400 Body weight 133.18 kg Ganga Srivastava MD Work Phone: [facility] 08-23-2023 09:34-0400 Diastolic blood pressure 78 mm[Hg] Ganga Srivastava MD Work Phone: [facility] 08-23-2023 09:34-0400 Heart rate 80 /min Ganga Srivastava MD Work Phone: [facility] 08-23-2023 09:34-0400 Respiratory rate 18 /min Ganga Srivastava MD Work Phone: [facility] 08-23-2023 09:34-0400 Systolic blood pressure 136 mm[Hg] Ganga Srivastava MD Work Phone: [facility] 05-02-2023 16:39-0400 Body temperature 98.2 [degF] Sunita BLACKMAN Work Phone: [facility] 05-02-2023 16:39-0400 Body weight 132.9 kg Krislyn Aberegg PA Work Phone: [facility] 05-02-2023 16:39-0400 Diastolic blood pressure 62 mm[Hg] Krislyn Aberegg PA Work Phone: [facility] 05-02-2023 16:39-0400 Heart rate 78 /min Krislyn Aberegg PA Work Phone: [facility] 05-02-2023 16:39-0400 Respiratory rate 16 /min Krislyn Aberegg PA Work Phone: [facility] 05-02-2023 16:39-0400 Systolic blood pressure 102 mm[Hg] Krislyn Aberegg PA Work Phone: [facility] 04-09-2023 18:49-0400 Body weight 134.13 kg Ganga Srivastava MD Work Phone: [facility] 04-09-2023 18:49-0400 Diastolic blood pressure 70 mm[Hg] Ganga Srivastava MD Work Phone: [facility] 04-09-2023 18:49-0400 Heart rate 74 /min Ganga Srivastava MD Work Phone: [facility] 04-09-2023 18:49-0400 Respiratory rate 16 /min Ganga Srivastava MD Work Phone: [facility] 04-09-2023 18:49-0400 Systolic blood pressure 120 mm[Hg] Ganga Srivastava MD Work Phone: [facility] 02-13-2023 10:09-0400 Body weight 131.91 kg Ganga Srivastava MD Work Phone: [facility] 02-13-2023 10:09-0400 Diastolic blood pressure 78 mm[Hg] Ganga Srivastava MD Work Phone: [facility] 02-13-2023 10:09-0400 Heart rate 68 /min Ganga Srivastava MD Work Phone: [facility] 02-13-2023 10:09-0400 Respiratory rate 16 /min Ganga Srivastava MD Work Phone: [facility] 02-13-2023 10:09-0400 Systolic blood pressure 120 mm[Hg] Ganga Srivastava MD Work Phone: [facility] 08-15-2022 14:54-0400 Body weight 129.14 kg Ganga Srivastava MD Work Phone: [facility] 08-15-2022 14:54-0400 Diastolic blood pressure 74 mm[Hg] Ganga Srivastava MD Work Phone: [facility] 08-15-2022 14:54-0400 Heart rate 74 /min Ganga Srivastava MD Work Phone: [facility] 08-15-2022 14:54-0400 Respiratory rate 16 /min Ganga Srivastava MD Work Phone: [facility] 08-15-2022 14:54-0400 Systolic blood pressure 124 mm[Hg] Ganga Srivastava MD Work Phone: [facility] 06-12-2022 15:59-0400 Body weight 124.29 kg Ganga Srivastava MD Work Phone: [facility] 06-12-2022 15:59-0400 Diastolic blood pressure 74 mm[Hg] Ganga Srivastava MD Work Phone: [facility] 06-12-2022 15:59-0400 Heart rate 76 /min Ganga Srivastava MD Work Phone: [facility] 06-12-2022 15:59-0400 Respiratory rate 16 /min Ganga Srivastava MD Work Phone: [facility] 06-12-2022 15:59-0400 Systolic blood pressure 116 mm[Hg] Ganga Srivastava MD Work Phone: [facility] 05-05-2022 11:05-0400 Body weight 128.37 kg Ganga Srivastava MD Work Phone: [facility] 05-05-2022 11:05-0400 Diastolic blood pressure 62 mm[Hg] Ganga Srivastava MD Work Phone: [facility] 05-05-2022 11:05-0400 Heart rate 66 /min Ganga Srivastava MD Work Phone: [facility] 05-05-2022 11:05-0400 Respiratory rate 18 /min Ganga Srivastava MD Work Phone: [facility] 05-05-2022 11:05-0400 SaO2% (BldA) [Mass fraction] 95 % Ganga Srivastava MD Work Phone: [facility] 05-05-2022 11:05-0400 Systolic blood pressure 118 mm[Hg] Ganga Srivastava MD Work Phone: [facility] 04-19-2022 17:33-0400 Body temperature 99.3 [degF] Shey Tannhof PRECISION LAYOUT WORKER.JAVA LEAD ENGINEER Work Phone: [facility] 04-19-2022 17:33-0400 Body weight 124.83 kg Shey Tannhof PRECISION LAYOUT WORKER.JAVA LEAD ENGINEER Work Phone: [facility] 04-19-2022 17:33-0400 Diastolic blood pressure 64 mm[Hg] Shey Tannhof PRECISION LAYOUT WORKER.JAVA LEAD ENGINEER Work Phone: [facility] 04-19-2022 17:33-0400 Heart rate 72 /min Shey Tannhof PRECISION LAYOUT WORKER.JAVA LEAD ENGINEER Work Phone: [facility] 04-19-2022 17:33-0400 Respiratory rate 18 /min Shey Tannhof PRECISION LAYOUT WORKER.JAVA LEAD ENGINEER Work Phone: [facility] 04-19-2022 17:33-0400 Systolic blood pressure 116 mm[Hg] Shey Tannhof PRECISION LAYOUT WORKER.JAVA LEAD ENGINEER Work Phone: [facility] 04-04-2022 10:03-0400 Body height 162.6 cm Deb Neely DO Work Phone: [facility] 04-04-2022 10:03-0400 Body weight 127.46 kg Debasa Bellle DO Work Phone: [facility] 04-04-2022 10:03-0400 Diastolic blood pressure 50 mm[Hg] Deb Neely DO Work Phone: [facility] 04-04-2022 10:03-0400 Heart rate 65 /min Deb Neely DO Work Phone: [facility] 04-04-2022 10:03-0400 SaO2% (BldA) [Mass fraction] 96 % Deb Neely DO Work Phone: [facility] 04-04-2022 10:03-0400 Systolic blood pressure 125 mm[Hg] Deb Neely DO Work Phone: [facility] 03-21-2022 08:44-0400 Body height 162.6 cm Deb Neely DO Work Phone: [facility] 03-21-2022 08:44-0400 Body weight 122.47 kg Deb Neely DO Work Phone: [facility] 03-21-2022 08:44-0400 Diastolic blood pressure 59 mm[Hg] Deb Neely DO Work Phone: [facility] 03-21-2022 08:44-0400 Heart rate 64 /min Deb Neely DO Work Phone: [facility] 03-21-2022 08:44-0400 SaO2% (BldA) [Mass fraction] 95 % Deb Neely DO Work Phone: [facility] 03-21-2022 08:44-0400 Systolic blood pressure 117 mm[Hg] Deb Neely DO Work Phone: [facility] 03-13-2022 13:07-0400 Body weight 122.92 kg Shey Chapman APRN.JAVA LEAD ENGINEER Work Phone: [facility] 03-13-2022 13:07-0400 Diastolic blood pressure 62 mm[Hg] Shey Chapman APRN.JAVA LEAD ENGINEER Work Phone: [facility] 03-13-2022 13:07-0400 Heart rate 65 /min Shey Hutchisonhof PRECISION LAYOUT WORKER.JAVA LEAD ENGINEER Work Phone: [facility] 03-13-2022 13:07-0400 Respiratory rate 16 /min Sheykristie Hutchisonhoalfred PRECISION LAYOUT WORKER.JAVA LEAD ENGINEER Work Phone: [facility] 03-13-2022 13:07-0400 SaO2% (BldA) [Mass fraction] 99 % Sheykristie Hutchisonhof PRECISION LAYOUT WORKER.JAVA LEAD ENGINEER Work Phone: [facility] 03-13-2022 13:07-0400 Systolic blood pressure 100 mm[Hg] Shey Hutchisonhof PRECISION LAYOUT WORKER.JAVA LEAD ENGINEER Work Phone: [facility] 02-03-2022 08:58-0400 Body weight 134.08 kg Ganga Srivastava MD Work Phone: [facility] 02-03-2022 08:58-0400 Diastolic blood pressure 74 mm[Hg] Ganga Srivastava MD Work Phone: [facility] 02-03-2022 08:58-0400 Heart rate 74 /min Ganga Srivastava MD Work Phone: [facility] 02-03-2022 08:58-0400 Respiratory rate 18 /min Ganga Srivastava MD Work Phone: [facility] 02-03-2022 08:58-0400 Systolic blood pressure 128 mm[Hg] Ganga Srivastava MD Work Phone: [facility] Encounters Encounter Date Encounter Type Care Provider Facility Start: 11-29-2023 End: 11-29-2023 ambulatory GANGA SRIVASTAVA Facility:[facility] Start: 11-12-2023 End: 11-12-2023 ambulatory SHUN BEAUCHAMP Facility:[facility] Start: 11-02-2023 End: 11-03-2023 ambulatory GANGA SRIVASTAVA Facility:[facility] Start: 10-31-2023 End: 10-31-2023 ambulatory GANGA SRIVASTAVA Facility:[facility] Start: 10-05-2023 Telephone encounter Ganga gann MD Work Phone: [facility] Procedures Date Procedure Procedure Detail Performing Clinician Start: 05-02-2023 Urnls dip stick/tabl et rgnt auto w/o microscopy Andreina Caceres PA-C Work Phone: Start: 04-09-2023 Urnls dip stick/tabl et rgnt auto w/o microscopy Ganga Srivastava MD Work Phone: Start: 10-02-2022 Radex foot complete minimum 3 views Shun Beauchamp Work Phone: Start: 08-15-2022 INFLUENZA SEASONAL QUADRIVALENT HIGH DOSE AGE 65+ Ganga Srivastava MD Work Phone: Start: 05-03-2022 Adult depression scr eening assessment Ganga Srivastava MD Work Phone: Start: 04-19-2022 Urnls dip stick/tabl et rgnt auto w/o microscopy Shey Chapman APRN.CNP Work Phone: Start: 08-22-2021 Adult depression scr eening assessment Ganga Srivastava MD Work Phone: Start: 05-27-2021 Mammography Ganga packer MD Work Phone: Plan of Treatment Date Care Activity Detail Author Start: 01-09-2032 Urine microalbumin profile [facility] Start: 08-23-2024 Annual PCP Team Chronic Disease Visit Annual PCP Team Chronic Disease Visit [facility] Start: 08-07-2024 3 comp foot exam completed Diabetic Foot Exam [facility] Start: 07-13-2024 ANNUAL PCP TEAM CHRONIC DISEASE VISIT ANNUAL PCP TEAM CHRONIC DISEASE VISIT [facility] Start: 05-02-2024 BP CONTROLLED (<130/80) BP CONTROLLED (<130/80) [facility] Start: 04-09-2024 ANNUAL PCP TEAM CHRONIC DISEASE VISIT ANNUAL PCP TEAM CHRONIC DISEASE VISIT [facility] Start: 04-09-2024 BP CONTROLLED (<130/80) BP CONTROLLED (<130/80) [facility] Start: 02-14-2024 ANNUAL PCP TEAM CHRONIC DISEASE VISIT ANNUAL PCP TEAM CHRONIC DISEASE VISIT [facility] Start: 04-11-2024 BP CONTROLLED (<130/80) BP CONTROLLED (<130/80) [facility] Start: 02-14-2024 Hepatitis B surface antibody level LDL CHOLESTEROL [facility] Start: 01-02-2024 BP CONTROLLED (<130/80) BP CONTROLLED (<130/80) [facility] Start: 08-15-2023 3 comp foot exam completed DIABETIC FOOT EXAM [facility] Start: 08-15-2023 ANNUAL PCP TEAM CHRONIC DISEASE VISIT ANNUAL PCP TEAM CHRONIC DISEASE VISIT [facility] Start: 08-15-2023 BP CONTROLLED (<130/80) BP CONTROLLED (<130/80) [facility] Start: 07-06-2023 Covid-19 Vaccine () Covid-19 Vaccine () [facility] Start: 07-06-2023 Influenza vaccination INFLUENZA (#1) [facility] Start: 06-27-2023 Hepatitis C antibody, confirmatory test DILATED RETINAL EXAM [facility] Start: 06-23-2023 Hepatitis B screening URINE ALBUMIN:CREATININE RATIO [facility] Start: 06-12-2023 ANNUAL PCP TEAM CHRONIC DISEASE VISIT ANNUAL PCP TEAM CHRONIC DISEASE VISIT [facility] Start: 06-12-2023 BP CONTROLLED (<130/80) BP CONTROLLED (<130/80) [facility] Start: 05-17-2023 End: 07-17-2023 Comprehensive metabolic 2000 panel - Serum or Plasma COMP METABOLIC PANEL Lab Routine Type 2 diabetes mellitus with diabetic neuropathy, without long-term current use of insulin (HCC) Expected: 05/17/2023 (Approximate), Expires: 07/17/2023 [facility] Work Phone: Immunizations Immunization Date Immunization Notes Care Provider Fa cili 08-15-2022 influenza, high-dose , quadrivalent vaccine (FLUZONE HIGH DOSE QUADRIVALENT) Ganga Srivastava MD Work Phone: [facility] 01-08-2022 tetanus toxoid, redu larry diphtheria toxoid, and acellular pertussis vaccine, adsorbed Ganga Srivastava MD Work Phone: [facility] 08-23-2021 influenza, high-dose , quadrivalent vaccine (FLUZONE HIGH DOSE QUADRIVALENT) Ganga Srivastava MD Work Phone: [facility] 01-29-2021 COVID-19 vaccine, ag e 12+ yr (PFIZER-BIONTECH - PURPLE TOP) Ganga Srivastava MD Work Phone: [facility] 01-04-2021 COVID-19 vaccine, ag e 12+ yr (PFIZER-BIONTECH - PURPLE TOP) Ganga Srivastava MD Work Phone: [facility] 09-20-2020 zoster vaccine recombinant Ganga Srivastava MD Work Phone: [facility] Work Phone: 08-28-2020 influenza, high-dose , quadrivalent vaccine (FLUZONE HIGH DOSE QUADRIVALENT) Ganga Srivastava MD Work Phone: [facility] 08-14-2019 influenza, high dose seasonal, preservative-free Ganga Srivastava MD Work Phone: [facility] 11-04-2018 pneumococcal polysaccharide vaccine, 23 valent Ganga Srivastava MD Work Phone: [facility] 07-31-2018 influenza, high dose seasonal, preservative-free Ganga Srivastava MD Work Phone: [facility] 02-03-2014 tetanus toxoid, redu larry diphtheria toxoid, and acellular pertussis vaccine, adsorbed Ganga Srivastava MD Work Phone: [facility] 08-05-2013 pneumococcal conjuga te vaccine, 13 valent Ganga Srivastava MD Work Phone: [facility] Payers Date Payer Category Payer Private Health Insurance [facility] AARP SUPPLEMENT [id number] 2017-Present [phone] [address] [place] [address] Indemnity [id number] 2017 Private Health Insurance [facility] AARP SUPPLEMENT [id number] 2017-Present [phone] [address] [place] [address] Indemnity [id number] 2017 Private Health Insurance [id number] 2014 Medicare [id number] 2014 Medicare MEDICARE MEDICAR E A AND B [id number] 2014-Present [phone] [place] [address] Medicare [id number] 2014 Medicare MEDICARE MEDICAR E A AND B [id number] 2014-Present [phone] [place] [address] Medicare [id number] 2014 Medicare [id number] Social History Date Type Detail Facility Start: 06-21-2018 End: 08-15-2022 Tobacco smoking status NHIS Ex-smoker [facility] Start: 06-21-2018 End: 08-15-2022 Tobacco use and exposure Smokeless tobacco non-user [facility] Start: 02-03-2022 End: 08-23-2023 Alcohol intake Current drinker of alcohol (finding) [facility] Start: 12-05-2020 End: 08-14-2022 History SDOH Alcohol Frequency 2 [facility] Start: 12-05-2020 End: 08-14-2022 History SDOH Alcohol Std Drinks 1 [facility] Start: 01-31-2019 History SDOH Alcohol Comment rarely [facility] Start: 12-05-2020 End: 05-04-2022 History SDOH Social Connections Phone 5 [facility] Start: 12-05-2020 History SDOH Social Connections Get Together 3 [facility] Start: 12-05-2020 History SDOH Social Connections Baptism 98 [facility] Start: 12-05-2020 End: 05-04-2022 History SDOH Physical Activity DPW 0 [facility] Start: 12-05-2020 End: 05-04-2022 History SDOH Stress 4 [facility] Start: 12-05-2020 Education 12 [facility] Start: 1950 Sex Assigned At Female C [facility] Start: 01-24-2022 End: 10-02-2022 Exposure to SARS-CoV-2 (event) Not sure [facility] History of tobacco use Current smoker [facility] Start: 04-16-2023 End: 05-02-2023 History of Social function [facility] Work Phone: Start: 04-16-2023 End: 05-02-2023 Tobacco use panel [facility] Work Phone: Adult Depression Screening Assessment 2 [facility] Work Phone: In the past 12 month s, was there a time when you were not able to pay the mortgage or rent on time? No [facility] Start: 08-25-2020 Sexual orientation Heterosexual (sima curran) [facility] Are you now , , , , never or living with a partner? [facility] How often to you hav e a drink containing alcohol? Monthly or less [facility] How many standard drinks containing alcohol do you have on a typical day? 1 or 2 [facility] How often do you hav e 6 or more drinks on 1 occasion? Never [facility] Do you feel stress - tense, restless, nervous, or anxious, or unable to sleep at night because your mind is troubled all the time - these days [OSQ] Rather much [facility] (I/We) worried wheth er (my/our) food would run out before (I/we) got money to buy more. Never true [facility] How hard is it for y ou to pay for the very basics like food, housing, medical care, and heating Not very hard [facility] Medical Equipment Procedure Code Equipment Code Equipment Origin al Text Equipment Identifier Dates Start: 12-31-2020 End: 11-21-2022 Clinical Notes 08-19-2021 to 11-29-2023 Telephone Encounter - Denise Huerta Ma - 10/12/2023 9:54 AM ESTTelephone Encounter - Ganga Srivastava MD - 10/11/2023 6:16 PM ESTTelephone Encounter - Brielle Nair Ma - 10/05/2023 8:31 AM EST Note Date & Type Note Facility 11-29-2023 Note HNO ID: [id number] Author: GANGA SRIVASTAVA MD Service: ? Author Type: Physician Type: Progress Notes Filed: 11/29/2023 16:09 Note Text: Chief Complaint Patient presents with: F/U 3 Month HPI Cora Vasquez is a 73 year old female who presents here today for 3 month follow up. Uro - Continues to struggle with frequent urination and incontinence. Has difficulty making it to the bathroom. Has difficulty with the water pill DM: Knows her sugars are probably not good, not eating well and has poor sleep schedule. Using Insulin 25 units at bedtime, Actos 30 mg daily and Amaryl 4 mg daily. Uses diabetic shoes. Was on Trulicity but stopped due to cost. Edema: Has Bumex 2 mg , 2 pills as needed and Zaroxolyn 2.5 mg daily. Pain: Chronic. Taking Mobic 15 mg daily, Zanaflex 4 mg prn, Gabapentin 300 mg 3 pills in AM and 4 pills PM. Depression/GABY: Stable on Prozac 40 mg daily. HTN: Taking Lisinopril 5 mg daily, Coreg 12.5 mg half pill BID, and Effient 10 mg daily. Lipid: Taking Lipitor 80 mg daily. No regular exercise. Admits to not watching diet as closely as she should. Has tried to make some changes in her diet. Doing Therapy on her left arm. Her daughter pulled her up and pulled a little to hard and hurt it. Lump on the back of her neck. Feels this is likely a cyst. Started few days ago and the area is itchy. Past medical history, appointments, medications, allergies reviewed. Previous Medical History PAST MEDICAL HISTORY Diagnosis Date Diabetes mellitus (HCC) Neuropathy Previous Surgical History PAST SURGICAL HISTORY Procedure Laterality Date CHOLECYSTECTOMY HYSTERECTOMY PAST SURGICAL HISTORY OF 2017 stent; maker TONSILLECTOMY AND ADENOIDECTOMY HX Family History No family history on file. Patient Allergies ALLERGIES Allergen Reactions Doxycycline Diarrhea Cat Dander Other: See Comments Sneezing, watery eyes Furosemide Other: See Comments Leg cramp Sulfa (Sulfonamide * Other: See Comments Increased sweating Current Medications Current Outpatient Medications on File Prior to Visit Medication Sig meloxicam (MOBIC) 15 mg tablet Take 1 tablet by mouth once daily. insulin NPH injection Inject 25 Units subcutaneously daily at bedtime. tiZANidine (ZANAFLEX) 4 mg tablet Take 1 tablet by mouth every 8 hours as needed (muscle spasms). glimepiride (AMARYL) 4 mg tablet Take 1 tablet by mouth daily with breakfast. dulaglutide (TRULICITY) 3 mg/0.5 mL pen injector Inject 3 mg subcutaneously one time a week. atorvastatin (LIPITOR) 80 mg tablet Take 1 tablet by mouth daily at bedtime. bumetanide (BUMEX) 2 mg tablet Take 2 tablets by mouth once daily. loratadine (CLARITIN) 10 mg tablet Take 1 tablet by mouth once daily. Insulin Syringe-Needle U-100 0.5 mL 31 gauge x 16 Use to inject insulin once daily as directed pantoprazole DR (PROTONIX) 40 mg tablet Take 1 tablet by mouth daily before breakfast. Take on empty stomach, 1/2 hr before meal. Lancets lancets Test blood sugar(s) 1 times daily. Dx: Type 2 DM - Uncontrolled E11.65 Insulin: No albuterol HFA (VENTOLIN HFA) 90 mcg/actuation inhaler Inhale 2 Puffs as instructed every 4 hours as needed for wheezing/shortness of breath. nitroglycerin sublingual (NITROQUICK) 0.4 mg SL tablet Dissolve 1 tablet under the tongue as needed. for chest pain,every 5 min x3 metOLazone (ZAROXOLYN) 2.5 mg tablet Take 1 tablet by mouth once daily. gabapentin (NEURONTIN) 300 mg capsule Take 3 capsule in AM and take 4 caps at bedtime for pain FLUoxetine (PROZAC) 40 mg capsule Take 1 capsule by mouth once daily. potassium chloride ER (K-DUR, KLOR-CON) 10 mEq tablet Take 2 pills in AM, 3 pill in PM pioglitazone (ACTOS) 30 mg tablet Take 1 tablet by mouth once daily. lisinopril (ZESTRIL, PRINIVIL) 5 mg tablet Take 1 tablet by mouth once daily. carvedilol (COREG) 12.5 mg tablet Take 0.5 tablets by mouth twice daily. prasugrel (EFFIENT) 10 mg tab Take 1 tablet by mouth once daily. blood sugar diagnostic (BLOOD GLUCOSE TEST) test strip Test blood sugar(s) 1 times daily. Dx: Type 2 DM - Uncontrolled E11.65 Insulin: No fluticasone (FLONASE) 50 mcg/actuation nasal spray Use 2 Sprays in each nostril once daily. Rinse mouth after use. aspirin 81 mg chewable tablet CHEW AND SWALLOW ONE TABLET BY MOUTH ONCE DAILY WITH A MEAL Kaadsnavkidou-Uhqqwssm-Gtucsf (CENTRUM SILVER) tab No current facility-administered medications on file prior to visit. Social History Social History Tobacco Use Smoking status: Former Smokeless tobacco: Never Vaping Use Vaping Use: Never used Substance Use Topics Alcohol use: Yes Comment: rarely Drug use: Not Currently Types: Marijuana Comment: used gummies in the past EXAM: BP 134/76 Pulse 80 Resp 16 Wt 133.4 kg (294 lb) SpO2 95% BMI 50.46 kg/m? General Appearance: Well appearing, alert, in no acute distress, well-hydrated, well nourished. and Obese. S (more content not included)... [facility] 11-12-2023 Note HNO ID: [id number] Author: SHUN BEAUCHAMP, ? Service: ? Author Type: Physician Type: Progress Notes Filed: 11/12/2023 09:50 Note Text: Last saw pcp: 10/31/23 Subjective: Patient presents to clinic c/o painful toenails. They state that the nails are especially painful with shoe gear and pressure. Patient states that nails 1-5 b/l are painful. Patient admits to being diabetic. No other pedal complaints at this time. Patient states no change in medications or medical history since last visit. Objective: Patient presents to clinic ambulating in sandals Vasc: DP and PT pulses are nonpalpable bilateral. CFT is less than 5 seconds bilateral. Skin temperature is warm to cool proximal to distal bilateral. There is moderate edema or varicosities noted. Neuro: Protective sensation is decreased to the foot and toes when tested with the 5.07 SWM bilateral. Vibratory sensation is absent at the hallux IPJ bilateral. The hallux is downgoing bilateral. Derm: Nails 1-5 b/l are painful, discolored-yellow, thick, crumbly, dystrophic and with subungal debris. Skin is of normal turgor, texture and hair growth is absent bilateral. There are no hyperkeratosis, ulcerations, scars, verruca or other lesions noted. Ortho: Muscle strength is 5/5 for all pedal groups tested. Ankle joint DF is decreased with the knee extended with no pain or crepitus noted. 1st MPJ ROM is decreased bilateral. Assessment: (B35.1) Onychomycosis (primary encounter diagnosis) (M79.675) Pain in toe of left foot (M79.674) Pain in toe of right foot (E11.49) Other diabetic neurological complication associated with type 2 diabetes mellitus (HCC) Plan: Patient was seen and evaluated. Nails 1-5 bilateral were debrided in length and thickness. Patient was instructed on the continued importance of diabetic foot care along with proper diet and keeping their blood sugar under control to prevent complications. Patient is to RTC in 3-4 months. Shun Beauchamp DPM [facility] 11-12-2023 Note HNO ID: [id number] Author: SABIHA MELCHOR RN Service: ? Author Type: Registered Nurse Type: Progress Notes Filed: 11/12/2023 09:50 Note Text: Patient presents with: Left Foot - Established Patient, Follow Up, Diabetic Foot Care Right Foot - Established Patient, Follow Up, Diabetic Foot Care Patient presents for diabetic foot/nail care. [facility]. [facility] 10-31-2023 Note HNO ID: [id number] Author: Gillian Rios RT(R) Service: Radiology Author Type: Technologist Type: Progress Notes Filed: 10/31/2023 8:28 AM Note Text: Radiology Service Progress Note PATIENT NAME: Cora Vasquez DATE OF SERVICE: October 31, 2023 TIME: 8:15 AM PATIENT IDENTITY VERIFICATION COMPLETED USING TWO (2) IDENTIFIERS: Name and Date of confirmed by patient verbally. FALL SCREENING: Has the patient had 2 falls in the last year or 1 fall with injury or currently using an Ambulatory Assistive Device (Walker, Cane, Wheelchair, Crutches, etc.)? No PATIENT GENDER DATA: Female. status: : No status: NO. PATIENT RELEVANT IMPLANT DATA REVIEWED: Not Applicable RADIOLOGY DEPARTMENT: General X-ray: Exam(s) Completed: Upper Extremity X-Ray(s): Shoulder, AP / TRUE AP / AXILLARY left PERIPHERAL IV DATA: Not applicable SIGNED BY: Gillian Rios, RT(R) October 31, 2023 8:15 AM [facility] 10-31-2023 Note HNO ID: [id number] Author: Destin Rankin APRN.[facility] Service: ? Author Type: Nurse Practitioner Type: Progress Notes Filed: 10/31/2023 8:46 AM Note Text: Subjective Patient came in with complaints of left shoulder pain. Patient says has been going on for 2 weeks. Patient says her daughter went to help her up. Patient says her daughter yanked on her arm very hard. Patient says it is not hurting any worse it may feel slightly better but is not getting much better. Patient denies numbness tingling or loss of feeling down her arm. The history is provided by the patient. No translator and interpreter was used. Trauma Review of Systems Constitutional: Negative. Skin: Negative. Objective Physical Exam Constitutional: Appearance: Normal appearance. Pulmonary: Effort: Pulmonary effort is normal. Musculoskeletal: Arms: Comments: Patient is tender in the areas marked above. No deformities noted. Failed scratch test and empty can test. Neurological: Mental Status: She is alert. PAST MEDICAL HISTORY Diagnosis Date Diabetes mellitus (HCC) Neuropathy PAST SURGICAL HISTORY Procedure Laterality Date CHOLECYSTECTOMY HYSTERECTOMY PAST SURGICAL HISTORY OF 2017 stent; maker TONSILLECTOMY AND ADENOIDECTOMY HX ALLERGIES Doxycycline, Cat Dander, Furosemide, and Sulfa (Sulfonamide Antibiotics) MEDICATIONS insulin NPH injection Inject 25 Units subcutaneously daily at bedtime. tiZANidine (ZANAFLEX) 4 mg tablet Take 1 tablet by mouth every 8 hours as needed (muscle spasms). glimepiride (AMARYL) 4 mg tablet Take 1 tablet by mouth daily with breakfast. dulaglutide (TRULICITY) 3 mg/0.5 mL pen injector Inject 3 mg subcutaneously one time a week. atorvastatin (LIPITOR) 80 mg tablet Take 1 tablet by mouth daily at bedtime. bumetanide (BUMEX) 2 mg tablet Take 2 tablets by mouth once daily. Insulin Syringe-Needle U-100 0.5 mL 31 gauge x 5/16 Use to inject insulin once daily as directed pantoprazole DR (PROTONIX) 40 mg tablet Take 1 tablet by mouth daily before breakfast. Take on empty stomach, 1/2 hr before meal. Lancets lancets Test blood sugar(s) 1 times daily. Dx: Type 2 DM - Uncontrolled E11.65 Insulin: No albuterol HFA (VENTOLIN HFA) 90 mcg/actuation inhaler Inhale 2 Puffs as instructed every 4 hours as needed for wheezing/shortness of breath. nitroglycerin sublingual (NITROQUICK) 0.4 mg SL tablet Dissolve 1 tablet under the tongue as needed. for chest pain,every 5 min x3 metOLazone (ZAROXOLYN) 2.5 mg tablet Take 1 tablet by mouth once daily. gabapentin (NEURONTIN) 300 mg capsule Take 3 capsule in AM and take 4 caps at bedtime for pain FLUoxetine (PROZAC) 40 mg capsule Take 1 capsule by mouth once daily. potassium chloride ER (K-DUR, KLOR-CON) 10 mEq tablet Take 2 pills in AM, 3 pill in PM pioglitazone (ACTOS) 30 mg tablet Take 1 tablet by mouth once daily. lisinopril (ZESTRIL, PRINIVIL) 5 mg tablet Take 1 tablet by mouth once daily. carvedilol (COREG) 12.5 mg tablet Take 0.5 tablets by mouth twice daily. prasugrel (EFFIENT) 10 mg tab Take 1 tablet by mouth once daily. blood sugar diagnostic (BLOOD GLUCOSE TEST) test strip Test blood sugar(s) 1 times daily. Dx: Type 2 DM - Uncontrolled E11.65 Insulin: No fluticasone (FLONASE) 50 mcg/actuation nasal spray Use 2 Sprays in each nostril once daily. Rinse mouth after use. aspirin 81 mg chewable tablet CHEW AND SWALLOW ONE TABLET BY MOUTH ONCE DAILY WITH A MEAL Diaurwiuphrxc-Vwglnqhu-Pkksmg (CENTRUM SILVER) tab loratadine (CLARITIN) 10 mg tablet Take 1 tablet by mouth once daily. No family history on file. Social History Tobacco Use Smoking status: Former Smokeless tobacco: Never Vaping Use Vaping Use: Never used Substance Use Topics Alcohol use: Yes Comment: rarely Drug use: Not Currently Types: Marijuana Comment: used gummies in the past ASSESSMENT/PLAN: 1. Pain - ICD9: 780.96, ICD10: R52 - XR SHOULDER GENERAL 3V OR MORE AP/TRUE AP/OTHER LEFT * * * * Physician Interpretation * * * * TITLE: XR SHLDR >/=3V AP/SHRTUI AP/OTHR LT CLINICAL INDICATION: Pain TECHNIQUE: 4 view radiographic study of the left shoulder COMPARISON: None FINDINGS: No acute fracture or dislocation identified. Acromioclavicular joint intact. Degenerative changes in visualized spine. Right supraclavicular fossa clips. IMPRESSION IMPRESSION: No radiographic evidence of acute osseous injury. 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 Patient made her own follow up appt with jemma. Educated about proper use of medication and supportive therapy. Destin Rankin APRN.[employer] [facility] 10-12-2023 Miscellaneous Notes Faxed. Denise Huerta Ma Form done Ganga Srivastava MD Type of form: Order for DM Shoes and Inserts from [facility]. Requesting in office OV notes within that past 6 months. Form received via fax When form is completed, Fax form to [phone] Form has been forwarded to Physician Desk: Dr. Hunter Nair Ma documented in this encounter [facility] 09-21-2023 Miscellaneous Notes Form faxed back to information below. Brielle Nair Ma Form done Ganga Srivastava MD Type of form: Jemma [employer] [facility] clearance. Form received via fax When form is completed, Fax form to [phone] Form has been forwarded to Physician Desk: Dr. Hunter Nair Ma documented in this encounter [facility] 09-20-2023 Miscellaneous Notes OK to refill as ordered Ganga Srivastava MD Pharmacy verified in Epic Patient has been identified by name and date of : Yes Patient aware RX will be sent to pharmacy. No need to notify patient. Patient phones for refill(s): Requested Prescriptions Pending Prescriptions Disp Refills insulin NPH injection 10 mL 3 Sig: Inject 25 Units subcutaneously daily at bedtime. Date of last office visit : 08/23/2023 Date of next office visit : 10/23/2023 Last 2 Encounter Wt Readings: Date: Wt: 08/23/2023 133.2 kg (293 lb 9.6 oz) 07/23/2023 131.4 kg (289 lb 9.6 oz) Not applicable Please advise. Carolynn Hoffman Pss documented in this encounter [facility] 08-23-2023 Note HNO ID: [id number] Author: Ganga Srivastava MD Service: ? Author Type: Physician Type: Progress Notes Filed: 10/11/2023 6:13 PM Note Text: Chief Complaint Patient presents with: Musculoskeletal Problem HPI Cora Vasquez is a 73 year old female who presents here today for back spasms. Pt here today for an acute visit. Admits today that she hasn't been taking any of her medications for the past week. Gets tired of taking her medications. Gets down and stops them and then will restart them. Pt c/o bilateral back spasms around kidney area. Reports this has been an ongoing for quite some time but becoming more frequent. At times she will get these three times per week or three times per day. Spasms last about 1-2 minutes, reports they get pretty intense. States she has constant pain, rating a 5/10 and describing it as a soreness type pain. When spasms occur pain is a 9.5/10. Describes this pain as throbbing pulsating type pain, like a heart beat. DM - No longer taking Trulicity 3 mg once weekly due to the cost of medication. She is currently taking Insulin 25 units at bedtime, Amaryl 4 mg once daily and Actos 30 mg once daily. She would benefit from wearing diabetic shoes. Edema - Reports she's not taking diuretic medication like she should be. States if she does she is in the bathroom constantly. Pt is currently supposed to be taking Bumex 2 mg 2 tabs po once daily and Zaroxolyn 2.5 mg 1 tab po once daily. Reports maybe some lower leg swelling. Denies any chest pain or sob. Past medical history, appointments, medications, allergies reviewed. Previous Medical History PAST MEDICAL HISTORY Diagnosis Date Diabetes mellitus (HCC) Neuropathy Previous Surgical History PAST SURGICAL HISTORY Procedure Laterality Date CHOLECYSTECTOMY HYSTERECTOMY PAST SURGICAL HISTORY OF 2017 stent; maker TONSILLECTOMY AND ADENOIDECTOMY HX Family History No family history on file. Patient Allergies ALLERGIES Allergen Reactions Doxycycline Diarrhea Cat Dander Other: See Comments Sneezing, watery eyes Furosemide Other: See Comments Leg cramp Sulfa (Sulfonamide * Other: See Comments Increased sweating Current Medications Current Outpatient Medications on File Prior to Visit Medication Sig glimepiride (AMARYL) 4 mg tablet Take 1 tablet by mouth daily with breakfast. dulaglutide (TRULICITY) 3 mg/0.5 mL pen injector Inject 3 mg subcutaneously one time a week. atorvastatin (LIPITOR) 80 mg tablet Take 1 tablet by mouth daily at bedtime. bumetanide (BUMEX) 2 mg tablet Take 2 tablets by mouth once daily. insulin NPH injection Inject 25 Units subcutaneously daily at bedtime. loratadine (CLARITIN) 10 mg tablet Take 1 tablet by mouth once daily. Insulin Syringe-Needle U-100 0.5 mL 31 gauge x 03/20 Use to inject insulin once daily as directed pantoprazole DR (PROTONIX) 40 mg tablet Take 1 tablet by mouth daily before breakfast. Take on empty stomach, 1/2 hr before meal. Lancets lancets Test blood sugar(s) 1 times daily. Dx: Type 2 DM - Uncontrolled E11.65 Insulin: No albuterol HFA (VENTOLIN HFA) 90 mcg/actuation inhaler Inhale 2 Puffs as instructed every 4 hours as needed for wheezing/shortness of breath. nitroglycerin sublingual (NITROQUICK) 0.4 mg SL tablet Dissolve 1 tablet under the tongue as needed. for chest pain,every 5 min x3 metOLazone (ZAROXOLYN) 2.5 mg tablet Take 1 tablet by mouth once daily. gabapentin (NEURONTIN) 300 mg capsule Take 3 capsule in AM and take 4 caps at bedtime for pain FLUoxetine (PROZAC) 40 mg capsule Take 1 capsule by mouth once daily. potassium chloride ER (K-DUR, KLOR-CON) 10 mEq tablet Take 2 pills in AM, 3 pill in PM pioglitazone (ACTOS) 30 mg tablet Take 1 tablet by mouth once daily. lisinopril (ZESTRIL, PRINIVIL) 5 mg tablet Take 1 tablet by mouth once daily. carvedilol (COREG) 12.5 mg tablet Take 0.5 tablets by mouth twice daily. prasugrel (EFFIENT) 10 mg tab Take 1 tablet by mouth once daily. blood sugar diagnostic (BLOOD GLUCOSE TEST) test strip Test blood sugar(s) 1 times daily. Dx: Type 2 DM - Uncontrolled E11.65 Insulin: No fluticasone (FLONASE) 50 mcg/actuation nasal spray Use 2 Sprays in each nostril once daily. Rinse mouth after use. aspirin 81 mg chewable tablet CHEW AND SWALLOW ONE TABLET BY MOUTH ONCE DAILY WITH A MEAL Idqxluuyjwgpe-Wugvwpjl-Xhxzko (CENTRUM SILVER) tab No current facility-administered medications on file prior to visit. Social History Social History Tobacco Use Smoking status: Former Smokeless tobacco: Never Vaping Use Vaping Use: Never used Substance Use Topics Alcohol use: Yes Comment: rarely Drug use: Not Currently Types: Marijuana Comment: used gummies in the past EXAM: BP 136/78 (BP Site: Left Arm, BP Position: Sitting, BP Cuff Size: Regular Adult) Pulse 80 Resp 18 Wt 133.2 kg (293 lb 9.6 oz) BMI 50.40 kg/m? General Appearance: Well a (more content not included)... [facility] 08-23-2023 Instructions Brielle Nair Ma - 08/23/2023 9:45 AM EDT Muscle spasms - Start medication called Tizanidine 4 mg. Can use this up to 3 x per day. Use heat on back to help with symptoms. documented in this encounter [facility] 08-23-2023 History of Presen t illness Narrative Chief Complaint Patient presents with: Musculoskeletal Problem HPI Cora Vasquez is a 73 year old female who presents here today for back spasms. Pt here today for an acute visit. Admits today that she hasn't been taking any of her medications for the past week. Gets tired of taking her medications. Gets down and stops them and then will restart them. Pt c/o bilateral back spasms around kidney area. Reports this has been an ongoing for quite some time but becoming more frequent. At times she will get these three times per week or three times per day. Spasms last about 1-2 minutes, reports they get pretty intense. States she has constant pain, rating a 5/10 and describing it as a soreness type pain. When spasms occur pain is a 9.5/10. Describes this pain as throbbing pulsating type pain, like a heart beat. DM - No longer taking Trulicity 3 mg once weekly due to the cost of medication. She is currently taking Insulin 25 units at bedtime, Amaryl 4 mg once daily and Actos 30 mg once daily. Edema - Reports she's not taking diuretic medication like she should be. States if she does she is in the bathroom constantly. Pt is currently supposed to be taking Bumex 2 mg 2 tabs po once daily and Zaroxolyn 2.5 mg 1 tab po once daily. Reports maybe some lower leg swelling. Denies any chest pain or sob. Past medical history, appointments, medications, allergies reviewed. Previous Medical History PAST MEDICAL HISTORY Diagnosis Date Diabetes mellitus (HCC) Neuropathy Previous Surgical History PAST SURGICAL HISTORY Procedure Laterality Date CHOLECYSTECTOMY HYSTERECTOMY PAST SURGICAL HISTORY OF 2017 stent; maker TONSILLECTOMY AND ADENOIDECTOMY HX Family History No family history on file. Patient Allergies ALLERGIES Allergen Reactions Doxycycline Diarrhea Cat Dander Other: See Comments Sneezing, watery eyes Furosemide Other: See Comments Leg cramp Sulfa (Sulfonamide * Other: See Comments Increased sweating Current Medications Current Outpatient Medications on File Prior to Visit Medication Sig glimepiride (AMARYL) 4 mg tablet Take 1 tablet by mouth daily with breakfast. dulaglutide (TRULICITY) 3 mg/0.5 mL pen injector Inject 3 mg subcutaneously one time a week. atorvastatin (LIPITOR) 80 mg tablet Take 1 tablet by mouth daily at bedtime. bumetanide (BUMEX) 2 mg tablet Take 2 tablets by mouth once daily. insulin NPH injection Inject 25 Units subcutaneously daily at bedtime. loratadine (CLARITIN) 10 mg tablet Take 1 tablet by mouth once daily. Insulin Syringe-Needle U-100 0.5 mL 31 gauge x 03/20 Use to inject insulin once daily as directed pantoprazole DR (PROTONIX) 40 mg tablet Take 1 tablet by mouth daily before breakfast. Take on empty stomach, 1/2 hr before meal. Lancets lancets Test blood sugar(s) 1 times daily. Dx: Type 2 DM - Uncontrolled E11.65 Insulin: No albuterol HFA (VENTOLIN HFA) 90 mcg/actuation inhaler Inhale 2 Puffs as instructed every 4 hours as needed for wheezing/shortness of breath. nitroglycerin sublingual (NITROQUICK) 0.4 mg SL tablet Dissolve 1 tablet under the tongue as needed. for chest pain,every 5 min x3 metOLazone (ZAROXOLYN) 2.5 mg tablet Take 1 tablet by mouth once daily. gabapentin (NEURONTIN) 300 mg capsule Take 3 capsule in AM and take 4 caps at bedtime for pain FLUoxetine (PROZAC) 40 mg capsule Take 1 capsule by mouth once daily. potassium chloride ER (K-DUR, KLOR-CON) 10 mEq tablet Take 2 pills in AM, 3 pill in PM pioglitazone (ACTOS) 30 mg tablet Take 1 tablet by mouth once daily. lisinopril (ZESTRIL, PRINIVIL) 5 mg tablet Take 1 tablet by mouth once daily. carvedilol (COREG) 12.5 mg tablet Take 0.5 tablets by mouth twice daily. prasugrel (EFFIENT) 10 mg tab Take 1 tablet by mouth once daily. blood sugar diagnostic (BLOOD GLUCOSE TEST) test strip Test blood sugar(s) 1 times daily. Dx: Type 2 DM - Uncontrolled E11.65 Insulin: No fluticasone (FLONASE) 50 mcg/actuation nasal spray Use 2 Sprays in each nostril once daily. Rinse mouth after use. aspirin 81 mg chewable tablet CHEW AND SWALLOW ONE TABLET BY MOUTH ONCE DAILY WITH A MEAL Uslzokircweri-Jsuyrbjh-Zrcwue (CENTRUM SILVER) tab No current facility-administered medications on file prior to visit. Social History Social History Tobacco Use Smoking status: Former Smokeless tobacco: Never Vaping Use Vaping Use: Never used Substance Use Topics Alcohol use: Yes Comment: rarely Drug use: Not Currently Types: Marijuana Comment: used gummies in the past EXAM: BP 136/78 (BP Site: Left Arm, BP Position: Sitting, BP Cuff Size: Regular Adult) Pulse 80 Resp 18 Wt 133.2 kg (293 lb 9.6 oz) BMI 50.40 kg/m General Appearance: Well appearing, alert, in no acute distress, well-hydrated, well nourished. and Morbidly obese. Back: Tenderness to palpitate on mid upper back left side of spine. Not real tender to touch on right side. Appears to be muscle type pain on evaluation. No pain radiating around to the flank or side. Lungs: Lungs clear to auscultation. No wheezing, rhonchi, rales.. Heart: RRR without murmur, gallop, or rubs. No ectopy. Extremities: Edema: Stable today, no increased swelling. Health Maintenance List Hepatitis C Screening Never done Hepatitis B Vaccine(1 of 3 - Risk 3-dose series) Never done RSV Vaccine(1 - 1-dose 60+ series) Never done Bone Density Screening Never done Colorectal Cancer Screening due on 11/06/2019 Shingrix Vaccine(2 of 2) due on 11/15/2020 Mammogram Screening due on 05/27/2022 Advance Directive Discussion Never done HbA1C due on 05/15/2023 Urine Albumin:Creatinine Ratio due on 06/23/2023 Dilated Retinal Exam due on 06/27/2023 Covid-19 Vaccine( season) due on 07/06/2023 LDL Cholesterol due on 02/14/2024 Annual PCP Team Chronic Disease Visit due on 07/23/2024 BP Controlled (<130/80) due on 07/23/2024 Diabetic Foot Exam due on 08/07/2024 DTaP,Tdap,Td Vaccine(3 - Td or Tdap) due on 01/09/2032 Influenza Vaccine Completed Pneumococcal Vaccine: 65+ Completed Data reviewed Epic ASSESSMENT/PLAN: 1. Spasm of back muscles - ICD9: 724.8, ICD10: M62.830 (primary diagnosis) - Start Tizanidine - use heat 2. Type 2 diabetes mellitus with diabetic neuropathy, without long-term current use of insulin (HCC) - ICD9: 250.60, 357.2, ICD10: E11.40 - resume ordered medications 3. Bilateral leg edema - ICD9: 782.3, ICD10: R60.0 - resume ordered medications Follow up as scheduled. Complete labs prior to appt. I agree with the Chief Complaint, ROS, and Past Histories independently gathered by the clinical field support engineer and the remaining scribed note accurately describes my personal service to the patient. Medical Decision Making: Problems: Low: Acute, uncomplicated illness or injury Risk: Moderate: Drug management Medical Decision Making Level: 3 - Low Ganga Srivastava MD The documentation for this note was completed by Brielle Nair Ma acting as scribe for Ganga Srivastava MD. August 23, 2023 9:46 AM. Brielle Nair Ma documented in this encounter [facility] 08-08-2023 Note HNO ID: [id number] Author: Deepti Harper MA Service: ? Author Type: State Director Type: Progress Notes Filed: 08/08/2023 11:02 AM Note Text: OPENED IN ERROR [facility] 08-07-2023 Note HNO ID: [id number] Author: Shun Beauchamp Service: ? Author Type: Physician Type: Progress Notes Filed: 08/07/2023 8:50 AM Note Text: Last saw pcp: 07/23/23 Subjective: Patient presents to clinic c/o painful toenails. They state that the nails are especially painful with shoe gear and pressure. Patient states that nails 1-5 b/l are painful. Patient admits to being diabetic and states that their blood sugar was 300 mg/dL this AM. No other pedal complaints at this time. Patient states no change in medications or medical history since last visit. Objective: Patient presents to clinic ambulating in sandals Vasc: DP and PT pulses are nonpalpable bilateral. CFT is less than 5 seconds bilateral. Skin temperature is warm to cool proximal to distal bilateral. There is mild edema or varicosities noted. Neuro: Protective sensation is decreased to the foot and toes when tested with the 5.07 SWM bilateral. Vibratory sensation is absent at the hallux IPJ bilateral. The hallux is downgoing bilateral. Derm: Nails 1-5 b/l are painful, discolored-yellow, thick, crumbly, dystrophic and with subungal debris. Skin is of normal turgor, texture and hair growth is absent bilateral. There are callus to left heel and left 5th metatarsal. 2 pinpoint areas of recent bleeding on right foot, one on left. No signs of infection. no ulcerations, scars, verruca or other lesions noted. Ortho: Muscle strength is 5/5 for all pedal groups tested. Ankle joint DF is full with the knee extended with no pain or crepitus noted. 1st MPJ ROM is full bilateral. Assessment: (B35.1) Onychomycosis (primary encounter diagnosis) (M79.675) Pain in toe of left foot (M79.674) Pain in toe of right foot (E11.49) Other diabetic neurological complication associated with type 2 diabetes mellitus (HCC) (L85.9) Hyperkeratosis Plan: Patient was seen and evaluated. Nails 1-5 bilateral were debrided in length and thickness. Callus to left heel and left 5th metatarsal was reduced with dremmel. Due to neuropathy in presence of callus, she will benefit from diabetic shoes and these were ordered She has three small pin point areas of recent bleeding (2 right, 1 left). Band aide applied. No signs of infection. Encouraged her to avoid barefoot walking. Offered baseline xray but she declined. Monitor for signs of infection and these were discussed with patient. Patient was instructed on the continued importance of diabetic foot care along with proper diet and keeping their blood sugar under control to prevent complications. Patient is to RTC in 3-4 months. Shun Beauchamp DPM [facility] 08-07-2023 Note HNO ID: [id number] Author: Sabiha Melchor RN Service: ? Author Type: Registered Nurse Type: Progress Notes Filed: 08/07/2023 8:50 AM Note Text: Patient presents with: Left Foot - Established Patient, Follow Up, Diabetic Foot Check Right Foot - Established Patient, Follow Up, Diabetic Foot Check Patient's presents for 3 month follow up for diabetic foot check. States that she stepped on some glass yesterday with both feet. Small cut to outer left bottom of foot, few pinpricks to right foot. [facility] 07-23-2023 Note HNO ID: [id number] Author: Ganga Srivastava MD Service: ? Author Type: Physician Type: Progress Notes Filed: 07/23/2023 6:38 PM Note Text: Chief Complaint ER follow up HPI Cora Vasquez is a 73 year old female who presents here today for ER follow up. Was in [facility] ER 07/10 with weakness and dizziness. Evaluation as below. ON 07/13 she then tested positive fo Covid, was given Paxlovid. Mostly recovered now. Gi symptoms better, able to take her medications. Legs a little more swollen, and red, no heat. Blood sugars running around 100-300; typical for her. Trying to watch diet. Below copied from [facility] ATG Access: Chief Complaint: Dizziness Informant: patient and family Narrative Narrative: Patient is a 73-year-old female with past medical history of diabetes as well as coronary artery disease and carotid stenosis. She reports that her blood sugars typically run about 200 and over the last few days they have been 350-450. She states that she has concern that she could be developing an infection as the cause of her elevated blood sugar. Family states they have been in DKA before and have concern she could be progressing to this based on her persistently elevated blood sugars and therefore patient comes in for evaluation. Medical decision making narrative: Patient presented to the ER with stable vitals. She reported her blood sugars have been elevated approximately 200 points from baseline. Differential diagnosis is for hyperglycemia secondary to poor medication compliance versus UTI versus pneumonia versus colitis or diverticulitis. There is also concern for DKA or HHS and secondary to this basic laboratory studies were obtained. Patient's white count and HANDH are normal. Sugar is elevated at 362 but her anion gap is normal and her serum bicarb is actually elevated going against DKA. She also has negative serum acetone. Her calculated serum osmolality level is 305 which is under the cutoff of 320 needed for HHS. Urine shows large amount of glucose consistent with uncontrolled diabetes however there are no secondary changes to suggest. With her report of diarrhea and mild pain on palpation the left lower quadrant there was concern for an intestinal infection elevating her blood sugars and therefore a CT of the abdomen pelvis was obtained which reveals no acute infectious or inflammatory process. Patient also had reported dizziness but she did not have nystagmus and there is no pronator drift or truncal ataxia going against a neurologic event. I do feel this is most likely related to mild dehydration based on the elevated blood sugar. After 1 L of fluid the patient's sugar reduced to a value of 250 which is near baseline and her neuro exam remained normal. Therefore she does not have systemic infection acute kidney injury or DKA or HHS I do not feel there is need for further work-up in the hospital and she is otherwise safe for discharge. Past medical history, appointments, medications, allergies reviewed. Previous Medical History PAST MEDICAL HISTORY Diagnosis Date Diabetes mellitus (HCC) Neuropathy Previous Surgical History PAST SURGICAL HISTORY Procedure Laterality Date CHOLECYSTECTOMY HYSTERECTOMY PAST SURGICAL HISTORY OF 2017 stent; maker TONSILLECTOMY AND ADENOIDECTOMY HX Family History No family history on file. Patient Allergies ALLERGIES Allergen Reactions Doxycycline Diarrhea Cat Dander Other: See Comments Sneezing, watery eyes Furosemide Other: See Comments Leg cramp Sulfa (Sulfonamide * Other: See Comments Increased sweating Current Medications Current Outpatient Medications on File Prior to Visit Medication Sig glimepiride (AMARYL) 4 mg tablet Take 1 tablet by mouth daily with breakfast. dulaglutide (TRULICITY) 3 mg/0.5 mL pen injector Inject 3 mg subcutaneously one time a week. atorvastatin (LIPITOR) 80 mg tablet Take 1 tablet by mouth daily at bedtime. bumetanide (BUMEX) 2 mg tablet Take 2 tablets by mouth once daily. insulin NPH injection Inject 25 Units subcutaneously daily at bedtime. loratadine (CLARITIN) 10 mg tablet Take 1 tablet by mouth once daily. Insulin Syringe-Needle U-100 0.5 mL 31 gauge x 5/16 Use to inject insulin once daily as directed pantoprazole DR (PROTONIX) 40 mg tablet Take 1 tablet by mouth daily before breakfast. Take on empty stomach, 1/2 hr before meal. Lancets lancets Test blood sugar(s) 1 times daily. Dx: Type 2 DM - Uncontrolled E11.65 Insulin: No albuterol HFA (VENTOLIN HFA) 90 mcg/actuation inhaler Inhale 2 Puffs as instructed every 4 hours as needed for wheezing/shortness of breath. nitroglycerin sublingual (NITROQUICK) 0.4 mg SL tablet Dissolve 1 tablet under the tongue as needed. for chest pain,every 5 min x3 metOLazone (ZAROXOLYN) 2.5 mg tablet Take 1 tablet by mouth once daily. gabapentin (NEURONTIN) 300 mg capsule Take 3 capsule in AM and take 4 caps at b (more content not included)... [facility] 07-13-2023 Note HNO ID: [id number] Author: Shey Chapman APRN.[employer] ENGINEER Service: ? Author Type: Nurse Practitioner Type: Progress Notes Filed: 07/13/2023 2:19 PM Note Text: Chief Complaint Patient presents with: Acute Visit: covid This Team Access Model encounter involved medical decision making outside of a scheduled office visit. Patient was offered a virtual/telemedicine appointment in lieu of an office visit due to recommendations to reduce patient exposure to COVID-19. Telephone was used for evaluation of this patient. Patient agrees to the visit: Yes Patient Location: [place] I have communicated my name and active licensure. The patient's identity and physical location were verified at the time of this visit. Either the patient or their legal open claims representative has been informed of the risks and benefits of -- and alternatives to -- treatment through a remote evaluation and consents to proceed with the evaluation remotely. FLY Vasquez is a 73 year old female who is contacted today for a phone visit This is an established patient of Dr. Ganga Srivastava MD Reports: Test + for covid at home today. Symptoms started 07/10/2023, dizziness. started to get diarrhea, cough, headache, and fever. Cough is dry. Denies any difficulty breathing or SOB. Has been taking cold medication. Has been using tylenol as needed for fever. Past medical history, appointments, medications, allergies reviewed 07/13/2023 Previous Medical History PAST MEDICAL HISTORY Diagnosis Date Diabetes mellitus (HCC) Neuropathy Previous Surgical History PAST SURGICAL HISTORY Procedure Laterality Date CHOLECYSTECTOMY HYSTERECTOMY PAST SURGICAL HISTORY OF 2017 stent; maker TONSILLECTOMY AND ADENOIDECTOMY HX Family History No family history on file. Patient Allergies ALLERGIES Allergen Reactions Doxycycline Diarrhea Cat Dander Other: See Comments Sneezing, watery eyes Furosemide Other: See Comments Leg cramp Sulfa (Sulfonamide * Other: See Comments Increased sweating Current Medications Current Outpatient Medications on File Prior to Visit Medication Sig glimepiride (AMARYL) 4 mg tablet Take 1 tablet by mouth daily with breakfast. dulaglutide (TRULICITY) 3 mg/0.5 mL pen injector Inject 3 mg subcutaneously one time a week. atorvastatin (LIPITOR) 80 mg tablet Take 1 tablet by mouth daily at bedtime. bumetanide (BUMEX) 2 mg tablet Take 2 tablets by mouth once daily. insulin NPH injection Inject 25 Units subcutaneously daily at bedtime. loratadine (CLARITIN) 10 mg tablet Take 1 tablet by mouth once daily. Insulin Syringe-Needle U-100 0.5 mL 31 gauge x 03/20 Use to inject insulin once daily as directed pantoprazole DR (PROTONIX) 40 mg tablet Take 1 tablet by mouth daily before breakfast. Take on empty stomach, 1/2 hr before meal. Lancets lancets Test blood sugar(s) 1 times daily. Dx: Type 2 DM - Uncontrolled E11.65 Insulin: No albuterol HFA (VENTOLIN HFA) 90 mcg/actuation inhaler Inhale 2 Puffs as instructed every 4 hours as needed for wheezing/shortness of breath. nitroglycerin sublingual (NITROQUICK) 0.4 mg SL tablet Dissolve 1 tablet under the tongue as needed. for chest pain,every 5 min x3 metOLazone (ZAROXOLYN) 2.5 mg tablet Take 1 tablet by mouth once daily. FLUoxetine (PROZAC) 40 mg capsule Take 1 capsule by mouth once daily. potassium chloride ER (K-DUR, KLOR-CON) 10 mEq tablet Take 2 pills in AM, 3 pill in PM pioglitazone (ACTOS) 30 mg tablet Take 1 tablet by mouth once daily. lisinopril (ZESTRIL, PRINIVIL) 5 mg tablet Take 1 tablet by mouth once daily. carvedilol (COREG) 12.5 mg tablet Take 0.5 tablets by mouth twice daily. prasugrel (EFFIENT) 10 mg tab Take 1 tablet by mouth once daily. blood sugar diagnostic (BLOOD GLUCOSE TEST) test strip Test blood sugar(s) 1 times daily. Dx: Type 2 DM - Uncontrolled E11.65 Insulin: No fluticasone (FLONASE) 50 mcg/actuation nasal spray Use 2 Sprays in each nostril once daily. Rinse mouth after use. aspirin 81 mg chewable tablet CHEW AND SWALLOW ONE TABLET BY MOUTH ONCE DAILY WITH A MEAL Auvbfnwzilawr-Qmqcuuvl-Vlkmao (CENTRUM SILVER) tab gabapentin (NEURONTIN) 300 mg capsule Take 3 capsule in AM and take 4 caps at bedtime for pain No current facility-administered medications on file prior to visit. Social History Social History Tobacco Use Smoking status: Former Smokeless tobacco: Never Vaping Use Vaping Use: Never used Substance Use Topics Alcohol use: Yes Comment: rarely Drug use: Not Currently Types: Marijuana Comment: used gummies in the past Review of Symptoms GENERAL: + Fever HEENT: Negative for headaches No eye discharge or redness No earaches No sore throat Nose POS/NEG for congestion and nasal discharge NECK: Negative for pain or swelling. No lumps RESPIRATORY: + Cough CARDIOVASCULAR: Negative for chest pain GI: + Diarrhea MUSCULOSKELETAL: Negative for bodyache (more content not included)... [facility] 07-13-2023 Instructions Shey Chapman APRN.[facility] - 07/13/2023 1:44 PM EDT Start Paxlovid, take as directed. Stop cholesterol medication while taking Paxlovid. Continue care at home. May use [id number] cold and cough medication as needed for symptom management. Difficulty breathing go to ER. Quarantine for 5 days from the onset of symptoms, wear a mask for an additional 5 days per the CDC guidelines. Follow-up as needed. Monitor sugars at home, if needed adjust insulin, see below. Example insulin titration schedule: Check your blood sugar every morning before eating or drinking anything (fasting blood sugar level). Adjust your insulin every 3 days as follows: If your blood sugar is above 129, INCREASE your insulin by 2 unit. If your blood sugar is 80-129, CONTINUE your current insulin dose. If your blood sugar is less than 80, DECREASE your insulin by 2 unit. Continue this method until you reach your target fasting blood sugar level consistently (80-130) How to Manage Common Symptoms Associated with COVID for Adults Fever- Fever is a temperature over 100.4 F and can occur when the body is fighting an infection. To help treat a fever: Drink plenty of fluids and stay well hydrated. Eat small amounts of easy to digest food. Rest. Your body needs rest to recover, but getting up and moving around the house frequently is a good idea. You should try to continue doing your normal daily activities (bathing, toileting, grooming, cooking), though you will probably feel tired, and need to rest often. Avoid any heavy activity or exercise, as this will increase your body temperature. Dress in light clothing and stay covered in a light sheet. Keep the room temperature cool. Take a slightly warm (not cold or cool) bath, or apply damp washcloths to the forehead and wrists. Cough- Cough is a common symptom associated with COVID and can be bothersome. To help treat a cough: Stay well hydrated. Try warm water or tea with lemon and/or honey to help soothe the cough. Use a humidifier to add moisture to the air. Try a product with menthol, like a cough drop or a rub for your chest such as Vicks, which can help reduce cough. Try cough drops. Avoid smoking and other strong odors or perfumes. Try breathing exercises to keep your lungs open and clear. Take a big deep breath through your nose and hold for 5 seconds before slowly releasing. Repeat frequently, while you are awake. Congestion- Runny nose or nasal congestion can occur with COVID. Treatment can help relieve symptoms: Try OTC nasal saline spray, or nasal saline rinse to relieve mucus congestion. Nasal strips can help keep nasal passages open, to increase airflow. Elevating your head with an extra pillow in bed can help reduce congestion. Using a humidifier can increase moisture in the air, and make breathing easier. Sore Throat- Another common symptom with COVID, can be managed at home by: Stay well hydrated. Gargle with salt water - mix teaspoon salt with 1 cup of warm water and gargle. This helps to loosen mucus in the back of the throat and may reduce discomfort. Try ice chips, popsicles or lozenges to soothe the throat. Nausea/Vomiting/Diarrhea- These are common symptoms, and staying hydrated is most important. If you are nauseous or vomiting, start with small sips of water every 10-15 minutes and increase as tolerated. You can try sucking an ice cube too. If tolerating, you can try pedialyte or Gatorade, or flat sprite or adia-vlad. Start slowly and increase as you are able to. Instead of meals, try smaller, more frequent snacks. Try eating bland foods like crackers, toast, rice, and applesauce. Avoid spicy, greasy or fried foods and dairy containing foods. Even if you aren't feeling hungry due to lack of smell or taste, it is important to try to take in some food when you are able. After drinking and eating, rest in an upright position for up to two hours as needed to help decrease nauseous feelings. Try closing your eyes, avoid moving and watching TV. Avoid strong odors that can make you feel more nauseated. When to seek emergency medical attention Look for emergency warning signs for COVID-19. If having any of these symptoms, seek emergency medical care immediately: Trouble breathing Persistent pain or pressure in the chest New confusion Inability to wake or stay awake Bluish lips or face *This list is not all possible symptoms. Please call your medical provider for any other symptoms that are severe or concerning to you. documented in this encounter [facility] 07-13-2023 History of Presen t illness Narrative Chief Complaint Patient presents with: Acute Visit: covid This Team Access Model encounter involved medical decision making outside of a scheduled office visit. Patient was offered a virtual/telemedicine appointment in lieu of an office visit due to recommendations to reduce patient exposure to COVID-19. Telephone was used for evaluation of this patient. Patient agrees to the visit: Yes Patient Location: [place] I have communicated my name and active licensure. The patient's identity and physical location were verified at the time of this visit. Either the patient or their legal open claims representative has been informed of the risks and benefits of -- and alternatives to -- treatment through a remote evaluation and consents to proceed with the evaluation remotely. FLY Vasquez is a 73 year old female who is contacted today for a phone visit This is an established patient of Dr. Ganga Srivastava MD Reports: Test + for covid at home today. Symptoms started 07/10/2023, dizziness. started to get diarrhea, cough, headache, and fever. Cough is dry. Denies any difficulty breathing or SOB. Has been taking cold medication. Has been using tylenol as needed for fever. Past medical history, appointments, medications, allergies reviewed 07/13/2023 Previous Medical History PAST MEDICAL HISTORY Diagnosis Date Diabetes mellitus (HCC) Neuropathy Previous Surgical History PAST SURGICAL HISTORY Procedure Laterality Date CHOLECYSTECTOMY HYSTERECTOMY PAST SURGICAL HISTORY OF 2017 stent; maker TONSILLECTOMY AND ADENOIDECTOMY HX Family History No family history on file. Patient Allergies ALLERGIES Allergen Reactions Doxycycline Diarrhea Cat Dander Other: See Comments Sneezing, watery eyes Furosemide Other: See Comments Leg cramp Sulfa (Sulfonamide * Other: See Comments Increased sweating Current Medications Current Outpatient Medications on File Prior to Visit Medication Sig glimepiride (AMARYL) 4 mg tablet Take 1 tablet by mouth daily with breakfast. dulaglutide (TRULICITY) 3 mg/0.5 mL pen injector Inject 3 mg subcutaneously one time a week. atorvastatin (LIPITOR) 80 mg tablet Take 1 tablet by mouth daily at bedtime. bumetanide (BUMEX) 2 mg tablet Take 2 tablets by mouth once daily. insulin NPH injection Inject 25 Units subcutaneously daily at bedtime. loratadine (CLARITIN) 10 mg tablet Take 1 tablet by mouth once daily. Insulin Syringe-Needle U-100 0.5 mL 31 gauge x 5/16 Use to inject insulin once daily as directed pantoprazole DR (PROTONIX) 40 mg tablet Take 1 tablet by mouth daily before breakfast. Take on empty stomach, 1/2 hr before meal. Lancets lancets Test blood sugar(s) 1 times daily. Dx: Type 2 DM - Uncontrolled E11.65 Insulin: No albuterol HFA (VENTOLIN HFA) 90 mcg/actuation inhaler Inhale 2 Puffs as instructed every 4 hours as needed for wheezing/shortness of breath. nitroglycerin sublingual (NITROQUICK) 0.4 mg SL tablet Dissolve 1 tablet under the tongue as needed. for chest pain,every 5 min x3 metOLazone (ZAROXOLYN) 2.5 mg tablet Take 1 tablet by mouth once daily. FLUoxetine (PROZAC) 40 mg capsule Take 1 capsule by mouth once daily. potassium chloride ER (K-DUR, KLOR-CON) 10 mEq tablet Take 2 pills in AM, 3 pill in PM pioglitazone (ACTOS) 30 mg tablet Take 1 tablet by mouth once daily. lisinopril (ZESTRIL, PRINIVIL) 5 mg tablet Take 1 tablet by mouth once daily. carvedilol (COREG) 12.5 mg tablet Take 0.5 tablets by mouth twice daily. prasugrel (EFFIENT) 10 mg tab Take 1 tablet by mouth once daily. blood sugar diagnostic (BLOOD GLUCOSE TEST) test strip Test blood sugar(s) 1 times daily. Dx: Type 2 DM - Uncontrolled E11.65 Insulin: No fluticasone (FLONASE) 50 mcg/actuation nasal spray Use 2 Sprays in each nostril once daily. Rinse mouth after use. aspirin 81 mg chewable tablet CHEW AND SWALLOW ONE TABLET BY MOUTH ONCE DAILY WITH A MEAL Lsmztineczzrz-Xyzwbook-Phjrod (CENTRUM SILVER) tab gabapentin (NEURONTIN) 300 mg capsule Take 3 capsule in AM and take 4 caps at bedtime for pain No current facility-administered medications on file prior to visit. Social History Social History Tobacco Use Smoking status: Former Smokeless tobacco: Never Vaping Use Vaping Use: Never used Substance Use Topics Alcohol use: Yes Comment: rarely Drug use: Not Currently Types: Marijuana Comment: used gummies in the past Review of Symptoms GENERAL: + Fever HEENT: Negative for headaches No eye discharge or redness No earaches No sore throat Nose POS/NEG for congestion and nasal discharge NECK: Negative for pain or swelling. No lumps RESPIRATORY: + Cough CARDIOVASCULAR: Negative for chest pain GI: + Diarrhea MUSCULOSKELETAL: Negative for bodyaches SKIN: Negative for rash or itching Neuro: + Headache EXAM: There were no vitals taken for this visit. Limited exam as visit was completed over the phone platform. Virtual visit completed using video, limited exam completed. Patient sounds or appears ill: Yes Patient is not able to speak in complete sentences: N/A Patient has labored breathing: No. Patient is audibly coughing: Yes Psych: Attitude - cooperative, easily engaged in conversation Affect - Euthymic, normal mood Mental status: Alert. Speech is clear and fluent with good repetition, comprehension Health Maintenance List HEPATITIS C SCREENING Never done BONE DENSITY Never done COLORECTAL CANCER SCREENING due on 11/06/2019 SHINGRIX VACCINE(2 of 2) due on 11/15/2020 MAMMOGRAM due on 05/27/2022 ADVANCE DIRECTIVE DISCUSSION Never done DEPRESSION ASSESSMENT due on 11/05/2022 COVID-19 VACCINE(6 - Pfizer series) due on 11/15/2022 HBA1C due on 05/15/2023 URINE ALBUMIN:CREATININE RATIO due on 06/23/2023 DILATED RETINAL EXAM due on 06/27/2023 INFLUENZA(1) due on 07/06/2023 DIABETIC FOOT EXAM due on 08/15/2023 LDL CHOLESTEROL due on 02/14/2024 ANNUAL PCP TEAM CHRONIC DISEASE VISIT due on 04/09/2024 BP CONTROLLED (<130/80) due on 05/02/2024 DTAP,TDAP,TD(3 - Td or Tdap) due on 01/09/2032 PNEUMOCOCCAL: 65+ Completed Data reviewed Last 5 Encounter BP Readings: Date: BP: 05/02/2023 102/62 04/09/2023 120/70 02/13/2023 120/78 01/02/2023 118/68 08/15/2022 124/74 BMI Readings from Last 5 Encounters: 05/02/23 : 50.29 kg/m 04/09/23 : 50.76 kg/m 02/13/23 : 49.92 kg/m 01/02/23 : 49.13 kg/m 08/15/22 : 48.87 kg/m Last 5 Encounter Wt Readings: Date: Wt: 05/02/2023 132.9 kg (293 lb) 04/09/2023 134.1 kg (295 lb 11.2 oz) 02/13/2023 131.9 kg (290 lb 12.8 oz) 01/02/2023 129.8 kg (286 lb 3.2 oz) 08/15/2022 129.1 kg (284 lb 11.2 oz) Medication and allergy list reviewed, reconciled and updated 07/13/2023 ASSESSMENT/PLAN: 1. COVID-19 - ICD9: 079.89, ICD10: U07.1 - Start Paxlovid, take as direct. - Stop Lipitor while taking Paxlovid. - Continue supportive care at home. - May use OTC cold and cough medications as needed. - Monitor glucose, if needed may adjust insulin, see wrap up. - Red flag symptoms go to ER. - Quarantine for 5 days from the onset of symptoms, wear a mask for an additional 5 days per the CDC guidelines. - NIRMATRELVIR 300 MG (150 MG X2)-RITONAVIR 100 MG TABLET,DOSE PACK Follow up if no improvement. Discussed treatment plan and patient voices understanding. Patient's questions answered appropriately. Medications and potential side effects were discussed and patient voices understanding. Shey Chapman APRN.CNP Total appointment time on phone with patient = 21-30 minutes This note was partially generated using [employer] voice recognition system. Note was reviewed for accuracy. There may be minor misspellings or grammar miscues with Dragon voice recognition. documented in this encounter [facility] 07-13-2023 Miscellaneous Notes Pt accepted appt. Denise Huerta Ma Offer pt appt for VV with Shey Chapman today at 1:40 pm. Denise Huerta Ma Will await call back from pt regarding Covid test results. Brielle Nair Ma Patient calling in and reports sx's as noted in [facility] message earlier this morning. Pt states these sx's are new since her recent ER visit. States her son and grandchildren all have similar sx's. Patient states she will complete a home COVID test this morning and will call back with results. Kathie Hanley RN documented in this encounter [facility] 07-10-2023 Miscellaneous Notes The following approved medication requests have been transmitted electronically. Requested Prescriptions Pending Prescriptions Disp Refills glimepiride (AMARYL) 4 mg tablet 90 tablet 3 Sig: Take 1 tablet by mouth daily with breakfast. Morales Dale APRN.CNP Pt has been out of medication since February, states she has sent in for refills over MyChart and never received any. Was just in ER for BS in 400s. Patient has been identified by name and date of : Yes, Provider Dr Srivastava Date 07/10/23 Time 1001. Patient phones for refill(s): Requested Prescriptions Pending Prescriptions Disp Refills glimepiride (AMARYL) 4 mg tablet 90 tablet 3 Sig: Take 1 tablet by mouth daily with breakfast. Date of last office visit in primary care: 04/09/23 Future visit: 07/23/23 Last 2 Encounter Wt Readings: Date: Wt: 05/02/2023 132.9 kg (293 lb) 04/09/2023 134.1 kg (295 lb 11.2 oz) Previous labs/tests for medication: Diabetes: Hemoglobin A1C (%) Date Value 02/13/2023 8.6 05/05/2022 7.8 11/11/2021 7.7 08/23/2021 11.0 Please advise. Thank you. Sabiha Reyes, RN documented in this encounter [facility] 06-06-2023 Note Patient Outreach (IN [facility]) CORA VASQUEZ ([id number]) 1950 F Date Time Provider Department 06/06/23 GANGA SRIVASTAVA During your visit today, we recorded the following information about you: Allergies As of Date: 06/06/2023 Noted Allergy Reaction DOXYCYCLINE 09/22/2021 6 - Diarrhea CAT DANDER 11/04/2018 14 - Other: See Comments Comments: Sneezing, watery eyes FUROSEMIDE 06/21/2018 14 - Other: See Comments Comments: Leg cramp SULFA (SULFONAMIDE ANTIBIOTICS) 06/21/2018 14 - Other: See Comments Comments: Increased sweating Date Reviewed: 05/02/2023 Reviewed by: Silvia Grace - Fully Assessed Visit Diagnosis:Encounter for screening mammogram for breast cancer [Z12.31] Order(s):[facility] SCREENING [[id number]] Order #: [id number] FUTURE Prescriptions as of 06/11/2023 - dulaglutide (TRULICITY) 3 mg/0.5 mL pen injector Inject 3 mg subcutaneously one time a week. - atorvastatin (LIPITOR) 80 mg tablet Take 1 tablet by mouth daily at bedtime. - bumetanide (BUMEX) 2 mg tablet Take 2 tablets by mouth once daily. - insulin NPH injection Inject 25 Units subcutaneously daily at bedtime. - loratadine (CLARITIN) 10 mg tablet Take 1 tablet by mouth once daily. - Insulin Syringe-Needle U-100 0.5 mL 31 gauge x 5/16 Use to inject insulin once daily as directed - pantoprazole DR (PROTONIX) 40 mg tablet Take 1 tablet by mouth daily before breakfast. Take on empty stomach, 1/2 hr before meal. - Lancets lancets Test blood sugar(s) 1 times daily. Dx: Type 2 DM - Uncontrolled E11.65 Insulin: No - albuterol HFA (VENTOLIN HFA) 90 mcg/actuation inhaler Inhale 2 Puffs as instructed every 4 hours as needed for wheezing/shortness of breath. - nitroglycerin sublingual (NITROQUICK) 0.4 mg SL tablet Dissolve 1 tablet under the tongue as needed. for chest pain,every 5 min x3 - metOLazone (ZAROXOLYN) 2.5 mg tablet Take 1 tablet by mouth once daily. - gabapentin (NEURONTIN) 300 mg capsule Take 3 capsule in AM and take 4 caps at bedtime for pain - FLUoxetine (PROZAC) 40 mg capsule Take 1 capsule by mouth once daily. - potassium chloride ER (K-DUR, KLOR-CON) 10 mEq tablet Take 2 pills in AM, 3 pill in PM - pioglitazone (ACTOS) 30 mg tablet Take 1 tablet by mouth once daily. - lisinopril (ZESTRIL, PRINIVIL) 5 mg tablet Take 1 tablet by mouth once daily. - carvedilol (COREG) 12.5 mg tablet Take 0.5 tablets by mouth twice daily. - glimepiride (AMARYL) 4 mg tablet Take 1 tablet by mouth daily with breakfast. - prasugrel (EFFIENT) 10 mg tab Take 1 tablet by mouth once daily. - blood sugar diagnostic (BLOOD GLUCOSE TEST) test strip Test blood sugar(s) 1 times daily. Dx: Type 2 DM - Uncontrolled E11.65 Insulin: No - fluticasone (FLONASE) 50 mcg/actuation nasal spray Use 2 Sprays in each nostril once daily. Rinse mouth after use. - aspirin 81 mg chewable tablet CHEW AND SWALLOW ONE TABLET BY MOUTH ONCE DAILY WITH A MEAL - Ddunnuzsjtwjp-Spruagol-Loelvk (CENTRUM SILVER) tab Meds Comments as of 06/12/2022: Rx For Tessalon Pearls. Problem List As Of Date 06/06/2023 Noted Resolved Obesity, Class III, BMI 40-49.9 (morbid obesity*07/31/2018 Type 2 diabetes mellitus with diabetic neuropat*08/01/2018 ASHD (arteriosclerotic heart disease) [I25.10] 08/01/2018 Essential hypertension [I10] 08/01/2018 Hyperlipidemia [E78.5] 08/01/2018 Trochanteric bursitis of both hips [M70.61, M70*02/11/2019 Generalized weakness [R53.1] 04/13/2021 Frequent falls [R29.6] 04/13/2021 Osteoarthritis of both hips [M16.0] 04/13/2021 Encounter Status:Closed by ADIN BENITO on 06/11/23 [facility] 05-04-2023 Miscellaneous Notes Phone call placed patient advised (see prior provider encounter) Patient verbalized understanding, agreed with plan of care. Mary Sigala LPN ----- Message from Deepti Mcdonough APRN.JAVA LEAD ENGINEER sent at 05/04/2023 10:43 AM EDT ----- Urine culture did not show clear evidence of infection, however it appears sample may have been contaminated with skin bacteria during collection. She may continue to take antibiotic if it has been helpful (cephalexin). Recommend follow up with PCP to ensure hematuria has resolved. Deepti Mcdonough CNP documented in this encounter [facility] 05-02-2023 Note HNO ID: [id number] Author: YEHUDA Doherty Service: ? Author Type: Physician Rhinestone Setter Type: Progress Notes Filed: 05/02/2023 4:45 PM Note Text: This note was created using [employer]. Subjective Cora Vasquez is a 73 year old female. HPI 73-year-old female presents for UTI symptoms. Patient reports dysuria, frequency, hematuria starting 2 to 3 days ago. No fevers. No vomiting or back pain. She has had UTIs in the past, none recently. No other complaints. PAST MEDICAL HISTORY Diagnosis Date Diabetes mellitus (HCC) Neuropathy PAST SURGICAL HISTORY Procedure Laterality Date CHOLECYSTECTOMY HYSTERECTOMY PAST SURGICAL HISTORY OF 2017 stent; maker TONSILLECTOMY AND ADENOIDECTOMY HX ALLERGIES Doxycycline, Cat Dander, Furosemide, and Sulfa (Sulfonamide Antibiotics) MEDICATIONS dulaglutide (TRULICITY) 3 mg/0.5 mL pen injector Inject 3 mg subcutaneously one time a week. atorvastatin (LIPITOR) 80 mg tablet Take 1 tablet by mouth daily at bedtime. bumetanide (BUMEX) 2 mg tablet Take 2 tablets by mouth once daily. insulin NPH injection Inject 25 Units subcutaneously daily at bedtime. loratadine (CLARITIN) 10 mg tablet Take 1 tablet by mouth once daily. Insulin Syringe-Needle U-100 0.5 mL 31 gauge x 5/16 Use to inject insulin once daily as directed pantoprazole DR (PROTONIX) 40 mg tablet Take 1 tablet by mouth daily before breakfast. Take on empty stomach, 1/2 hr before meal. Lancets lancets Test blood sugar(s) 1 times daily. Dx: Type 2 DM - Uncontrolled E11.65 Insulin: No albuterol HFA (VENTOLIN HFA) 90 mcg/actuation inhaler Inhale 2 Puffs as instructed every 4 hours as needed for wheezing/shortness of breath. nitroglycerin sublingual (NITROQUICK) 0.4 mg SL tablet Dissolve 1 tablet under the tongue as needed. for chest pain,every 5 min x3 metOLazone (ZAROXOLYN) 2.5 mg tablet Take 1 tablet by mouth once daily. gabapentin (NEURONTIN) 300 mg capsule Take 3 capsule in AM and take 4 caps at bedtime for pain FLUoxetine (PROZAC) 40 mg capsule Take 1 capsule by mouth once daily. potassium chloride ER (K-DUR, KLOR-CON) 10 mEq tablet Take 2 pills in AM, 3 pill in PM pioglitazone (ACTOS) 30 mg tablet Take 1 tablet by mouth once daily. lisinopril (ZESTRIL, PRINIVIL) 5 mg tablet Take 1 tablet by mouth once daily. carvedilol (COREG) 12.5 mg tablet Take 0.5 tablets by mouth twice daily. glimepiride (AMARYL) 4 mg tablet Take 1 tablet by mouth daily with breakfast. prasugrel (EFFIENT) 10 mg tab Take 1 tablet by mouth once daily. blood sugar diagnostic (BLOOD GLUCOSE TEST) test strip Test blood sugar(s) 1 times daily. Dx: Type 2 DM - Uncontrolled E11.65 Insulin: No fluticasone (FLONASE) 50 mcg/actuation nasal spray Use 2 Sprays in each nostril once daily. Rinse mouth after use. aspirin 81 mg chewable tablet CHEW AND SWALLOW ONE TABLET BY MOUTH ONCE DAILY WITH A MEAL Hzoyydtcqeush-Xsmpxlfp-Totphq (CENTRUM SILVER) tab cephALEXin (KEFLEX) 500 mg capsule Take 1 capsule by mouth twice daily for 7 days. No family history on file. Social History Tobacco Use Smoking status: Former Smokeless tobacco: Never Vaping Use Vaping Use: Never used Substance Use Topics Alcohol use: Yes Comment: rarely Drug use: Not Currently Types: Marijuana Comment: used gummies in the past Review of Systems Constitutional: Negative for chills and fever. HENT: Negative for congestion, ear pain and sore throat. Respiratory: Negative for cough and shortness of breath. Cardiovascular: Negative for chest pain. Gastrointestinal: Negative for abdominal pain, diarrhea and vomiting. Genitourinary: Positive for dysuria, frequency and hematuria. Negative for flank pain, vaginal bleeding, vaginal discharge and vaginal pain. Objective BP 102/62 Pulse 78 Temp 36.8 ?C (98.2 ?F) Resp 16 Wt 132.9 kg (293 lb) BMI 50.29 kg/m? Physical Exam Vitals and nursing note reviewed. Constitutional: General: She is not in acute distress. Appearance: Normal appearance. She is not toxic-appearing. Cardiovascular: Rate and Rhythm: Normal rate and regular rhythm. Pulmonary: Effort: Pulmonary effort is normal. Breath sounds: Normal breath sounds. Abdominal: General: Abdomen is flat. Palpations: Abdomen is soft. Tenderness: There is no abdominal tenderness. There is no right CVA tenderness or left CVA tenderness. Skin: General: Skin is warm and dry. Neurological: Mental Status: She is alert. Assessment and Plan ASSESSMENT/PLAN: 1. Acute UTI - ICD9: 599.0, ICD10: N39.0 (primary diagnosis) - UA positive for maryjo esterase, hematuria, and proteinuria - Send urine for culture - Begin treatment with keflex for 7 days -Normal creatinine on prior labs -Advise follow-up with PCP to ensure resolution of hematuria. - Patient education for prevention given 2. Urinary frequency - ICD9: 788.41, ICD10: R35.0 - UA DIP, URINE (POC) - URINE CULTURE Diagnosis a (more content not included)... [facility] 05-02-2023 History of Presen t illness Narrative This note was created using [employer]. Subjective Cora Vasquez is a 73 year old female. HPI 73-year-old female presents for UTI symptoms. Patient reports dysuria, frequency, hematuria starting 2 to 3 days ago. No fevers. No vomiting or back pain. She has had UTIs in the past, none recently. No other complaints. PAST MEDICAL HISTORY Diagnosis Date Diabetes mellitus (HCC) Neuropathy PAST SURGICAL HISTORY Procedure Laterality Date CHOLECYSTECTOMY HYSTERECTOMY PAST SURGICAL HISTORY OF 2017 stent; maker TONSILLECTOMY AND ADENOIDECTOMY HX ALLERGIES Doxycycline, Cat Dander, Furosemide, and Sulfa (Sulfonamide Antibiotics) MEDICATIONS dulaglutide (TRULICITY) 3 mg/0.5 mL pen injector Inject 3 mg subcutaneously one time a week. atorvastatin (LIPITOR) 80 mg tablet Take 1 tablet by mouth daily at bedtime. bumetanide (BUMEX) 2 mg tablet Take 2 tablets by mouth once daily. insulin NPH injection Inject 25 Units subcutaneously daily at bedtime. loratadine (CLARITIN) 10 mg tablet Take 1 tablet by mouth once daily. Insulin Syringe-Needle U-100 0.5 mL 31 gauge x 16 Use to inject insulin once daily as directed pantoprazole DR (PROTONIX) 40 mg tablet Take 1 tablet by mouth daily before breakfast. Take on empty stomach, 1/2 hr before meal. Lancets lancets Test blood sugar(s) 1 times daily. Dx: Type 2 DM - Uncontrolled E11.65 Insulin: No albuterol HFA (VENTOLIN HFA) 90 mcg/actuation inhaler Inhale 2 Puffs as instructed every 4 hours as needed for wheezing/shortness of breath. nitroglycerin sublingual (NITROQUICK) 0.4 mg SL tablet Dissolve 1 tablet under the tongue as needed. for chest pain,every 5 min x3 metOLazone (ZAROXOLYN) 2.5 mg tablet Take 1 tablet by mouth once daily. gabapentin (NEURONTIN) 300 mg capsule Take 3 capsule in AM and take 4 caps at bedtime for pain FLUoxetine (PROZAC) 40 mg capsule Take 1 capsule by mouth once daily. potassium chloride ER (K-DUR, KLOR-CON) 10 mEq tablet Take 2 pills in AM, 3 pill in PM pioglitazone (ACTOS) 30 mg tablet Take 1 tablet by mouth once daily. lisinopril (ZESTRIL, PRINIVIL) 5 mg tablet Take 1 tablet by mouth once daily. carvedilol (COREG) 12.5 mg tablet Take 0.5 tablets by mouth twice daily. glimepiride (AMARYL) 4 mg tablet Take 1 tablet by mouth daily with breakfast. prasugrel (EFFIENT) 10 mg tab Take 1 tablet by mouth once daily. blood sugar diagnostic (BLOOD GLUCOSE TEST) test strip Test blood sugar(s) 1 times daily. Dx: Type 2 DM - Uncontrolled E11.65 Insulin: No fluticasone (FLONASE) 50 mcg/actuation nasal spray Use 2 Sprays in each nostril once daily. Rinse mouth after use. aspirin 81 mg chewable tablet CHEW AND SWALLOW ONE TABLET BY MOUTH ONCE DAILY WITH A MEAL Kbfxgorxdtuhn-Ooxctnuz-Ysuece (CENTRUM SILVER) tab cephALEXin (KEFLEX) 500 mg capsule Take 1 capsule by mouth twice daily for 7 days. No family history on file. Social History Tobacco Use Smoking status: Former Smokeless tobacco: Never Vaping Use Vaping Use: Never used Substance Use Topics Alcohol use: Yes Comment: rarely Drug use: Not Currently Types: Marijuana Comment: used gummies in the past Review of Systems Constitutional: Negative for chills and fever. HENT: Negative for congestion, ear pain and sore throat. Respiratory: Negative for cough and shortness of breath. Cardiovascular: Negative for chest pain. Gastrointestinal: Negative for abdominal pain, diarrhea and vomiting. Genitourinary: Positive for dysuria, frequency and hematuria. Negative for flank pain, vaginal bleeding, vaginal discharge and vaginal pain. Objective BP 102/62 Pulse 78 Temp 36.8 C (98.2 F) Resp 16 Wt 132.9 kg (293 lb) BMI 50.29 kg/m Physical Exam Vitals and nursing note reviewed. Constitutional: General: She is not in acute distress. Appearance: Normal appearance. She is not toxic-appearing. Cardiovascular: Rate and Rhythm: Normal rate and regular rhythm. Pulmonary: Effort: Pulmonary effort is normal. Breath sounds: Normal breath sounds. Abdominal: General: Abdomen is flat. Palpations: Abdomen is soft. Tenderness: There is no abdominal tenderness. There is no right CVA tenderness or left CVA tenderness. Skin: General: Skin is warm and dry. Neurological: Mental Status: She is alert. Assessment and Plan ASSESSMENT/PLAN: 1. Acute UTI - ICD9: 599.0, ICD10: N39.0 (primary diagnosis) - UA positive for maryjo esterase, hematuria, and proteinuria - Send urine for culture - Begin treatment with keflex for 7 days -Normal creatinine on prior labs -Advise follow-up with PCP to ensure resolution of hematuria. - Patient education for prevention given 2. Urinary frequency - ICD9: 788.41, ICD10: R35.0 - UA DIP, URINE (POC) - URINE CULTURE Diagnosis and treatment plan were discussed and questions were answered to the patient's satisfaction. Pt acknowledged understanding of concepts and follow up plan. Specific signs and symptoms that would indicate the need for higher level of care were discussed in detail warranting prompt ER evaluation. YEHUDA Doherty documented in this encounter [facility] 04-16-2023 Note HNO ID: [id number] Author: Shun Beauchamp Service: ? Author Type: Physician Type: Progress Notes Filed: 04/16/2023 9:15 AM Note Text: Last saw pcp: 04/09/23 Subjective: Patient presents to clinic c/o painful toenails. They state that the nails are especially painful with shoe gear and pressure. Patient is also complaining of left heel pain. She states that recently, she has noticed with any degree of pressure on left heel, she will experience pain. Patient currently is just tolerating the pain. She is not taking any medication for the pain. No other pedal complaints at this time. Patient states no change in medications or medical history since last visit. Objective: Patient presents to clinic ambulating in sandals Vasc: DP and PT pulses are palpable left and nonpalpble righht. CFT is less than 5 seconds bilateral. Skin temperature is warm to cool proximal to distal bilateral. There is mild edema or varicosities noted. Neuro: Protective sensation is intact to the foot and toes when tested with the 5.07 SWM bilateral. Vibratory sensation is absent at the hallux IPJ bilateral. The hallux is downgoing bilateral. Derm: Nails 1-5 b/l are painful, discolored-yellow, thick, crumbly, dystrophic and with subungal debris. Skin is of normal turgor, texture and hair growth is absent bilateral. Healed abrasion to right 4th toe. There are callus to b/l hallux and plantar aspect of left heel. No ulcerations, scars, verruca or other lesions noted. Ortho: Muscle strength is 5/5 for all pedal groups tested. Ankle joint DF is decreased with the knee extended with no pain or crepitus noted. 1st MPJ ROM is decreased bilateral. Assessment: (B35.1) Onychomycosis (primary encounter diagnosis (M79.675) Pain in toe of left foot (M79.674) Pain in toe of right foot (E11.49) Other diabetic neurological complication associated with type 2 diabetes mellitus (HCC) (R09.89) Diminished pulses in lower extremity (L85.9) Hyperkeratosis (M72.2) Plantar fasciitis Plan: Patient was seen and evaluated. Nails 1-5 bilateral were debrided in length and thickness. Callus to b/l hallux and left heel reduced with dremmel. Contineu with diabetic shoe and lotion to feet Encouraged patient to stretch heels to help reduce pain and continue with inserts Patient was instructed on the continued importance of diabetic foot care along with proper diet and keeping their blood sugar under control to prevent complications. Patient is to RTC in 3-4 months. Shun Beauchamp DPM [facility] 04-16-2023 Note HNO ID: [id number] Author: Sabiha Melchor RN Service: ? Author Type: Registered Nurse Type: Progress Notes Filed: 04/16/2023 9:15 AM Note Text: AMB ROOMING INTAKE FLOWSHEET DATA Pain Pain Level: 7 Pain Location: Heel-Left Description: Dull Duration Amount of Time: 1 Duration Units: Months Frequency: Intermittent Intervention/Comfort measure: Reposition Patient presents with: Right Foot - Established Patient, Follow Up, Diabetic Foot Care Left Foot - Established Patient, Follow Up, Pain, Diabetic Foot Care Patient presents for 3 month follow up for diabetic foot care. Patient also states that a month ago she began having some pain to her left heel when pressure is put on it. [facility] 04-09-2023 Note HNO ID: [id number] Author: Ganga Srivastava MD Service: ? Author Type: Physician Type: Progress Notes Filed: 04/09/2023 7:27 PM Note Text: Chief Complaint Patient presents with: Low Back Pain HPI Cora Vasquez is a 73 year old female who presents here today for an acute visit. Pt here today for a same day visit with c/o of back pain for 1 week. No injury. She states pain is 7/10 on pain scale, throbbing, constant, has it with sitting but worse with movement. She denies any pain down the legs. No urinary sx. She has not been taking anything for pain other than her regular medications. Hot shower helped some, no ice treatment. No significant history of back problems. Concerned because she is driving to [place] for family reunion this weekend. Past medical history, appointments, medications, allergies reviewed. Previous Medical History PAST MEDICAL HISTORY Diagnosis Date Diabetes mellitus (HCC) Neuropathy Previous Surgical History PAST SURGICAL HISTORY Procedure Laterality Date CHOLECYSTECTOMY HYSTERECTOMY PAST SURGICAL HISTORY OF 2017 stent; maker TONSILLECTOMY AND ADENOIDECTOMY HX Family History No family history on file. Patient Allergies ALLERGIES Allergen Reactions Doxycycline Diarrhea Cat Dander Other: See Comments Sneezing, watery eyes Furosemide Other: See Comments Leg cramp Sulfa (Sulfonamide * Other: See Comments Increased sweating Current Medications Current Outpatient Medications on File Prior to Visit Medication Sig atorvastatin (LIPITOR) 80 mg tablet Take 1 tablet by mouth daily at bedtime. bumetanide (BUMEX) 2 mg tablet Take 2 tablets by mouth once daily. insulin NPH injection Inject 25 Units subcutaneously daily at bedtime. loratadine (CLARITIN) 10 mg tablet Take 1 tablet by mouth once daily. Insulin Syringe-Needle U-100 0.5 mL 31 gauge x 03/20 Use to inject insulin once daily as directed pantoprazole DR (PROTONIX) 40 mg tablet Take 1 tablet by mouth daily before breakfast. Take on empty stomach, 1/2 hr before meal. Lancets lancets Test blood sugar(s) 1 times daily. Dx: Type 2 DM - Uncontrolled E11.65 Insulin: No albuterol HFA (VENTOLIN HFA) 90 mcg/actuation inhaler Inhale 2 Puffs as instructed every 4 hours as needed for wheezing/shortness of breath. nitroglycerin sublingual (NITROQUICK) 0.4 mg SL tablet Dissolve 1 tablet under the tongue as needed. for chest pain,every 5 min x3 metOLazone (ZAROXOLYN) 2.5 mg tablet Take 1 tablet by mouth once daily. gabapentin (NEURONTIN) 300 mg capsule Take 3 capsule in AM and take 4 caps at bedtime for pain FLUoxetine (PROZAC) 40 mg capsule Take 1 capsule by mouth once daily. potassium chloride ER (K-DUR, KLOR-CON) 10 mEq tablet Take 2 pills in AM, 3 pill in PM pioglitazone (ACTOS) 30 mg tablet Take 1 tablet by mouth once daily. lisinopril (ZESTRIL, PRINIVIL) 5 mg tablet Take 1 tablet by mouth once daily. carvedilol (COREG) 12.5 mg tablet Take 0.5 tablets by mouth twice daily. glimepiride (AMARYL) 4 mg tablet Take 1 tablet by mouth daily with breakfast. prasugrel (EFFIENT) 10 mg tab Take 1 tablet by mouth once daily. blood sugar diagnostic (BLOOD GLUCOSE TEST) test strip Test blood sugar(s) 1 times daily. Dx: Type 2 DM - Uncontrolled E11.65 Insulin: No dulaglutide (TRULICITY SUBCUTANEOUS) Inject subcutaneously one time a week. fluticasone (FLONASE) 50 mcg/actuation nasal spray Use 2 Sprays in each nostril once daily. Rinse mouth after use. aspirin 81 mg chewable tablet CHEW AND SWALLOW ONE TABLET BY MOUTH ONCE DAILY WITH A MEAL Osweoqkojjvjk-Mruhnldd-Jixzvk (CENTRUM SILVER) tab No current facility-administered medications on file prior to visit. Social History Social History Tobacco Use Smoking status: Former Smokeless tobacco: Never Vaping Use Vaping Use: Never used Substance Use Topics Alcohol use: Yes Comment: rarely Drug use: Not Currently Types: Marijuana Comment: used gummies in the past EXAM: BP 120/70 Pulse 74 Resp 16 Wt 134.1 kg (295 lb 11.2 oz) BMI 50.76 kg/m? General Appearance: Well appearing, alert, in no acute distress, well-hydrated, well nourished. and Morbidly obese. Back:pain lower lumbar and SI areas, good ROM Health Maintenance List HEPATITIS C SCREENING Never done BONE DENSITY Never done COLORECTAL CANCER SCREENING due on 11/06/2019 SHINGRIX VACCINE(2 of 2) due on 11/15/2020 MAMMOGRAM due on 05/27/2022 ADVANCE DIRECTIVE DISCUSSION Never done DEPRESSION ASSESSMENT due on 11/05/2022 HBA1C due on 05/15/2023 URINE ALBUMIN:CREATININE RATIO due on 06/23/2023 DILATED RETINAL EXAM due on 06/27/2023 DIABETIC FOOT EXAM due on 08/15/2023 LDL CHOLESTEROL due on 02/14/2024 ANNUAL PCP TEAM CHRONIC DISEASE VISIT due on 02/14/2024 BP CONTROLLED (<130/80) due on 02/14/2024 DTAP,TDAP,TD(3 - Td or Tdap) due on 01/09/2032 INFLUENZA Completed COVID-19 VACCINE Completed PNEUMOCOCCAL: 65+ Completed Data (more content not included)... [facility] 04-09-2023 History of Presen t illness Narrative Chief Complaint Patient presents with: Low Back Pain HPI Cora Vasquez is a 73 year old female who presents here today for an acute visit. Pt here today for a same day visit with c/o of back pain for 1 week. No injury. She states pain is 7/10 on pain scale, throbbing, constant, has it with sitting but worse with movement. She denies any pain down the legs. No urinary sx. She has not been taking anything for pain other than her regular medications. Hot shower helped some, no ice treatment. No significant history of back problems. Concerned because she is driving to [place] for family reunion this weekend. Past medical history, appointments, medications, allergies reviewed. Previous Medical History PAST MEDICAL HISTORY Diagnosis Date Diabetes mellitus (HCC) Neuropathy Previous Surgical History PAST SURGICAL HISTORY Procedure Laterality Date CHOLECYSTECTOMY HYSTERECTOMY PAST SURGICAL HISTORY OF 2017 stent; maker TONSILLECTOMY AND ADENOIDECTOMY HX Family History No family history on file. Patient Allergies ALLERGIES Allergen Reactions Doxycycline Diarrhea Cat Dander Other: See Comments Sneezing, watery eyes Furosemide Other: See Comments Leg cramp Sulfa (Sulfonamide * Other: See Comments Increased sweating Current Medications Current Outpatient Medications on File Prior to Visit Medication Sig atorvastatin (LIPITOR) 80 mg tablet Take 1 tablet by mouth daily at bedtime. bumetanide (BUMEX) 2 mg tablet Take 2 tablets by mouth once daily. insulin NPH injection Inject 25 Units subcutaneously daily at bedtime. loratadine (CLARITIN) 10 mg tablet Take 1 tablet by mouth once daily. Insulin Syringe-Needle U-100 0.5 mL 31 gauge x 03/20 Use to inject insulin once daily as directed pantoprazole DR (PROTONIX) 40 mg tablet Take 1 tablet by mouth daily before breakfast. Take on empty stomach, 1/2 hr before meal. Lancets lancets Test blood sugar(s) 1 times daily. Dx: Type 2 DM - Uncontrolled E11.65 Insulin: No albuterol HFA (VENTOLIN HFA) 90 mcg/actuation inhaler Inhale 2 Puffs as instructed every 4 hours as needed for wheezing/shortness of breath. nitroglycerin sublingual (NITROQUICK) 0.4 mg SL tablet Dissolve 1 tablet under the tongue as needed. for chest pain,every 5 min x3 metOLazone (ZAROXOLYN) 2.5 mg tablet Take 1 tablet by mouth once daily. gabapentin (NEURONTIN) 300 mg capsule Take 3 capsule in AM and take 4 caps at bedtime for pain FLUoxetine (PROZAC) 40 mg capsule Take 1 capsule by mouth once daily. potassium chloride ER (K-DUR, KLOR-CON) 10 mEq tablet Take 2 pills in AM, 3 pill in PM pioglitazone (ACTOS) 30 mg tablet Take 1 tablet by mouth once daily. lisinopril (ZESTRIL, PRINIVIL) 5 mg tablet Take 1 tablet by mouth once daily. carvedilol (COREG) 12.5 mg tablet Take 0.5 tablets by mouth twice daily. glimepiride (AMARYL) 4 mg tablet Take 1 tablet by mouth daily with breakfast. prasugrel (EFFIENT) 10 mg tab Take 1 tablet by mouth once daily. blood sugar diagnostic (BLOOD GLUCOSE TEST) test strip Test blood sugar(s) 1 times daily. Dx: Type 2 DM - Uncontrolled E11.65 Insulin: No dulaglutide (TRULICITY SUBCUTANEOUS) Inject subcutaneously one time a week. fluticasone (FLONASE) 50 mcg/actuation nasal spray Use 2 Sprays in each nostril once daily. Rinse mouth after use. aspirin 81 mg chewable tablet CHEW AND SWALLOW ONE TABLET BY MOUTH ONCE DAILY WITH A MEAL Kwhocvnquqxid-Rfkxpqle-Oklkzg (CENTRUM SILVER) tab No current facility-administered medications on file prior to visit. Social History Social History Tobacco Use Smoking status: Former Smokeless tobacco: Never Vaping Use Vaping Use: Never used Substance Use Topics Alcohol use: Yes Comment: rarely Drug use: Not Currently Types: Marijuana Comment: used gummies in the past EXAM: BP 120/70 Pulse 74 Resp 16 Wt 134.1 kg (295 lb 11.2 oz) BMI 50.76 kg/m General Appearance: Well appearing, alert, in no acute distress, well-hydrated, well nourished. and Morbidly obese. Back:pain lower lumbar and SI areas, good ROM Health Maintenance List HEPATITIS C SCREENING Never done BONE DENSITY Never done COLORECTAL CANCER SCREENING due on 11/06/2019 SHINGRIX VACCINE(2 of 2) due on 11/15/2020 MAMMOGRAM due on 05/27/2022 ADVANCE DIRECTIVE DISCUSSION Never done DEPRESSION ASSESSMENT due on 11/05/2022 HBA1C due on 05/15/2023 URINE ALBUMIN:CREATININE RATIO due on 06/23/2023 DILATED RETINAL EXAM due on 06/27/2023 DIABETIC FOOT EXAM due on 08/15/2023 LDL CHOLESTEROL due on 02/14/2024 ANNUAL PCP TEAM CHRONIC DISEASE VISIT due on 02/14/2024 BP CONTROLLED (<130/80) due on 02/14/2024 DTAP,TDAP,TD(3 - Td or Tdap) due on 01/09/2032 INFLUENZA Completed COVID-19 VACCINE Completed PNEUMOCOCCAL: 65+ Completed Data reviewed none ASSESSMENT/PLAN: 1. Acute low back pain without sciatica, unspecified back pain laterality - ICD9: 724.2, ICD10: M54.50 (primary diagnosis) Musculoskeletal; recommend using heat, will give 5 days of prednisone - UA DIP, URINE (POC) - PREDNISONE 20 MG TABLET 2. Type 2 diabetes mellitus with diabetic neuropathy, without long-term current use of insulin (HCC) - ICD9: 250.60, 357.2, ICD10: E11.40 Requests refill on Trulicity; says her supply has run out - DULAGLUTIDE 3 MG/0.5 ML SUBCUTANEOUS PEN INJECTOR Follow up prn I agree with the Chief Complaint, ROS, and Past Histories independently gathered by the clinical field support engineer and the remaining scribed note accurately describes my personal service to the patient. Medical Decision Making: Problems: Low: Acute, uncomplicated illness or injury Data: Unique test(s) ordered: 1 Risk: Moderate: Drug management Medical Decision Making Level: 3 - Low Ganga Srivastava MD The documentation for this note was completed by Denise Huerta Ma acting as scribe for Ganga Srivastava MD. April 09, 2023 6:52 PM. Denise Huerta Ma documented in this encounter [facility] 03-01-2023 Miscellaneous Notes March 01, 2023 Reason For Call: Followed up on consult order to [facility] dated 03/21/[address] Talavera STATUS: Status: Patient reported that she was already established with an external provider in [place]. documented in this encounter [facility] 02-27-2023 Miscellaneous Notes OK to refill as ordered Ganga Srivastava MD Patient has been identified by name and date of : Yes, Provider Devonolpe Date 02-27-23 Time 1:50 pm Patient phones for refill(s): Requested Prescriptions Pending Prescriptions Disp Refills atorvastatin (LIPITOR) 80 mg tablet 90 tablet 3 Sig: Take 1 tablet by mouth daily at bedtime. bumetanide (BUMEX) 2 mg tablet 60 tablet 5 Sig: Take 2 tablets by mouth once daily. Date of last office visit with pcp: 02-13-23. Next appt: none Last 2 Encounter Wt Readings: Date: Wt: 02/13/2023 131.9 kg (290 lb 12.8 oz) 01/02/2023 129.8 kg (286 lb 3.2 oz) Previous labs/tests for medication: Cholesterol: HDL Cholesterol (mg/dL) Date Value 02/13/2023 80 11/11/2021 87 LDL Cholesterol (mg/dL) Date Value 02/13/2023 67 11/11/2021 65 ALT (U/L) Date Value 02/13/2023 20 11/11/2021 20 Non HDL Cholesterol (mg/dL) Date Value 02/13/2023 82 11/11/2021 73 Blood Pressure: BUN (mg/dL) Date Value 02/13/2023 23 11/11/2021 31 Sodium (mmol/L) Date Value 02/13/2023 140 11/11/2021 142 Last 1 Encounter BP Readings: Date: BP: 02/13/2023 120/78 Liver Function: ALT (U/L) Date Value 02/13/2023 20 11/11/2021 20 AST (U/L) Date Value 02/13/2023 26 11/11/2021 27 Please advise. Thank you. Ruthie Galo RN documented in this encounter [facility] 02-26-2023 Miscellaneous Notes Pharmacy request. Pt needs to contact office for refills. Thania Velez MA documented in this encounter [facility] 02-16-2023 Miscellaneous Notes Pt notified of results via [employer]. Denise Huerta Ma Left message for patient to call office back. Please give results and help schedule office visit in 3 months Flor Chacon Ma Please notify patient that her lab results show taht her A1c is up some, to 8.6. Try to work more on controlling sugar level. Recheck labs a OV in 3 months. Ganga Srivastava MD documented in this encounter [facility] 02-13-2023 Note HNO ID: [id number] Author: Ganga Srivastava MD Service: ? Author Type: Physician Type: Progress Notes Filed: 02/13/2023 10:33 AM Note Text: Transitional Care Management TCM Eligibility Documentation The following information was gathered during the initial Patient Outreach Encounter. Date of Outreach: 02/01/2023 Outreach Attempt 1: Contact Made Date of Discharge 01/31/2023 Some recent data might be hidden Provider Documentation Cora Vasquez is a 72 year old female here today for a follow up from recent hospitalization. I have reviewed the patient's hospital course including discharge summary, discharge medications , and follow up needs with the patient and any family members present at today's visit. [facility] Hospital follow up. Pt here today for 14 day TCM. States at this time she feels about the same as prior to her admission. Notes that she is sleeping a lot and feels tired. When this occurred she was having difficulty getting words out to her son, but denies any of this since. This lasted for about 20-25 minutes. No CVA based on testing. Denies any chest pain or sob. Notes some dizziness occasionally. Uses a cane to ambulate. Denies checking BP at home. Has previously seen Cardiology, h/o stents placed in 2019 at [place] [facility]. Denies following up with them since. States she tried calling them after admission but has not heard back from their office. Will attempt to contact their office again. Legs - Notes edema, dry skin and hx of cellulitis in b/l lower legs. Having increased neuropathy symptoms and admits she's not taking this as prescribed. Taking Bumex 2 mg once daily, prescription states 2 tabs daily. Also taking the Gabapentin 300 mg 1 caps in the am and 2 in the pm, but prescription is written for more. Only takes Potassium 10 meq 1 tab in the am and 2 pm, prescription written for 2 am and 3 pm. Pt denies taking Zaroxolyn 2.5 mg. States if she takes a lot of water pills, she has incontinence and has to urinate frequently. DM - Stable, does check sugars at home. Generally doing well. Admits to neuropathy symptoms. -Admitted for: Syncope Carotid stenosis Heart failure with preserved ejection fraction Below copied form [facility]: Chief Complaint: Stroke Alert Narrative Narrative: 72-year-old female past medical history of hyperlipidemia, diabetes, coronary artery disease presents with difficulty with speech that started 15 minutes ago. She states that she was at a restaurant and had just finished eating. They went to get up and she had generalized weakness, and slurring of her speech. She thinks she is having slight difficulty saying words. She denies any headache. She does not take blood thinners. No other symptoms except for feeling generally weak when she went to stand up. Discharge Diagnosis (1) Syncope: Status: Acute Code(s): R55 - Syncope and collapse Qualifiers: Syncope type: vasovagal syncope Qualified Code(s): R55 - Syncope and collapse Plan: Suspect vasovagal. By therapy, at this point, as the patient may have been hypoxic as she was short of breath getting into the car and that hypoxia may have been exacerbated by her carotid stenosis and lack of perfusion to her brain that caused her to go out and have protracted case dysarthria. However, cannot rule out a stroke so I do feel the patient would benefit from a stroke rule out at this time for her with her carotid stenosis. MRI brain negative. (2) Carotid stenosis: Status: Acute Code(s): I65.29 - Occlusion and stenosis of unspecified carotid artery Qualifiers: Laterality: bilateral Qualified Code(s): I65.23 - Occlusion and stenosis of bilateral carotid arteries Plan: Patient will require follow-up with vascular surgery as outpatient whether not she has a stroke or not. Continue with do antiplatelet therapy and high intensity statin. (3) (HFpEF) heart failure with preserved ejection fraction: Status: Acute Code(s): I50.30 - Unspecified diastolic (congestive) heart failure Qualifiers: Heart failure chronicity: acute on chronic Qualified Code(s): I50.33 - Acute on chronic diastolic (congestive) heart failure Plan: Lung sounds fine. The patient has been slowly putting weight and does have profound lower extremity edema We will change her bumetanide from 2 mg twice daily orally to 4 IV twice daily for now Echocardiogram Patient echocardiogram in July 16, 2019 where her EF was 65%. Concern the patient may have pulmonary hypertension but that was not able to be identified on that echocardiogram from 2019. Plan Chronic conditions ? Diabetes mellitus type 2: Patient takes NPH twice a day.. Continue with glimepiride. Sliding scale insulin ? Morbid obesity: BMI 51.7 kg/m?. Complicates care and recovery. ? GERDA: continue CPAP VTE prophylaxis: Not indicated at this time as patient will be observation status. CODE STATUS: Addre (more content not included)... [facility] 02-13-2023 Instructions Brielle Nair Ma - 02/13/2023 10:23 AM EDT Please contact [facility], Cardiology at [phone] to setup an appt. You will need to schedule a hospital follow up and continue to follow up with them regularly. [facility] I believe also has Vascular available. Contact [facility] to schedule. documented in this encounter [facility] 02-13-2023 History of Presen t illness Narrative Transitional Care Management TCM Eligibility Documentation The following information was gathered during the initial Patient Outreach Encounter. Date of Outreach: 02/01/2023 Outreach Attempt 1: Contact Made Date of Discharge 01/31/2023 Some recent data might be hidden Provider Documentation Cora Vasquez is a 72 year old female here today for a follow up from recent hospitalization. I have reviewed the patient's hospital course including discharge summary, discharge medications , and follow up needs with the patient and any family members present at today's visit. [facility] Hospital follow up. Pt here today for 14 day TCM. States at this time she feels about the same as prior to her admission. Notes that she is sleeping a lot and feels tired. When this occurred she was having difficulty getting words out to her son, but denies any of this since. This lasted for about 20-25 minutes. No CVA based on testing. Denies any chest pain or sob. Notes some dizziness occasionally. Uses a cane to ambulate. Denies checking BP at home. Has previously seen Cardiology, h/o stents placed in 2019 at [facility]. Denies following up with them since. States she tried calling them after admission but has not heard back from their office. Will attempt to contact their office again. Legs - Notes edema, dry skin and hx of cellulitis in b/l lower legs. Having increased neuropathy symptoms and admits she's not taking this as prescribed. Taking Bumex 2 mg once daily, prescription states 2 tabs daily. Also taking the Gabapentin 300 mg 1 caps in the am and 2 in the pm, but prescription is written for more. Only takes Potassium 10 meq 1 tab in the am and 2 pm, prescription written for 2 am and 3 pm. Pt denies taking Zaroxolyn 2.5 mg. States if she takes a lot of water pills, she has incontinence and has to urinate frequently. DM - Stable, does check sugars at home. Generally doing well. Admits to neuropathy symptoms. -Admitted for: Syncope Carotid stenosis Heart failure with preserved ejection fraction Below copied form [facility]: Chief Complaint: Stroke Alert Narrative Narrative: 72-year-old female past medical history of hyperlipidemia, diabetes, coronary artery disease presents with difficulty with speech that started 15 minutes ago. She states that she was at a restaurant and had just finished eating. They went to get up and she had generalized weakness, and slurring of her speech. She thinks she is having slight difficulty saying words. She denies any headache. She does not take blood thinners. No other symptoms except for feeling generally weak when she went to stand up. Discharge Diagnosis (1) Syncope: Status: Acute Code(s): R55 - Syncope and collapse Qualifiers: Syncope type: vasovagal syncope Qualified Code(s): R55 - Syncope and collapse Plan: Suspect vasovagal. By therapy, at this point, as the patient may have been hypoxic as she was short of breath getting into the car and that hypoxia may have been exacerbated by her carotid stenosis and lack of perfusion to her brain that caused her to go out and have protracted case dysarthria. However, cannot rule out a stroke so I do feel the patient would benefit from a stroke rule out at this time for her with her carotid stenosis. MRI brain negative. (2) Carotid stenosis: Status: Acute Code(s): I65.29 - Occlusion and stenosis of unspecified carotid artery Qualifiers: Laterality: bilateral Qualified Code(s): I65.23 - Occlusion and stenosis of bilateral carotid arteries Plan: Patient will require follow-up with vascular surgery as outpatient whether not she has a stroke or not. Continue with do antiplatelet therapy and high intensity statin. (3) (HFpEF) heart failure with preserved ejection fraction: Status: Acute Code(s): I50.30 - Unspecified diastolic (congestive) heart failure Qualifiers: Heart failure chronicity: acute on chronic Qualified Code(s): I50.33 - Acute on chronic diastolic (congestive) heart failure Plan: Lung sounds fine. The patient has been slowly putting weight and does have profound lower extremity edema We will change her bumetanide from 2 mg twice daily orally to 4 IV twice daily for now Echocardiogram Patient echocardiogram in July 16, 2019 where her EF was 65%. Concern the patient may have pulmonary hypertension but that was not able to be identified on that echocardiogram from 2019. Plan Chronic conditions ? Diabetes mellitus type 2: Patient takes NPH twice a day.. Continue with glimepiride. Sliding scale insulin ? Morbid obesity: BMI 51.7 kg/m . Complicates care and recovery. ? GERDA: continue CPAP VTE prophylaxis: Not indicated at this time as patient will be observation status. CODE STATUS: Addressed with patient. Patient wishes to be DNR Comfort Care arrest and is okay with intubation short-term if necessary. Summary of Care Provided Minutes Spent on Discharge: 32 Hospital Course: 72-year-old female presents after having slurred speech. Patient was out at a restaurant and then walk to the car. Patient was having labored breathing and passed out and was having slurred speech for period time afterwards. Patient came in as a stroke alert. Head CT was negative. CTA showed right carotid stenosis of 70%. Patient's symptoms completely resolved upon arrival. Patient underwent a stroke work-up with an MRI of the brain. MRI of the brain was negative for any stroke. Patient's oxygen was also checked as is concerned the patient may have been hypoxic when this happened. We did an ambulatory pulse ox and that was actually within normal limits though her oxygen dropped from 97 to 93%. Does not rule out that the patient may have been hypoxic but we are not seeing it here. Patient was diuresed with IV Bumex. Patient does take Bumex at home but cannot tolerate furosemide due to leg cramps. Patient had negative troponins as well. Echo was performed and results are still pending at the time of dictation. Patient is otherwise feeling well be discharged home. Patient be advised to follow-up with vascular surgery in regards to the carotid stenosis in the future. PHYSICAL EXAMINATION BP 120/78 (BP Site: Left Arm, BP Position: Sitting, BP Cuff Size: Regular Adult) Pulse 68 Resp 16 Wt 131.9 kg (290 lb 12.8 oz) BMI 49.92 kg/m GENERAL: well appearing, alert, in no acute distress and ambulates with cane HEART: Regular rate and rhythm. No murmur, rubs or gallops. LUNGS: clear to auscultation, no wheezing, rhonchi, or crackles EXTREMITIES: venous stasis changes - mild/moderate and bilateral edema - mild ASSESSMENT/PLAN: 1. Hospital discharge follow-up - ICD9: V67.59, ICD10: Z09 (primary diagnosis) - Stable, discussed f/u with Cardio and Vascular 2. Vasovagal syncope - ICD9: 780.2, ICD10: R55 - Stable 3. Bilateral carotid artery stenosis - ICD9: 433.10, 433.30, ICD10: I65.23 - Call to schedule Vascular appt 4. Acute on chronic diastolic heart failure (HCC) - ICD9: 428.33, ICD10: I50.33 - Stable - See Cardio - Continue current medication regimen. 5. Type 2 diabetes mellitus with diabetic neuropathy, without long-term current use of insulin (HCC) - ICD9: 250.60, 357.2, ICD10: E11.40 - check labs today - Continue current medication regimen. - INSULIN NPH ISOPHANE U-100 HUMAN 100 UNIT/ML SUBCUTANEOUS SUSPENSION Check fasting labs today. Once resulted will call with results and recommendation on f/u - 3 or 6 months. I agree with the Chief Complaint, ROS, and Past Histories independently gathered by the clinical field support engineer and the remaining scribed note accurately describes my personal service to the patient. Ganga Srivastava MD The documentation for this note was completed by Brielle Nair Ma acting as scribe for Ganga Srivastava MD. February 13, 2023 10:27 AM. Brielle Nair Ma documented in this encounter [facility] 02-01-2023 Note HNO ID: [id number] Author: Brielle Nair Ma Service: ? Author Type: ? Type: Progress Notes Filed: 02/01/2023 2:38 PM Note Text: Pt called and notified of message below. Verbalized understanding. Brielle Nair Ma [facility] 02-01-2023 Note HNO ID: [id number] Author: Ganga Srivastava MD Service: ? Author Type: Physician Type: Progress Notes Filed: 02/01/2023 2:38 PM Note Text: Go up to 25 units of insulin daily Check blood sugars twice daily; in AM and before evening meal OK to take Trulicity today Ganga Srivastava MD [facility] 02-01-2023 History of Presen t illness Narrative Pt called and notified of message below. Verbalized understanding. Brielle Nair Ma Go up to 25 units of insulin daily Check blood sugars twice daily; in AM and before evening meal OK to take Trulicity today Ganga Srivastava MD TRANSITION CARE MANAGEMENT (TCM) INITIAL CONTACT State Director Outreach Provider Action/FYI: 14 day TCM Pt stated while in the hospital she was given a lot more insulin. She is not sure if she needs to increase her insulin dosage or not. She hasn't been checking BS so not sure what BS readings have been. She stated she still has a little dizziness off and on, especially in the AM. Yesterday while still in hospital she was not able to read the clock face as vision was blurry, stated it resolved within an hour, no further issues with blurred vision. She did mention it to the nurse at the time but nothing said or done, per pt. Should be increase her insulin dosage? Currently taking 23 units daily along with trulicity and oral dm meds. How often should she be checking BS? Ok to take Trulicity today as she usually takes it on Mondays but forgot. Ok to leave detailed message on pt VM if she does not answer. Initial contact with patient post discharge, spoke to patient, today 02/01/23. Patient identified by name and . TRANSITION CARE MANAGEMENT INITIAL OUTREACH DOCUMENTATION: Date of Outreach: 02/01/2023 Outreach Attempt 1: Contact Made Date of Discharge 01/31/2023 Some recent data might be hidden SUMMARY: -Pt discharged from [facility] on 01/31/23. -Admitted for: Syncope Carotid stenosis Heart failure with preserved ejection fraction Below copied form [facility] Meditech: Chief Complaint: Stroke Alert Narrative Narrative: 72-year-old female past medical history of hyperlipidemia, diabetes, coronary artery disease presents with difficulty with speech that started 15 minutes ago. She states that she was at a restaurant and had just finished eating. They went to get up and she had generalized weakness, and slurring of her speech. She thinks she is having slight difficulty saying words. She denies any headache. She does not take blood thinners. No other symptoms except for feeling generally weak when she went to stand up. Discharge Diagnosis (1) Syncope: Status: Acute Code(s): R55 - Syncope and collapse Qualifiers: Syncope type: vasovagal syncope Qualified Code(s): R55 - Syncope and collapse Plan: Suspect vasovagal. By therapy, at this point, as the patient may have been hypoxic as she was short of breath getting into the car and that hypoxia may have been exacerbated by her carotid stenosis and lack of perfusion to her brain that caused her to go out and have protracted case dysarthria. However, cannot rule out a stroke so I do feel the patient would benefit from a stroke rule out at this time for her with her carotid stenosis. MRI brain negative. (2) Carotid stenosis: Status: Acute Code(s): I65.29 - Occlusion and stenosis of unspecified carotid artery Qualifiers: Laterality: bilateral Qualified Code(s): I65.23 - Occlusion and stenosis of bilateral carotid arteries Plan: Patient will require follow-up with vascular surgery as outpatient whether not she has a stroke or not. Continue with do antiplatelet therapy and high intensity statin. (3) (HFpEF) heart failure with preserved ejection fraction: Status: Acute Code(s): I50.30 - Unspecified diastolic (congestive) heart failure Qualifiers: Heart failure chronicity: acute on chronic Qualified Code(s): I50.33 - Acute on chronic diastolic (congestive) heart failure Plan: Lung sounds fine. The patient has been slowly putting weight and does have profound lower extremity edema We will change her bumetanide from 2 mg twice daily orally to 4 IV twice daily for now Echocardiogram Patient echocardiogram in July 16, 2019 where her EF was 65%. Concern the patient may have pulmonary hypertension but that was not able to be identified on that echocardiogram from 2019. Plan Chronic conditions ? Diabetes mellitus type 2: Patient takes NPH twice a day.. Continue with glimepiride. Sliding scale insulin ? Morbid obesity: BMI 51.7 kg/m . Complicates care and recovery. ? GERDA: continue CPAP VTE prophylaxis: Not indicated at this time as patient will be observation status. CODE STATUS: Addressed with patient. Patient wishes to be DNR Comfort Care arrest and is okay with intubation short-term if necessary. Summary of Care Provided Minutes Spent on Discharge: 32 Hospital Course: 72-year-old female presents after having slurred speech. Patient was out at a restaurant and then walk to the car. Patient was having labored breathing and passed out and was having slurred speech for period time afterwards. Patient came in as a stroke alert. Head CT was negative. CTA showed right carotid stenosis of 70%. Patient's symptoms completely resolved upon arrival. Patient underwent a stroke work-up with an MRI of the brain. MRI of the brain was negative for any stroke. Patient's oxygen was also checked as is concerned the patient may have been hypoxic when this happened. We did an ambulatory pulse ox and that was actually within normal limits though her oxygen dropped from 97 to 93%. Does not rule out that the patient may have been hypoxic but we are not seeing it here. Patient was diuresed with IV Bumex. Patient does take Bumex at home but cannot tolerate furosemide due to leg cramps. Patient had negative troponins as well. Echo was performed and results are still pending at the time of dictation. Patient is otherwise feeling well be discharged home. Patient be advised to follow-up with vascular surgery in regards to the carotid stenosis in the future. Do you have a hospital follow up appointment with your PCP? Appointment on 02/13/23 with PCP. Yes. Remind patient of appointment date, time, and location. If not within 14 calendar days of discharge - please reschedule accordingly. MEDICATIONS: Many patients have questions or concerns about their medications once they are home. Were you prescribed any new medications? No Were you told to hold any medications? No Were any of your medications discontinued? No Do you have any questions about getting or taking your medications? No Your discharge instructions/After visit Summary (AVS) are important in guiding you through the recovery process. Is there anything I might help you understand? No Do you have all the necessary equipment and supplies at home? Yes Medical records from recent hospitalization: Placed for provider to review documented in this encounter [facility] 02-01-2023 Note Patient Outreach (JESE MPWS) CORA VASQUEZ ([id number]) 1950 F Date Time Provider Department 02/01/23 GANGA SRIVASTAVA During your visit today, we recorded the following information about you: Denise Huerta Ma 02/01/2023 2:38 PM Signed TRANSITION CARE MANAGEMENT (TCM) INITIAL CONTACT State Director Outreach Provider Action/FYI: 14 day TCM Pt stated while in the hospital she was given a lot more insulin. She is not sure if she needs to increase her insulin dosage or not. She hasn't been checking BS so not sure what BS readings have been. She stated she still has a little dizziness off and on, especially in the AM. Yesterday while still in hospital she was not able to read the clock face as vision was blurry, stated it resolved within an hour, no further issues with blurred vision. She did mention it to the nurse at the time but nothing said or done, per pt. Should be increase her insulin dosage? Currently taking 23 units daily along with trulicity and oral dm meds. How often should she be checking BS? Ok to take Trulicity today as she usually takes it on Mondays but forgot. Ok to leave detailed message on pt VM if she does not answer. Initial contact with patient post discharge, spoke to patient, today 02/01/23. Patient identified by name and . TRANSITION CARE MANAGEMENT INITIAL OUTREACH DOCUMENTATION: Date of Outreach: 02/01/2023 Outreach Attempt 1: Contact Made Date of Discharge 01/31/2023 Some recent data might be hidden SUMMARY: -Pt discharged from [facility] on 01/31/23. -Admitted for: Syncope Carotid stenosis Heart failure with preserved ejection fraction Below copied form [facility] Meditech: Chief Complaint: Stroke Alert Narrative Narrative: 72-year-old female past medical history of hyperlipidemia, diabetes, coronary artery disease presents with difficulty with speech that started 15 minutes ago. She states that she was at a restaurant and had just finished eating. They went to get up and she had generalized weakness, and slurring of her speech. She thinks she is having slight difficulty saying words. She denies any headache. She does not take blood thinners. No other symptoms except for feeling generally weak when she went to stand up. Discharge Diagnosis (1) Syncope: Status: Acute Code(s): R55 - Syncope and collapse Qualifiers: Syncope type: vasovagal syncope Qualified Code(s): R55 - Syncope and collapse Plan: Suspect vasovagal. By therapy, at this point, as the patient may have been hypoxic as she was short of breath getting into the car and that hypoxia may have been exacerbated by her carotid stenosis and lack of perfusion to her brain that caused her to go out and have protracted case dysarthria. However, cannot rule out a stroke so I do feel the patient would benefit from a stroke rule out at this time for her with her carotid stenosis. MRI brain negative. (2) Carotid stenosis: Status: Acute Code(s): I65.29 - Occlusion and stenosis of unspecified carotid artery Qualifiers: Laterality: bilateral Qualified Code(s): I65.23 - Occlusion and stenosis of bilateral carotid arteries Plan: Patient will require follow-up with vascular surgery as outpatient whether not she has a stroke or not. Continue with do antiplatelet therapy and high intensity statin. (3) (HFpEF) heart failure with preserved ejection fraction: Status: Acute Code(s): I50.30 - Unspecified diastolic (congestive) heart failure Qualifiers: Heart failure chronicity: acute on chronic Qualified Code(s): I50.33 - Acute on chronic diastolic (congestive) heart failure Plan: Lung sounds fine. The patient has been slowly putting weight and does have profound lower extremity edema We will change her bumetanide from 2 mg twice daily orally to 4 IV twice daily for now Echocardiogram Patient echocardiogram in July 16, 2019 where her EF was 65%. Concern the patient may have pulmonary hypertension but that was not able to be identified on that echocardiogram from 2019. Plan Chronic conditions ? Diabetes mellitus type 2: Patient takes NPH twice a day.. Continue with glimepiride. Sliding scale insulin ? Morbid obesity: BMI 51.7 kg/m?. Complicates care and recovery. ? GERDA: continue CPAP VTE prophylaxis: Not indicated at this time as patient will be observation status. CODE STATUS: Addressed with patient. Patient wishes to be DNR Comfort Care arrest and is okay with intubation short-term if necessary. Summary of Care Provided Minutes Spent on Discharge: 32 Hospital Course: 72-year-old female presents after having slurred speech. Patient was out at a restaurant and then walk to the car. Patient was having labored breathing and passed out and was having slurred speech for period time afterwards. Patient came in as a stroke alert. Head CT was negative. CTA showed (more content not included)... [facility] 02-01-2023 Note HNO ID: [id number] Author: Denise Huerta Ma Service: ? Author Type: ? Type: Progress Notes Filed: 02/01/2023 2:38 PM Note Text: TRANSITION CARE MANAGEMENT (TCM) INITIAL CONTACT State Director Outreach Provider Action/FYI: 14 day TCM Pt stated while in the hospital she was given a lot more insulin. She is not sure if she needs to increase her insulin dosage or not. She hasn't been checking BS so not sure what BS readings have been. She stated she still has a little dizziness off and on, especially in the AM. Yesterday while still in hospital she was not able to read the clock face as vision was blurry, stated it resolved within an hour, no further issues with blurred vision. She did mention it to the nurse at the time but nothing said or done, per pt. Should be increase her insulin dosage? Currently taking 23 units daily along with trulicity and oral dm meds. How often should she be checking BS? Ok to take Trulicity today as she usually takes it on Mondays but forgot. Ok to leave detailed message on pt VM if she does not answer. Initial contact with patient post discharge, spoke to patient, today 02/01/23. Patient identified by name and . TRANSITION CARE MANAGEMENT INITIAL OUTREACH DOCUMENTATION: Date of Outreach: 02/01/2023 Outreach Attempt 1: Contact Made Date of Discharge 01/31/2023 Some recent data might be hidden SUMMARY: -Pt discharged from [facility] on 01/31/23. -Admitted for: Syncope Carotid stenosis Heart failure with preserved ejection fraction Below copied form [facility] Meditech: Chief Complaint: Stroke Alert Narrative Narrative: 72-year-old female past medical history of hyperlipidemia, diabetes, coronary artery disease presents with difficulty with speech that started 15 minutes ago. She states that she was at a restaurant and had just finished eating. They went to get up and she had generalized weakness, and slurring of her speech. She thinks she is having slight difficulty saying words. She denies any headache. She does not take blood thinners. No other symptoms except for feeling generally weak when she went to stand up. Discharge Diagnosis (1) Syncope: Status: Acute Code(s): R55 - Syncope and collapse Qualifiers: Syncope type: vasovagal syncope Qualified Code(s): R55 - Syncope and collapse Plan: Suspect vasovagal. By therapy, at this point, as the patient may have been hypoxic as she was short of breath getting into the car and that hypoxia may have been exacerbated by her carotid stenosis and lack of perfusion to her brain that caused her to go out and have protracted case dysarthria. However, cannot rule out a stroke so I do feel the patient would benefit from a stroke rule out at this time for her with her carotid stenosis. MRI brain negative. (2) Carotid stenosis: Status: Acute Code(s): I65.29 - Occlusion and stenosis of unspecified carotid artery Qualifiers: Laterality: bilateral Qualified Code(s): I65.23 - Occlusion and stenosis of bilateral carotid arteries Plan: Patient will require follow-up with vascular surgery as outpatient whether not she has a stroke or not. Continue with do antiplatelet therapy and high intensity statin. (3) (HFpEF) heart failure with preserved ejection fraction: Status: Acute Code(s): I50.30 - Unspecified diastolic (congestive) heart failure Qualifiers: Heart failure chronicity: acute on chronic Qualified Code(s): I50.33 - Acute on chronic diastolic (congestive) heart failure Plan: Lung sounds fine. The patient has been slowly putting weight and does have profound lower extremity edema We will change her bumetanide from 2 mg twice daily orally to 4 IV twice daily for now Echocardiogram Patient echocardiogram in July 16, 2019 where her EF was 65%. Concern the patient may have pulmonary hypertension but that was not able to be identified on that echocardiogram from 2019. Plan Chronic conditions ? Diabetes mellitus type 2: Patient takes NPH twice a day.. Continue with glimepiride. Sliding scale insulin ? Morbid obesity: BMI 51.7 kg/m?. Complicates care and recovery. ? GERDA: continue CPAP VTE prophylaxis: Not indicated at this time as patient will be observation status. CODE STATUS: Addressed with patient. Patient wishes to be DNR Comfort Care arrest and is okay with intubation short-term if necessary. Summary of Care Provided Minutes Spent on Discharge: 32 Hospital Course: 72-year-old female presents after having slurred speech. Patient was out at a restaurant and then walk to the car. Patient was having labored breathing and passed out and was having slurred speech for period time afterwards. Patient came in as a stroke alert. Head CT was negative. CTA showed right carotid stenosis of 70%. Patient's symptoms completely resolved upon arrival. Patient underwent a stroke work-up with an MRI of the brain. MRI of the brain was negative for any s (more content not included)... [facility] 01-22-2023 Note HNO ID: [id number] Author: Adilene Contreras MA Service: ? Author Type: State Director Type: Progress Notes Filed: 01/22/2023 12:33 PM Note Text: POPULATION HEALTH NAVIGATION OUTREACH Action/FYI left message to call me back to schedule colonoscopy my chart message sent with AD info follow up 02/13/23 Patient Identified by Name and : NO Outreach Outcome/Action Unable to reach patient: Left message MyChart message sent Did you use a PCP flex slot to schedule this appointment? N/A Reason for Outreach Care Gap or Scheduling/Wellness visits Payer: Payor: MEDICARE / Plan: MEDICARE A AND B / Product Type: Medicare / Care Gap Reviewed:: Colorectal Cancer Screening HBA1C Reminder: Reminder note to check Health Maintenance for items below Health Maintenance items due: HEPATITIS C SCREENING Never done BONE DENSITY Never done COLORECTAL CANCER SCREENING due on 11/06/2019 SHINGRIX VACCINE(2 of 2) due on 11/15/2020 MAMMOGRAM due on 05/27/2022 ADVANCE DIRECTIVE DISCUSSION Never done DEPRESSION ASSESSMENT due on 11/05/2022 HBA1C due on 11/05/2022 LDL CHOLESTEROL due on 11/11/2022 Navigation Signature: Adilene Contreras MA January 22, 2023 12:29 PM [facility] 01-22-2023 Note Patient Outreach (NE TNAV) CORA VASQUEZ ([id number]) 1950 F Date Time Provider Department 01/22/23 ADILENE CONTRERAS During your visit today, we recorded the following information about you: Adilene Contreras MA 01/22/2023 12:33 PM Signed POPULATION HEALTH NAVIGATION OUTREACH Action/FYI left message to call me back to schedule colonoscopy my chart message sent with AD info follow up 02/13/23 Patient Identified by Name and : NO Outreach Outcome/Action Unable to reach patient: Left message MyChart message sent Did you use a PCP flex slot to schedule this appointment? N/A Reason for Outreach Care Gap or Scheduling/Wellness visits Payer: Payor: MEDICARE / Plan: MEDICARE A AND B / Product Type: Medicare / Care Gap Reviewed:: Colorectal Cancer Screening HBA1C Reminder: Reminder note to check Health Maintenance for items below Health Maintenance items due: HEPATITIS C SCREENING Never done BONE DENSITY Never done COLORECTAL CANCER SCREENING due on 11/06/2019 SHINGRIX VACCINE(2 of 2) due on 11/15/2020 MAMMOGRAM due on 05/27/2022 ADVANCE DIRECTIVE DISCUSSION Never done DEPRESSION ASSESSMENT due on 11/05/2022 HBA1C due on 11/05/2022 LDL CHOLESTEROL due on 11/11/2022 Navigation Signature: Adilene Contreras MA January 22, 2023 12:29 PM Allergies As of Date: 01/22/2023 Noted Allergy Reaction DOXYCYCLINE 09/22/2021 6 - Diarrhea CAT DANDER 11/04/2018 14 - Other: See Comments Comments: Sneezing, watery eyes FUROSEMIDE 06/21/2018 14 - Other: See Comments Comments: Leg cramp SULFA (SULFONAMIDE ANTIBIOTICS) 06/21/2018 14 - Other: See Comments Comments: Increased sweating Date Reviewed: 01/10/2023 Reviewed by: Lauren Beach RN - Fully Assessed Reason for Visit: Population Health Navigation Outreach [3910] Cmt: ACO Care Gaps Prescriptions as of 01/22/2023 - loratadine (CLARITIN) 10 mg tablet Take 1 tablet by mouth once daily. - insulin NPH injection Inject 23 Units subcutaneously daily at bedtime. - Insulin Syringe-Needle U-100 0.5 mL 31 gauge x 5/16 Use to inject insulin once daily as directed - pantoprazole DR (PROTONIX) 40 mg tablet Take 1 tablet by mouth daily before breakfast. Take on empty stomach, 1/2 hr before meal. - Lancets lancets Test blood sugar(s) 1 times daily. Dx: Type 2 DM - Uncontrolled E11.65 Insulin: No - albuterol HFA (VENTOLIN HFA) 90 mcg/actuation inhaler Inhale 2 Puffs as instructed every 4 hours as needed for wheezing/shortness of breath. - nitroglycerin sublingual (NITROQUICK) 0.4 mg SL tablet Dissolve 1 tablet under the tongue as needed. for chest pain,every 5 min x3 - metOLazone (ZAROXOLYN) 2.5 mg tablet Take 1 tablet by mouth once daily. - gabapentin (NEURONTIN) 300 mg capsule Take 3 capsule in AM and take 4 caps at bedtime for pain - FLUoxetine (PROZAC) 40 mg capsule Take 1 capsule by mouth once daily. - potassium chloride ER (K-DUR, KLOR-CON) 10 mEq tablet Take 2 pills in AM, 3 pill in PM - pioglitazone (ACTOS) 30 mg tablet Take 1 tablet by mouth once daily. - lisinopril (ZESTRIL, PRINIVIL) 5 mg tablet Take 1 tablet by mouth once daily. - carvedilol (COREG) 12.5 mg tablet Take 0.5 tablets by mouth twice daily. - glimepiride (AMARYL) 4 mg tablet Take 1 tablet by mouth daily with breakfast. - prasugrel (EFFIENT) 10 mg tab Take 1 tablet by mouth once daily. - blood sugar diagnostic (BLOOD GLUCOSE TEST) test strip Test blood sugar(s) 1 times daily. Dx: Type 2 DM - Uncontrolled E11.65 Insulin: No - dulaglutide (TRULICITY SUBCUTANEOUS) Inject subcutaneously one time a week. - atorvastatin (LIPITOR) 80 mg tablet Take 1 tablet by mouth daily at bedtime. - bumetanide (BUMEX) 2 mg tablet Take 2 tablets by mouth once daily. - fluticasone (FLONASE) 50 mcg/actuation nasal spray Use 2 Sprays in each nostril once daily. Rinse mouth after use. - aspirin 81 mg chewable tablet CHEW AND SWALLOW ONE TABLET BY MOUTH ONCE DAILY WITH A MEAL - Dzgimlvnbpilp-Txazxozq-Rbrjvb (CENTRUM SILVER) tab Meds Comments as of 06/12/2022: Rx For Tessalon Pearls. Problem List As Of Date 01/22/2023 Noted Resolved Obesity, Class III, BMI 40-49.9 (morbid obesity*07/31/2018 Type 2 diabetes mellitus with diabetic neuropat*08/01/2018 ASHD (arteriosclerotic heart disease) [I25.10] 08/01/2018 Essential hypertension [I10] 08/01/2018 Hyperlipidemia [E78.5] 08/01/2018 Trochanteric bursitis of both hips [M70.61, M70*02/11/2019 Generalized weakness [R53.1] 04/13/2021 Frequent falls [R29.6] 04/13/2021 Osteoarthritis of both hips [M16.0] 04/13/2021 Encounter Status:Closed by ADILENE CONTRERAS on 01/22/23 [facility] 01-22-2023 History of Presen t illness Narrative POPULATION HEALTH NAVIGATION OUTREACH Action/FYI left message to call me back to schedule colonoscopy my chart message sent with AD info follow up 02/13/23 Patient Identified by Name and : NO Outreach Outcome/Action Unable to reach patient: Left message MyChart message sent Did you use a PCP flex slot to schedule this appointment? N/A Reason for Outreach Care Gap or Scheduling/Wellness visits Payer: Payor: MEDICARE / Plan: MEDICARE A AND B / Product Type: Medicare / Care Gap Reviewed:: Colorectal Cancer Screening HBA1C Reminder: Reminder note to check Health Maintenance for items below Health Maintenance items due: HEPATITIS C SCREENING Never done BONE DENSITY Never done COLORECTAL CANCER SCREENING due on 11/06/2019 SHINGRIX VACCINE(2 of 2) due on 11/15/2020 MAMMOGRAM due on 05/27/2022 ADVANCE DIRECTIVE DISCUSSION Never done DEPRESSION ASSESSMENT due on 11/05/2022 HBA1C due on 11/05/2022 LDL CHOLESTEROL due on 11/11/2022 Navigation Signature: Adilene Contreras MA January 22, 2023 12:29 PM documented in this encounter [facility] 01-22-2023 Miscellaneous Notes The following approved medication requests have been transmitted electronically. Requested Prescriptions Pending Prescriptions Disp Refills loratadine (CLARITIN) 10 mg tablet 30 tablet 11 Sig: Take 1 tablet by mouth once daily. Morales Dale APRN.CNP documented in this encounter [facility] 01-10-2023 Note HNO ID: [id number] Author: Shun Beauchamp Service: ? Author Type: Physician Type: Progress Notes Filed: 01/10/2023 9:35 AM Note Text: Last saw Dr. Srivastava: 08/15/22 Subjective: Patient presents to clinic c/o painful toenails. They state that the nails are especially painful with shoe gear and pressure. Patient states that nails 1-5 b/l are painful. Patient admits to being diabetic and states that their blood sugar was 170 mg/dL this AM. No other pedal complaints at this time. Patient states no change in medications or medical history since last visit. Objective: Patient presents to clinic ambulating in sandals Vasc: DP and PT pulses are decreased bilateral. CFT is less than 5 seconds bilateral. Skin temperature is warm to cool proximal to distal bilateral. There is moderate edema or varicosities noted. Neuro: Protective sensation is intact to the foot and toes when tested with the 5.07 SWM bilateral. Vibratory sensation is absent at the hallux IPJ bilateral. The hallux is downgoing bilateral. Derm: Nails 1-5 b/l are painful, discolored-yellow, thick, crumbly, dystrophic and with subungal debris. Skin is dry and hair growth is absent bilateral. There are no hyperkeratosis, ulcerations, scars, verruca or other lesions noted. Ortho: Muscle strength is 5/5 for all pedal groups tested. Ankle joint DF is decreased with the knee extended with no pain or crepitus noted. 1st MPJ ROM is decreased bilateral. Assessment: (B35.1) Onychomycosis (primary encounter diagnosis) (M79.675) Pain in toe of left foot (M79.674) Pain in toe of right foot (E11.49) Other diabetic neurological complication associated with type 2 diabetes mellitus (HCC) (R09.89) Diminished pulses in lower extremity Plan: Patient was seen and evaluated. Nails 1-5 bilateral were debrided in length and thickness. Recommend lotion to feet daily Recommend compression of b/l lower extremity. Prior wound of left leg with infection now resolved. Patient was instructed on the continued importance of diabetic foot care along with proper diet and keeping their blood sugar under control to prevent complications. Patient is to RTC in 3-4 months. Shun Beauchamp DPM [facility] 01-10-2023 Note HNO ID: [id number] Author: Lauren Beach RN Service: ? Author Type: ? Type: Progress Notes Filed: 01/10/2023 9:35 AM Note Text: [facility] 01-10-2023 Instructions Shun Beauchamp - 01/10/2023 9:26 AM EST Diabetes Foot Care Instructions When you have diabetes, proper foot care is very important. Poor foot care may lead to amputation of a foot or leg. As a person with diabetes, you are more vulnerable to foot problems, because diabetes can damage your nerves and reduce blood flow to your feet. Here are some diabetes foot care tips to follow: Wash and Dry Your Feet Daily Use mild soaps Use warm water Pat your skin dry; do not rub. Thoroughly dry your feet. After washing, use lotion on your feet to prevent cracking. Do not put lotion between your toes. Examine Your Feet Each Day Check the tops and bottoms of your feet. Have someone else look at your feet if you cannot see them. Check for dry, cracked skin. Look for blisters, cuts, scratches, or other sores. Check for redness, increased warmth, or tenderness when touching any area of your feet. Check for ingrown toenails, corns, and calluses. If you get a blister or sore from your shoes, do not pop it. Apply a bandage and wear a different pair of shoes. Take Care of Your Toenails Cut toenails after bathing, when they are soft. Cut toenails straight across and smooth with a nail file. Avoid cutting into the corners of toes. Do not cut cuticles. If you have neuropathy (or decreased sensation in your feet) a lens edger should always cut your toenails. Be Careful When Exercising Walk and exercise in comfortable shoes. Do not exercise when you have open sores on your feet. Protect Your Feet With Shoes and Socks Never go barefoot. Always protect your feet by wearing shoes or hard-soled slippers or footwear. Avoid shoes with high heels and pointed toes. Avoid shoes that expose your toes or heels (such as open-toed shoes or sandals). These types of shoes increase your risk for injury and potential infections. Try on new footwear with the type of socks you usually wear. Do not wear new shoes for more than an hour at a time. Change your socks daily. Look and feel inside your shoes before putting them on to make sure there are no foreign objects or rough areas. Avoid tight socks. Wear natural-fiber socks (cotton, wool, or a cotton-wool blend). Wear special shoes if your health care provider recommends them. Wear shoes/boots that will protect your feet from various weather conditions (cold, moisture, etc.). Make sure your shoes fit properly. If you have neuropathy (nerve damage), you may not notice that your shoes are too tight. Perform the footwear test described below. Footwear Test Use this simple test to see if your shoes fit correctly: Stand on a piece of paper. (Make sure you are standing and not sitting, because your foot changes shape when you stand.) Trace the outline of your foot. Trace the outline of your shoe. Compare the tracings: Is the shoe too narrow? Is your foot crammed into the shoe? The shoe should be at least 1/2 inch longer than your longest toe and as wide as your foot. Proper Shoe Choices The following types of shoes are best for people with diabetes Closed toes and heels Leather uppers without a seam inside At least 1/2 inch extra space at the end of your longest toe Inside of shoe should be soft with no rough areas Outer sole should be made of stiff material Shoes should be at least as wide as your feet Tips for Foot Care in Diabetes Don't wait to treat a minor foot problem if you have diabetes. Follow your health care provider's guidelines and first aid guidelines. Report foot injuries and infections to your health care provider immediately. Check water temperature with your elbow, not your foot. Do not use a heating pad on your feet. Do not cross your legs. Do not self-treat your corns, calluses, or other foot problems. Go to your health care provider or lens edger to treat these conditions. documented in this encounter [facility] 01-10-2023 History of Presen t illness Narrative Last saw Dr. Srivastava: 08/15/22 Subjective: Patient presents to clinic c/o painful toenails. They state that the nails are especially painful with shoe gear and pressure. Patient states that nails 1-5 b/l are painful. Patient admits to being diabetic and states that their blood sugar was 170 mg/dL this AM. No other pedal complaints at this time. Patient states no change in medications or medical history since last visit. Objective: [facility] Vasc: DP and PT pulses are decreased bilateral. CFT is less than 5 seconds bilateral. Skin temperature is warm to cool proximal to distal bilateral. There is moderate edema or varicosities noted. Neuro: Protective sensation is intact to the foot and toes when tested with the 5.07 SWM bilateral. Vibratory sensation is absent at the hallux IPJ bilateral. The hallux is downgoing bilateral. Derm: Nails 1-5 b/l are painful, discolored-yellow, thick, crumbly, dystrophic and with subungal debris. Skin is dry and hair growth is absent bilateral. There are no hyperkeratosis, ulcerations, scars, verruca or other lesions noted. Ortho: Muscle strength is 5/5 for all pedal groups tested. Ankle joint DF is decreased with the knee extended with no pain or crepitus noted. 1st MPJ ROM is decreased bilateral. Assessment: (B35.1) Onychomycosis (primary encounter diagnosis) (M79.675) Pain in toe of left foot (M79.674) Pain in toe of right foot (E11.49) Other diabetic neurological complication associated with type 2 diabetes mellitus (HCC) (R09.89) Diminished pulses in lower extremity Plan: Patient was seen and evaluated. Nails 1-5 bilateral were debrided in length and thickness. Recommend lotion to feet daily Recommend compression of b/l lower extremity. Prior wound of left leg with infection now resolved. Patient was instructed on the continued importance of diabetic foot care along with proper diet and keeping their blood sugar under control to prevent complications. Patient is to RTC in 3-4 months. Shun Beauchamp DPM documented in this encounter [facility] 01-03-2023 Miscellaneous Notes Patient notified and verbalized understanding of instructions given.Taryn Fernandez LPN ----- Message from Deepti Mcdonough APRN.JAVA LEAD ENGINEER sent at 01/03/2023 5:45 PM EST ----- Urine culture did not show clear evidence of infection, however it appears sample may have been contaminated with skin bacteria during collection. Recommend follow up with PCP to ensure hematuria has resolved. Deepti Mcdonough CNP documented in this encounter [facility] 01-02-2023 Note HNO ID: [id number] Author: Andreina Caceres PA-C Service: ? Author Type: Physician Rhinestone Setter Type: Progress Notes Filed: 01/02/2023 5:21 PM Note Text: YourThis note was created using [employer]. Subjective oCra Vasquez is a 72 year old female. HPI Patient presents with a chief complaint of on her left leg over the past month. She has been putting peroxide and Neosporin on it but it does not seem to be healing. She states she ran into a corner of the piece of furniture and had a small wound in the beginning. States its been warm and more red the past few days. She has had cellulitis before. She states she takes a water pill as well for chronic peripheral edema. She denies a fever. No nausea or vomiting. Patient also complaining of dysuria and frequency. This has been going on the past 3 to 4 days. She has had some low back pain. No abdominal pain. She denies blood in urine. Review of Systems Constitutional: Negative. HENT: Negative. Respiratory: Negative. Cardiovascular: Negative. Gastrointestinal: Negative. Genitourinary: Positive for dysuria, frequency and urgency. Negative for hematuria. Musculoskeletal: Positive for back pain. Skin: Sore on left leg All other systems reviewed and are negative. PAST MEDICAL HISTORY Diagnosis Date Diabetes mellitus (HCC) Neuropathy Current Outpatient Medications Medication Sig Dispense Refill pantoprazole DR (PROTONIX) 40 mg tablet Take 1 tablet by mouth daily before breakfast. Take on empty stomach, 1/2 hr before meal. 30 tablet 1 Lancets lancets Test blood sugar(s) 1 times daily. Dx: Type 2 DM - Uncontrolled E11.65 Insulin: No 100 Each 11 Insulin Syringe-Needle U-100 0.5 mL 31 gauge x 03/20 Use to inject insulin once daily as directed 100 Each 3 albuterol HFA (VENTOLIN HFA) 90 mcg/actuation inhaler Inhale 2 Puffs as instructed every 4 hours as needed for wheezing/shortness of breath. 6.7 g 5 nitroglycerin sublingual (NITROQUICK) 0.4 mg SL tablet Dissolve 1 tablet under the tongue as needed. for chest pain,every 5 min x3 25 tablet 2 metOLazone (ZAROXOLYN) 2.5 mg tablet Take 1 tablet by mouth once daily. 30 tablet 5 gabapentin (NEURONTIN) 300 mg capsule Take 3 capsule in AM and take 4 caps at bedtime for pain 630 capsule 1 FLUoxetine (PROZAC) 40 mg capsule Take 1 capsule by mouth once daily. 90 capsule 3 potassium chloride ER (K-DUR, KLOR-CON) 10 mEq tablet Take 2 pills in AM, 3 pill in PM 450 tablet 3 pioglitazone (ACTOS) 30 mg tablet Take 1 tablet by mouth once daily. 30 tablet 11 lisinopril (ZESTRIL, PRINIVIL) 5 mg tablet Take 1 tablet by mouth once daily. 90 tablet 3 carvedilol (COREG) 12.5 mg tablet Take 0.5 tablets by mouth twice daily. 90 tablet 3 glimepiride (AMARYL) 4 mg tablet Take 1 tablet by mouth daily with breakfast. 90 tablet 1 insulin NPH injection (HumuLIN N,NovoLIN N) Inject 23 Units subcutaneously daily at bedtime. 10 mL 3 prasugrel (EFFIENT) 10 mg tab Take 1 tablet by mouth once daily. 90 tablet 3 dulaglutide (TRULICITY SUBCUTANEOUS) Inject subcutaneously one time a week. atorvastatin (LIPITOR) 80 mg tablet Take 1 tablet by mouth daily at bedtime. 90 tablet 3 bumetanide (BUMEX) 2 mg tablet Take 2 tablets by mouth once daily. 60 tablet 5 loratadine (CLARITIN) 10 mg tablet Take 1 tablet by mouth once daily. 30 tablet 11 fluticasone (FLONASE) 50 mcg/actuation nasal spray Use 2 Sprays in each nostril once daily. Rinse mouth after use. 1 Bottle 1 aspirin 81 mg chewable tablet CHEW AND SWALLOW ONE TABLET BY MOUTH ONCE DAILY WITH A MEAL 7 Wzhrhamssneuf-Riclhlzt-Sinrly (CENTRUM SILVER) tab cephALEXin (KEFLEX) 500 mg capsule Take 1 capsule by mouth three times daily for 7 days. 21 capsule 0 blood sugar diagnostic (BLOOD GLUCOSE TEST) test strip Test blood sugar(s) 1 times daily. Dx: Type 2 DM - Uncontrolled E11.65 Insulin: No (Patient not taking: Reported on 01/02/2023) 50 Strip 11 No current facility-administered medications for this visit. PAST SURGICAL HISTORY Procedure Laterality Date CHOLECYSTECTOMY HYSTERECTOMY PAST SURGICAL HISTORY OF 2017 stent; maker TONSILLECTOMY AND ADENOIDECTOMY HX No family history on file. Social History Tobacco Use Smoking status: Former Smokeless tobacco: Never Vaping Use Vaping Use: Never used Substance Use Topics Alcohol use: Yes Comment: rarely Drug use: Not Currently Types: Marijuana Comment: used gummies in the past Objective BP 118/68 Pulse 73 Temp 36.6 ?C (97.8 ?F) Resp 16 Wt 129.8 kg (286 lb 3.2 oz) SpO2 97% BMI 49.13 kg/m? Physical Exam Vitals reviewed. Constitutional: Appearance: Normal appearance. HENT: Head: Normocephalic and atraumatic. Cardiovascular: Rate and Rhythm: Normal rate and regular rhythm. Heart sounds: Normal heart sounds. Pulmonary: Effort: Pulmonary effort is normal. Breath sounds: Normal breath sounds. Abdominal: General: Abdomen is flat. Ther (more content not included)... [facility] 11-23-2022 Miscellaneous Notes The following approved medication requests have been transmitted electronically. Requested Prescriptions Pending Prescriptions Disp Refills Lancets lancets 100 Each 11 Sig: Test blood sugar(s) 1 times daily. Dx: Type 2 DM - Uncontrolled E11.65 Insulin: No Insulin Syringe-Needle U-100 0.5 mL 31 gauge x 03/20 100 Each 3 Sig: Use to inject insulin once daily as directed albuterol HFA (VENTOLIN HFA) 90 mcg/actuation inhaler 6.7 g 5 Sig: Inhale 2 Puffs as instructed every 4 hours as needed for wheezing/shortness of breath. nitroglycerin sublingual (NITROQUICK) 0.4 mg SL tablet 25 tablet 2 Sig: Dissolve 1 tablet under the tongue as needed. for chest pain,every 5 min x3 Morales Dale APRN.JAVA LEAD ENGINEER prescriptions below denied because our records show there should be existing prescriptions at the pharmacy. Patient has been identified by name and date of : Yes, Provider Dr. Srivastava Date 11/22/22 Time 8:01 am Patient phones for refill(s): Requested Prescriptions Pending Prescriptions Disp Refills albuterol HFA (VENTOLIN HFA) 90 mcg/actuation inhaler 6.7 g 5 Sig: Inhale 2 Puffs as instructed every 4 hours as needed for wheezing/shortness of breath. Refused Prescriptions Disp Refills Lancets lancets 100 Each 11 Sig: Test blood sugar(s) 1 times daily. Dx: Type 2 DM - Uncontrolled E11.65 Insulin: No Insulin Syringe-Needle U-100 0.5 mL 31 gauge x 5/16 100 Each 3 Sig: Use to inject insulin once daily as directed nitroglycerin sublingual (NITROQUICK) 0.4 mg SL tablet Sig: Dissolve 1 tablet under the tongue as needed. for chest pain,every 5 min x3 Date of last office visit in primary care: 08/15/22 next apt 02/06/23 Last 2 Encounter Wt Readings: Date: Wt: 08/15/2022 129.1 kg (284 lb 11.2 oz) 06/12/2022 124.3 kg (274 lb) Previous labs/tests for medication: Not applicable Please advise. Thank you. Kassie Sigala LPN documented in this encounter [facility] 11-13-2022 History of Presen t illness Narrative POPULATION HEALTH NAVIGATION OUTREACH Action/FYI Pr declined She was told she didn't need to mammograms or colonoscopy. ANNUAL MEDICARE WELLNESS EXAM COLORECTAL CANCER SCREENING due on 11/06/2019 MAMMOGRAM due on 05/27/2022 ADVANCE DIRECTIVE DISCUSSION Never done HBA1C due on 11/05/2022 LDL CHOLESTEROL due on 11/11/2022 Pt identified by name and : YES, via phone Outreach Outcome/Action Spoke to patient or caregiver: Patient declined Did you use a PCP flex slot to schedule this appointment? N/A Reason for Outreach Care Gap or Scheduling/Wellness visits Payer: Payor: MEDICARE / Plan: MEDICARE A AND B / Product Type: Medicare / Care Gap Reviewed:: Annual Wellness visit Breast Cancer screening Colorectal Cancer Screening HBA1C Reminder: Reminder note to check Health Maintenance for items below Health Maintenance items due: HEPATITIS C SCREENING Never done BONE DENSITY Never done COLORECTAL CANCER SCREENING due on 11/06/2019 SHINGRIX VACCINE(2 of 2) due on 11/15/2020 MAMMOGRAM due on 05/27/2022 ADVANCE DIRECTIVE DISCUSSION Never done DEPRESSION ASSESSMENT due on 11/05/2022 HBA1C due on 11/05/2022 LDL CHOLESTEROL due on 11/11/2022 Navigation Signature: Deepti Haprer MA November 13, 2022 8:28 AM documented in this encounter [facility] 10-02-2022 History of Presen t illness Narrative Radiology Service Progress Note PATIENT NAME: Cora Vasquez DATE OF SERVICE: October 02, 2022 TIME: 2:59 PM PATIENT IDENTITY VERIFICATION COMPLETED USING TWO (2) IDENTIFIERS: Name and Date of confirmed by patient verbally. FALL SCREENING: Has the patient had 2 falls in the last year or 1 fall with injury or currently using an Ambulatory Assistive Device (Walker, Cane, Wheelchair, Crutches, etc.)? No PATIENT GENDER DATA: Female. status: : No status: NO. PATIENT RELEVANT IMPLANT DATA REVIEWED: Yes RADIOLOGY DEPARTMENT: General X-ray: Exam(s) Completed: Lower Extremity X-Ray(s): Foot, Right PERIPHERAL IV DATA: Not applicable SIGNED BY: RT Jerrica(R) October 02, 2022 2:59 PM documented in this encounter [facility] 10-02-2022 History of Presen t illness Narrative Last saw Dr. Srivastava: 06/12/22 Subjective: Patient presents to clinic c/o painful toenails. They state that the nails are especially painful with shoe gear and pressure. Patient states that nails 1-5 b/l are painful. Patient admits to being diabetic. She does report that she recently dropped an ipad on her right 4th toe. She went to the emergency room and was told she had a chipped bone but report in chart shows no acute fracture. She denies any pain although she has abrasion. She states abrasion is healing. No other pedal complaints at this time. Patient states no change in medications or medical history since last visit. Objective: Patient [facility] Vasc: DP and PT pulses are faintly palpable bilateral. CFT is less than 5 seconds bilateral. Skin temperature is warm to cool proximal to distal bilateral. There is mild edema or varicosities noted. Neuro: Protective sensation is absent to the foot and toes when tested with the 5.07 SWM bilateral. Vibratory sensation is absent at the hallux IPJ bilateral. The hallux is downgoing bilateral. Derm: Nails 1-5 b/l are painful, discolored-yellow, thick, crumbly, dystrophic and with subungal debris. Skin is of normal turgor, texture and hair growth is decreased bilateral. There are no hyperkeratosis, ulcerations, scars, verruca or other lesions noted. Noninfected abrasion is present to right 4th toe. Ortho: Muscle strength is 5/5 for all pedal groups tested. Ankle joint DF is decreased with the knee extended with no pain or crepitus noted. 1st MPJ ROM is decreased bilateral. Assessment: (B35.1) Onychomycosis (primary encounter diagnosis) (M79.675) Pain in toe of left foot (M79.674) Pain in toe of right foot (E11.49) Other diabetic neurological complication associated with type 2 diabetes mellitus (HCC) (R09.89) Diminished pulses in lower extremity Plan: Patient was seen and evaluated. Nails 1-5 bilateral were debrided in length and thickness. Discussed abrasion of right 4th toe. Continue with neosporin. Will have f/u in 2 weeks for evaluation of this Discussed contusion of toe. Will repeat xrays of right foot. Patient was instructed on the continued importance of diabetic foot care along with proper diet and keeping their blood sugar under control to prevent complications. Patient is to RTC in 3-4 months. Shun Beauchamp DPM AMB ROOMING INTAKE FLOWSHEET DATA Risk Screening Do you have concerns about personal safety or safety in the home?: No Patient presents with: Left Foot - Established Patient, Diabetic Foot Care Right Foot - Established Patient, Diabetic Foot Care documented in this encounter [facility] 10-02-2022 Instructions Shun Beauchamp - 10/02/2022 2:38 PM EST Diabetes Foot Care Instructions When you have diabetes, proper foot care is very important. Poor foot care may lead to amputation of a foot or leg. As a person with diabetes, you are more vulnerable to foot problems, because diabetes can damage your nerves and reduce blood flow to your feet. Here are some diabetes foot care tips to follow: Wash and Dry Your Feet Daily Use mild soaps Use warm water Pat your skin dry; do not rub. Thoroughly dry your feet. After washing, use lotion on your feet to prevent cracking. Do not put lotion between your toes. Examine Your Feet Each Day Check the tops and bottoms of your feet. Have someone else look at your feet if you cannot see them. Check for dry, cracked skin. Look for blisters, cuts, scratches, or other sores. Check for redness, increased warmth, or tenderness when touching any area of your feet. Check for ingrown toenails, corns, and calluses. If you get a blister or sore from your shoes, do not pop it. Apply a bandage and wear a different pair of shoes. Take Care of Your Toenails Cut toenails after bathing, when they are soft. Cut toenails straight across and smooth with a nail file. Avoid cutting into the corners of toes. Do not cut cuticles. If you have neuropathy (or decreased sensation in your feet) a lens edger should always cut your toenails. Be Careful When Exercising Walk and exercise in comfortable shoes. Do not exercise when you have open sores on your feet. Protect Your Feet With Shoes and Socks Never go barefoot. Always protect your feet by wearing shoes or hard-soled slippers or footwear. Avoid shoes with high heels and pointed toes. Avoid shoes that expose your toes or heels (such as open-toed shoes or sandals). These types of shoes increase your risk for injury and potential infections. Try on new footwear with the type of socks you usually wear. Do not wear new shoes for more than an hour at a time. Change your socks daily. Look and feel inside your shoes before putting them on to make sure there are no foreign objects or rough areas. Avoid tight socks. Wear natural-fiber socks (cotton, wool, or a cotton-wool blend). Wear special shoes if your health care provider recommends them. Wear shoes/boots that will protect your feet from various weather conditions (cold, moisture, etc.). Make sure your shoes fit properly. If you have neuropathy (nerve damage), you may not notice that your shoes are too tight. Perform the footwear test described below. Footwear Test Use this simple test to see if your shoes fit correctly: Stand on a piece of paper. (Make sure you are standing and not sitting, because your foot changes shape when you stand.) Trace the outline of your foot. Trace the outline of your shoe. Compare the tracings: Is the shoe too narrow? Is your foot crammed into the shoe? The shoe should be at least 1/2 inch longer than your longest toe and as wide as your foot. Proper Shoe Choices The following types of shoes are best for people with diabetes Closed toes and heels Leather uppers without a seam inside At least 1/2 inch extra space at the end of your longest toe Inside of shoe should be soft with no rough areas Outer sole should be made of stiff material Shoes should be at least as wide as your feet Tips for Foot Care in Diabetes Don't wait to treat a minor foot problem if you have diabetes. Follow your health care provider's guidelines and first aid guidelines. Report foot injuries and infections to your health care provider immediately. Check water temperature with your elbow, not your foot. Do not use a heating pad on your feet. Do not cross your legs. Do not self-treat your corns, calluses, or other foot problems. Go to your health care provider or lens edger to treat these conditions. documented in this encounter [facility] 09-25-2022 History of Presen t illness Narrative POPULATION HEALTH NAVIGATION OUTREACH Action/FYYanet Spoke with Beatriz, She declined appts ANNUAL MEDICARE WELLNESS COLORECTAL CANCER SCREENING due on 11/06/2019 ADVANCE DIRECTIVE DISCUSSION Never done MAMMOGRAM due on 05/27/2022 Pt identified by name and : YES, via phone Outreach Outcome/Action Spoke to patient or caregiver: Patient declined Did you use a PCP flex slot to schedule this appointment? N/A Reason for Outreach Care Gap or Scheduling/Wellness visits Payer: Payor: MEDICARE / Plan: MEDICARE A AND B / Product Type: Medicare / Care Gap Reviewed:: Annual Wellness visit Breast Cancer screening Colorectal Cancer Screening Reminder: Reminder note to check Health Maintenance for items below Health Maintenance items due: HEPATITIS C SCREENING Never done BONE DENSITY Never done COLORECTAL CANCER SCREENING due on 11/06/2019 SHINGRIX VACCINE(2 of 2) due on 11/15/2020 ADVANCE DIRECTIVE DISCUSSION Never done MAMMOGRAM due on 05/27/2022 Message Sent to Practice: No Navigation Signature: Deepti Harper MA September 25, 2022 8:23 AM documented in this encounter [facility] 08-15-2022 History of Presen t illness Narrative Chief Complaint Patient presents with: F/U 3 Month HPI Cora Vasquez is a 72 year old female who presents here today for a 3 month follow up. She was in [place] visiting her son for a few weeks. They did a lot walking. She stated her son took her to every fancy restaurant in [facility] while there. Denies any bowel, Gi, or urinary issues. Hx of UTI's. DM: Admits she has not been checking her BS lately, was on vacation. On current regimen of Actos 30 mg once daily, Amaryl 4 mg 1 tab po once daily and Humulin 23 units at bedtime. Also taking Trulicity but unsure what dosage she is taking, states they just send it to me . Med reconciliation shows possibly 1.5 mg or 3 mg weekly. Admits to neuropathy symptoms in her feet, takes Gabapentin 300 mg 3 pills in the am and 4 tabs at bedtime. Denies any lows. Has seen Pharm in the past. A1c at 7.8. HTN/Edema: Denies checking BP at home. Denies any chest pain, sob or dizziness. Does have edema. On current regimen of Coreg 12.5 mg 0.5 tab po bid, Effient 10 mg daily, Potassium 10 meq 2 pills in the am 3 pills in the pm and Lisinopril 5 mg daily. On current regimen of Bumex 2 mg 2 tabs po once daily and Zaroxolyn 2.5 mg once daily. She feels the swelling has been doing well. Lipids/CAD: Stable on current regimen of Lipitor 80 mg once daily. Does try to watch diet, but admits she is going to start walking for exercise. Depression: Stable on current regimen of Prozac 40 mg daily. Allergies: Takes Claritin 10 mg daily, Flonase Nasal spray and prn Albuterol inhaler. Eyes: She is following with [facility] Dr. Savage. Discussing cataract removal, has them in both eyes. She has noticed the last several days some black spots that are clustered in the eye, no floaters. No eye pain. Hx of falls, feel recently in [place]. Landed on the right side when she fell, hip is bruised, some elbow pain and shoulder pain. She did hit head slightly, no LOC. She uses a cane but still fell, stepped off her son's porch wrong. Did not seek treatment at ER. She stated the fall prior to this recent fall, she stated she was told the neck xray showed 2 compressed neck vertebra. Falls Risk Intake: Patient age 65 or over, unsteady, or was advised to use special equipment to aid ambulation (i.e., cane or walker)? Yes Has the patient had two falls in the past year, or one with injury? Yes Does the patient need to use their hands when pushing up from chair, or hold onto furniture when ambulating at home? Yes Is the patient worried about falling? Yes Please inform patient that answering Yes to one or more of the questions above can increase their risk of falling Patient is at greater risk for falls. Falls Instruction: Teaching document below - reviewed and given to patient [facility] - FALLS Prevention Safety Plan Past medical history, appointments, medications, allergies reviewed. Previous Medical History PAST MEDICAL HISTORY Diagnosis Date Diabetes mellitus (HCC) Neuropathy Previous Surgical History PAST SURGICAL HISTORY Procedure Laterality Date CHOLECYSTECTOMY HYSTERECTOMY PAST SURGICAL HISTORY OF 2017 stent; maker TONSILLECTOMY AND ADENOIDECTOMY HX Family History No family history on file. Patient Allergies ALLERGIES Allergen Reactions Doxycycline Diarrhea Cat Dander Other: See Comments Sneezing, watery eyes Furosemide Other: See Comments Leg cramp Sulfa (Sulfonamide * Other: See Comments Increased sweating Current Medications Current Outpatient Medications on File Prior to Visit Medication Sig metOLazone (ZAROXOLYN) 2.5 mg tablet Take 1 tablet by mouth once daily. gabapentin (NEURONTIN) 300 mg capsule Take 3 capsule in AM and take 4 caps at bedtime for pain FLUoxetine (PROZAC) 40 mg capsule Take 1 capsule by mouth once daily. potassium chloride ER (K-DUR, KLOR-CON) 10 mEq tablet Take 2 pills in AM, 3 pill in PM pioglitazone (ACTOS) 30 mg tablet Take 1 tablet by mouth once daily. lisinopril (ZESTRIL, PRINIVIL) 5 mg tablet Take 1 tablet by mouth once daily. Lancets lancets Test blood sugar(s) 1 times daily. Dx: Type 2 DM - Uncontrolled E11.65 Insulin: No carvedilol (COREG) 12.5 mg tablet Take 0.5 tablets by mouth twice daily. Insulin Syringe-Needle U-100 0.5 mL 31 gauge x 5/16 Use to inject insulin once daily as directed glimepiride (AMARYL) 4 mg tablet Take 1 tablet by mouth daily with breakfast. albuterol HFA (VENTOLIN HFA) 90 mcg/actuation inhaler Inhale 2 Puffs as instructed every 4 hours as needed for wheezing/shortness of breath. insulin NPH injection (HumuLIN N,NovoLIN N) Inject 23 Units subcutaneously daily at bedtime. prasugrel (EFFIENT) 10 mg tab Take 1 tablet by mouth once daily. nitroglycerin sublingual (NITROQUICK) 0.4 mg SL tablet Dissolve 1 tablet under the tongue as needed. for chest pain,every 5 min x3 blood sugar diagnostic (BLOOD GLUCOSE TEST) test strip Test blood sugar(s) 1 times daily. Dx: Type 2 DM - Uncontrolled E11.65 Insulin: No dulaglutide (TRULICITY SUBCUTANEOUS) Inject subcutaneously one time a week. atorvastatin (LIPITOR) 80 mg tablet Take 1 tablet by mouth daily at bedtime. bumetanide (BUMEX) 2 mg tablet Take 2 tablets by mouth once daily. loratadine (CLARITIN) 10 mg tablet Take 1 tablet by mouth once daily. fluticasone (FLONASE) 50 mcg/actuation nasal spray Use 2 Sprays in each nostril once daily. Rinse mouth after use. aspirin 81 mg chewable tablet CHEW AND SWALLOW ONE TABLET BY MOUTH ONCE DAILY WITH A MEAL [id number]-[id number]-[id number] (MULTIVITAMIN 50 PLUS) tab No current facility-administered medications on file prior to visit. Social History Social History Tobacco Use Smoking status: Former Smokeless tobacco: Never Vaping Use Vaping Use: Never used Substance Use Topics Alcohol use: Yes Comment: rarely Drug use: Yes Types: Marijuana EXAM: BP 124/74 Pulse 74 Resp 16 Wt 129.1 kg (284 lb 11.2 oz) BMI 48.87 kg/m General Appearance: Well appearing, alert, in no acute distress, well-hydrated, well nourished. and Morbidly obese. Lungs: Lungs clear to auscultation. No wheezing, rhonchi, rales.. Heart: RRR without murmur, gallop, or rubs. No ectopy. Extremities: no swelling in both legs. Feet: Shoes and socks removed, No deformities, ulcers, calluses, normal distal pulses, and sensitive to 10 gm monofilament Health Maintenance List HEPATITIS C SCREENING Never done BONE DENSITY Never done COLORECTAL CANCER SCREENING due on 11/06/2019 SHINGRIX VACCINE(2 of 2) due on 11/15/2020 ADVANCE DIRECTIVE DISCUSSION Never done DEPRESSION ASSESSMENT Never done COVID-19 VACCINE(5 - Booster for Pfizer series) due on 04/25/2022 MAMMOGRAM due on 05/27/2022 INFLUENZA(1) due on 07/06/2022 DIABETIC FOOT EXAM due on 08/17/2022 HBA1C due on 11/05/2022 LDL CHOLESTEROL due on 11/11/2022 ANNUAL PCP TEAM CHRONIC DISEASE VISIT due on 06/12/2023 BP CONTROLLED (<130/80) due on 06/12/2023 URINE ALBUMIN:CREATININE RATIO due on 06/23/2023 DILATED RETINAL EXAM due on 06/27/2023 DTAP,TDAP,TD(3 - Td or Tdap) due on 01/09/2032 PNEUMOCOCCAL: 65+ Completed Data reviewed Appointment on 06/23/2022 Component Date Value Creatinine, Ur Random (U* 06/23/2022 99.9 Albumin, Urine Random 06/23/2022 <12.0 Albumin/Creat Ratio 06/23/2022 <12 ASSESSMENT/PLAN: 1. Type 2 diabetes mellitus with diabetic neuropathy, without long-term current use of insulin (HCC) - ICD9: 250.60, 357.2, ICD10: E11.40 (primary diagnosis) uncontrolled - Continue current medications 2. Need for influenza vaccination - ICD9: V04.81, ICD10: Z23 - INFLUENZA SEASONAL QUADRIVALENT HIGH DOSE AGE 65+ 3. ASHD (arteriosclerotic heart disease) - ICD9: 414.00, ICD10: I25.10 Continue current medications. 4. Essential hypertension - ICD9: 401.9, ICD10: I10 - good control - Continue current medication(s) - Recommended regular aerobic exercise. - Recommend home blood pressure monitoring, to bring results in on next visit - Goal of BP <130/80 5. Hyperlipidemia, unspecified hyperlipidemia type - ICD9: 272.4, ICD10: E78.5 - good control - Continue current medication. - Encouraged following a low fat, low cholesterol diet. - Discussed the benefits of regular aerobic exercise and weight loss. 6. Osteoarthritis of both hips, unspecified osteoarthritis type - ICD9: 715.95, ICD10: M16.0 Continue current medications. 7. Obesity, Class III, BMI 40-49.9 (morbid obesity) (HCC) - ICD9: 278.01, ICD10: E66.01 Weight increasing Recommend healthy diet and exercise 8. Frequent falls - ICD9: V15.88, ICD10: R29.6 Continue with Cane Advised to be cautious with position changes Follow up in 6 months with fasting labs prior. I agree with the Chief Complaint, ROS, and Past Histories independently gathered by the clinical field support engineer and the remaining scribed note accurately describes my personal service to the patient. Medical Decision Making: Problems: Moderate: 2+ stable chronic illnesses Data: Unique test(s) ordered: 3+ Risk: Moderate: Drug management Medical Decision Making Level: 4 - Moderate Ganga Srivastava MD The documentation for this note was completed by Denise Huerta Ma acting as scribe for Ganga Srivastava MD. August 15, 2022 2:56 PM. Denise Huerta Ma documented in this encounter [facility] 07-14-2022 History of Presen t illness Narrative Episode Visit Count: 4 Therapist That Will Oversee The Plan Of Care: Justin Paz Start of Care Date: 06/14/22 Onset Date: 06/03/22 Plan of Care Certification Date: 06/14/22 Next Certification Due Date: 09/14/22 REHABILITATION AND SPORTS THERAPY PHYSICAL THERAPY PROGRESS REPORT PLAN OF CARE UPDATE: Assessment: Cora Vasquez demonstrates moderate improvement in rising from a chair, standing, and walking. She hasprogressed toward goals. Patient continues to present with impairments in ADL's, balance, independence in exercise, overall function, and strength that interfere with rising from a chair;standing;walking in the community;stair negotiation;heavy exertion . Current prognosis is Good due to: current objective clinical presentation;good overall health status;positive past response to therapy . She will benefit from continued skilled therapy services to meet the updated goals for this plan of care as noted below. Goals updated on 07/14/2022. Goals for Episode of Care: created on 06/14/22 through 09/14/22 Patient will report no falls. Currently met, goal to maintain Improve score on Timed Up and Go Test to 10 seconds to reflect decreased fall risk. Progressing towards Improve score on 30 Second Chair Stand to 10 repetitions to reflect decreased fall risk. Met, goal to increase to 12 Improve performance on 4 Stage Balance Test to 5 seconds in SLS/side to reflect decreased fall risk. Progressing towards Elliott in home exercise program including cardiovascular exercise. Partially met Patient will demonstrate independent and proper use of assisstive device to allow for improved walking quality and safety therefore reducing the risk of falls. Partially met Patient will decrease pain rating by 2 points to meet Minimal Clinical Important Difference for number pain scale rating. Currently met, goal to maintain Planned Interventions, Frequency, and Duration: 1 visit, 6 weeks Total Number of Visits Planned: 1 Patient to be seen for Therapeutic exercise (02774);Neuromuscular re-education (59414);Manual therapy (06089);Therapeutic activities (20588);Self-detention management (84187);Gait Training (59072);Patient/Family/Caregiver Education;Body Mechanics Training PLAN FOR NEXT VISIT: [facility] when pt returns from [place] SUBJECTIVE: Patient Reason for Visit: Pt notes the hands have been doing much better, continues to do neck stretches which has helped. Hard for her to tell if anything is improving strength and/or balance. She still feels balance is off, and does not test it often as not to fall. No falls since starting therapy. Pt will be visiting her son in [place] and likely gone for close to a month. Functional Limitations: rising from a chair;standing;walking in the community;stair negotiation;heavy exertion Pain: Pain Pain Level: 1 Pain Location: Hand - Left;Hand - Right Description: Numbness Frequency: Intermittent PROMIS Scales Higher is Better 08/22/2021 08/27/2021 05/04/2022 Phys Func - Score - 39 (moderate dysfunction) - Phys Func - Percentile - 14 % - Social Roles - Score - 45 (within normal limits) - Social Role - Percentile - 31 % - GH Physical - Score 32.4 (Poor) - 34.9 (Poor) GH Physical - Percentile 4 % - 7 % GH Mental - Score 31.3 (Fair) - 36.3 (Fair) GH Mental - Percentile 3 % - 9 % Self-Eff Symptom - Score - 39 (Low) - Self-Eff Symptom - Percentile - 14 % - T-scores: mean of general population = 50. 5 points is clinically meaningfully difference Percentiles provide an indication of how the patient's score ranks in relation to the general population. Higher percentile rankings indicate better function/quality of life. 50th percentile is the average of the general population and indicates half of respondents had a worse score. Lower is Better 04/28/2021 08/27/2021 Fatigue - Score 57 (mild) 62 (moderate) Fatigue - Percentile 24 % 12 % T-scores: mean of general population = 50. 5 points is clinically meaningfully difference Percentiles provide an indication of how the patient's score ranks in relation to the general population. Higher percentile rankings indicate better function/quality of life. 50th percentile is the average of the general population and indicates half of respondents had a worse score. OBJECTIVE MEASURES WITH LEVEL OF FUNCTION: Functional Performance Test Results 30 Second Chair Stand Test: 10 reps Timed Up and Go (sec): 10.73 sec 4 Stage Balance Test Single leg stance - right (sec): 4 sec Single leg stance - left (sec): 4 sec TREATMENT: Therapeutic Exercise: 1: SciFit setting 11 x5 min 2: Objective measures obtained today (subjective taken at this time) 3: *Step ups onto 3-6 inch step 3x10/side 4: *Seated gastroc and ant tib raises 3x20 5: *Standing gastroc and ant tib raises 3x10 6: *Standing hip abduction 3x10/side 7: *SL hip abduction 3x10/side 8: *Seated marching 3x20/side 9: *Standing marching 3x10/side 10: *Mini squats 3x10 11: *STS 3x10 (no use of arms) Skilled Intervention: Patient was educated in proper exercise technique and purpose for exercises. Skilled judgment was provided in selection of appropriate interventions. Provided written instruction for home exercise program to facilitate proper performance and compliance. Correct performance of therapeutic exercises was facilitated with verbal, visual, and tactile cuing. Patient education as noted. Billing Therapeutic Exercise Treatment Minutes: 39 Total Treatment Time Minutes (timed/untimed): 39 Justin Paz PT documented in this encounter [facility] 06-30-2022 History of Presen t illness Narrative Episode Visit Count: 3 Therapist That Will Oversee The Plan Of Care: Justin Paz Start of Care Date: 06/14/22 Onset Date: 06/03/22 Plan of Care Certification Date: 06/14/22 Next Certification Due Date: 09/14/22 REHABILITATION AND SPORTS THERAPY PHYSICAL THERAPY TREATMENT NOTE ASSESSMENT: Cora Vasquez tolerated the session with decreased symptoms and no issues. She demonstrated improvements in balance performance, with less rest breaks required today. The patient will continue to benefit from ongoing skilled physical therapy to progress toward set goals. PLAN FOR NEXT VISIT: SUBJECTIVE: Patient Reason for Visit: pt has electricity in both hands today Pain: Pain Pain Level: 3 Pain Location: Hand - Left;Hand - Right Description: Numbness (electricity) Frequency: Continuous OBJECTIVE MEASURES WITH LEVEL OF FUNCTION: CGA for all balance exercises TREATMENT: Therapeutic Exercise: 2: SciFit setting 11 x5 min (subjective taken at this time) Skilled Intervention: Patient was educated in proper exercise technique and purpose for exercises. Skilled judgment was provided in selection of appropriate interventions. Provided written instruction for home exercise program to facilitate proper performance and compliance. Correct performance of therapeutic exercises was facilitated with verbal, visual, and tactile cuing. Manual Therapy: 1: Manual cervical traction x10 min with pull to tolerance Skilled Intervention: Manual skills to improve joint mobility, ROM, and decrease pain. Utilized anatomy knowledge of the therapist, and assessment of patient's response to intervention. Neuromuscular Re-Education: 1: Tandem stance on level ground 2x30 sec/side 2: Semi tandem stance on blue airex pad 2x30 sec/side 3: Balance board taps front to back and side to side x20 each way 4: Balance board holds x30 sec each way 5: Step over 2x4 x10/side 6: Step over and back 2x4 x10/side 7: Walk the plank 1x20 ft 8: Side stepping and retro walking 2x20 ft each Skilled Intervention: Skilled judgment used to assess appropriate program for balance and coordination activity. Ensured patient safety with use of gait belt and CGA Billing Therapeutic Exercise Treatment Minutes: 5 Manual TherapyTreatment Minutes: 10 Neuromuscular Re-Education Treatment Minutes: 25 Total Treatment Time Minutes (timed/untimed): 40 Justin Paz PT documented in this encounter [facility] 06-23-2022 History of Presen t illness Narrative Episode Visit Count: 2 Therapist That Will Oversee The Plan Of Care: Justin Paz Start of Care Date: 06/14/22 Onset Date: 06/03/22 Plan of Care Certification Date: 06/14/22 Next Certification Due Date: 09/14/22 REHABILITATION AND SPORTS THERAPY PHYSICAL THERAPY TREATMENT NOTE ASSESSMENT: Cora Vasquez tolerated the session with fatigue and no issues. She demonstrated difficulty with balance and improvements in radicular symptoms into her hands. The patient will continue to benefit from ongoing skilled physical therapy to progress toward set goals. PLAN FOR NEXT VISIT: Continue balance training SUBJECTIVE: Patient Reason for Visit: Electrical sensation in hands is gone, with some intermittent low level numbness. Notes Pain: Pain Pain Level: 1 Pain Location: Hand - Left Description: Numbness Frequency: Intermittent OBJECTIVE MEASURES WITH LEVEL OF FUNCTION: CGA to Freddie balance today TREATMENT: Therapeutic Exercise: 1: *Gastroc stretch 3x30 sec 2: SciFit setting 11 x5 min (subjective taken at this time) Skilled Intervention: Patient was educated in proper exercise technique and purpose for exercises. Skilled judgment was provided in selection of appropriate interventions. Provided written instruction for home exercise program to facilitate proper performance and compliance. Correct performance of therapeutic exercises was facilitated with verbal, visual, and tactile cuing. Neuromuscular Re-Education: 1: Tandem stance on level ground 2x30 sec/side 2: Semi tandem stance on blue airex pad 2x30 sec/side 3: Balance board taps front to back and side to side x20 each way 4: Balance board holds x30 sec each way 5: Step over 2x4 x10/side 6: Step over and back 2x4 x10/side Skilled Intervention: Skilled judgment used to assess appropriate program for balance and coordination activity. Ensured patient safety with use of gait belt Billing Therapeutic Exercise Treatment Minutes: 10 Neuromuscular Re-Education Treatment Minutes: 30 Total Treatment Time Minutes (timed/untimed): 40 Justin Paz PT documented in this encounter [facility] 06-14-2022 History of Presen t illness Narrative Episode Visit Count: 1 Therapist That Will Oversee The Plan Of Care: Justin Paz Start of Care Date: 06/14/22 Onset Date: 06/03/22 Plan of Care Certification Date: 06/14/22 Next Certification Due Date: 09/14/22 Patient Identified by Name and Date of : Yes REHABILITATION AND SPORTS THERAPY PHYSICAL THERAPY EVALUATION PLAN OF CARE: Assessment: Cora Vasquez presents with chief complaint of imbalance, difficulty with walking, shoulder pain, and BUE radicular symptoms that interferes with rising from a chair;standing;walking in the community;stair negotiation;reaching behind back . She presents with impairments in ADL's, balance, gait, overall function, and symptom management. PROMIS (Patient-Reported Outcomes Measurement Information System) scores were reviewed and physical function domain, self efficacy domain , and fatigue domain identified as a rehabilitation concern. Prognosis for therapy is Fair due to: clinical presentation;multiple co- morbidities;chronic nature of impairments;limited tolerance to activity . She will benefit from skilled therapy services to meet the goals established for this plan of care as noted below. Assessment Fall Risk : Complex at risk Goals for Episode of Care: created on 06/14/22 through 09/14/22 Patient will report no falls. Improve score on Timed Up and Go Test to 10 seconds to reflect decreased fall risk. Improve score on 30 Second Chair Stand to 10 repetitions to reflect decreased fall risk. Improve performance on 4 Stage Balance Test to 5 seconds in SLS/side to reflect decreased fall risk. Elliott in home exercise program including cardiovascular exercise. Patient will demonstrate independent and proper use of assisstive device to allow for improved walking quality and safety therefore reducing the risk of falls. Patient will decrease pain rating by 2 points to meet Minimal Clinical Important Difference for number pain scale rating. Planned Interventions, Frequency, and Duration: Current Frequency: 1x/week Duration: 12 weeks Total Number of Visits Planned: 12 Planned Treatment Interventions: Therapeutic exercise (49333);Neuromuscular re-education (41486);Manual therapy (76663);Therapeutic activities (63344);Self-detention management (18560);Patient/Family/Caregiver Education;Gait Training (40891);Body Mechanics Training PLAN FOR NEXT VISIT: Balance training, may try shoulder pulleys, cervical traction as needed Patient demonstrates good understanding of plan of care and treatment. The above goals and plan of care were discussed and agreed upon by patient/family. SUBJECTIVE: Cora Vasquez is a 72 year old female seen today for electrical sensation in B hands, equally, since a fall on 06/03. Tripped on uneven concrete at her daughters. Checked out at the ER, nothing serious. Notes she does feel unsteady on her feet often, especially on grass or uneven surfaces. Also notes L shoulder pain at times as well. Functional Limitations: rising from a chair;standing;walking in the community;stair negotiation;reaching behind back Prior Level of Function: Independent without limitations Intake Information: Prescription present Falls History # of falls in past year: 1 # of falls resulting in an injury in past year: 1 Pain: Pain Pain Level: 4 Pain Location: Hand - Left;Hand - Right Description: Tingling;Other: See comment (electrical, buzzing) Frequency: Intermittent Post Treatment Pain Post Treatment Symptoms: No symptoms in hands PROMIS Scales Higher is Better 08/22/2021 08/27/2021 05/04/2022 Phys Func - Score - 39 (moderate dysfunction) - Phys Func - Percentile - 14 % - Social Roles - Score - 45 (within normal limits) - Social Role - Percentile - 31 % - GH Physical - Score 32.4 (Poor) - 34.9 (Poor) GH Physical - Percentile 4 % - 7 % GH Mental - Score 31.3 (Fair) - 36.3 (Fair) GH Mental - Percentile 3 % - 9 % Self-Eff Symptom - Score - 39 (Low) - Self-Eff Symptom - Percentile - 14 % - T-scores: mean of general population = 50. 5 points is clinically meaningfully difference Percentiles provide an indication of how the patient's score ranks in relation to the general population. Higher percentile rankings indicate better function/quality of life. 50th percentile is the average of the general population and indicates half of respondents had a worse score. Lower is Better 04/28/2021 08/27/2021 Fatigue - Score 57 (mild) 62 (moderate) Fatigue - Percentile 24 % 12 % T-scores: mean of general population = 50. 5 points is clinically meaningfully difference Percentiles provide an indication of how the patient's score ranks in relation to the general population. Higher percentile rankings indicate better function/quality of life. 50th percentile is the average of the general population and indicates half of respondents had a worse score. OBJECTIVE MEASURES WITH LEVEL OF FUNCTION: Cervical Spine ROM Cervical ROM : Limitation AROM Cervical Flexion AROM: Normal Cervical Extension AROM: Minimal limitation Cervical Side-Bend Right AROM: Minimal limitation Cervical Side-Bend Left AROM: Minimal limitation Cervical Rotation Right AROM: Minimal limitation Cervical Rotation Left AROM: Minimal limitation UE AROM R UE AROM: Minimal limitations L UE AROM: Minimal to moderate limitations UE and Cervical Strength R UE Strength: 4+/5 L UE Strength: 4/5 Functional Performance Test Results 30 Second Chair Stand Test: 6 reps Timed Up and Go (sec): 13.55 sec 4 Stage Balance Test Narrow base of support (sec): 10 sec Semi-tandem base of support (sec): 10 sec Tandem base of support (sec): 10 sec Single leg stance - right (sec): 0 sec Single leg stance - left (sec): 0 sec Education: Education Learning/educational needs: Home exercise program;Plan of Care;Changes in Plan of Care;Posture;Body Mechanics;Gait Training TREATMENT: PT Treatment Interventions: Manual Therapy;Therapeutic Exercise Evaluation Therapeutic Exercise: 1: *SLR 3x10/side 2: *SL hip abduction 3x10/side 3: *Seated dorsiflexion 3x20/side 4: *Seated plantarflexion 3x20/side 5: *Standing knee flexion 3x10/side 6: *Standing marching at countertop 3x10/side Skilled Intervention: Patient was educated in proper exercise technique and purpose for exercises. Skilled judgment was provided in selection of appropriate interventions. Provided written instruction for home exercise program to facilitate proper performance and compliance. Correct performance of therapeutic exercises was facilitated with verbal, visual, and tactile cuing. Manual Therapy: 1: Manual cervical traction x10 min with pull to tolerance Skilled Intervention: Manual skills to improve joint mobility, ROM, and decrease pain. Utilized anatomy knowledge of the therapist, and assessment of patient's response to intervention. Billing * Evaluation Low Complexity: 1 Unit Therapeutic Exercise Treatment Minutes: 15 Manual TherapyTreatment Minutes: 10 Total Treatment Time Minutes (timed/untimed): 45 Justin Paz PT documented in this encounter [facility] 06-12-2022 History of Presen t illness Narrative Chief Complaint Patient presents with: Hospital F/U HPI Cora Vasquez is a 72 year old female who presents here today for ER Follow Up. Pt has been seen in [facility] on 06/03/22 due to a fall. Was also seen on 06/11/22 due to a cough. Pt notes that she fell due to catching her toe on uneven concrete while at her daughters. Did hit her head, but no LOC. Went to [facility] ED on 06/03/[address] completed of cervical spine and head; osteophytic impingement at C3-4 and C4-5. Today she notes tingling and electrical shock like pain in her fingertips that cause her discomfort fairly constantly bilaterally. Denies any weakness in hands/arms. Does have a headache intermittently, will use Tylenol. Pt states she tested positive for COVID-19 about 3 weeks ago, was treated with Paxlovid and Cephalexin. She is feeling better other than the continued cough she has. She did go to [facility] ED on 06/11/22 and was given Tessalon Pearls on d/c. Notes that this is helping the cough, was able to sleep some. Below copied for [facility]: HPI History of Present Illness Chief Complaint: Cough Narrative Narrative: Patient presents with a cough that is keeping her up at night, this is been ongoing for 3 weeks. She was diagnosed with COVID she has felt improved except for the cough. She has no shortness of breath. No fevers. She has no back pain or tearing sensation, no chest pain or pleuritic component. No myalgias. The cough is mostly nonproductive except for some clear sputum at times. Chest X-Ray 06/11/22 08:34 IMPRESSION: No acute cardiopulmonary abnormality. No interval change Past medical history, appointments, medications, allergies reviewed. Previous Medical History PAST MEDICAL HISTORY Diagnosis Date Diabetes mellitus (HCC) Neuropathy Previous Surgical History PAST SURGICAL HISTORY Procedure Laterality Date CHOLECYSTECTOMY HYSTERECTOMY PAST SURGICAL HISTORY OF 2017 stent; maker TONSILLECTOMY AND ADENOIDECTOMY HX Family History No family history on file. Patient Allergies ALLERGIES Allergen Reactions Doxycycline Diarrhea Cat Dander Other: See Comments Sneezing, watery eyes Furosemide Other: See Comments Leg cramp Sulfa (Sulfonamide * Other: See Comments Increased sweating Current Medications Current Outpatient Medications on File Prior to Visit Medication Sig Lancets lancets Test blood sugar(s) 1 times daily. Dx: Type 2 DM - Uncontrolled E11.65 Insulin: No carvedilol (COREG) 12.5 mg tablet Take 0.5 tablets by mouth twice daily. Insulin Syringe-Needle U-100 0.5 mL 31 gauge x 5/16 Use to inject insulin once daily as directed glimepiride (AMARYL) 4 mg tablet Take 1 tablet by mouth daily with breakfast. albuterol HFA (VENTOLIN HFA) 90 mcg/actuation inhaler Inhale 2 Puffs as instructed every 4 hours as needed for wheezing/shortness of breath. insulin NPH injection (HumuLIN N,NovoLIN N) Inject 23 Units subcutaneously daily at bedtime. prasugrel (EFFIENT) 10 mg tab Take 1 tablet by mouth once daily. nitroglycerin sublingual (NITROQUICK) 0.4 mg SL tablet Dissolve 1 tablet under the tongue as needed. for chest pain,every 5 min x3 blood sugar diagnostic (BLOOD GLUCOSE TEST) test strip Test blood sugar(s) 1 times daily. Dx: Type 2 DM - Uncontrolled E11.65 Insulin: No dulaglutide (TRULICITY SUBCUTANEOUS) Inject subcutaneously one time a week. atorvastatin (LIPITOR) 80 mg tablet Take 1 tablet by mouth daily at bedtime. bumetanide (BUMEX) 2 mg tablet Take 2 tablets by mouth once daily. loratadine (CLARITIN) 10 mg tablet Take 1 tablet by mouth once daily. metOLazone (ZAROXOLYN) 2.5 mg tablet Take 1 tablet by mouth once daily. gabapentin (NEURONTIN) 300 mg capsule Take 3 capsule in AM and take 4 caps at bedtime for pain FLUoxetine HCl (PROZAC) 40 mg capsule Take 1 capsule by mouth once daily. potassium chloride ER (K-DUR, KLOR-CON) 10 mEq tablet Take 2 pills in AM, 3 pill in PM pioglitazone (ACTOS) 30 mg tablet Take 1 tablet by mouth once daily. lisinopril (ZESTRIL, PRINIVIL) 5 mg tablet Take 1 tablet by mouth once daily. fluticasone (FLONASE) 50 mcg/actuation nasal spray Use 2 Sprays in each nostril once daily. Rinse mouth after use. aspirin 81 mg chewable tablet CHEW AND SWALLOW ONE TABLET BY MOUTH ONCE DAILY WITH A MEAL Lkmvtzpugnwzj-Xzffkbee-Jmbuxj (MULTIVITAMIN 50 PLUS) tab No current facility-administered medications on file prior to visit. Social History Social History Tobacco Use Smoking status: Former Smokeless tobacco: Never Vaping Use Vaping Use: Never used Substance Use Topics Alcohol use: Yes Comment: rarely Drug use: Yes Types: Marijuana EXAM: BP 116/74 (BP Site: Left Arm, BP Position: Sitting, BP Cuff Size: Large Adult) Pulse 76 Resp 16 Wt 124.3 kg (274 lb) BMI 47.03 kg/m General Appearance: Well appearing, alert, in no acute distress, well-hydrated, well nourished. and Obese. Neck: Pain to palpitate neck area. Some pain with ROM during exam. Lungs: Lungs clear to auscultation. No wheezing, rhonchi, rales. Heart: RRR without murmur, gallop, or rubs. No ectopy. Extremities: Tingling/shocking pain located in fingers. Health Maintenance List HEPATITIS C SCREENING Never done BONE DENSITY Never done COLORECTAL CANCER SCREENING due on 11/06/2019 SHINGRIX VACCINE(2 of 2) due on 11/15/2020 ADVANCE DIRECTIVE DISCUSSION Never done URINE ALBUMIN:CREATININE RATIO due on 05/13/2022 MAMMOGRAM due on 05/27/2022 INFLUENZA(1) due on 07/06/2022 DIABETIC FOOT EXAM due on 08/17/2022 DILATED RETINAL EXAM due on 09/07/2022 HBA1C due on 11/05/2022 LDL CHOLESTEROL due on 11/11/2022 DEPRESSION SCREENING due on 05/03/2023 ANNUAL PCP TEAM CHRONIC DISEASE VISIT due on 05/05/2023 BP CONTROLLED (<130/80) due on 05/05/2023 DTAP,TDAP,TD(3 - Td or Tdap) due on 01/09/2032 COVID-19 VACCINE Completed PNEUMOCOCCAL: 65+ Completed Data reviewed [facility] ER reports ASSESSMENT/PLAN: 1. Hospital discharge follow-up - ICD9: V67.59, ICD10: Z09 (primary diagnosis) - Stable today 2. Fall, sequela - ICD9: 909.4, E929.3, ICD10: W19.XXXS - Consults PT 3. DDD (degenerative disc disease), cervical - ICD9: 722.4, ICD10: M50.30 - Pain use OTC tylenol - Consult PT 4. Tingling in extremities - ICD9: 782.0, ICD10: R20.2 - Consult PT 5. Post-COVID chronic cough - ICD9: 786.2, 139.8, ICD10: R05.3, U09.9 - Cont use of Tessalon pearls 6. Type 2 diabetes mellitus with diabetic neuropathy, without long-term current use of insulin (HCC) - ICD9: 250.60, 357.2, ICD10: E11.40 - GABAPENTIN 300 MG CAPSULE - POTASSIUM CHLORIDE ER 10 MEQ TABLET,EXTENDED RELEASE(PART/CRYST) - PIOGLITAZONE 30 MG TABLET 7. Anxiety with depression - ICD9: 300.4, ICD10: F41.8 - FLUOXETINE 40 MG CAPSULE 8. Essential hypertension - ICD9: 401.9, ICD10: I10 - LISINOPRIL 5 MG TABLET 9. ASHD (arteriosclerotic heart disease) - ICD9: 414.00, ICD10: I25.10 - LISINOPRIL 5 MG TABLET 10. Bilateral leg edema - ICD9: 782.3, ICD10: R60.0 Follow up if not improved. I agree with the Chief Complaint, ROS, and Past Histories independently gathered by the clinical field support engineer and the remaining scribed note accurately describes my personal service to the patient. Medical Decision Making: Problems: Moderate: 2+ stable chronic illnesses and New problem with uncertain prognosis Data: Unique test result(s) reviewed: 2 Risk: Moderate: Drug management Medical Decision Making Level: 4 - Moderate Ganga Srivastava MD The documentation for this note was completed by Brielle Nair Ma acting as scribe for Ganga Srivastava MD. June 12, 2022 4:12 PM. Brielle Nair Ma documented in this encounter [facility] 06-09-2022 Miscellaneous Notes The following approved medication requests have been transmitted electronically. Pending Prescriptions Disp Refills PRASUGREL 10 MG TABLET 90 tablet 3 Sig: Take 1 tablet by mouth once daily. JAXSON: No NITROGLYCERIN 0.4 MG SUBLINGUAL TABLET 1 Bottle of 25 3 Sig: Dissolve 1 tablet under the tongue as needed. for chest pain,every 5 min x3 JAXSON: No BLOOD GLUCOSE TEST STRIPS 50 Strip 11 Sig: Test blood sugar(s) 1 times daily. Dx: Type 2 DM - Uncontrolled E11.65 Insulin: No JAXSON: No Morales Dale APRN.JAVA LEAD ENGINEER Patient phones requesting refills as follows: Pending Prescriptions Disp Refills PRASUGREL 10 MG TABLET 90 tablet 3 Sig: Take 1 tablet by mouth once daily. JAXSON: No NITROGLYCERIN 0.4 MG SUBLINGUAL TABLET 1 Bottle of 25 3 Sig: Dissolve 1 tablet under the tongue as needed. for chest pain,every 5 min x3 JAXSON: No BLOOD GLUCOSE TEST STRIPS 50 Strip 11 Sig: Test blood sugar(s) 1 times daily. Dx: Type 2 DM - Uncontrolled E11.65 Insulin: No JAXSON: No DONTRELL-05/05/22 Labs-05/05/22 NOV-08/15/22 Please review and advise. Deanna Cornell LPN documented in this encounter [facility] 06-09-2022 Miscellaneous Notes The following approved medication requests have been transmitted electronically. Pending Prescriptions Disp Refills LANCETS 100 Each 11 Sig: Test blood sugar(s) 1 times daily. Dx: Type 2 DM - Uncontrolled E11.65 Insulin: No JAXSON: No CARVEDILOL 12.5 MG TABLET 90 tablet 3 Sig: Take 0.5 tablets by mouth twice daily. JAXSON: No INSULIN SYRINGE U-100 WITH NEEDLE 0.5 ML 31 GAUGE X 5/16 100 Each 3 Sig: Use to inject insulin once daily as directed JAXSON: No GLIMEPIRIDE 4 MG TABLET 90 tablet 1 Sig: Take 1 tablet by mouth daily with breakfast. JAXSON: No ALBUTEROL SULFATE HFA 90 MCG/ACTUATION AEROSOL INHALER 6.7 g 5 Sig: Inhale 2 Puffs as instructed every 4 hours as needed for wheezing/shortness of breath. JAXSON: No INSULIN NPH ISOPHANE U-100 HUMAN 100 UNIT/ML SUBCUTANEOUS SUSPENSION 10 mL 3 Sig: Inject 23 Units subcutaneously daily at bedtime. JAXSON: No Morales Dale APRN.CEM Patient phones requesting refills as follows: Pending Prescriptions Disp Refills LANCETS 100 Each 11 Sig: Test blood sugar(s) 1 times daily. Dx: Type 2 DM - Uncontrolled E11.65 Insulin: No JAXSON: No CARVEDILOL 12.5 MG TABLET 90 tablet 3 Sig: Take 0.5 tablets by mouth twice daily. JAXSON: No INSULIN SYRINGE U-100 WITH NEEDLE 0.5 ML 31 GAUGE X 5/16 100 Each 3 Sig: Use to inject insulin once daily as directed JAXSON: No GLIMEPIRIDE 4 MG TABLET 90 tablet 1 Sig: Take 1 tablet by mouth daily with breakfast. JAXSON: No ALBUTEROL SULFATE HFA 90 MCG/ACTUATION AEROSOL INHALER 6.7 g 5 Sig: Inhale 2 Puffs as instructed every 4 hours as needed for wheezing/shortness of breath. JAXSON: No INSULIN NPH ISOPHANE U-100 HUMAN 100 UNIT/ML SUBCUTANEOUS SUSPENSION 10 mL 3 Sig: Inject 23 Units subcutaneously daily at bedtime. JAXSON: No DONTRELL-05/05/22 Labs-05/05/22 NOV-08/15/22 Please review and advise. Deanna Cornell LPN documented in this encounter [facility] 06-05-2022 History of Presen t illness Narrative Scan on 06/03/2022 12:42 AM by External Provider: Consultation - Emergency Medicine Scan on 06/03/2022 1:45 AM by External Provider: CT Scan Scan on 06/03/2022 1:50 AM by External Provider: CT Scan [facility] ER report, CT brain and CT cervical spine Denise Huerta Ma documented in this encounter [facility] 05-30-2022 History of Presen t illness Narrative Scan on 05/29/2022 5:14 PM by External Provider: Miscellaneous Clinical Documents [facility] ER report Denise Huerta Ma documented in this encounter [facility] 05-05-2022 History of Presen t illness Narrative Chief Complaint No chief complaint on file. HPI Cora Vasquez is a 72 year old female who presents here today for 3 month follow up. Uses half marijuana gummy daily. No bowel, Gi, or urinary issues. Was seen by [facility] 04/19/22 for dysuria and urethra spasms. UA was positive for maryjo esterase & glucose, culture was done. She was treated with Macrobid 100 mg BID x 7 days and given Pyridium to use prn. DM: Checks sugars once a day with FBS 73 this AM. Taking Amaryl 4 mg daily, Novolin/Humulin N 23 units daily, Actos 30 mg daily. Insulin was decreased last visit from 28 units to 23 units due to hypoglycemic episodes. Does have neuropathy sx in feet, taking Gabapentin 300 mg 3 pills AM, 4 pills PM. Follows with Pharmacist. HTN: Denies checking her BP at home. No chest pains, dizziness, or SOB. Taking Coreg 12.5 mg half pill twice daily, Effient 10 mg daily and Lisinopril 5 mg daily. Lipid & CAD: Taking Lipitor 80 mg daily, tolerating well. Tries to watch diet but no exercise. Allergies; Uses Albuterol inhaler prn for wheezing, Claritin 10 mg daily and Flonase nasal spray. Depression: Is doing better with counseling monthly and Prozac 40 mg daily. Still difficulty with sleeping. Has stress with caring for her son, who had partial foot amputation due to diabetes. Edema: mark legs; stable with Bumex 2 mg 2 pills once daily, Zaroxalyn 2.5 mg daily and Potassium 10 mEq 2 pills in AM, 2 pills in PM. Monitors weight at home. Past medical history, appointments, medications, allergies reviewed. Previous Medical History PAST MEDICAL HISTORY Diagnosis Date Diabetes mellitus (HCC) Neuropathy Previous Surgical History PAST SURGICAL HISTORY Procedure Laterality Date CHOLECYSTECTOMY HYSTERECTOMY PAST SURGICAL HISTORY OF 2017 stent; maker TONSILLECTOMY AND ADENOIDECTOMY HX Family History No family history on file. Patient Allergies ALLERGIES Allergen Reactions Doxycycline Diarrhea Cat Dander Other: See Comments Sneezing, watery eyes Furosemide Other: See Comments Leg cramp Sulfa (Sulfonamide * Other: See Comments Increased sweating Current Medications Current Outpatient Medications on File Prior to Visit Medication Sig nitrofurantoin monohydrate and macrocrystal (MACROBID) 100 mg capsule Take 1 capsule by mouth twice daily with meals for 7 days. phenazopyridine (PYRIDIUM) 200 mg tablet Take 1 tablet by mouth three times daily as needed for up to 10 days. dulaglutide (TRULICITY SUBCUTANEOUS) Inject subcutaneously one time a week. atorvastatin (LIPITOR) 80 mg tablet Take 1 tablet by mouth daily at bedtime. albuterol HFA (VENTOLIN HFA) 90 mcg/actuation inhaler Inhale 2 Puffs as instructed every 4 hours as needed for wheezing/shortness of breath. bumetanide (BUMEX) 2 mg tablet Take 2 tablets by mouth once daily. loratadine (CLARITIN) 10 mg tablet Take 1 tablet by mouth once daily. insulin NPH injection (HumuLIN N,NovoLIN N) Inject 23 Units subcutaneously daily at bedtime. blood sugar diagnostic (BLOOD GLUCOSE TEST) test strip Test blood sugar(s) 1 times daily. Dx: Type 2 DM - Uncontrolled E11.65 Insulin: No metOLazone (ZAROXOLYN) 2.5 mg tablet Take 1 tablet by mouth once daily. gabapentin (NEURONTIN) 300 mg capsule Take 3 capsule in AM and take 4 caps at bedtime for pain glimepiride (AMARYL) 4 mg tablet Take 1 tablet by mouth daily with breakfast. Insulin Syringe-Needle U-100 0.5 mL 31 gauge x 5/16 Use to inject insulin once daily as directed FLUoxetine HCl (PROZAC) 40 mg capsule Take 1 capsule by mouth once daily. potassium chloride ER (K-DUR, KLOR-CON) 10 mEq tablet Take 2 pills in AM, 3 pill in PM pioglitazone (ACTOS) 30 mg tablet Take 1 tablet by mouth once daily. carvedilol (COREG) 12.5 mg tablet Take 0.5 tablets by mouth twice daily. nitroglycerin sublingual (NITROQUICK) 0.4 mg SL tablet Dissolve 1 tablet under the tongue as needed. for chest pain,every 5 min x3 Lancets lancets Test blood sugar(s) 1 times daily. Dx: Type 2 DM - Uncontrolled E11.65 Insulin: No lisinopril (ZESTRIL, PRINIVIL) 5 mg tablet Take 1 tablet by mouth once daily. prasugrel (EFFIENT) 10 mg tab Take 1 tablet by mouth once daily. fluticasone (FLONASE) 50 mcg/actuation nasal spray Use 2 Sprays in each nostril once daily. Rinse mouth after use. aspirin 81 mg chewable tablet CHEW AND SWALLOW ONE TABLET BY MOUTH ONCE DAILY WITH A MEAL Ebffxpgkmlagf-Xudfesss-Soovva (MULTIVITAMIN 50 PLUS) tab No current facility-administered medications on file prior to visit. Social History Social History Tobacco Use Smoking status: Former Smoker Smokeless tobacco: Never Used Vaping Use Vaping Use: Never used Substance Use Topics Alcohol use: Yes Comment: rarely Drug use: Yes Types: Marijuana EXAM: There were no vitals taken for this visit. General Appearance: Well appearing, alert, in no acute distress, well-hydrated, well nourished. and Morbidly obese. Lungs: Lungs clear to auscultation. No wheezing, rhonchi, rales.. Heart: RRR without murmur, gallop, or rubs. No ectopy. Health Maintenance List HEPATITIS C SCREENING Never done BONE DENSITY Never done COLORECTAL CANCER SCREENING due on 11/06/2019 SHINGRIX VACCINE(2 of 2) due on 11/15/2020 ADVANCE DIRECTIVE DISCUSSION Never done URINE ALBUMIN:CREATININE RATIO due on 05/13/2022 MAMMOGRAM due on 05/27/2022 HBA1C due on 08/05/2022 DIABETIC FOOT EXAM due on 08/17/2022 DEPRESSION SCREENING due on 08/22/2022 DILATED RETINAL EXAM due on 09/07/2022 LDL CHOLESTEROL due on 11/11/2022 ANNUAL PCP TEAM CHRONIC DISEASE VISIT due on 04/19/2023 BP CONTROLLED (<130/80) due on 04/19/2023 DTAP,TDAP,TD(3 - Td or Tdap) due on 01/09/2032 INFLUENZA Completed COVID-19 VACCINE Completed PNEUMOCOCCAL: 65+ Completed Data reviewed none ASSESSMENT/PLAN: 1. Type 2 diabetes mellitus with diabetic neuropathy, without long-term current use of insulin (HCC) - ICD9: 250.60, 357.2, ICD10: E11.40 (primary diagnosis) Controlled. - Check HgA1C and CMP - HGB A1C - COMP METABOLIC PANEL 2. ASHD (arteriosclerotic heart disease) - ICD9: 414.00, ICD10: I25.10 3. Essential hypertension - ICD9: 401.9, ICD10: I10 - good control - Continue current medication(s) - Discussed need and benefit for weight loss. - Goal of BP <140/90 4. Hyperlipidemia, unspecified hyperlipidemia type - ICD9: 272.4, ICD10: E78.5 - good control - Continue current medication. Labs today; notify of results Follow up in 3 months Medical Decision Making: Problems: Moderate: 2+ stable chronic illnesses Data: Unique test(s) ordered: 2 Risk: Moderate: Drug management Medical Decision Making Level: 4 - Moderate Ganga Srivastava MD documented in this encounter [facility] 04-19-2022 Instructions Shey Chapman APRN.JAVA LEAD ENGINEER - 04/19/2022 5:46 PM EDT 1.) Start the Macrobid, take twice daily with food. 2.) Increase water intake. 3.) may use pyridium to help urinary burning or spasm, will turn urine orange. 4.) If you develop fever please contact the office. 5.) Urine will be sent off for culture. 6.) Follow up pending test results or sooner as needed. documented in this encounter [facility] 04-19-2022 History of Presen t illness Narrative This is a 72 year old female who presents today with: Patient presents with: UTI HISTORY OF PRESENT ILLNESS: Cora Vasquez is a 72 year old female. Patient presents with: UTI Here in the office for concerns for possible UTI. Dysuria and mild urethra spasms that started 1 week ago. No abdominal pain, vaginal discharge, or fever/chills. Trying to stay well hydrated, drinking about 32 ounces of water per day. Has been trying to cut back on caffinated drinks but refers she has been cutting back. PAST MEDICAL HISTORY: PAST MEDICAL HISTORY Diagnosis Date Diabetes mellitus (HCC) Neuropathy PAST SURGICAL HISTORY Procedure Laterality Date CHOLECYSTECTOMY HYSTERECTOMY PAST SURGICAL HISTORY OF 2017 stent; maker TONSILLECTOMY AND ADENOIDECTOMY HX ALLERGIES Doxycycline, Cat Dander, Furosemide, and Sulfa (Sulfonamide Antibiotics) MEDICATIONS Current Outpatient Medications Medication Sig dulaglutide (TRULICITY SUBCUTANEOUS) Inject subcutaneously one time a week. atorvastatin (LIPITOR) 80 mg tablet Take 1 tablet by mouth daily at bedtime. albuterol HFA (VENTOLIN HFA) 90 mcg/actuation inhaler Inhale 2 Puffs as instructed every 4 hours as needed for wheezing/shortness of breath. bumetanide (BUMEX) 2 mg tablet Take 2 tablets by mouth once daily. loratadine (CLARITIN) 10 mg tablet Take 1 tablet by mouth once daily. insulin NPH injection (HumuLIN N,NovoLIN N) Inject 23 Units subcutaneously daily at bedtime. blood sugar diagnostic (BLOOD GLUCOSE TEST) test strip Test blood sugar(s) 1 times daily. Dx: Type 2 DM - Uncontrolled E11.65 Insulin: No metOLazone (ZAROXOLYN) 2.5 mg tablet Take 1 tablet by mouth once daily. gabapentin (NEURONTIN) 300 mg capsule Take 3 capsule in AM and take 4 caps at bedtime for pain glimepiride (AMARYL) 4 mg tablet Take 1 tablet by mouth daily with breakfast. Insulin Syringe-Needle U-100 0.5 mL 31 gauge x 03/20 Use to inject insulin once daily as directed FLUoxetine HCl (PROZAC) 40 mg capsule Take 1 capsule by mouth once daily. potassium chloride ER (K-DUR, KLOR-CON) 10 mEq tablet Take 2 pills in AM, 3 pill in PM pioglitazone (ACTOS) 30 mg tablet Take 1 tablet by mouth once daily. carvedilol (COREG) 12.5 mg tablet Take 0.5 tablets by mouth twice daily. nitroglycerin sublingual (NITROQUICK) 0.4 mg SL tablet Dissolve 1 tablet under the tongue as needed. for chest pain,every 5 min x3 Lancets lancets Test blood sugar(s) 1 times daily. Dx: Type 2 DM - Uncontrolled E11.65 Insulin: No lisinopril (ZESTRIL, PRINIVIL) 5 mg tablet Take 1 tablet by mouth once daily. prasugrel (EFFIENT) 10 mg tab Take 1 tablet by mouth once daily. fluticasone (FLONASE) 50 mcg/actuation nasal spray Use 2 Sprays in each nostril once daily. Rinse mouth after use. aspirin 81 mg chewable tablet CHEW AND SWALLOW ONE TABLET BY MOUTH ONCE DAILY WITH A MEAL Mgoqncsvdhuyg-Lmqckbkn-Lowhmo (MULTIVITAMIN 50 PLUS) tab No current facility-administered medications for this visit. No family history on file. Social History Tobacco Use Smoking status: Former Smoker Smokeless tobacco: Never Used Vaping Use Vaping Use: Never used Substance Use Topics Alcohol use: Yes Comment: rarely Drug use: Yes Types: Marijuana REVIEW OF SYSTEMS GENERAL: No weight loss, malaise or fevers/chills HEENT: Negative for frequent or significant headaches, No changes in hearing or vision. NECK: Negative for lumps, goiter, pain and significant neck swelling RESPIRATORY: Negative for cough, hemoptysis, wheezing, dyspnea or shortness of breath CARDIOVASCULAR: Negative for chest pain, leg swelling, orthopnea, or palpitations GI: No nausea, vomiting, or diarrhea/constipation. No hematochezia/melena. No heartburn or reflux symptoms. :+ Dysuria MUSCULOSKELETAL: Negative for joint pain or swelling. SKIN: Negative for lesions, rash, and itching ENDOCRINE: Negative for cold or heat intolerance, polyuria, polydipsia and goiter NEURO: No history of headaches, syncope, paralysis, seizures or tremors MOOD: Negative for depression, anxiety, or suicidal ideation. EXAM: BP 116/64 Pulse 72 Temp 37.4 C (99.3 F) (Left Tympanic) Resp 18 Wt 124.8 kg (275 lb 3.2 oz) BMI 47.24 kg/m PHYSICAL EXAM: General Appearance: Well appearing, alert, in no acute distress, well-hydrated, well nourished. Skin: Skin color, texture, turgor normal, no suspicious rashes or lesions. Head: Normocephalic, no masses, lesions, tenderness or abnormalities. Eyes: Anicteric sclera. Extraocular movements are intact. Lungs: Lungs clear to auscultation. No wheezing, rhonchi, rales. Heart: RRR without murmur, gallop, or rubs. No ectopy. Extremities: No deformities, edema, skin discoloration, clubbing or cyanosis. Good capillary refill. Peripheral Pulses: Normal, Capillary refill <2secs, strong peripheral pulses, Pulses palpable. UA: + Leuks and glucose. ASSESSMENT/PLAN: 1. Dysuria - ICD9: 788.1, ICD10: R30.0 Acute - UTI Vs. interstitial cystitis? - UA positive for maryjo esterase and glucose - Send urine for culture - Begin treatment with Macrobid 100 mg BID for 7 days - Patient education for prevention given - UA DIP, URINE (POC) - URINE CULTURE - NITROFURANTOIN MONOHYDRATE & MACROCRYSTAL 100 MG ORAL CAP - PYRIDIUM Follow-up as needed or sooner if symptoms get worse do not improve. Discussed treatment plan and patient voices understanding. Patient's questions answered appropriately. Medications and potential side effects were discussed and patient voices understanding. Shey Chapman APRN.CEM This note was partially generated using [employer] voice recognition system. Note was reviewed for accuracy. There may be minor misspellings or grammar miscues with [employer] voice recognition. documented in this encounter [facility] 04-04-2022 History of Presen t illness Narrative This office note has been dictated. Deb Neely DO documented in this encounter [facility] 03-21-2022 History of Presen t illness Narrative Images from the original note were not included. [facility] [place] DEPARTMENT OF VASCULAR SURGERY OUTPATIENT VISIT DATE March 21, 2022 OUTPATIENT VISIT TYPE CONSULTATION SERVICE DATE: 03/21/2022 SERVICE TIME: 8:50 AM PRIMARY CARE PHYSICIAN: Ganga Srivastava MD REFERRING PROVIDER: Shey Chapman [address] [facility] [id number] Consult requested for an opinion regarding the evaluation and treatment of the above. My final impression and recommendations will be communicated back to the requesting physician by way of the shared medical record or letter via US mail. CHIEF COMPLAINT: Patient presents with: New Patient History of Present Illness: Patient is a 72 year old White female presenting for consultation, evaluation and possible treatment of varicose veins, leg edema and leg pain.bilateral aching, throbbing and heaviness. Predisposing factors included not significant. No specific history of injury or prior problems. Relieving factors include support hose, elevation of legs and reduced activity with mild improvement in symptoms. Patient denies DVT, phlebitis and treatment with blood thinners. PAIN ASSESSMENT: PAIN EVALUATION 03/21/2022 0841 Pain Level: 2 Pain Location: Leg-Right bilaterally Description: Aching;Dull;Shooting Frequency: Continuous Intervention/Comfort measure: Medication;Reposition;Pillow support Comments: gabapentin Obstetric History No data available Duration of Symptoms: Progressive PREVIOUS TESTS: None CARDIOVASCULAR RISK FACTORS: Diabetes PAST MEDICAL HISTORY Diagnosis Date Diabetes mellitus (HCC) Neuropathy PAST SURGICAL HISTORY Procedure Laterality Date CHOLECYSTECTOMY HYSTERECTOMY PAST SURGICAL HISTORY OF 2017 stent; maker TONSILLECTOMY AND ADENOIDECTOMY HX SOCIAL HISTORY: Social History Tobacco Use Smoking status: Former Smoker Smokeless tobacco: Never Used Vaping Use Vaping Use: Never used Substance Use Topics Alcohol use: Yes Comment: rarely Drug use: Yes Types: Marijuana No family history on file. MEDICATIONS: dulaglutide (TRULICITY SUBCUTANEOUS) Inject subcutaneously one time a week. triamcinolone acetonide (KENALOG) 0.1 % cream Apply 1 application to affected area three times daily for 12 days. Apply sparingly to area for rash/itching. atorvastatin (LIPITOR) 80 mg tablet Take 1 tablet by mouth daily at bedtime. albuterol HFA (VENTOLIN HFA) 90 mcg/actuation inhaler Inhale 2 Puffs as instructed every 4 hours as needed for wheezing/shortness of breath. bumetanide (BUMEX) 2 mg tablet Take 2 tablets by mouth once daily. loratadine (CLARITIN) 10 mg tablet Take 1 tablet by mouth once daily. insulin NPH injection (HumuLIN N,NovoLIN N) Inject 23 Units subcutaneously daily at bedtime. blood sugar diagnostic (BLOOD GLUCOSE TEST) test strip Test blood sugar(s) 1 times daily. Dx: Type 2 DM - Uncontrolled E11.65 Insulin: No metOLazone (ZAROXOLYN) 2.5 mg tablet Take 1 tablet by mouth once daily. gabapentin (NEURONTIN) 300 mg capsule Take 3 capsule in AM and take 4 caps at bedtime for pain glimepiride (AMARYL) 4 mg tablet Take 1 tablet by mouth daily with breakfast. Insulin Syringe-Needle U-100 0.5 mL 31 gauge x /16 Use to inject insulin once daily as directed FLUoxetine HCl (PROZAC) 40 mg capsule Take 1 capsule by mouth once daily. potassium chloride ER (K-DUR, KLOR-CON) 10 mEq tablet Take 2 pills in AM, 3 pill in PM pioglitazone (ACTOS) 30 mg tablet Take 1 tablet by mouth once daily. carvedilol (COREG) 12.5 mg tablet Take 0.5 tablets by mouth twice daily. nitroglycerin sublingual (NITROQUICK) 0.4 mg SL tablet Dissolve 1 tablet under the tongue as needed. for chest pain,every 5 min x3 Lancets lancets Test blood sugar(s) 1 times daily. Dx: Type 2 DM - Uncontrolled E11.65 Insulin: No lisinopril (ZESTRIL, PRINIVIL) 5 mg tablet Take 1 tablet by mouth once daily. prasugrel (EFFIENT) 10 mg tab Take 1 tablet by mouth once daily. fluticasone (FLONASE) 50 mcg/actuation nasal spray Use 2 Sprays in each nostril once daily. Rinse mouth after use. aspirin 81 mg chewable tablet CHEW AND SWALLOW ONE TABLET BY MOUTH ONCE DAILY WITH A MEAL Matmgwmxzesiz-Rxmbpcla-Yxpmlm (MULTIVITAMIN 50 PLUS) tab ALLERGIES: ALLERGIES Allergen Reactions Doxycycline Diarrhea Cat Dander Other: See Comments Sneezing, watery eyes Furosemide Other: See Comments Leg cramp Sulfa (Sulfonamide * Other: See Comments Increased sweating REVIEW of SYSTEMS: Constitutional: No weight loss, malaise or fevers. HEENT: Negative for frequent or significant headaches Respiratory: Negative for shortness of breath and chest pain Cardiovascular: Negative for chest pain, leg swelling or palpitations Musculoskeletal: Negative for joint pain or swelling, back pain or muscle pain Endocrine: Negative for cold or heat intolerance, polyuria, polydipsia and goiter Hematology/Lymphatic: Negative for prolonged bleeding, bruising easily or swollen nodes Neurologic: No history or headaches, syncope, paralysis, seizures or tremors Integumentary: Negative for lesions, rash, and itching. PHYSICAL EXAM: VITALS: BP 117/59 Pulse 64 Ht 5' 4 (1.63m) Wt 270 lb (122.5kg) SpO2 95% BMI 46.32 kg/(m^2). General: Alert, oriented, cooperative, healthy appearance Integumentary: Normal color, no rash, no lesions. HEENT: EOM, pupils equal, round and reactive. Cardiovascular: Pulse regular. Lungs: No chest deformities or chest wall tenderness. Abdomen: Not examined Extremities: edema, stasis dermatitis Neurological: AAOx3. Normal cognition and motor skills. Vascular: Dorsalis Pedal Right: Weak - Left: Weak Diagnostic tests reviewed for today's visit: Most recent labs Most recent imaging PVRs- normal bialterally IMPRESSION: Ms. Vasquez is a 72 year old female Venous insufficiency, stasis dermatitis, . PLAN and RECOMMENDATIONS: Discussed venous pathology with patient Recommend trial of compression stockings, elevation and exercise Will get venous reflux testing and follow up to discuss results Prescription provided for compression stockings 20-30 mmHg and instructed on use SIGNATURE: Deb Neely DO PATIENT NAME: Cora Vasquez DATE: March 21, 2022 TIME: 8:50 AM documented in this encounter [facility] 03-13-2022 Instructions Shey Chapman APRN.JAVA LEAD ENGINEER - 03/13/2022 1:17 PM EDT 1.) Schedule appointment with Vascular (Dr. Neely) 2.) Use steroid cream to the rash for the next 12 days. 3.) Follow up as needed or sooner if symptoms get worse. documented in this encounter [facility] 03-13-2022 History of Presen t illness Narrative This is a 72 year old female who presents today with: Patient presents with: Acute Visit: welts, left leg HISTORY OF PRESENT ILLNESS: Cora Vasquez is a 72 year old female. Patient presents with: Acute Visit: welts, left leg Here in the office for concerns of skin lesions on the left leg. Cut weeds over the weekend and woke up today with bilister and welts on the left leg. Refers it is not itchy or painful. No other rashes or skin lesion. No fever or chills. PAST MEDICAL HISTORY: PAST MEDICAL HISTORY Diagnosis Date Diabetes mellitus (HCC) Neuropathy PAST SURGICAL HISTORY Procedure Laterality Date CHOLECYSTECTOMY HYSTERECTOMY PAST SURGICAL HISTORY OF 2017 stent; maker TONSILLECTOMY AND ADENOIDECTOMY HX ALLERGIES Doxycycline, Cat Dander, Furosemide, and Sulfa (Sulfonamide Antibiotics) MEDICATIONS Current Outpatient Medications Medication Sig atorvastatin (LIPITOR) 80 mg tablet Take 1 tablet by mouth daily at bedtime. albuterol HFA (VENTOLIN HFA) 90 mcg/actuation inhaler Inhale 2 Puffs as instructed every 4 hours as needed for wheezing/shortness of breath. bumetanide (BUMEX) 2 mg tablet Take 2 tablets by mouth once daily. loratadine (CLARITIN) 10 mg tablet Take 1 tablet by mouth once daily. insulin NPH injection (HumuLIN N,NovoLIN N) Inject 23 Units subcutaneously daily at bedtime. blood sugar diagnostic (BLOOD GLUCOSE TEST) test strip Test blood sugar(s) 1 times daily. Dx: Type 2 DM - Uncontrolled E11.65 Insulin: No metOLazone (ZAROXOLYN) 2.5 mg tablet Take 1 tablet by mouth once daily. gabapentin (NEURONTIN) 300 mg capsule Take 3 capsule in AM and take 4 caps at bedtime for pain glimepiride (AMARYL) 4 mg tablet Take 1 tablet by mouth daily with breakfast. Insulin Syringe-Needle U-100 0.5 mL 31 gauge x /16 Use to inject insulin once daily as directed FLUoxetine HCl (PROZAC) 40 mg capsule Take 1 capsule by mouth once daily. potassium chloride ER (K-DUR, KLOR-CON) 10 mEq tablet Take 2 pills in AM, 3 pill in PM pioglitazone (ACTOS) 30 mg tablet Take 1 tablet by mouth once daily. carvedilol (COREG) 12.5 mg tablet Take 0.5 tablets by mouth twice daily. nitroglycerin sublingual (NITROQUICK) 0.4 mg SL tablet Dissolve 1 tablet under the tongue as needed. for chest pain,every 5 min x3 Lancets lancets Test blood sugar(s) 1 times daily. Dx: Type 2 DM - Uncontrolled E11.65 Insulin: No lisinopril (ZESTRIL, PRINIVIL) 5 mg tablet Take 1 tablet by mouth once daily. prasugrel (EFFIENT) 10 mg tab Take 1 tablet by mouth once daily. fluticasone (FLONASE) 50 mcg/actuation nasal spray Use 2 Sprays in each nostril once daily. Rinse mouth after use. aspirin 81 mg chewable tablet CHEW AND SWALLOW ONE TABLET BY MOUTH ONCE DAILY WITH A MEAL Bqlzniaekshbx-Incxcapr-Brzfga (MULTIVITAMIN 50 PLUS) tab No current facility-administered medications for this visit. No family history on file. Social History Tobacco Use Smoking status: Former Smoker Smokeless tobacco: Never Used Vaping Use Vaping Use: Never used Substance Use Topics Alcohol use: Yes Comment: rarely Drug use: Yes Types: Marijuana REVIEW OF SYSTEMS GENERAL: No weight loss, malaise or fevers/chills HEENT: Negative for frequent or significant headaches, No changes in hearing or vision. NECK: Negative for lumps, goiter, pain and significant neck swelling RESPIRATORY: Negative for cough, hemoptysis, wheezing, dyspnea or shortness of breath CARDIOVASCULAR: Negative for chest pain, leg swelling, orthopnea, or palpitations GI: No nausea, vomiting, or diarrhea/constipation. No hematochezia/melena. No heartburn or reflux symptoms. : No history of dysuria, frequency or incontinence MUSCULOSKELETAL: Negative for joint pain or swelling. SKIN: + Blister left leg ENDOCRINE: Negative for cold or heat intolerance, polyuria, polydipsia and goiter NEURO: No history of headaches, syncope, paralysis, seizures or tremors MOOD: Negative for depression, anxiety, or suicidal ideation. EXAM: BP 100/62 Pulse 65 Resp 16 Wt 122.9 kg (271 lb) SpO2 99% BMI 46.52 kg/m PHYSICAL EXAM: General Appearance: Well appearing, alert, in no acute distress, well-hydrated, well nourished. Skin: Positives: Rash: erythema and blisters noted on left flood. Mild swelling. Head: Normocephalic, no masses, lesions, tenderness or abnormalities. Eyes: Anicteric sclera. Extraocular movements are intact. Lungs: Lungs clear to auscultation. No wheezing, rhonchi, rales. Heart: RRR without murmur, gallop, or rubs. No ectopy. Extremities: No deformities, edema, skin discoloration, clubbing or cyanosis. Good capillary refill. Peripheral Pulses: Normal, Capillary refill <2secs, strong peripheral pulses, Pulses palpable. ASSESSMENT/PLAN: 1. Contact dermatitis, unspecified contact dermatitis type, unspecified trigger - ICD9: 692.9, ICD10: L25.9 (primary diagnosis) - Topical steriod tx with Rx for steriod cream/ointment- see orders - discussed skin care of rash - follow up if symptoms persist or worsen. - TRIAMCINOLONE ACETONIDE 0.1 % TOPICAL CREAM 2. Venous stasis dermatitis of both lower extremities - ICD9: 454.1, ICD10: I87.2 - Due to history of venous stasis would like referral to vascular medicine. - CONSULT TO VASCULAR MEDICINE Follow up as needed or sooner if symptoms get worse or do not improve. Discussed treatment plan and patient voices understanding. Patient's questions answered appropriately. Medications and potential side effects were discussed and patient voices understanding. Shey Chapman APRN.CEM This note was partially generated using [employer] voice recognition system. Note was reviewed for accuracy. There may be minor misspellings or grammar miscues with [employer] voice recognition. documented in this encounter [facility] 02-13-2022 Miscellaneous Notes The following approved medication requests have been transmitted electronically. Pending Prescriptions Disp Refills ATORVASTATIN 80 MG TABLET 90 tablet 3 Sig: Take 1 tablet by mouth daily at bedtime. JAXSON: No Morales Dale APRN.JAVA LEAD ENGINEER Patient phones requesting refills as follows: Pending Prescriptions Disp Refills ATORVASTATIN 80 MG TABLET 90 tablet 3 Sig: Take 1 tablet by mouth daily at bedtime. JAXSON: No DONTRELL-02/03/22 Labs-02/03/22 NOV-none Please review and advise. Deanna Cornell LPN documented in this encounter [facility] 02-03-2022 History of Presen t illness Narrative Chief Complaint Patient presents with: F/U 3 Month HPI Cora Vasquez is a 71 year old female who presents here today for 3 month follow up. Still using half a marijuana gummie per day. Denies any falls but admits to being a little off balance in the mornings. Denies any bowel, Gi, or urinary concerns. Allergies: uses Flonase nasal spray and taking Claritin 10 mg daily. She states she has been out of the Claritin. She also needs refill on Albuterol inhaler due to the Wheezing. She got a new cat a week ago which she is allergic to. HTN: Denies checking BP at home, no chest pains, dizziness, or SOB. Takes Effient 10 mg daily, Lisinopril 5 mg daily and Coreg 12.5 mg half pill bid. Lipid/CAD: Tries to watch diet, denies exercise. Taking Lipitor 80 mg daily. DM: Checks BS once daily, readings was 56 this morning, she had some spotty vision. States she has lows most mornings.. Has neuropathy in feet which is controlled with Gabapentin 300 mg 3 pill Am, 4 pills PM. Following with pharmacist Maddison Garay. Current regimen of Amaryl 4 mg daily, Novolin/Humulin N 28 units daily, Actos 30 mg daily. Edema: mark legs, controlled with Zaroxalyn 2.5 mg daily, Bumex 2 mg, 2 pills once daily, and Potassium 10 mEq 2 pills AM, 3 pill PM. She does weight herself at home. She admits to gaining some weight and having some wheezing because she has a cat which she is allergic too and being out of here water pills for a few days. She states that she is getting sores on her legs from swelling. She is having pain in the legs due to the fluid retention. Depression: Doing counseling monthly, taking Prozac 40 mg daily. Still has trouble sleeping. Past medical history, appointments, medications, allergies reviewed. Previous Medical History PAST MEDICAL HISTORY Diagnosis Date Diabetes mellitus (HCC) Neuropathy Previous Surgical History PAST SURGICAL HISTORY Procedure Laterality Date CHOLECYSTECTOMY HYSTERECTOMY PAST SURGICAL HISTORY OF 2017 stent; maker TONSILLECTOMY AND ADENOIDECTOMY HX Family History No family history on file. Patient Allergies ALLERGIES Allergen Reactions Doxycycline Diarrhea Cat Dander Other: See Comments Sneezing, watery eyes Furosemide Other: See Comments Leg cramp Sulfa (Sulfonamide * Other: See Comments Increased sweating Current Medications Current Outpatient Medications on File Prior to Visit Medication Sig insulin NPH injection (HumuLIN N,NovoLIN N) Inject 28 Units subcutaneously daily at bedtime. blood sugar diagnostic (BLOOD GLUCOSE TEST) test strip Test blood sugar(s) 1 times daily. Dx: Type 2 DM - Uncontrolled E11.65 Insulin: No metOLazone (ZAROXOLYN) 2.5 mg tablet Take 1 tablet by mouth once daily. gabapentin (NEURONTIN) 300 mg capsule Take 3 capsule in AM and take 4 caps at bedtime for pain glimepiride (AMARYL) 4 mg tablet Take 1 tablet by mouth daily with breakfast. Insulin Syringe-Needle U-100 0.5 mL 31 gauge x 5/16 Use to inject insulin once daily as directed bumetanide (BUMEX) 2 mg tablet Take 1 tablet by mouth once daily. (Patient taking differently: Take 4 mg by mouth once daily. ) FLUoxetine HCl (PROZAC) 40 mg capsule Take 1 capsule by mouth once daily. potassium chloride ER (K-DUR, KLOR-CON) 10 mEq tablet Take 2 pills in AM, 3 pill in PM pioglitazone (ACTOS) 30 mg tablet Take 1 tablet by mouth once daily. carvedilol (COREG) 12.5 mg tablet Take 0.5 tablets by mouth twice daily. nitroglycerin sublingual (NITROQUICK) 0.4 mg SL tablet Dissolve 1 tablet under the tongue as needed. for chest pain,every 5 min x3 albuterol HFA (VENTOLIN HFA) 90 mcg/actuation inhaler Inhale 2 Puffs as instructed every 4 hours as needed for Wheezing/Shortness of Breath. Lancets lancets Test blood sugar(s) 1 times daily. Dx: Type 2 DM - Uncontrolled E11.65 Insulin: No atorvastatin (LIPITOR) 80 mg tablet Take 1 tablet by mouth daily at bedtime. lisinopril (ZESTRIL, PRINIVIL) 5 mg tablet Take 1 tablet by mouth once daily. prasugrel (EFFIENT) 10 mg tab Take 1 tablet by mouth once daily. fluticasone (FLONASE) 50 mcg/actuation nasal spray Use 2 Sprays in each nostril once daily. Rinse mouth after use. loratadine (CLARITIN) 10 mg tablet Take 1 tablet by mouth once daily. aspirin 81 mg chewable tablet CHEW AND SWALLOW ONE TABLET BY MOUTH ONCE DAILY WITH A MEAL Rezzcrfrfgwog-Eghhxjqs-Ldlvrj (MULTIVITAMIN 50 PLUS) tab No current facility-administered medications on file prior to visit. Social History Social History Tobacco Use Smoking status: Former Smoker Smokeless tobacco: Never Used Vaping Use Vaping Use: Never used Substance Use Topics Alcohol use: Yes Comment: rarely Drug use: Yes Types: Marijuana EXAM: BP 128/74 Pulse 74 Resp 18 Wt 134.1 kg (295 lb 9.6 oz) BMI 50.74 kg/m General Appearance: Well appearing, alert, in no acute distress, well-hydrated, well nourished. and Morbidly obese. Lungs: Lungs clear to auscultation. No wheezing, rhonchi, rales.. Heart: RRR without murmur, gallop, or rubs. No ectopy. Ext Mild edema, erythema and venous stasis changes mark anterior shins. Health Maintenance List HEPATITIS C SCREENING Never done BONE DENSITY Never done COLORECTAL CANCER SCREENING due on 11/06/2019 SHINGRIX VACCINE(2 of 2) due on 11/15/2020 ADVANCE DIRECTIVE DISCUSSION Never done HBA1C due on 05/11/2022 URINE ALBUMIN:CREATININE RATIO due on 05/13/2022 MAMMOGRAM due on 05/27/2022 DIABETIC FOOT EXAM due on 08/17/2022 DEPRESSION SCREENING due on 08/22/2022 DILATED RETINAL EXAM due on 09/07/2022 LDL CHOLESTEROL due on 11/11/2022 ANNUAL PCP TEAM CHRONIC DISEASE VISIT due on 11/25/2022 BP CONTROLLED (<130/80) due on 11/25/2022 DTAP,TDAP,TD(3 - Td or Tdap) due on 01/09/2032 INFLUENZA Completed PNEUMOVAX AGE 65 AND OVER WITH 5YR LOOKBACK Completed COVID-19 VACCINE Completed MENINGOCOCCAL CONJUGATE Aged Out Data reviewed none ASSESSMENT/PLAN: 1. Type 2 diabetes mellitus with diabetic neuropathy, without long-term current use of insulin (HCC) - ICD9: 250.60, 357.2, ICD10: E11.40 (primary diagnosis) Controlled. - Continue current medications - Decrease NPH Insulin 23 units - BASIC METABOLIC PNL - HGB A1C - INSULIN NPH ISOPHANE U-100 HUMAN 100 UNIT/ML SUBCUTANEOUS SUSPENSION 2. Obesity, Class III, BMI 40-49.9 (morbid obesity) (HCC) - ICD9: 278.01, ICD10: E66.01 3. ASHD (arteriosclerotic heart disease) - ICD9: 414.00, ICD10: I25.10 4. Essential hypertension - ICD9: 401.9, ICD10: I10 - good control - Continue current medication(s) - Discussed need and benefit for weight loss. - Goal of BP <140/90 5. Hyperlipidemia, unspecified hyperlipidemia type - ICD9: 272.4, ICD10: E78.5 6. Bilateral leg edema - ICD9: 782.3, ICD10: R60.0 Continue current medications. Check BMP and A1c today; notify of results Follow up in 3 months I agree with the Chief Complaint, ROS, and Past Histories independently gathered by the clinical field support engineer and the remaining scribed note accurately describes my personal service to the patient. Medical Decision Making: Problems: Moderate: 2+ stable chronic illnesses Data: Unique test(s) ordered: 2 Risk: Moderate: Drug management Medical Decision Making Level: 4 - Moderate Ganga Srivastava MD The documentation for this note was completed by Denise Huerta Ma acting as scribe for Ganga Srivastava MD. February 03, 2022 9:00 AM. Denise Huerta Ma documented in this encounter [place] [id number] Miscellaneous Notes Typically these are scheduled as a nurse visit and they have props to show patient how to give insulin injection. Can this be rescheduled for [place]? Patient reports she picked up insulin vial and syringe Rx from [facility], but was not shown how to give herself insulin. Reports she has given herself injections in the abdomen before but not insulin. She feels confident she can do it, once has been shown how to draw it up. Scheduled same day appt. Patient spoke with Maddison Garay on 08-16-21. NPH 18 units daily at bedtime. Prescribed by John Paul Washburn. documented in this encounter [facility] Diagnosis Contact dermatitis, unspecified contact dermatitis type, unspecified trigger- Primary Venous stasis dermatitis of both lower extremities [facility] Diagnosis Venous (peripheral) insufficiency- Primary Unspecified venous (peripheral) insufficiency Venous stasis dermatitis of both lower extremities Venous ulcer of right leg (HCC) Peripheral arterial disease (HCC) Peripheral vascular disease, unspecified Symptomatic varicose veins of both lower extremities Varicose veins of lower extremities with other complications [facility] Diagnosis Venous stasis dermatitis of both lower extremities- Primary Venous (peripheral) insufficiency Unspecified venous (peripheral) insufficiency [facility] Diagnosis Dysuria- Primary [facility]* Diagnosis Type 2 diabetes mellitus with diabetic neuropathy, without long-term current use of insulin (HCC)- Primary ASHD (arteriosclerotic heart disease) Coronary atherosclerosis of unspecified type of vessel, saxman or graft Essential hypertension Unspecified essential hypertension Hyperlipidemia, unspecified hyperlipidemia type [facility]* Diagnosis Type 2 diabetes mellitus with diabetic neuropathy, without long-term current use of insulin ([facility]) [facility] Diagnosis Essential hypertension Unspecified essential hypertension ASHD (arteriosclerotic heart disease) Coronary atherosclerosis of unspecified type of vessel, saxman or graft Type 2 diabetes mellitus with diabetic neuropathy, without long-term current use of insulin ([facility]) [facility] Hospital discharge follow-up- Primary Other follow-up examination Fall, sequela DDD (degenerative disc disease), cervical Degeneration of cervical intervertebral disc Tingling in extremities Disturbance of skin sensation Post-COVID chronic cough Type 2 diabetes mellitus with diabetic neuropathy, without long-term current use of insulin (HCC) Anxiety with depression Essential hypertension Unspecified essential hypertension ASHD (arteriosclerotic heart disease) Coronary atherosclerosis of unspecified type of vessel, saxman or graft Bilateral leg edema Edema [facility] Diagnosis Frequent falls- Primary Personal history of fall [facility] Diagnosis Frequent falls- Primary Personal history of fall Generalized weakness Other malaise and fatigue Osteoarthritis of both hips, unspecified osteoarthritis type [facility] Diagnosis Frequent falls- Primary Personal history of fall Generalized weakness Other malaise and fatigue Osteoarthritis of both hips, unspecified osteoarthritis type [facility]* Diagnosis Encounter for screening mammogram for breast cancer [facility] Diagnosis Frequent falls- Primary Personal history of fall Generalized weakness Other malaise and fatigue Osteoarthritis of both hips, unspecified osteoarthritis type [facility]* Diagnosis Type 2 diabetes mellitus with diabetic neuropathy, without long-term current use of insulin ([facility])- Primary Need for influenza vaccination Need for prophylactic vaccination and inoculation against influenza ASHD (arteriosclerotic heart disease) Coronary atherosclerosis of unspecified type of vessel, saxman or graft Essential hypertension Unspecified essential hypertension Hyperlipidemia, unspecified hyperlipidemia type Osteoarthritis of both hips, unspecified osteoarthritis type Obesity, Class III, BMI 40-49.9 (morbid obesity) (HCC) Morbid obesity Frequent falls Personal history of fall [facility] Diagnosis Onychomycosis- Primary Dermatophytosis of nail Pain in toe of left foot Pain in limb Pain in toe of right foot Pain in limb Other diabetic neurological complication associated with type 2 diabetes mellitus (HCC) Hyperkeratosis Acquired keratoderma Diminished pulses in lower extremity Other symptoms involving cardiovascular system [facility] Diagnosis Onychomycosis- Primary Dermatophytosis of nail Pain in toe of left foot Pain in limb Pain in toe of right foot Pain in limb Other diabetic neurological complication associated with type 2 diabetes mellitus (HCC) Diminished pulses in lower extremity Other symptoms involving cardiovascular system [facility] Diagnosis Hospital discharge follow-up- Primary Other follow-up examination Vasovagal syncope Syncope and collapse Bilateral carotid artery stenosis Occlusion and stenosis of carotid artery without mention of cerebral infarction Acute on chronic diastolic heart failure (HCC) Acute on chronic diastolic heart failure Type 2 diabetes mellitus with diabetic neuropathy, without long-term current use of insulin (HCC) Morbid obesity with BMI of 45.0-49.9, adult (HCC) Morbid obesity Varicose veins of right lower extremity with ulcer of unspecified site (CODE) ([facility]) Essential hypertension Unspecified essential hypertension Hyperlipidemia, unspecified hyperlipidemia type documented in this encounter [facility] note* Diagnosis Type 2 diabetes mellitus with diabetic neuropathy, without long-term current use of insulin (HCC)- Primary [facility] Diagnosis Acute low back pain without sciatica, unspecified back pain laterality- Primary Type 2 diabetes mellitus with diabetic neuropathy, without long-term current use of insulin ([facility]) [facility] Diagnosis Acute UTI- Primary Urinary tract infection, site not specified Urinary frequency [facility] Diagnosis Encounter for screening mammogram for breast cancer [facility] Diagnosis Type 2 diabetes mellitus with diabetic neuropathy, without long-term current use of insulin ([facility]) [facility] Diagnosis COVID-19- Primary [facility] Diagnosis Spasm of back muscles- Primary Other symptoms referable to back Type 2 diabetes mellitus with diabetic neuropathy, without long-term current use of insulin (HCC) Bilateral leg edema Edema [facility]* Diagnosis Pain in toe of right foot Pain in limb [facility]* Diagnosis Type 2 diabetes mellitus with diabetic neuropathy, without long-term current use of insulin (HCC) documented in this encounter [facility] for referral (narrative)* Outpatient Procedure (Routine) - Authorized Specialty Diagnoses / Procedures Referred By Rahat t Referred To Contact [facility] Diagnoses Venous stasis dermatitis of both lower extremities Venous (peripheral) insufficiency Venous ulcer of right leg (HCC) Symptomatic varicose veins of both lower extremities Procedures US VENOUS INCOMPETENCY MARK VAS LAB DUP-SCAN XTR VEINS COMPLETE BILATERAL STUDY Deb Neely DO [address] [place] [address] [facility] [place] [address] [place] [address] Referral ID Status Reason Start Date Expiration Date Visits Requested Visits Authorized [id number] Authorized Auto-Generat ed Referral 03/21/2022 03/21/2023 1 1 [facility] for referral (narrative)* Diagnostic Procedure Only (Routine) - Pending Review Specialty Diagnoses / Procedures Referred By Rahat dumont Referred To Contact [facility] Diagnoses Encounter for screening mammogram for breast cancer Procedures JUAN LUIS SCREENING SCREENING MAMMOGRAPHY BI 2-VIEW BREAST INC CAD Ganga Srivastava MD [address] [place] [address] [facility] [address] [place] [address] Referral ID Status Reason Start Date Expiration Date Visits Requested Visits Authorized [id number] Pending Review Auto-Generat ed Referral 06/28/2022 07/28/2023 1 1 T [facility] for referral (narrative)* Diagnostic Procedure Only (Routine) - Closed Specialty Diagnoses / Procedures Referred By Contac t Referred To Contact XR IMAGING Diagnoses Pain in toe of right foot Procedures XR FOOT GENERAL 3V AP/LAT/OBL RIGHT RADEX FOOT COMPLETE MINIMUM [address] [place] [address] X[facility] Imaging Referral ID Status Reason Start Date Expiration Date V isits Requested Visits Authorized [id number] Closed Auto-Generate d Referral 10/02/2022 11/01/2023 1 1 [facility] for referral (narrative)* Diagnostic Procedure Only (Routine) - Pending Review Specialty Diagnoses / Procedures Referred By Rahat dumont Referred To Contact [facility] Diagnoses Encounter for screening mammogram for breast cancer Procedures JUAN LUIS SCREENING SCREENING MAMMOGRAPHY BI 2-VIEW BREAST INC CAD Ganga Srivastava MD [address] [place] [address] [facility] [address] [facility] [place] [address] Referral ID Status Reason Start Date Expiration Date Visits Requested Visits Authorized [id number] Pending Review Auto-Generat ed Referral 06/06/2023 07/05/2024 1 1 [facility] for referral (narrative)* Diagnostic Procedure Only (Routine) - Closed Specialty Diagnoses / Procedures Referred By Rahat dumont Referred To Contact XR IMAGING Diagnoses Pain in toe of right foot Procedures XR FOOT GENERAL 3V AP/LAT/OBL RIGHT RADEX FOOT COMPLETE MINIMUM 3 VIEWS Shun Beauchamp [address] [place] [address] [place] [address] Referral ID Status Reason Start Date Expiration Date V isits Requested Visits Authorized [id number] Closed Auto-Generate d Referral 10/02/2022 11/01/2023 1 1 [facility] for visit Narrative* Diagnostic Procedure Only (Routine) - Closed Specialty Diagnoses / Procedures Referred By Rahat dumont Referred To Contact XR IMAGING Diagnoses Pain in toe of right foot Procedures XR FOOT GENERAL 3V AP/LAT/OBL RIGHT RADEX FOOT COMPLETE MINIMUM 3 VIEWS Shun Beauchamp [address] [place] [address] [place] [address] Referral ID Status Reason Start Date Expiration Date V isits Requested Visits Authorized [id number] Closed Auto-Generate d Referral 10/02/2022 11/01/2023 1 1 [facility] Summary Purpose Family History No Family History Records FoundNo Family History Records FoundNo Family History Records FoundNo Family History Records Found Advance Directives No Advanced Directives Records FoundNo Advanced Directives Records FoundNo Advanced Directives Records FoundNo Advanced Directives Records Found Health Concerns Infection Onset Date Last Indicated Resolved Time COVID-19 Rule-Out 09/17/2021 09/16/2021 09/17/2021 4:05 PM EST Reason for Referral Specialty Diagnoses / Procedures Referred By Contac t Referred To Contact Vascular Medicine Diagnoses Venous stasis dermatitis of both lower extremities Procedures CONSULT TO VASCULAR MEDICINE OFFICE/OUTPATIENT NEW HIGH MDM 60-74 MINUTES Shey Chapman, ANALISA.JAVA LEAD ENGINEER [address] [place] [address] Referral ID Status Reason Start Date Expiration Date Visits Requested Visits Authorized [id number] Authorized PCP Requested Referral 03/13/2022 03/13/2023 1 1 Specialty Diagnoses / Procedures Referred By Contac t Referred To Contact [facility] Diagnoses Fall, sequela DDD (degenerative disc disease), cervical Tingling in extremities Procedures CONSULT TO PHYSICAL THERAPY PHYSICAL THERAPY EVALUATION HIGH COMPLEX 45 MINS Ganga Srivastava MD [address] [place] [address] [facility] [place] [address] [place] [address] Referral ID Status Reason Start Date Expiration Date Visits Requested Visits Authorized [id number] Authorized PCP Requested Referral Auto-Generate d Referral 06/12/2022 06/12/2023 99 99 Additional Source Comments INFORMATION SOURCE (unrecogn ized section and content) DATE CREATED AUTHOR AUTHOR'S ORGANIZ ATION 05/09/2018 [facility] ([place]) DATE CREATED AUTHOR AUTHOR'S ORGANIZ ATION 07/03/2018 [facility] matthias [place] DATE CREATED AUTHOR AUTHOR'S ORGANIZ ATION 12/06/2023 [facility] Source Comments (unrecognize d section and content) In the event this informatio n is protected by the Federal Confidentiality of Alcohol and Drug Abuse Patient Records regulations: The Federal rules restrict any use of the information to criminally investigate or prosecute any alcohol or drug abuse patient.[facility] the event this information is protected by the Federal Confidentiality of Alcohol and Drug Abuse Patient Records regulations: The Federal rules restrict any use of the information to criminally investigate or prosecute any alcohol or drug abuse patient.[facility] the event this information is protected by the Federal Confidentiality of Alcohol and Drug Abuse Patient Records regulations: The Federal rules restrict any use of the information to criminally investigate or prosecute any alcohol or drug abuse patient.[facility] the event this information is protected by the Federal Confidentiality of Alcohol and Drug Abuse Patient Records regulations: The Federal rules restrict any use of the information to criminally investigate or prosecute any alcohol or drug abuse patient.[facility] the event this information is protected by the Federal Confidentiality of Alcohol and Drug Abuse Patient Records regulations: The Federal rules restrict any use of the information to criminally investigate or prosecute any alcohol or drug abuse patient.[facility] the event this information is protected by the Federal Confidentiality of Alcohol and Drug Abuse Patient Records regulations: The Federal rules restrict any use of the information to criminally investigate or prosecute any alcohol or drug abuse patient.[facility] the event this information is protected by the Federal Confidentiality of Alcohol and Drug Abuse Patient Records regulations: The Federal rules restrict any use of the information to criminally investigate or prosecute any alcohol or drug abuse patient.[facility] the event this information is protected by the Federal Confidentiality of Alcohol and Drug Abuse Patient Records regulations: The Federal rules restrict any use of the information to criminally investigate or prosecute any alcohol or drug abuse patient.[facility] the event this information is protected by the Federal Confidentiality of Alcohol and Drug Abuse Patient Records regulations: The Federal rules restrict any use of the information to criminally investigate or prosecute any alcohol or drug abuse patient.[facility] the event this information is protected by the Federal Confidentiality of Alcohol and Drug Abuse Patient Records regulations: The Federal rules restrict any use of the information to criminally investigate or prosecute any alcohol or drug abuse patient.[facility] the event this information is protected by the Federal Confidentiality of Alcohol and Drug Abuse Patient Records regulations: The Federal rules restrict any use of the information to criminally investigate or prosecute any alcohol or drug abuse patient.[facility] the event this information is protected by the Federal Confidentiality of Alcohol and Drug Abuse Patient Records regulations: The Federal rules restrict any use of the information to criminally investigate or prosecute any alcohol or drug abuse patient.[facility] the event this information is protected by the Federal Confidentiality of Alcohol and Drug Abuse Patient Records regulations: The Federal rules restrict any use of the information to criminally investigate or prosecute any alcohol or drug abuse patient.[facility] the event this information is protected by the Federal Confidentiality of Alcohol and Drug Abuse Patient Records regulations: The Federal rules restrict any use of the information to criminally investigate or prosecute any alcohol or drug abuse patient.[facility] the event this information is protected by the Federal Confidentiality of Alcohol and Drug Abuse Patient Records regulations: The Federal rules restrict any use of the information to criminally investigate or prosecute any alcohol or drug abuse patient.[facility] the event this information is protected by the Federal Confidentiality of Alcohol and Drug Abuse Patient Records regulations: The Federal rules restrict any use of the information to criminally investigate or prosecute any alcohol or drug abuse patient.[facility] the event this information is protected by the Federal Confidentiality of Alcohol and Drug Abuse Patient Records regulations: The Federal rules restrict any use of the information to criminally investigate or prosecute any alcohol or drug abuse patient.[facility] the event this information is protected by the Federal Confidentiality of Alcohol and Drug Abuse Patient Records regulations: The Federal rules restrict any use of the information to criminally investigate or prosecute any alcohol or drug abuse patient.[facility] the event this information is protected by the Federal Confidentiality of Alcohol and Drug Abuse Patient Records regulations: The Federal rules restrict any use of the information to criminally investigate or prosecute any alcohol or drug abuse patient.[facility] the event this information is protected by the Federal Confidentiality of Alcohol and Drug Abuse Patient Records regulations: The Federal rules restrict any use of the information to criminally investigate or prosecute any alcohol or drug abuse patient.[facility] HospitalIn the event this information is protected by the Federal Confidentiality of Alcohol and Drug Abuse Patient Records regulations: The Federal rules restrict any use of the information to criminally investigate or prosecute any alcohol or drug abuse patient.[facility] HospitalIn the event this information is protected by the Federal Confidentiality of Alcohol and Drug Abuse Patient Records regulations: The Federal rules restrict any use of the information to criminally investigate or prosecute any alcohol or drug abuse patient.[facility] HospitalIn the event this information is protected by the Federal Confidentiality of Alcohol and Drug Abuse Patient Records regulations: The Federal rules restrict any use of the information to criminally investigate or prosecute any alcohol or drug abuse patient.[facility] HospitalIn the event this information is protected by the Federal Confidentiality of Alcohol and Drug Abuse Patient Records regulations: The Federal rules restrict any use of the information to criminally investigate or prosecute any alcohol or drug abuse patient.[facility] HospitalIn the event this information is protected by the Federal Confidentiality of Alcohol and Drug Abuse Patient Records regulations: The Federal rules restrict any use of the information to criminally investigate or prosecute any alcohol or drug abuse patient.[facility] HospitalIn the event this information is protected by the Federal Confidentiality of Alcohol and Drug Abuse Patient Records regulations: The Federal rules restrict any use of the information to criminally investigate or prosecute any alcohol or drug abuse patient.[facility] HospitalIn the event this information is protected by the Federal Confidentiality of Alcohol and Drug Abuse Patient Records regulations: The Federal rules restrict any use of the information to criminally investigate or prosecute any alcohol or drug abuse patient.[facility] HospitalIn the event this information is protected by the Federal Confidentiality of Alcohol and Drug Abuse Patient Records regulations: The Federal rules restrict any use of the information to criminally investigate or prosecute any alcohol or drug abuse patient.[facility] HospitalIn the event this information is protected by the Federal Confidentiality of Alcohol and Drug Abuse Patient Records regulations: The Federal rules restrict any use of the information to criminally investigate or prosecute any alcohol or drug abuse patient.[facility] HospitalIn the event this information is protected by the Federal Confidentiality of Alcohol and Drug Abuse Patient Records regulations: The Federal rules restrict any use of the information to criminally investigate or prosecute any alcohol or drug abuse patient.[facility] HospitalIn the event this information is protected by the Federal Confidentiality of Alcohol and Drug Abuse Patient Records regulations: The Federal rules restrict any use of the information to criminally investigate or prosecute any alcohol or drug abuse patient.[facility] HospitalIn the event this information is protected by the Federal Confidentiality of Alcohol and Drug Abuse Patient Records regulations: The Federal rules restrict any use of the information to criminally investigate or prosecute any alcohol or drug abuse patient.[facility] HospitalIn the event this information is protected by the Federal Confidentiality of Alcohol and Drug Abuse Patient Records regulations: The Federal rules restrict any use of the information to criminally investigate or prosecute any alcohol or drug abuse patient.[facility] HospitalIn the event this information is protected by the Federal Confidentiality of Alcohol and Drug Abuse Patient Records regulations: The Federal rules restrict any use of the information to criminally investigate or prosecute any alcohol or drug abuse patient.[facility] HospitalIn the event this information is protected by the Federal Confidentiality of Alcohol and Drug Abuse Patient Records regulations: The Federal rules restrict any use of the information to criminally investigate or prosecute any alcohol or drug abuse patient.[facility] HospitalIn the event this information is protected by the Federal Confidentiality of Alcohol and Drug Abuse Patient Records regulations: The Federal rules restrict any use of the information to criminally investigate or prosecute any alcohol or drug abuse patient.[facility] HospitalIn the event this information is protected by the Federal Confidentiality of Alcohol and Drug Abuse Patient Records regulations: The Federal rules restrict any use of the information to criminally investigate or prosecute any alcohol or drug abuse patient.[facility] HospitalIn the event this information is protected by the Federal Confidentiality of Alcohol and Drug Abuse Patient Records regulations: The Federal rules restrict any use of the information to criminally investigate or prosecute any alcohol or drug abuse patient.[facility] HospitalIn the event this information is protected by the Federal Confidentiality of Alcohol and Drug Abuse Patient Records regulations: The Federal rules restrict any use of the information to criminally investigate or prosecute any alcohol or drug abuse patient.[facility] HospitalIn the event this information is protected by the Federal Confidentiality of Alcohol and Drug Abuse Patient Records regulations: The Federal rules restrict any use of the information to criminally investigate or prosecute any alcohol or drug abuse patient.[facility] HospitalIn the event this information is protected by the Federal Confidentiality of Alcohol and Drug Abuse Patient Records regulations: The Federal rules restrict any use of the information to criminally investigate or prosecute any alcohol or drug abuse patient.[facility] HospitalIn the event this information is protected by the Federal Confidentiality of Alcohol and Drug Abuse Patient Records regulations: The Federal rules restrict any use of the information to criminally investigate or prosecute any alcohol or drug abuse patient.[facility] HospitalIn the event this information is protected by the Federal Confidentiality of Alcohol and Drug Abuse Patient Records regulations: The Federal rules restrict any use of the information to criminally investigate or prosecute any alcohol or drug abuse patient.[facility] HospitalIn the event this information is protected by the Federal Confidentiality of Alcohol and Drug Abuse Patient Records regulations: The Federal rules restrict any use of the information to criminally investigate or prosecute any alcohol or drug abuse patient.[facility] HospitalIn the event this information is protected by the Federal Confidentiality of Alcohol and Drug Abuse Patient Records regulations: The Federal rules restrict any use of the information to criminally investigate or prosecute any alcohol or drug abuse patient.[facility] Reason for Visit (unrecogniz ed section and content) Specialty Diagnoses / Procedures Referred By Rahat dumont Referred To Contact [facility] Diagnoses Fall, sequela DDD (degenerative disc disease), cervical Tingling in extremities Procedures CONSULT TO PHYSICAL THERAPY PHYSICAL THERAPY EVALUATION HIGH COMPLEX 45 MINS Ganga Srivastava MD [address] [place] [address] [facility] [address] [place] [address] Referral ID Status Reason Start Date Expiration Date Visits Requested Visits Authorized [id number] Authorized PCP Requested Referral Auto-Generate d Referral 06/12/2022 06/12/2023 99 99 Reason Comments Physical Therapy Reason Comments F/U 3 Month Reason Onset Date Comments Refill Request 02/12/2022 Reason Comments Insulin injection Reason Comments Acute Visit welts, left leg Reason Comments New Patient Specialty Diagnoses / Procedures Referred By Rahat dumont Referred To Contact Vascular Medicine Diagnoses Venous stasis dermatitis of both lower extremities Procedures CONSULT TO VASCULAR MEDICINE OFFICE/OUTPATIENT NEW HIGH MDM 60-74 MINUTES Shey Chapman APRN.[employer] [address] [place] [address] Referral ID Status Reason Start Date Expiration Date V isits Requested Visits Authorized [id number] Closed PCP Requested Referral 03/13/2022 03/13/2023 1 1 Reason Comments Established Patient Reason Comments UTI Reason Comments Follow Up Reason Comments external report [facility] Reason Onset Date Comments Refill Request 06/09/2022 Reason Comments external documents [facility] report, CT sc ans Reason Comments Hospital F/U Reason Comments PT Eval Reason Onset Date Comments F/U 3 Month Immunizations 08/15/2022 Flu vaccination Reason Onset Date Comments Population Health Navigation Outreach 09/25/2022 [facility] [place] [facility] Reason Comments Established Patient Diabetic Foot Care Reason Onset Date Comments Population Health Navigation Outreach 11/13/2022 [facility] [place] [facility] Reason Onset Date Comments Refill Request 11/21/2022 Reason Comments Results Reason Comments Established Patient Diabetic Foot Care Reason Onset Date Comments Refill Request 01/22/2023 Reason Onset Date Comments Population Health Navigation Outreach 01/22/2023 [facility] Care Gaps Reason Onset Date Comments Transition Of Care 02/01/2023 Reason Comments Transition Of Care Reason Comments Refill Request Reason Onset Date Comments Refill Request 02/27/2023 Reason Comments Appointment Reason Comments Low Back Pain Reason Comments Urinary Frequency hematuria and burnin g with urination x 2 days Reason Onset Date Comments Refill Request 07/10/2023 Reason Comments Acute Visit covid Reason Comments Musculoskeletal Problem Reason Onset Date Comments Refill Request 09/20/2023 Reason Comments Forms [facility] Reason Comments Forms DM shoes from Drug M art Care Teams (unrecognized sec tion and content) Superintendent Sales Relationship Specialty Start Date End Date Ganga Srivastava MD [address] [place], [place] [id number] PCP - General Family Practice 07/31/18 [facility] [address] [place] [address] Pharmacist Pharmacy 05/13/20 [facility] [address] [place] [address] Pharmacist Pharmacy 07/28/21 Superintendent Sales Relationship Specialty Start Date End Date Ganga Srivastava MD [address] [place] [address] PCP - General Family Practice 07/31/18 Terrytasia Nick, [facility] [address] [place] [address] Pharmacist Pharmacy 05/13/20 Abby Garayily, [facility] [address] [place] [address] Pharmacist Pharmacy 07/28/21 Superintendent Sales Relationship Specialty Start Date End Date Ganga Srivastava MD [address] [place] [address] PCP - General Family Practice 07/31/18 Terrytasia Nick, [facility] [address] [facility] [place] [address] Pharmacist Pharmacy 05/13/20 Maddison Garay, [facility] [address] [place] [address] Pharmacist Pharmacy 07/28/21 Superintendent Sales Relationship Specialty Start Date End Date Ganga Srivastava MD [address] [place] [address] PCP - General Family Practice 07/31/18 Terrytasia Nick, [facility] [address] [facility] [place] [address] Pharmacist Pharmacy 05/13/20 Abby Garayily, [facility] [address] [facility] [place] [address] Pharmacist Pharmacy 07/28/21 Superintendent Sales Relationship Specialty Start Date End Date Ganga Srivastava MD [address] [place] [address] PCP - General Family Practice 07/31/18 Terrytasia Giovanyyanet, [facility] [address] [facility] [place] [place] [address] Pharmacist Pharmacy 05/13/20 Maddison Garay, [facility] [address] [facility] [place] [address] Pharmacist Pharmacy 07/28/21 Superintendent Sales Relationship Specialty Start Date End Date Ganga Srivastava MD [address] [facility] [place] [address] PCP - General Family Practice 07/31/18 Jolanta Giovanyyanet, [facility] [address] [facility] [place] [address] Pharmacist Pharmacy 05/13/20 Maddison Garay, [facility] [address] [facility] [place] [address] Pharmacist Pharmacy 07/28/21 Superintendent Sales Relationship Specialty Start Date End Date Ganga Srivastava MD [address] [facility] [place] [address] PCP - General Family Practice 07/31/18 Nick Stover, [facility] [address] [facility] [place] [address] Pharmacist Pharmacy 05/13/20 Abby Garayily, [facility] [address] [facility] [place] [address] Pharmacist Pharmacy 07/28/21 Superintendent Sales Relationship Specialty Start Date End Date Ganga Srivastava MD [address] [facility] [place] [address] PCP - General Family Practice 07/31/18 Nick Stover, [facility] [address] [facility] [place] [address] Pharmacist Pharmacy 05/13/20 Maddison Garay, [facility] [address] [facility] [place] [address] Pharmacist Pharmacy 07/28/21 Superintendent Sales Relationship Specialty Start Date End Date Ganga Srivastava MD [address] [place] [address] PCP - General Family Practice 07/31/18 Nick Stover, [facility] [address] [facility] [place] [address] Pharmacist Pharmacy 05/13/20 Maddison Garay, [facility] [address] [facility] [place] [place] [address] Pharmacist Pharmacy 07/28/21 Superintendent Sales Relationship Specialty Start Date End Date Ganga Srivastava MD [address] [place] [address] PCP - General Family Practice 07/31/18 Nick Stover, [facility] [address] [facility] [place] [address] Pharmacist Pharmacy 05/13/20 Maddison Garay, [facility] [address] [place] [address] Pharmacist Pharmacy 07/28/21 Superintendent Sales Relationship Specialty Start Date End Date Ganga Srivastava MD [address] [place] [address] PCP - General Family Practice 07/31/18 Nick Stover, [facility] [address] [facility] [place] [address] Pharmacist Pharmacy 05/13/20 Maddison Garay, [facility] [address] [facility] [place] [address] Pharmacist Pharmacy 07/28/21 Superintendent Sales Relationship Specialty Start Date End Date Ganga Srivastava MD [address] [place] [address] PCP - General Family Practice 07/31/18 Terrytasia Nick, [facility] [address] [place] [address] Pharmacist Pharmacy 05/13/20 Abby Garayily, [facility] [address] [place] [place] [address] Pharmacist Pharmacy 07/28/21 Superintendent Sales Relationship Specialty Start Date End Date Ganga Srivastava MD [address] [place] [address] PCP - General Family Practice 07/31/18 Jolanta Giovanyyanet, [facility] [address] [facility] [place] [address] Pharmacist Pharmacy 05/13/20 Maddison Garay, [facility] [address] [facility] [place] [address] Pharmacist Pharmacy 07/28/21 Superintendent Sales Relationship Specialty Start Date End Date Ganga Srivastava MD [address] [place] [address] PCP - General Family Practice 07/31/18 Jolanta Nick, [facility] [address] [facility] [place] [address] Pharmacist Pharmacy 05/13/20 Abby Garayily, [facility] [address] [facility] [place] [address] Pharmacist Pharmacy 07/28/21 Superintendent Sales Relationship Specialty Start Date End Date Ganga Srivastava MD [address] [place] [address] PCP - General Family Medicine 07/31/18 Nick Stover, [facility] [address] [place] [address] Pharmacist Pharmacy 05/13/20 Tanisha, Maddison, [facility] [address] [place] [address] Pharmacist Pharmacy 07/28/21 Superintendent Sales Relationship Specialty Start Date End Date Ganga Srivastava MD [address] [place] [address] PCP - General Family Medicine 07/31/18 Nick Stover, [facility] [address] [place] [address] Pharmacist Pharmacy 05/13/20 Maddison Garay, [facility] [address] [place] [address] Pharmacist Pharmacy 07/28/21 Superintendent Sales Relationship Specialty Start Date End Date Ganga Srivastava MD [address] [place] [address] PCP - General Family Medicine 07/31/18 Nick Stover, [facility] [address] [place] [address] Pharmacist Pharmacy 05/13/20 Abby Garayily, [facility] [address] [facility] [place] [address] Pharmacist Pharmacy 07/28/21 Superintendent Sales Relationship Specialty Start Date End Date Ganga Srivastava MD [address] [place] [address] PCP - General Family Medicine 07/31/18 Nick Stover, [facility] [address] [place] [address] Pharmacist Pharmacy 05/13/20 [place], [facility] [address] [facility] [place] [place] [address] Pharmacist Pharmacy 07/28/21 Superintendent Sales Relationship Specialty Start Date End Date Ganga Srivastava MD [address] [facility] [place] [address] PCP - General Family Medicine 07/31/18 Jolanta Giovanyyanet, [facility] [address] [facility] [place] [address] Pharmacist Pharmacy 05/13/20 [place], Maddison, [facility] [address] [facility] [place] [place] [address] Pharmacist Pharmacy 07/28/21 Superintendent Sales Relationship Specialty Start Date End Date Ganga Srivastava MD [address] [facility] [place] [address] PCP - General Family Medicine 07/31/18 Jolanta Giovanyyanet, [facility] [address] [facility] [place] [address] Pharmacist Pharmacy 05/13/20 [place], Maddison, [facility] [address] [facility] [place] [address] Pharmacist Pharmacy 07/28/21 Superintendent Sales Relationship Specialty Start Date End Date Ganga Srivastava MD [address] [facility] [place] [address] PCP - General Family Medicine 07/31/18 Jolanta Giovanyyanet, [facility] [address] [facility] [place] [place] [address] Pharmacist Pharmacy 05/13/20 Abby Garayily, [facility] [address] [facility] [place] [address] Pharmacist Pharmacy 07/28/21 Superintendent Sales Relationship Specialty Start Date End Date Ganga Srivastava MD [address] [facility] [place] [address] PCP - General Family Medicine 07/31/18 Nick Stover, [facility] [address] [facility] [place] [address] Pharmacist Pharmacy 05/13/20 Maddison Garay, [facility] [address] [facility] [place] [place] [address] Pharmacist Pharmacy 07/28/21 Superintendent Sales Relationship Specialty Start Date End Date Ganga Srivastava MD [address] [place] [place] [address] PCP - General Family Medicine 07/31/18 Nick Stover, [facility] [address] [facility] [place] [address] Pharmacist Pharmacy 05/13/20 Maddison Garay, [facility] [address] [facility] [place] [address] Pharmacist Pharmacy 07/28/21 Superintendent Sales Relationship Specialty Start Date End Date Ganga Srivastava MD [address] [place] [place] [address] PCP - General Family Medicine 07/31/18 Nick Stover, [facility] [address] [facility] [place] [place] [address] Pharmacist Pharmacy 05/13/20 Maddison Garay, [facility] [address] [place] [place] [address] Pharmacist Pharmacy 07/28/21 Superintendent Sales Relationship Specialty Start Date End Date Ganga Srivastava MD [address] [place] [place] [address] PCP - General Family Medicine 07/31/18 TerryNick dozier, [facility] [address] [place] [address] Pharmacist Pharmacy 05/13/20 Tanisha, Maddison, [facility] [address] [place] [address] Pharmacist Pharmacy 07/28/21 Superintendent Sales Relationship Specialty Start Date End Date Ganga Srivastava MD [address] [place] [address] PCP - General Family Medicine 07/31/18 TerryGiovany dozieryanet, [facility] [address] [place] [address] Pharmacist Pharmacy 05/13/20 Tanisha Maddison, [facility] [address] [place] [address] Pharmacist Pharmacy 07/28/21 Superintendent Sales Relationship Specialty Start Date End Date Ganga Srivastava MD [address] [place] [address] PCP - General Family Medicine 07/31/18 Jolanta Giovanyyanet, [facility] [address] [place] [address] Pharmacist Pharmacy 05/13/20 Tanisha, Maddison, [facility] [address] [place] [address] Pharmacist Pharmacy 07/28/21 Superintendent Sales Relationship Specialty Start Date End Date Ganga Srivastava MD [address] [place] [address] PCP - General Family Medicine 07/31/18 Nick Stover, [facility] [address] [place] [address] Pharmacist Pharmacy 05/13/20 Maddison Garay, [facility] [address] [place] [address] Pharmacist Pharmacy 07/28/21 Superintendent Sales Relationship Specialty Start Date End Date Ganga Srivastava MD [address] [place] [address] PCP - General Family Medicine 07/31/18 Terrytasia Nick, [facility] [address] [place] [address] Pharmacist Pharmacy 05/13/20 [place], Maddison, [facility] [address] [place] [address] Pharmacist Pharmacy 07/28/21 Superintendent Sales Relationship Specialty Start Date End Date Ganga Srivastava MD [address] [place] [address] PCP - General Family Medicine 07/31/18 Terrytasia Giovanyyanet, [facility] [address] [place] [address] Pharmacist Pharmacy 05/13/20 Tanisha Maddison, [facility] [address] [place] [address] Pharmacist Pharmacy 07/28/21 Superintendent Sales Relationship Specialty Start Date End Date Ganga Srivastava MD [address] [place] [address] PCP - General Family Medicine 07/31/18 Jolanta Giovanyyanet, [facility] [address] [place] [address] Pharmacist Pharmacy 05/13/20 Maddison Garay, [facility] [address] [place] [address] Pharmacist Pharmacy 07/28/21 Superintendent Sales Relationship Specialty Start Date End Date Ganga Srivastava MD [address] [place] [address] PCP - General Family Medicine 07/31/18 Terrytasia Nick, [facility] [address] [place] [address] Pharmacist Pharmacy 05/13/20 TanishaMaddison, [facility] [address] [place] [address] Pharmacist Pharmacy 07/28/21 Superintendent Sales Relationship Specialty Start Date End Date Ganga Srivastava MD [address] [place] [address] PCP - General Family Medicine 07/31/18 Jolanta Giovanyyanet, [facility] [address] [place] [address] Pharmacist Pharmacy 05/13/20 Maddison Garay, [facility] [address] [place] [address] Pharmacist Pharmacy 07/28/21 Superintendent Sales Relationship Specialty Start Date End Date Ganga Srivastava MD [address] [place] [address] PCP - General Family Medicine 07/31/18 Terrytasia Nick, [facility] [address] [place] [address] Pharmacist Pharmacy 05/13/20 Tanisha, Maddison, [facility] [address] [place] [address] Pharmacist Pharmacy 07/28/21 FOR RECORDS PERTAINING TO PATIENTS WHO ARE OR HAVE BEEN ENROLLED IN A CHEMICAL DEPENDENCY/SUBSTANCEABUSE PROGRAM, SOME INFORMATION MAY BE OMITTED. This clinical summary was aggregated from multiple sources. Caution should be exercised in using it in the provision of clinical care. This summary normalizes information from multiple sources, and as a consequence, information in this document may materially change the coding, format and clinical context of patient data. In addition, data may be omitted in some cases. CLINICAL DECISIONS SHOULD BE BASED ON THE PRIMARY CLINICAL RECORDS. [facility]. provides no warranty or guarantee of the accuracy or completeness of information in this document.
--- NOTE | 2023-12-12 12:15 | STRESSREP ---
Stress Test Report Date: 12/12/2023 Procedure: Pharmacologic stress nuclear imaging study Indications: Dyspnea on exertion Consent: Per the patient Procedure: The patient underwent pharmacologic (Regadenoson 0.4mg ) evaluation with a peak heart rate of 85 beats per minute (58%predicted maximal heart rate) and a peak blood pressure of 128/80 mmHg. The baseline ECG demonstrated sinus rhythm. The peak pharmacologic ECG demonstrated no ischemic change. There were no cardiac dysrhythmias pretest, during pharmacologic infusion, or recovery. There was no complaint of chest discomfort during pharmacologic infusion or recovery. The patient was injected with 14.7 millicuries of technetium 99m Cardiolite and subsequently rest SPECT Cardiolite nuclear imaging was obtained in the horizontal long, vertical long, and short axis views. The patient underwent pharmacologic (Regadenoson) evaluation. The patient was injected with 44.9 millicuries of technetium 99m Cardiolite and subsequently stress SPECT Cardiolite nuclear imaging was obtained in the horizontal long, vertical long, and short axis views. A gated Cardiolite study at peak stress was obtained. The examination was stopped secondary to completion of protocol. Rest and stress SPECT Cardiolite nuclear imaging status post realignment, normalization, and attenuation correction demonstrate no fixed or reversible perfusion defects. There is end systolic thickening and brightening. The gated Cardiolite study demonstrates myocardial thickening and inward wall motion. The reported LVEF is 76%. Impression: 1. Pharmacologic (Regadenoson) evaluation 2. Peak pharmacologic ECG with no ischemic change. 3. There were no cardiac dysrhythmias pretest, during pharmacologic infusion, or recovery. 5. Rest and stress SPECT Cardiolite nuclear imaging demonstrate relative uniform tracer uptake and myocardial perfusion appearing within normal limits. 6. The gated Cardiolite study reports an LVEF of 76%. This note was generated with Localityation software. It may contain incorrect words, spelling, and punctuation that were not noted in checking the note before signing.
== END | disposition home or self-care (01) ==
LOC: CVS 06:27
PROVIDERS: PCP Family Medicine; Referring Provider Internal Medicine Cardiovascular Disease; Visit Provider Internal Medicine Cardiovascular Disease
DX: R06.02 Shortness of breath (principal); I50.30 Unspecified diastolic (congestive) heart failure; I25.10 Atherosclerotic heart disease of native coronary artery without angina pectoris; Z98.890 Other specified postprocedural states; E78.5 Hyperlipidemia, unspecified
CPT/HCPCS: 78452; 93017; 93306; A9500; A4216; J2785

== ENCOUNTER 2024-03-30 12:07 | Emergency (ER) | payer MEDICARE, OTHER, SELFPAY ==
[2024-03-30 12:08] VITALS: BP 153/69; PULSE 65; RESP 20; TEMP 36; O2SAT 95; BMI 48.6
--- NOTE | 2024-03-30 12:21 | RAD_ITS ---
EXAM: XR CHEST, 2 VIEWS CLINICAL INDICATION: sore throat, congestion since last evening TECHNIQUE: Frontal and lateral views of the chest. COMPARISON: XR Chest dated 07/10/2023 FINDINGS: LUNGS AND PLEURAL SPACES: Normal. No consolidation or edema. No pneumothorax. No effusion. HEART: Normal heart size. MEDIASTINUM: No mediastinal or hilar mass. BONES/JOINTS: Chronic deformity of the left humeral head is again seen. SOFT TISSUES: Surgical clips within the right side of the neck again noted. RAD/Chest PA and Lateral IMPRESSION: No acute cardiopulmonary abnormality.. No interval change. Electronically Signed: Costa Barrera MD at 13:01 EDT ,
--- NOTE | 2024-03-30 12:22 | EDS_ITS ---
HPI <YEHUDA Hall - Last Filed: 03/30/24 15:03> History of Present Illness Chief Complaint: Cold Sx Narrative Narrative: 74-year-old female with past medical history of HTN, HLD, DM2, CAD, CHF, GERDA states last night she developed congestion, mucus drainage, and productive cough. It was hard to sleep with her CPAP [place] congestion. She states her son was had cold symptoms for about a week. She denies fever or chills, chest pain or shortness of breath, or GI symptoms. She occasionally gets a wheeze and uses an inhaler but has not needed it since winter. She quit smoking over 15 years ago and denies asthma or COPD. [facility] <YEHUDA Hall - Last Filed: 03/30/24 15:03> [facility] Medical History (Updated 03/30/24 @ 14:48 by YEHUDA Hall) Postoperative pain Preoperative cardiovascular examination Wears glasses Alcohol use Bruising History of steroid therapy Insulin dependent diabetes mellitus Ambulates with cane Arthritis Bladder disease High cholesterol Easy bruising Back pain Dietary restriction History of hiatal hernia History of IBS Leg cramps History of pain when walking History of edema History of echocardiogram History of CHF (congestive heart failure) Cardiology follow-up encounter Anxiety Depression Diabetes Non-smoker CPAP (continuous positive airway pressure) dependence Sleep apnea Asthma Congestive heart failure (CHF) Coronary artery disease (HFpEF) heart failure with preserved ejection fraction Carotid artery stenosis Bruising GERDA (obstructive sleep apnea) Morbid (severe) obesity due to excess calories Hyperlipidemia Diabetic neuropathy Diabetes mellitus, type II Closed left humeral fracture (05/27/19) Nausea Vertigo Dizziness Atherosclerotic heart disease of [place] coronary artery without angina pectoris Home Medications ?Medication ?Instructions ?Recorded ?Last Taken ?Type aspirin 81 mg tablet,delayed 81 mg PO DAILY@0800 heart 08/07/18 04/17/23 History release atorvastatin 80 mg tablet 80 mg PO QHS cholesterol 08/07/18 04/17/23 History bumetanide 2 mg tablet 2 mg PO DAILY water pill 08/07/18 04/17/23 History carvedilol 12.5 mg tablet 6.25 mg PO BID heart 08/07/18 04/24/23 History glimepiride 4 mg tablet 4 mg PO DAILY diabetes 08/07/18 04/17/23 History lisinopril 5 mg tablet 5 mg PO DAILY blood pressure 08/07/18 04/17/23 History multivitamin 1 ea PO DAILY supplement 08/07/18 04/17/23 History prasugrel 10 mg tablet 10 mg PO DAILY prevent blood clots 08/07/18 04/17/23 History fluticasone propionate 50 2 spray intranasal DAILY PRN 01/08/20 04/17/23 History mcg/actuation nasal Allergies spray,suspension (Flonase Allergy Relief) loratadine 10 mg tablet 10 mg PO DAILY PRN allergies 01/08/20 04/17/23 History nitroglycerin 0.4 mg sublingual 0.4 mg sublingual Q5-15M PRN chest 01/08/20 04/17/23 Rx tablet pain #25 tabs fluoxetine 10 mg capsule 40 mg PO DAILY MOOD 10/04/20 04/17/23 History acetaminophen 500 mg tablet 1,000 mg PO DAILY PRN Pain 01/30/23 04/17/23 History gabapentin 300 mg capsule 600 mg PO DAILY NERVE PAIN 03/15/23 04/17/23 History gabapentin 300 mg capsule 900 mg PO QHS leg pain 03/15/23 04/17/23 History insulin NPH isoph U-100 human 100 25 unit subcut DAILY DM 03/15/23 04/17/23 History unit/mL subcutaneous suspension (Novolin N NPH U-100 Insulin isophane) metolazone 2.5 mg tablet 2.5 mg PO DAILY LOCAL EDEMA 04/13/23 04/17/23 History pioglitazone 30 mg tablet 30 mg PO DAILY DIABETES 04/13/23 04/17/23 History potassium chloride 10 mEq 20 meq PO BID SUPPLEMENT 04/17/23 04/17/23 History tablet,extended release(part/cryst) dulaglutide 3 mg/0.5 mL 3 mg subcut QWEEK 11/14/23 Unknown History subcutaneous pen injector (Trulicity) meloxicam 15 mg tablet 15 mg PO DAILY 11/14/23 Unknown History Allergy/AdvReac Type Severity Reaction Status Date / Time cat dander Allergy Intermediate nasal Verified 11/14/23 15:02 congestion, respiratory symptoms furosemide AdvReac Severe horrible Verified 11/14/23 15:02 leg cramps Sulfa (Sulfonamide AdvReac Profuse Verified 11/14/23 15:02 Antibiotics) sweating Family History Father Heart disease Brother Hypertension Mother Diabetes Surgical History (Updated 10/22/23 @ 09:02 by Bela Ruiz) S/P carotid endarterectomy History of bilateral cataract extraction History of cardiac catheterization History of coronary artery stent placement History of left heart catheterization (10/08/20) History of tonsillectomy and adenoidectomy History of cholecystectomy History of hysterectomy Stented coronary artery (08/08/18) Social History Smoking Status: Never smoker Tobacco: How many years used: 2 alcohol intake: current alcohol intake frequency: a few times a week Alcohol type: wine substance use type: does not use caffeine: Yes Type: coffee Number of servings: 2 ROS <YEHUDA Hall - Last Filed: 03/30/24 15:03> ROS ED ROS Narrative Constitutional: Positive for malaise. Negative for fever, chill. ENT: Positive for sore throat, rhinorrhea. CVS: Negative for chest pain. Respiratory: Positive for cough. GI: Negative for abdominal pain, nausea, vomiting, diarrhea. EXAM <YEHUDA Hall - Last Filed: 03/30/24 15:03> Physical Exam Narrative Exam Narrative: CONST: Patient sitting in no acute distress. EYES: Normal inspection. ENT: Clear rhinorrhea, moist mucous membranes with mucus drainage in the posterior oropharynx but no tonsillar swelling or exudate, midline uvula. Normal TMs bilaterally. NECK: Normal inspection. No meningismus. RESP: No respiratory distress, CTAB. CVS: Regular rate and rhythm, no murmur, no gallop. SKIN: Color normal, no rash, warm, dry, intact. EXTREMITIES: Normal appearance, no pedal edema. NEURO: Alert and answering questions appropriately. PSYCH: Normal affect. Const Vital Signs: 03/30/24 12:08 03/30/24 12:49 Temperature 96.8 F L Temperature Source Temporal Pulse Rate 65 Respiratory Rate 20 H Respiratory Effort Short of Breath Respiratory Pattern Tachypnea Blood Pressure 153/69 H Blood Pressure Mean 97 Pulse Ox 95 Oxygen Delivery Method Room Air <Dr. Erick Wick DO - Last Filed: 03/30/24 17:37> Physical Exam Const Vital Signs: 03/30/24 12:08 03/30/24 12:49 Temperature 96.8 F L Temperature Source Temporal Pulse Rate 65 Respiratory Rate 20 H Respiratory Effort Short of Breath Respiratory Pattern Tachypnea Blood Pressure 153/69 H Blood Pressure Mean 97 Pulse Ox 95 Oxygen Delivery Method Room Air [facility] <YEHUDA Hall - Last Filed: 03/30/24 15:03> [facility] Narrative Medical decision making narrative: Differential: Viral syndrome versus pneumonia Patient has URI symptoms with sick contacts. She appears well and nontoxic. Afebrile and hemodynamically stable. During exam she has a dry cough and intermittent expiratory wheeze which is treated with an albuterol inhaler. COVID/flu/RSV swab is negative and CXR shows no acute process. I discussed symptomatic management at home and provided an albuterol inhaler as needed. Return precautions discussed. She was discharged in stable condition. ED attending interpretation of 2 view chest x-ray shows normal heart size, no acute infiltrate. <Dr. Erick Wick DO - Last Filed: 03/30/24 17:37> [facility] Narrative Medical decision making narrative: Differential: Viral syndrome versus pneumonia Patient has URI symptoms with sick contacts. She appears well and nontoxic. Afebrile and hemodynamically stable. During exam she has a dry cough and intermittent expiratory wheeze which is treated with an albuterol inhaler. COVID/flu/RSV swab is negative and CXR shows no acute process. I discussed symptomatic management at home and provided an albuterol inhaler as needed. Return precautions discussed. She was discharged in stable condition. ED attending interpretation of 2 view chest x-ray shows normal heart size, no acute infiltrate. This patient was seen with a PA/MEDICAL FACILITIES SECTION DIRECTOR Individually assessed they patient including history and physical. I have reviewed everything on the chart that is available and agree with the documentation provided by the PA/MEDICAL FACILITIES SECTION DIRECTOR including discussion about the assessment, treatment plan, discussion, and return precautions. Patient presenting with viral symptoms. This started yesterday. Her son is also ill. Viral swabs were obtained today and were negative. Chest x-ray on my interpretation shows no acute process. Radiology interprets this and agrees. P olena's vital signs are stable and she is afebrile. She feels like she is wheezing so she was given 2 puffs of an albuterol inhaler which she can take home with her. Return precautions were discussed. Discharge Plan Triage Chief Complaint: Cold Sx ED Midlevel Provider: Jennifer Flores ED Provider: Erick Wick Dx/Rx/DC Orders Clinical Impression: Viral URI Instructions: ED URI, Viral, No Abx (Adult) Prescriptions: No Action fluticasone propionate [Flonase Allergy Relief] 50 mcg/actuation spray,suspension 2 spray INTRANASAL DAILY PRN (Reason: Allergies) nitroglycerin 0.4 mg tablet, sublingual 0.4 mg SUBLINGUAL Q5-15M PRN (Reason: chest pain) Qty: 25 3RF fluoxetine 10 mg capsule 40 mg PO DAILY meloxicam 15 mg tablet 15 mg PO DAILY Trulicity 3 mg/0.5 mL pen injector 3 mg subcut QWEEK multivitamin 1 EACH tablet 1 ea PO DAILY atorvastatin 80 MG tablet 80 mg PO QHS carvedilol 12.5 MG tablet 6.25 mg PO BID bumetanide 2 MG tablet 2 mg PO DAILY aspirin 81 MG tablet 81 mg PO DAILY@0800 glimepiride 4 MG tablet 4 mg PO DAILY lisinopril 5 MG tablet 5 mg PO DAILY prasugrel 10 MG tablet 10 mg PO DAILY gabapentin 300 mg capsule 900 mg PO QHS loratadine 10 mg tablet 10 mg PO DAILY PRN (Reason: allergies) acetaminophen 500 mg Tablet 1,000 mg PO DAILY PRN (Reason: Pain) gabapentin 300 mg capsule 600 mg PO DAILY Rx Instructions: am Novolin N NPH U-100 Insulin 100 unit/mL suspension 25 unit SUBCUT DAILY Patient Comments: INJECT 23 UNITS SUBCUTANEOUSLY ONCE DAILY AT BEDTIME potassium chloride 10 mEq tablet,ER particles/crystals 20 meq PO BID Rx Instructions: am metolazone 2.5 mg tablet 2.5 mg PO DAILY Patient Comments: TAKE 1 TABLET BY MOUTH ONCE DAILY pioglitazone 30 mg tablet 30 mg PO DAILY Primary Care Provider: Percy Harrison Referrals: Percy Harrison MD [Primary Care Provider] - Activity Restrictions/Additional Instructions: There is no evidence of pneumonia and COVID/flu/RSV is negative. You likely have another viral illness. You can try nasal saline spray, Mucinex, Tylenol and the inhaler as needed. Print Language: Spanish Disposition Disposition: Home, Self Care Discharge Date/Time: 03/30/24 14:54
[2024-03-30] MEDS: Albuterol Sulfate 8 gm Inhaler (60 puffs) 2 PUFF INHALATION (13:47)
== END 2024-03-30 14:54 | disposition home or self-care (01) ==
PROVIDERS: Emergency Provider Student in an Organized Health Care Education/Training Program; PCP Family Medicine; Visit Provider Student in an Organized Health Care Education/Training Program
DX: J06.9 Acute upper respiratory infection, unspecified (principal); I11.0 Hypertensive heart disease with heart failure; I50.30 Unspecified diastolic (congestive) heart failure; Z79.4 Long term (current) use of insulin; E11.9 Type 2 diabetes mellitus without complications; I25.10 Atherosclerotic heart disease of native coronary artery without angina pectoris; Z87.891 Personal history of nicotine dependence; G47.33 Obstructive sleep apnea (adult) (pediatric); Z99.89 Dependence on other enabling machines and devices; E78.00 Pure hypercholesterolemia, unspecified; Z79.82 Long term (current) use of aspirin; Z79.899 Other long term (current) drug therapy; Z79.84 Long term (current) use of oral hypoglycemic drugs; F41.9 Anxiety disorder, unspecified; F32.A Depression, unspecified; Z79.85 Long-term (current) use of injectable non-insulin antidiabetic drugs; Z98.41 Cataract extraction status, right eye; Z98.42 Cataract extraction status, left eye; Z95.5 Presence of coronary angioplasty implant and graft; Z90.49 Acquired absence of other specified parts of digestive tract; Z90.710 Acquired absence of both cervix and uterus
CPT/HCPCS: 71046; 87631; 99282

== ENCOUNTER → 2024-05-20 | Outpatient (CLI) | payer MEDICARE, OTHER, SELFPAY ==
--- NOTE | 2024-05-20 09:01 | CDU_ITS ---
Reason For Study: S/P Rt CEA Rt. Velocities/BP Lt. Velocities/BP Prox CCA 76.5/12.2 cm/sec. Prox CCA 66.2/14.6 cm/sec. Mid CCA 55.6/8.4 cm/sec. Mid CCA 61.3/14.6 cm/sec. Dist CCA 53.8/11.2 cm/sec. Dist CCA 46.5/12.2 cm/sec. Prox ICA 87.5/21.4 cm/sec. Prox ICA 51.5/15.8 cm/sec. Mid ICA 76.1/23.2 cm/sec. Mid ICA 87.1/23.2 cm/sec. Dist ICA 88.4/20.4 cm/sec. Dist ICA 72.7/21.3 cm/sec. Rt. ICA/CCA = 1.6. Lt. ICA/CCA = 1.4. Prox ECA 71.4/0.0 cm/sec. Prox ECA 57.5/4.6 cm/sec. Rt. Vert. 33.9/7.5 cm/sec. Lt. Vert. 51.5/15.8 cm/sec. Right Extracranial There is homogeneous, smooth atherosclerotic plaque noted in the right common carotid artery. There is heterogeneous, irregular atherosclerotic plaque noted in the right internal carotid artery. HX CEA. There is heterogeneous, irregular atherosclerotic plaque noted in the right external carotid artery. Antegrade flow is noted in the right vertebral artery. Left Extracranial There is homogeneous, smooth atherosclerotic plaque noted in the left common carotid artery. There is heterogeneous, irregular atherosclerotic plaque noted in the left internal carotid artery. There is heterogeneous, irregular atherosclerotic plaque noted in the left external carotid artery. Antegrade flow is noted in the left vertebral artery. Procedure Carotid Duplex 42612. This is a Carotid Duplex examination using B-mode, color flow and specral Doppler. The exam was diagnostic. Exam performed in department. VL/Carotid Duplex Ultrasound Interpretation Summary Mild (<50%) stenosis right extracranial internal carotid. Mild (<50%) stenosis left extracranial internal carotid. Patent and antegrade vertebrals bilaterally. Ordering Physician: Susy Johns Referring Physician: Percy Harrison Performed By: Adam Harvey RVT
== END | disposition home or self-care (01) ==
LOC: CVS 08:59
PROVIDERS: PCP Family Medicine; Referring Provider Physician Assistant; Visit Provider Physician Assistant
DX: I65.23 Occlusion and stenosis of bilateral carotid arteries (principal)
CPT/HCPCS: 93880

== ENCOUNTER → 2024-08-29 | Outpatient (CLI) | payer MEDICARE, OTHER, SELFPAY ==
[2024-08-29 09:39] LABS: Hematocrit 37.1 % (37-47); Hemoglobin 12.4 g/dL (12.0-15.0); Mean Corp Hgb Conc 33.4 g/dL (32-36); Mean Corpuscular Hgb 28.4 pg (27.0-32.0); Mean Corpuscular Volume 84.9 fL (81-99); Mean Platelet Vol. 11.4 fl (6.2-12.0); Platelet Count 166 K/mm3 (150-450); RBC Distribution Width CV 14.4 % (11.6-14.6); RBC Distribution Width SD 44.7 fl (35.1-43.9); Red Blood Count 4.37 M/mm3 (4.2-5.4); White Blood Count 9.1 K/mm3 (4.4-11.0)
[2024-08-29 10:19] LABS: BNP,B-Type NATRIURETIC PEPTIDE 130.9 pg/mL (0-100)
[2024-08-29 10:36] LABS: ALB/GLOB Ratio 1.1 RATIO (0.9-2.4); AST(SGOT) 32 U/L (15-37); Alanine Aminotransfer ALT/SGPT 37 U/L (13-56); Albumin, Serum 3.1 g/dL (3.2-5.0); Alkaline Phosphatase 116 U/L (45-117); Anion Gap 4 (5-15); BUN 22 mg/dL (7-18); BUN/Creat Ratio 27.5 RATIO (10-20); Calcium,Total 9.2 mg/dL (8.5-10.1); Chloride 108 mmol/L (98-107); EST Glomerular Filtration Rate 74 mL/min (>60); Est Glom Filt Rate - Afr Amer 90 mL/min (>60); Globulin 2.9 g/dL (2.2-4.2); Glucose 56 mg/dL (74-106); Potassium 4.1 mmol/L (3.5-5.1); Sodium Level 141 mmol/L (136-145)
== END | disposition home or self-care (01) ==
LOC: LAB 09:11
PROVIDERS: PCP Family Medicine; Referring Provider Nurse Practitioner Family; Visit Provider Nurse Practitioner Family
DX: I50.33 Acute on chronic diastolic (congestive) heart failure (principal); E11.9 Type 2 diabetes mellitus without complications; I25.10 Atherosclerotic heart disease of native coronary artery without angina pectoris; R06.02 Shortness of breath
CPT/HCPCS: 36415; 80053; 83880; 85027